=== PATIENT | male | born 1985 | race Caucasian/White ===

== ENCOUNTER 2018-06-04 22:34 | Observation (INO) | payer MEDICAID, SELFPAY ==
[2018-06-04 22:34] VITALS: BP 121/76; PULSE 130; RESP 20; TEMP 36.1; O2SAT 95; BMI 22.7
--- NOTE | 2018-06-04 22:47 | EKG12_ITS ---
Test Reason : CP Blood Pressure : / mmHG Vent. Rate : 109 BPM Atrial Rate : 109 BPM P-R Int : 134 ms QRS Dur : 084 ms QT Int : 320 ms P-R-T Axes : 070 064 063 degrees QTc Int : 430 ms Sinus tachycardia Otherwise normal ECG Confirmed by LAW GONZALES, JOSEFA ([id number]), video editor JOSE OLGUIN ([id number]) on 06/06/2018 9:33:45 AM Referred By: ROBYN/OK Confirmed By:JOSEFA FOY MD
--- NOTE | 2018-06-04 22:47 | CT_ITS ---
STUDY: CTA CHEST REASON FOR EXAM: Male, 32 years old. Chest pain with shortness of breath RADIATION DOSAGE (If Supplied By Facility): CTDIvol = ( 9.65 ) mGy, DLP = ( 363.99 ) mGycm TECHNIQUE: The examination was performed with the intravenous administration of 75ML ml of Isovue 370 contrast material. Post-processing of the angiographic images was performed, with multiplanar reformation and 3D reconstruction. Individualized dose optimization techniques were used for this CT. COMPARISON: None. FINDINGS: Evaluation for pulmonary embolism is limited by bolus timing. There is no pulmonary embolism within the main pulmonary artery, right and left main pulmonary arteries, lobar pulmonary arteries and proximal segmental pulmonary arteries. Further evaluation is limited. Normal thoracic aorta and visualized great vessels. There is no demonstrated aortic dissection. Normal heart and pericardium. Normal mediastinum. Normal hilar regions. Normal visualized trachea and bronchi. The lungs are well expanded. 3 mm right lower lobe calcified pulmonary nodule likely granuloma. 2 mm left upper lobe calcified pulmonary nodule likely granuloma. 5 mm left lower lobe pulmonary nodule. Areas of atelectasis/scarring. Normal pleura. Normal chest wall structures. There are degenerative changes of thoracic spine. Normal visualized upper abdomen. CT/CTA Chest W/WO Contrast IMPRESSION: Evaluation for pulmonary embolism is limited by bolus timing. There is no pulmonary embolism seen within the main pulmonary artery, right and left main pulmonary artery, lobar pulmonary arteries or proximal segmental pulmonary arteries. Further evaluation is limited. Follow-up imaging as clinically indicated. Evidence of prior granulomatous disease. There is a noncalcified left lower lobe 5 mm pulmonary nodule. This could represent sequela of prior infectious inflammatory process. However no prior studies are available for comparison. Recommend 6-12 month follow-up CT scan to ensure stability. Electronically Signed: Blu Mckeon, at 0:24 EST Tel , Service support ,
[2018-06-04 22:52] VITALS: PULSE 105; RESP 18
[2018-06-04] MEDS: Ipratropium/Albuterol Sulfate 3 ML AMPUL.NEB INHALATION (22:52)
[2018-06-04 23:05] LABS: Absolute Lymphocyte Count 3.03 X10^3/ul (0.83-4.51); Absolute Neutrophil Count 17.6 X10^3/uL (2.0-7.7); Basophil# 0.08 X10^3/uL; Basophil% 0.4 % (0-1); Eosinophil# 0.09 X10^3/uL; Eosinophils% 0.4 % (0-5); Hematocrit 45.2 % (40-54); Hemoglobin 15.3 g/dl (13.0-16.5); Lymphocyte # 3.03 X10^3/ul (4.0); Lymphocyte % 13.3 % (19-41); Mean Corp Hgb Conc 33.8 g/gl (32-36); Mean Corpuscular Hgb 30.7 pg (27.0-32.0); Mean Corpuscular Volume 90.8 fL (80-94); Mean Platelet Vol. 8.9 fl (6.2-12.0); Monocyte# 1.98 X10^3/uL; Monocyte% 8.7 % (0-10); Neutrophil # 17.58 X10^3/uL (2.7-7.7); Neutrophil % 76.8 % (47-70); Platelet Count 339 K/mm3 (150-450); RBC Distribution Width CV 13.7 % (11.6-14.6); RBC Distribution Width SD 45.1 fl (35.1-43.9); Red Blood Count 4.98 M/mm3 (4.6-6.2); White Blood Count 22.8 K/mm3 (4.4-11.0)
[2018-06-04 23:07] LABS: International Normalized Ratio 0.9; Prothrombin Time (Protime)PT. 12.5 SECONDS (11.7-14.9)
[2018-06-04 23:18] LABS: Anion Gap 12 (5-15); BUN 14 mg/dL (7-18); BUN/Creat Ratio 15.6 RATIO (10-20); Calcium,Total 8.9 mg/dL (8.5-10.1); Chloride 102 mmol/L (98-107); EST Glomerular Filtration Rate 104 mL/min (>60); Est Glom Filt Rate - Afr Amer 126 mL/min (>60); Estimated Creatinine Clearance 109.62 ml/min; Glucose 94 mg/dL (74-106); Potassium 4.1 mmol/L (3.5-5.1); Sodium Level 138 mmol/L (136-145)
[2018-06-04 23:21] LABS: Differential Indicated SCAN CRITERIA MET; POSITIVE COUNT NO; POSITIVE DIFFERENTIAL YES; POSITIVE MORPHOLOGY NO
[2018-06-04 23:56] VITALS: PULSE 102; RESP 25; O2SAT 97
[2018-06-04 23:58] LABS: Reactive Lymphocyte 1+
[2018-06-04 23:59] VITALS: BP 113/65
[2018-06-05] VITALS (9 sets, daily range): BP systolic 104–146; BP diastolic 52–94; PULSE 72–101; RESP 15–23; TEMP 36.7–36.8; O2SAT 95–99; BMI 22.0; BMI 22.1
--- NOTE | 2018-06-05 01:03 | PCM.HP.STD ---
Problem List (1) Pulmonary emboli Status: Suspected (2) Dermatitis Status: Chronic History of Present Illness Date of Admission: 06/05/18 Chief Complaint: chest pain The patient is a 32 year old M with a significant history of Homelessness; tobacco abuse; ethanol abuse; and methamphetamine who recently underwent detoxification for ethanol methamphetamine at [facility] [place], [place] now presenting with progressively worsening substernal sharp chest pain that is brought on by taking a deep breath. He rated the intensity of his pain as 5 out of 10. His chest pain does not radiate. Associated with his symptoms is shortness of breath at rest which increases with mild exertion. Denies any associated nausea, vomiting or diaphoresis. Patient spent 7 days at [facility]. He used to snort and smoke methamphetamine. The last time he used methamphetamine was about 11 days ago; and the last time he used ethanol was about 8 days ago. He reports some runny nose. At emergency department patient had tachycardia with highest heart rate of 130. He also had a tachypnea with highest respiratory rate of 25. He had a negative troponin and his EKG did not show any ST or T wave abnormalities. Emergency department doctor was suspicious for a PE for which reason CTPA was done. However there was poor timing of contrast for CTPA. CTPA did not show any embolus in the main pulmonary arteries. However it was not a good steady for smaller and peripheral arteries because of the poor timing of contrast. CTPA also showed some lesions which is probably granuloma. Because of high suspicion of PE patient was given therapeutic dose of Lovenox at emergency department. Patient denies any history of malignancy. He denies any family history of clots; he denies any surgery ever in his life. However whiles at the recovery center above he laid in the bed in all the time. He has some pain in his bilateral legs but he thinks that is from wearing boots. Patient was noted to have elevated white count of 22.8. Past Medical History Past Medical History (Chronic Problems): Chronic Problems (Last Updated 06/05/18 @ 03:29 by Jesus Gallardo MD) Dermatitis (Chronic) Medical History: Medical History (Last Updated 06/05/18 @ 03:29 by Jesus Gallardo MD) Hyperlipidemia E78.5 Allergies No Known Allergies Allergy (Verified 06/04/18 22:43) Home Medications: Ambulatory Orders Medication Instructions Recorded NK 06/04/18 Surgical History: no surgical history Lives: Homeless Smoking Status: Current every day smoker Tobacco Use: Cigarettes - *Family History Maternal History Items: Cancer - Colon cancer, Pulmonary Disease - Emphysema Paternal History Items: Diabetes, Hypertension, Stroke Review of Systems Constitutional: Denies: Chills, Fever, Weight Change HEENT: Reports: Sinus Drainage. Denies: Head Aches, Sinus Congestion Cardiovascular: Reports: Chest Pain. Denies: Palpitations Respiratory: Reports: Cough, Shortness of breath at rest. Denies: Sputum production Gastrointestinal: Denies: Abdominal Pain, Nausea, Vomiting Genitourinary: Denies: Dysuria Musculoskeletal: Denies: Joint Pain, Joint Tenderness Skin: Denies: Rash, Wounds Neurological: Denies: Numbness, Tingling, Focal weakness Psychiatric: Denies: Anxiety, Depression, Homicidal Ideations, Suicidal Ideations Hematologic/ Lymphatic: Denies: Easy Bruising, Easy Bleeding VTE Information - Inpt Only VTE Present on Admission: No - Suspected PE VTE Mechan Device Prophylaxis: None VTE Pharm Prophylaxis ordered?: No Reason prophylaxis not ordered:: Treatment Not Indicated VTE Suspected: Suspected PE - Patient is receiving therapeutic Lovenox for suspected PE. Patient Problems: Active and Suspected Problems (Last Updated 06/05/18 @ 03:29 by Jesus Gallardo MD) Pulmonary emboli (Suspected) - Physical Exam General: Alert, Oriented x3, Cooperative HEENT: Atraumatic, PERRLA, EOMI, Normocephalic Neck: Supple, No JVD, Negative Carotid Bruits Lungs: Clear to auscultation, Normal air movement, Tachypneic, - - Tender substernal area. Cardiovascular: No murmurs, Tachycardic Abdomen: Bowel Sounds Present, Soft, Non Tender Extremities: No edema, Capillary Refill Less than 3 Seconds Skin: No rashes, No breakdown Musculoskeletal: No Tenderness to Palpation of Joints or Extremities Neurological: Neuro grossly intact Psych/Mental Status: Normal Affect, Appropriate Vital Signs Temp Pulse Resp BP Pulse Ox 96.9 F L 101 H 15 144/94 H 95 06/04/18 22:34 06/05/18 00:12 06/05/18 00:12 06/05/18 00:12 06/05/18 00:12 Oxygen Delivery Method Room Air Weight: 65.771 kg Body Mass Index (BMI) 22.7 Laboratory Tests Past 24 Hrs 06/04/18 06/04/18 06/04/18 22:40 22:40 22:40 WBC 22.8 H RBC 4.98 Hgb 15.3 Hct 45.2 MCV 90.8 MCH 30.7 MCHC 33.8 RDW 13.7 RDW Differential 45.1 H Plt Count 339 MPV 8.9 Immature Gran % (Auto) 0.400 Neut % (Auto) 76.8 H Lymph % (Auto) 13.3 L Kaufman % (Auto) 8.7 Eos % (Auto) 0.4 Baso % (Auto) 0.4 Absolute Neuts (auto) 17.6 H Absolute Lymphs (auto) 3.03 Total Counted Not Reportable Differential Comment Diff Path Review May foll Reactive Lymphocytes 1+ PT 12.5 INR 0.9 Sodium 138 Potassium 4.1 Chloride 102 Carbon Dioxide 24.0 Anion Gap 12 BUN 14 Creatinine 0.90 Estim Creat Clear Calc 109.62 Est GFR (MDRD) Af Amer 126 Est GFR (MDRD) Non-Af 104 BUN/Creatinine Ratio 15.6 Glucose 94 Calcium 8.9 Troponin I < 0.015 Assessment/Plan The patient is a 32 year old M with a significant history of Homelessness; tobacco abuse; ethanol abuse; and methamphetamine who recently underwent detoxification for ethanol and methamphetamine at [facility] at [place] now presenting with progressively worsening substernal sharp chest pain that is brought on by taking a deep breath; with tachycardia; tachypnea; leukocytosis but with unremarkable and CTPA which had a poor timing of contrast. Chest pain Different diagnosis include pulmonary embolism; pericarditis; costochondritis or other. His was called for PE is 6.0 (PE is normal diagnosis or equally likely; heart rate more than 100; immobilization at least 3 days); moderate risk group. Patient received therapeutic dose of Lovenox at emergency department. Therapeutic Lovenox dose continued. We will get a VQ scan; Doppler of bilateral legs and echocardiogram. We will be careful about narcotic administration since patient was just discharged from the definite been in alcohol recovery program. Ibuprofen and Tylenol as needed for pain. We will get a comprehensive respiratory pathogen panel. Leukocytosis Patient denies any IV drug use and he has no fever. Likely reactive Comprehensive respiratory pathogen panel as above ordered. Trend BMP. Rhinorrhea Flonase ordered. Chronic dizziness Patient reports chronic dizziness. He describes his dizziness as momentarily losing focus. He reports that he is suppose to go for a tilt test. Continue outpatient follow-up. Tobacco abuse He reports a chronic cough that is worse in the morning with dark brown sputum. Counselled Nicotine patch ordered. Pulmonary nodules. Longitudinal follow-up. DVT Prophylaxis Not indicated patient is being treated with therapeutic dose of Lovenox for suspected pulmonary embolism.. Code Visit OBSV E&M: 69683 Initial observation care L3
--- NOTE | 2018-06-05 01:15 | ED.DCSUM_ITS ---
- ER Visit Summary Date of Service: 06/05/18 Chief Complaint: Chest pain and shortness of breath History of Present Illness: The patient is a 32 M who presents with chest pain and shortness of breath. This began yesterday. He describes it as sharp. It is worse with inspiration. It was 8 out of 10 earlier but has improved vomiting currently only complains of 4 out of 10 pain. He also states he feels lightheaded. He was just discharged today after being admitted for alcohol and methamphetamine detox. He does note some rhinorrhea and cough as well. Cough is nonproductive. No fevers. No nausea vomiting diarrhea. No abdominal pain. Physical Examination: Initial heart rate 130 vitals otherwise normal Moist mucous membranes Heart regular rhythm tachycardia He does have some expiratory wheezing no rales no rhonchi Abdomen soft nontender nondistended Extremities nontender without edema Alert Test Results: EKG shows sinus rhythm at a rate of 109. Labs notable for white blood cell count 22.8. BMP normal. INR normal. Troponin negative. CTA of the chest was inadequate due to poor bolus timing although there is no main lobar or proximal segmental pulmonary embolism. Emergency Department Course and Treatment: My initial concern given the patient's description of symptoms is for pulmonary embolism. His CTA was a poor study due to bolus timing. Therefore we did empirically give a dose of subcutaneous Lovenox here. He does have a significant leukocytosis which can be an acute phase reaction to pathologies. He does not have fever. The only infectious process I would be concerned about his pneumonia which is ruled out on CT. Therefore we did not empirically treat with antibiotics. I do not think that this is sepsis. Patient was discussed with the hospitalist and will be admitted. He should likely to be hydrated and have repeat CTA versus venous duplexes. Treatment Plan: [] Disposition: Admit Impression: Chest pain Leukocytosis This note was generated with [employer] dictation software. It may contain incorrect words, spelling, and punctuation that were not noted in review of the chart prior to signing ED Disposition - Plan for ED Patient: Chief Complaint: Chest Pain Referrals: Saleem Isaacs MD [Primary Care Provider] -
[2018-06-05] MEDS: Enoxaparin 60 MG/0.6 ML Syringe SC (01:49)
--- NOTE | 2018-06-05 02:58 | NM_ITS ---
CLINICAL: Male, 32 years old. Cough. Chest pain on deep inspiratory effort. NUCLEAR VENTILATION/PERFUSION - LUNG TECHNIQUE: The patient was administered 5.8 mCi of Tc MAA followed by a perfusion lung scan. The patient was administered 49.7 mCi of Tc DTPA aerosol followed by a ventilation lung scan. Comparison made to prior chest radiograph dated . COMPARISON STUDIES : Comparison is made with a prior examination done earlier today. FINDINGS: The pulmonary perfusion study demonstrates uniform perfusion throughout both lung thompson. There are no demonstrated segmental or subsegmental perfusion defects The ventilation study demonstrates uniform ventilation throughout both lung thompson. There are no segmental or subsegmental ventilation abnormalities. NM/Lung Scan Vent/Perf IMPRESSION: Normal 99m Tc MAA pulmonary perfusion Tc DTPA aerosol ventilation imaging survey, according to revised PIOPED interpretive criteria. Electronically Signed: Benoit Mera MD at 11:22 EST Tel [phone], Service support ,
[2018-06-05] MEDS: 0.9% NaCl Peripheral Flush Adult/Peds IV (03:32)
[2018-06-05] MEDS: 0.9% Normal Saline 1,000 ML 100 ML IV (03:32)
[2018-06-05 05:39] LABS: Hematocrit 43.5 % (40-54); Hemoglobin 14.4 g/dl (13.0-16.5); Mean Corp Hgb Conc 33.1 g/gl (32-36); Mean Corpuscular Hgb 30.1 pg (27.0-32.0); Mean Corpuscular Volume 90.8 fL (80-94); Mean Platelet Vol. 9.1 fl (6.2-12.0); Platelet Count 320 K/mm3 (150-450); RBC Distribution Width CV 13.6 % (11.6-14.6); RBC Distribution Width SD 44.6 fl (35.1-43.9); Red Blood Count 4.79 M/mm3 (4.6-6.2)
--- NOTE | 2018-06-05 05:55 | VDLE_ITS ---
Reason For Study: PE RIGHT LEFT GSV is normal. GSV is normal. CFV is compressible, spontaneous, phasic, CFV is compressible, spontaneous, phasic, competent and demonstrates normal competent, and demonstrates normal augmentation. augmentation. FV is compressible, spontaneous, phasic, FV is compressible, spontaneous, phasic, competent and demonstrates normal competent and demonstrates normal augmentation. augmentation. POP V is compressible, spontaneous, phasic, POP V is compressible, spontaneous, phasic, competent and demonstrates normal competent and demonstrates normal augmentation. augmentation. T/P Trunk is compressible. T/P Trunk is compressible. PTV is compressible. PTV is compressible. RT PerV is compressible. LT PerV is compressible. Procedure Exam performed portable in patient room. A preliminary report was called and/or faxed to [facility]. Interpretation Summary No evidence for acute deep venous thrombosis bilateral lower extremities with patent and compressible bilateral great saphenous veins. Ordering Physician: Jesus Gallardo Referring Physician: Saleem Isaacs Performed By: Charity Zavala RVT
[2018-06-05 06:25] LABS: Scan Indicated on CBC? Y/N NO
--- NOTE | 2018-06-05 09:09 | RAD_ITS ---
STUDY: X-RAY CHEST REASON FOR EXAM: Male, 32 years old. Dyspnea. Sternal chest pain. TECHNIQUE: PA and lateral views of the chest. COMPARISON: Comparison is made with prior study dated October 21, 2016. FINDINGS: Hyperinflation. Decreased bronchovascular markings suggestive of emphysematous changes. There is no demonstrated pleural abnormality. Normal size heart. Normal mediastinum and kaylah. Normal visualized pulmonary arteries. Normal visualized aortic arch and descending thoracic aorta. Normal visualized thoracic spine. Normal visualized ribs, clavicles, and shoulders. There is no demonstrated abnormality of the visualized soft tissue structures of the upper abdomen. RAD/Chest PA and Lateral IMPRESSION: Hyperinflation. No acute abnormality is seen. Electronically Signed: Benoit Mera MD at 13:20 EST Tel [phone], Service support ,
--- NOTE | 2018-06-05 09:45 | NURSING ---
to VQ scan
[2018-06-05 11:52] LABS: Pathologist Review Reviewed
--- NOTE | 2018-06-05 12:36 | DCINST_ITS ---
You will use the following diet at home:: Regular Your food should be the consistency of: Regular Your liquids should be the consistency of: Regular/Thin Discharge Activity: Return to Normal Activity Call your doctor if you observe: Fever of 101 or Higher, Shortness of breath, Dizziness, Fainting spells, Chest pain, Increased palpitations (irregular heartbeat) Allergies/Adverse Reactions: Allergies No Known Allergies Allergy (Verified 06/04/18 22:43) Medications to take at Discharge Sertraline HCl [Zoloft] 50 mg PO DAILY #30 tablet 06/05/18 The following prescriptions were given: Sertraline HCl [Zoloft] 50 mg PO DAILY #30 tablet Primary Care Physician: Saleem Isaacs MD [Primary Care Provider] - Please follow up with your Primary Care Physician in: 3-5 days Test Results: Test results from this visit will be discussed in further detail at your follow- up appointment, if applicable.
--- NOTE | 2018-06-05 12:36 | PCM.DC.SUM ---
Discharge Date and Diagnosis - Problem List Patient Problems: Active and Suspected Problems (Last Updated 06/05/18 @ 03:29 by Jesus Gallardo MD) Pulmonary emboli (Suspected) Date of Admission: 06/05/18 Date of Discharge: 06/05/18 - Primary Discharge Diagnosis Active and Suspected Problems (Last Updated 06/05/18 @ 03:29 by Jesus Gallardo MD) Pulmonary emboli (Suspected) - Secondary Discharge Diagnosis Chronic Problems (Last Updated 06/05/18 @ 03:29 by Jesus Gallardo MD) Dermatitis (Chronic) Hospital Course and Treatment Imaging Results: CTA Chest: IMPRESSION: Evaluation for pulmonary embolism is limited by bolus timing. There is no pulmonary embolism seen within the main pulmonary artery, right and left main pulmonary artery, lobar pulmonary arteries or proximal segmental pulmonary arteries. Further evaluation is limited. Follow-up imaging as clinically indicated. Evidence of prior granulomatous disease. There is a noncalcified left lower lobe 5 mm pulmonary nodule. This could represent sequela of prior infectious inflammatory process. However no prior studies are available for comparison. Recommend 6-12 month follow-up CT scan to ensure stability. V/Q Scan: IMPRESSION: Normal 99m Tc MAA pulmonary perfusion Tc DTPA aerosol ventilation imaging survey, according to revised PIOPED interpretive criteria. B/L Venous Doppler: Interpretation Summary No evidence for acute deep venous thrombosis bilateral lower extremities with patent and compressible bilateral great saphenous veins. Consults: None Operations: None Procedures: None Summary of Care Provided: Per HPI: The patient is a 32 year old M with a significant history of Homelessness; tobacco abuse; ethanol abuse; and methamphetamine who recently underwent detoxification for ethanol methamphetamine at [facility] at [place], [place] now presenting with progressively worsening substernal sharp chest pain that is brought on by taking a deep breath. He rated the intensity of his pain as 5 out of 10. His chest pain does not radiate. Associated with his symptoms is shortness of breath at rest which increases with mild exertion. Denies any associated nausea, vomiting or diaphoresis. Patient spent 7 days at [facility]. He used to snort and smoke methamphetamine. The last time he used methamphetamine was about 11 days ago; and the last time he used ethanol was about 8 days ago. He reports some runny nose. At emergency department patient had tachycardia with highest heart rate of 130. He also had a tachypnea with highest respiratory rate of 25. He had a negative troponin and his EKG did not show any ST or T wave abnormalities. Emergency department doctor was suspicious for a PE for which reason CTPA was done. However there was poor timing of contrast for CTPA. CTPA did not show any embolus in the main pulmonary arteries. However it was not a good steady for smaller and peripheral arteries because of the poor timing of contrast. CTPA also showed some lesions which is probably granuloma. Because of high suspicion of PE patient was given therapeutic dose of Lovenox at emergency department. Patient denies any history of malignancy. He denies any family history of clots; he denies any surgery ever in his life. However whiles at the recovery center above he laid in the bed in all the time. He has some pain in his bilateral legs but he thinks that is from wearing boots. Patient was noted to have elevated white count of 22.8. Hospital Course: 1. Pleuritic chest pain/anxiety-Mr. Lin is a 32-year-old male with a history of drug use including methamphetamines who was just recently discharged from a detox center, when he presented with tachycardia and tachypnea and pleuritic chest pain in the center of his chest. He had a CTA in the ER which was negative for PE but the study was not great so had a VQ scan which was normal. His troponins remain negative x3 and his EKG was unremarkable. He did not want to wait for the echo to be performed, which can be performed as an outpatient if his primary care physician thinks is necessary. He thinks that he was probably having a panic attack which, he says, he is chronically anxious. I discussed with him that given the lack of findings on any studies performed during his hospitalization, he could go home as long as he followed up with his primary care physician. Of note on the CTA, he was found to have a 5 mm nodule which will need to be followed up in 6-12 months. He was discharged on Zoloft 50 mg and he will need to follow-up for dose titration and refill. 2. Leukocytosis -reviewing his labs looks like he had leukocytosis back in 2013 and 2014 though not as high as what it was this time. Could be a stress reaction though the CTA does demonstrate history of possible granulomatous disease. He will need to have this monitored as an outpatient. Patient Problems: Active and Suspected Problems (Last Updated 06/05/18 @ 03:29 by Jesus Gallardo MD) Pulmonary emboli (Suspected) - Physical Exam General: Alert, Oriented x3, Cooperative, No apparent distress HEENT: Atraumatic, PERRLA, EOMI, Normocephalic Oral: Moist Mucosa Neck: Supple, No JVD Lungs: Clear to auscultation, Normal air movement, No rhonchi, No wheeze, No rales Cardiovascular: Regular rate, Regular Rhythm, Normal S1, Normal S2, No murmurs, No rub noted, No Gallop Abdomen: Soft, Non Tender, Non-Distended, No Hepato-splenomegaly Extremities: No edema, Capillary Refill Less than 3 Seconds Skin: No rashes, No breakdown Neurological: Neuro grossly intact, Sensory exam intact to light touch and pain Psych/Mental Status: Normal Affect, Appropriate Vital Signs Temp Pulse Resp BP Pulse Ox 98.3 F 79 16 104/61 97 06/05/18 08:00 06/05/18 08:00 06/05/18 08:00 06/05/18 08:00 06/05/18 08:00 Oxygen Delivery Method Room Air Weight: 145 lb 1.027 oz Body Mass Index (BMI) 22.0 Intake and Output for Last 24 Hours 06/03/18 06/04/18 06/05/18 23:59 23:59 23:59 Intake Total 1113 / 1113 Balance 1113 / 1113 Microbiology Past 72 Hours 06/05/18 07:00 Respiratory Panel (PCR) - Final Mucosa - Nasopharyngeal Laboratory Tests Past 24 Hrs 06/04/18 06/04/18 06/04/18 22:40 22:40 22:40 WBC 22.8 H RBC 4.98 Hgb 15.3 Hct 45.2 MCV 90.8 MCH 30.7 MCHC 33.8 RDW 13.7 RDW Differential 45.1 H Plt Count 339 MPV 8.9 Immature Gran % (Auto) 0.400 Neut % (Auto) 76.8 H Lymph % (Auto) 13.3 L Rolette % (Auto) 8.7 Eos % (Auto) 0.4 Baso % (Auto) 0.4 Absolute Neuts (auto) 17.6 H Absolute Lymphs (auto) 3.03 Total Counted Not Reportable Differential Comment Diff Path Review Reviewed Reactive Lymphocytes 1+ PT 12.5 INR 0.9 Sodium 138 Potassium 4.1 Chloride 102 Carbon Dioxide 24.0 Anion Gap 12 BUN 14 Creatinine 0.90 Estim Creat Clear Calc 109.62 Est GFR (MDRD) Af Amer 126 Est GFR (MDRD) Non-Af 104 BUN/Creatinine Ratio 15.6 Glucose 94 Calcium 8.9 Troponin I < 0.015 06/05/18 06/05/18 06/05/18 02:20 05:05 05:05 WBC 18.0 H RBC 4.79 Hgb 14.4 Hct 43.5 MCV 90.8 MCH 30.1 MCHC 33.1 RDW 13.6 RDW Differential 44.6 H Plt Count 320 MPV 9.1 Immature Gran % (Auto) Neut % (Auto) Lymph % (Auto) Rolette % (Auto) Eos % (Auto) Baso % (Auto) Absolute Neuts (auto) Absolute Lymphs (auto) Total Counted Differential Comment Diff Path Review Reactive Lymphocytes PT INR Sodium Potassium Chloride Carbon Dioxide Anion Gap BUN Creatinine Estim Creat Clear Calc Est GFR (MDRD) Af Amer Est GFR (MDRD) Non-Af BUN/Creatinine Ratio Glucose Calcium Troponin I < 0.015 < 0.015 Discharge Activity: Return to Normal Activity Call your doctor if you observe: Fever of 101 or Higher, Shortness of breath, Dizziness, Fainting spells, Chest pain, Increased palpitations (irregular heartbeat) Home Medications: Medications to take at Discharge Sertraline HCl [Zoloft] 50 mg PO DAILY #30 tablet 06/05/18 Following Prescrptions Were Given to Patient: Sertraline HCl [Zoloft] 50 mg PO DAILY #30 tablet Primary Care Physician: Saleem Isaacs MD [Primary Care Provider] - Please follow up with your Primary Care Physician in: 3-5 days Disposition: Home Minutes spent on discharge:: 35 Patient Condition:: Good Medical Necessity - Tobacco Use Smoking Status: Current every day smoker Tobacco Use: Cigarettes Meaningful Use Info Meaningful Use Diagnoses (Choose all that apply): None applicable Code Visit OBSV E&M: 90645 Observation care discharge
--- NOTE | 2018-06-05 12:58 | CASEMGMT ---
RN said patient is homeless and was interested in sober living places. SW met with patient and he said he was at [facility], but then he left for detox. You are not allowed to return for awhile after leaving. JOAN asked if he was familiar with the shelters in [place] or [place]. He said he is and does not want information. JOAN asked if he is familiar with [facility]. He said he plans on going there when he leaves hospital. He thanked JOAN for checking in with him. Zina MENDOZA MSW
== END 2018-06-05 12:35 | disposition home or self-care (01) ==
LOC: ED 22:55 → PCU 06-05 02:12
PROVIDERS: Admitting Provider Hospitalist; Emergency Provider Emergency Medicine; Family Provider Family Medicine; PCP Family Medicine; Visit Provider Family Medicine
DX: R07.89 Other chest pain (principal); L30.9 Dermatitis, unspecified; R91.1 Solitary pulmonary nodule; Z23 Encounter for immunization; Z59.0 Homelessness; R06.02 Shortness of breath; F17.210 Nicotine dependence, cigarettes, uncomplicated; D72.829 Elevated white blood cell count, unspecified; R42 Dizziness and giddiness; F41.9 Anxiety disorder, unspecified
CPT/HCPCS: 36415; 71046; 71275; 78582; 80048; 84484; 85025; 85027; 85610; 87633; 93005; 93970; 94640; 96360; 96361; 96372; 99218; 99251; 99285; A9540; A9567; J7030; Q9967; 90686; A4216; G0378; G0463

== ENCOUNTER 2018-06-16 06:24 | Emergency (ER) | payer MEDICAID, SELFPAY ==
[2018-06-05 02:17] VITALS: BMI 22.0
[2018-06-16 06:25] VITALS: BP 128/79; PULSE 77; RESP 16; TEMP 36.7; O2SAT 100; BMI 23.8
--- NOTE | 2018-06-16 06:50 | ED.DCSUM_ITS ---
- ER Visit Summary Date of Service: 06/16/18 Chief Complaint: Shortness of breath History of Present Illness: The patient is a 32 M who was at work this morning and felt about 2 minutes of chest tightness and shortness of breath. 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 He states that he has been under a lot of stress recently and has been diagnosed with anxiety. He relates his symptoms to anxiety. He was thinking about stressful thoughts at the time. He adamantly denies any suicidal thoughts or ideation. Denies any history of depression. Denies recent travel or mobilization. Denies lower extremity pain or swelling. Denies family history of cardiac disease at young age. Denies any associated diaphoresis or exertional component. Physical Examination: Vitals are within normal limits. Pulse ox is 100%. He is not in distress. Neck is supple. Heart tones are regular and without murmur. Lungs are clear bilaterally. Abdomen is soft and nontender. No tenderness along the lower extremity venous system, edema, palpable cords, or other evidence of DVT. He is alert and oriented x3. Thought content is normal. No depressed mood. No suicidal thoughts or ideation. Test Results: Two-view chest x-ray is pending. EKG unremarkable. Emergency Department Course and Treatment: Care will be turned over to the oncoming physician to check the chest x-ray. EKG is unremarkable. It does not sound like cardiac pain versus description. He has no evidence of DVT and no history of PE. The pain is not pleuritic. It seems secondary to anxiety but he adamantly denies any thoughts of self-harm. He does not appear to be at risk for suicide. I did encourage him to establish with a counselor and take the anxiety medication that he was prescribed recently. I feel he can safely be discharged home and chest x-ray is negative. Will return here if worse. Treatment Plan: Home if negative x-ray Disposition: Home stable Impression: Initial encounter chest pain uncertain etiology, anxiety/stress This note was generated with [employer] dictation software. It may contain incorrect words, spelling, and punctuation that were not noted in review of the chart prior to signing ED Disposition - Plan for ED Patient: Chief Complaint: Chest Pain Referrals: Saleem Isaacs MD [Primary Care Provider] -
--- NOTE | 2018-06-16 06:53 | RAD_ITS ---
STUDY: X-RAY CHEST REASON FOR EXAM: Male, 32 years old. Chest pain TECHNIQUE: 2 views COMPARISON: None. FINDINGS: There is COPD demonstrated by flattening of hemidiaphragms and hyperinflation of the lungs. There is no acute pneumonia or failure. The heart is within normal limits in size. Normal visualized thoracic spine. Normal visualized ribs, clavicles, and shoulders. There is no demonstrated abnormality of the visualized soft tissue structures of the upper abdomen. RAD/Chest PA and Lateral IMPRESSION: COPD. No acute findings in the lungs. Electronically Signed: Lupillo Myers MD at 7:28 EST Tel , Service support ,
[2018-06-16 07:50] VITALS: BP 102/77; PULSE 72; RESP 21; O2SAT 97
--- NOTE | 2018-06-16 07:54 | ED.DEP ---
ED Disposition - Plan for ED Patient: Chief Complaint: Chest Pain Instructions: Coping with Shortness of Breath: Controlling Stress Referrals: Saleem Isaacs MD [Primary Care Provider] -
--- NOTE | 2018-06-16 07:57 | EKG12_ITS ---
Test Reason : CP Blood Pressure : / mmHG Vent. Rate : 068 BPM Atrial Rate : 068 BPM P-R Int : 136 ms QRS Dur : 088 ms QT Int : 376 ms P-R-T Axes : 068 069 058 degrees QTc Int : 399 ms Normal sinus rhythm with sinus arrhythmia Normal ECG Confirmed by LAW GONZALES, JOSEFA ([id number]), image editor YOANA STEWART ([id number]) on 06/19/2018 9:41:01 AM Referred By: TRANG Confirmed By:JOSEFA FOY MD
[2018-06-16 08:15] VITALS: BP 121/75; PULSE 88; RESP 17; O2SAT 99
--- OUTSIDE RECORDS SUMMARY | 2018-08-20 14:04 | XMS RPT_ITS ---
:1985 Author Organization OH[facility] Care Team Providers Name Role Phone Nicki SERRANO ([facility]CH[facility]) Attending Unavailable Saleem Isaacs Primary Care Unavailable Jesus Gallardo Admitting Unavailable Parviz Garcia Attending Unavailable Jesus Gallardo Admitting Unavailable Jesus Gallardo Attending Unavailable Saleem Isaacs Primary Care Unavailable Jesus Gallardo Consulting Unavailable Saleem Isaacs Primary Care Unavailable Isreal Bright Attending Unavailable ShitalSaleem romeo Primary Care Unavailable Brian Mccullough Attending Unavailable PROBLEMS PROBLEMS No Problem Records FoundPROCEDURES PROCEDURES No Procedure Records FoundRESULTS RESULTS EMERGENCY DEPARTMENT Observed: 06/24/2018 Status: C Source: [place] SUMMARY 10:20 AM [facility] REPOSITORY [facility] Medical Records Department [address] [place] [address] Emergency Department Summary 06/24/18 0347 MR#: [id number] Acct: [id number] Name: VINCENT JUNE Jr. Rep #: [id number] : 1985 32 From: Brian Mccullough MD PCP: Saleem Isaacs MD Status: REG ER ADDENDUM by Jenni Renteria MD on 06/24/18 at 1020 She was signed out to me pending evaluation by crisis. Digna from the counseling center saw the patient. Patient denies suicidal ideation at this time and never had a plan. He is already set up with 180. He has forward thinking and plans to see his children. He will follow-up with his primary care physician regarding his depression medication and Digna will call him today for a follow-up phone call. Disposition: Discharge Impression: EtOH intoxication Date Jenni Renteria MD cc: Saleem Isaacs MD * Addendum - ER Visit Summary Date of Service: 06/24/18 Chief Complaint: Depression and suicidal thoughts History of Present Illness: The patient is a 32 M who presents with depression and suicidal thoughts. He states he is upset because he does not get to see his children anymore. He does not have any specific plan but states that he just does not want to live. He is intoxicated. Physical Examination: Afebrile vitals normal No distress Heart regular rate and rhythm Lungs are clear Abdomen soft Alert Patient endorses suicidal thoughts without specific plan or homicidal thoughts Test Results: EKG shows normal sinus rhythm at a rate of 86. Labs are notable for white blood cell count 13.6, alcohol of 312. Emergency Department Course and Treatment: Patient is clinically intoxicated. He will need to be reevaluated once sober and can have crisis evaluation once sober which will occur after signed out to the oncoming physician this morning. Treatment Plan: [] Disposition: Pending reevaluation and crisis evaluation Impression: Acute alcohol intoxication Suicidal ideation This note was generated with evly dictation software. It may contain incorrect words, spelling, and punctuation that were not noted in review of the chart prior to signing ED Disposition - Plan for ED Patient: Chief Complaint: Suicidal Referrals: Saleem Isaacs MD [Primary Care Provider] - What to do if you have Problems For any increased pain, shortness of breath, bleeding, nausea or vomiting, chest pain, or any unexpected problems, contact your Primary Care Provider. Call [facility] ([phone]) or report to the closest Emergency Room. Call 911 if necessary. 06/24/18 0349 <Electronically signed by Brian Mccullough MD> Date Brian Mccullough MD Cosigner Signature (If Indicated): Date CC: Saleem Isaacs MD DISCHARGE INSTRUCTION Observed: 06/24/2018 Status: F Source: [place] 10:20 AM [facility] REPOSITORY [facility] Medical Records Department [address] [place] [address] Discharge Instruction 06/24/18 1020 MR#: [id number] Acct: [id number] Name: SHAYLEEVINCENTARTURO Forbes Jr. Rep #: [id number] : 1985 32 From: Jenni Renteria MD PCP: Saleem Isaacs MD Status: REG ER ED Disposition - Plan for ED Patient: Disposition: Home or Assisted Living Chief Complaint: Suicidal Instructions: ED Alcohol Intoxication Referrals: Saleem Isaacs MD [Primary Care Provider] - EIGHTY,ONE [STAFF PHYSICIAN] - What to do if you have Problems For any increased pain, shortness of breath, bleeding, nausea or vomiting, chest pain, or any unexpected problems, contact your Primary Care Provider. Call [facility] ([phone]) or report to the closest Emergency Room. Call 911 if necessary. 06/24/18 1020 <Electronically signed by Jenni Renteria MD> Date Jenni Parkigner Signature (If Indicated): Date CC: Saleem Isaacs MD URINE DRUG SCREEN Collected: 06/23/2018 Status: F Source: [place] ([facility]) 11:20 PM [facility] REPOSITORY TYPE CODE TESTS RESULT OUT OF RANGE REFERENCE UNITS LAB L505.0075 TO BE Normal CONFIRMED Result Comment: CONFIRMATORY TESTING FOR ALL POSITIVE URINE DRUG SCREEN RESULTS WILL ONLY BE SENT OUT UPON PHYSICIAN ORDER. VISTA Urine Drug Screen methods provide only preliminary analytical test results. A more specific alternate chemical method must be used in order to obtain a confirmed analytical result. Gas chromatography/mass spectrometery (GC/MS) is the preferred confirmatory method. Clinical consideration and professional judgement should be applied to any drug of abuse test result, particularly when preliminary positive results are used. URINE TCA TESTING MUST BE ORDERED SEPARATELY. USE TEST MNEMONIC: [facility] LAB L505.5005 VISTA UDS PH 6 Normal LAB L505.5015 <1000 ng/mL AMPHETAMINES Normal NEGATIVE LAB L505.5025 < 200 ng/mL BARBITIURATES Normal NEGATIVE LAB L505.5035 < 200 ng/mL BENZODIAZIPINE Normal NEGATIVE LAB L505.5045 < 300 ng/mL COCAINE Normal NEGATIVE LAB L505.5055 < 500 ng/mL ECSTACY Normal NEGATIVE LAB L505.5065 < 300 ng/mL METHADONE Normal NEGATIVE LAB L505.5075 < 300 ng/mL OPIATES Normal NEGATIVE LAB L505.5085 < 25 ng/mL PCP Normal NEGATIVE LAB L505.5095 < 50 ng/mL THC Normal NEGATIVE Performed By: #### L505.5000 #### [facility] [address] [place], [address] CBC W/DIFF, AUTOMATED Collected: 06/23/2018 Status: F Source: [place] 11:20 PM [facility] REPOSITORY TYPE CODE TESTS RESULT OUT OF RANGE REFERENCE UNITS LAB L100.1000 4.4-11.0 K/mm3 High WBC 13.6 LAB L100.1200 4.6-6.2 M/mm3 Normal RBC 4.93 LAB L100.1300 13.0-16.5 g/dl Normal HGB 14.9 LAB L100.1400 40-54 % Normal HCT 44.4 LAB L100.1500 80-94 fL Normal MCV 90.1 LAB L100.1600 27.0-32.0 pg Normal MCH 30.2 LAB L100.1700 32-36 g/gl Normal MCHC 33.6 LAB L100.1810 11.6-14.6 % Normal RDW CV 13.5 LAB L100.1820 35.1-43.9 fl High RDW SD 44.1 LAB L100.1900 150-450 K/mm3 Normal PLT 321 LAB L100.2000 6.2-12.0 fl Normal MPV 9.1 LAB L100.2100 47-70 % Normal NEUT% 54.3 LAB L100.2200 19-41 % Normal LY% 35.6 LAB L100.2300 0-10 % Normal MONO% 6.1 LAB L100.2400 0-5 % Normal EO% 2.8 LAB L100.2500 0-1 % Normal BASO% 0.9 LAB L100.2550 0.0-0.9 % Normal IM GRAN % 0.300 Result Comment: IG% - Immature Granulocytes (promyelocytes, myelocytes and metamyelocytes) > 1% indicates that a LEFT SHIFT is Present. LAB L100.2620 2.0-7.7 X10 3/uL Normal Absolute Neut 7.4 LAB L100.2720 0.83-4.51 X10 3/ul High Absolute Lymph 4.83 Performed By: #### L100.0100 #### [facility] [address] [place], [address] COMPREHENSIVE METABOLIC Collected: 06/23/2018 Status: F Source: [facility] 11:20 PM [facility] REPOSITORY TYPE CODE TESTS RESULT OUT OF RANGE REFERENCE UNITS LAB L501.0100 74-106 mg/dL Normal GLU 101 Result Comment: Fasting Glucose result from 100 to 125 mg/dL suggests IMPAIRED HOMEOSTASIS per A.D.A. criteria. Please note revised GLUCOSE reference range effective 2017. LAB L501.1000 7-18 mg/dL Normal BUN 9 LAB L501.1100 0.70-1.30 mg/dL Normal CREAT,SERUM 0.87 Result Comment: The validity of the calculated GFR AND GFRAA in patients over 70 years has not been determined. Clinical correlation is essential. LAB L501.1110 >60 mL/min Normal EST GFR 108 Result Comment: Non- GFR Calc LAB L501.1115 >60 mL/min Normal EST GFR - AA 130 Result Comment: GFR Calc LAB L501.1255 ml/min Normal Estimated CRCL 113.79 LAB L501.1300 10-20 RATIO BUN/CRE Normal 10.3 LAB L501.1500 6.4-8. g/dL 2 T PROT Normal 6.9 LAB L501.1800 3.2-5. g/dL 0 ALB Normal 3.6 LAB L501.1950 2.2-4. g/dL 2 GLOB Normal 3.3 LAB L501.2000 0.9-2. RATIO 4 A/G Normal 1.1 LAB L501.2200 8.5-10 mg/dL Low .1 CA 7.8 LAB L501.4100 15-37 U/L AST Normal 24 LAB L501.4305 45-117 U/L ALK P Normal 67 LAB L501.4405 16-61 U/L ALT Normal 29 LAB L501.4600 0.20-1 mg/dL Low .00 T BILI 0.10 LAB L501.5300 136-14 mmol/L 5 NA Normal 142 LAB L501.5600 3.5-5. mmol/L 1 K Normal 3.5 LAB L501.5900 98-107 mmol/L High CL 109 LAB L501.6100 21.0-3 mmol/L 2.0 CO2 Normal 23.0 LAB L501.6200 5-15 GAP Normal 10 Performed By: #### L500.4050 #### [facility] [address] [place], [place], [address] ALCOHOL, BLOOD Collected: 06/23/2018 Status: F Source: [place] ([facility] 11:20 PM [facility] REPOSITORY TYPE CODE TESTS RESULT OUT OF RANGE REFERENCE UNITS LAB L501.9100 mg/dL High alert SERUM 312.0 ETOH Result Comment: Critical Result(s) Called at: 00:39:16 06/24/2018 by: Dewayne Dukes to [email or web address] The serum:whole blood ethanol ratio is approximately 1.14 and varies slightly with hematocrit. Medical Alcohol reference interval and critical value in non-tolerant individuals; 50 - 100 Impairment 100 Intoxication 100 - 250 Severe Poisoning 250 - 400 Deep/possible fatal coma Performed By: #### L501.9100 #### [facility] [address] [place], [place], [address] PROGRESS Observed: 06/20/2018 Status: COMPLETED Source: [place] 1:37 PM [facility] REPOSITORY HNO ID: [id number] Author: Nicki Munguia (EnochC) Zach Service: (none) Author Type: Physician Phlebotomy Lab Assistant Type: Progress Notes Filed: 06/20/2018 3:11 PM Note Text: 32 year old male with hx ADHD c/o panic attacks so bad I can't breathe over last month. Recovering addict with alcohol and meth. Checked into rehab in [facility]. Has smoked marijuana since age 11. Has episodes with lightheadedness after standing up quickly or for long periods. Depression: positive guilt, hopelessness, low mood, suicidal thoughts. No specific plan but has thought he would like to . Was working at [employer]. Got sharp pain in chest, went to [facility] ED: EKG, cardiac enzymes WNL last and previously 2 weeks a prior. Was admitted overnight. Living at [employer]. Smokes 1PPD. Lost job because to difficult to get to work. Has three daughters. Mother of children has from him and is resistant in relationship currently. HISTORIES FAMILY HISTORY Problem Relation Age of Onset - COPD Mother - Stroke Father PAST MEDICAL HISTORY Diagnosis Date - Blind left eye congenital PAST SURGICAL HISTORY Procedure Laterality Date - RMVL SKIN LESION SNGL multiple cysts Social History Marital status: Single Spouse name: Years of education: Number of children: Social History Main Topics Smoking status: Current Every Day Smoker Packs/day: 1.00 Years: 0.00 Types: Cigarettes Smokeless tobacco: Former User Alcohol use: No Drug use: No Sexual activity: Yes Partners with: Female control/protection: Condom ACTIVE PROBLEM LIST Sebaceous Cyst Attention Deficit Hyperactivity Disorder (Adhd), Predominantly Inattentive Type Current Outpatient Prescriptions: tamsulosin ER (FLOMAX) 0.4 mg cp24 Disp: Rfl: doxycycline monohydrate (MONODOX) 100 mg capsule Take 1 capsule by mouth twice daily. Disp: 20 capsule Rfl: 0 albuterol HFA (VENTOLIN HFA) 90 mcg/actuation inhaler Inhale 2 Puffs as instructed every 4 hours as needed for Wheezing/Shortness of Breath. Disp: 1 Inhaler Rfl: 1 No current facility-administered medications for this visit. DTAP,TDAP,TD(1 - Tdap) due on 2004 ONE PNEUMOVAX PRIOR TO AGE 65 due on 2004 INFLUENZA(1) due on 01/28/2018 EXAM: BP 110/68 (BP Site: Left Arm, BP Position: Sitting, BP Cuff Size: Regular Adult) Pulse 64 Temp 36.1 ?C (96.9 ?F) (Tympanic) Resp 16 Wt 66.7 kg (147 lb) BMI 22.68 kg/m? Pleasant anxious young man, lean but WNWG, in no acute distress. Alert and oriented all spheres. Normal affect and cognition. Speech normal. No deficits to learning or comprehension. Easy rapport. Skin warm, dry, pink to lips and nailbeds. Normal turgor. Respirations regular and unlabored. HEENT WNL. TM's clear. Nose and oropharynx free from injection or lesion. No cervical lymph nodes. Thyroid non-tender, no masses Chest CTA. HRRR without murmur or gallop. Extrem: no clubbing, cyanosis, edema. Extremities are warm and pink with prompt capillary refill. ASSESSMENT/PLAN: 1. Panic attacks - ICD9: 300.01, ICD10: F41.0 (primary diagnosis) Start paxil 10mg. SSRI therapy reviewed with administration, expectations, side effects, 6-24 months recommended if beneficial, tapered discontinuation. Discussed counseling as alternative or adjunct. Trazedone 50mg at HS. Verbal promise not to injure himself. Identifies needs to get well for children. F/u 4 weeks., 2. Polysubstance (excluding opioids) dependence (HCC) - ICD9: 304.80, ICD10: F19.20 Following with outpatient meeting 3. Tobacco dependence - ICD9: 305.1, ICD10: F17.200 - Cessation encouraged. - Physiologic and physical aspects of tobacco addiction as well as strategies for quitting were discussed. - Counseling was given focusing on the harmful effects of this addiction especially given the patient's medical condition(s) which will be worsened because of the chemicals in tobacco. 4. Adjustment disorder with depressed mood - ICD9: 309.0, ICD10: F43.21 Consult to Counseling Center. Crisis team number provided if needed. F/u 4 weeks M MADELIN Sanchez Observed: 06/20/2018 Status: COMPLETED Source: [place] 1:20 PM [facility] REPOSITORY Office Visit (FAMPWS) VINCENT JUNE ([id number]) 1985 M [facility] Date Time Provider Department 06/20/18 1:20 PM Nicki SERRANO) KATHLEEN During your visit today, we recorded the following information about you: Temperature Pulse Respiration Blood pressure 96.9 degrees 64/minute 16/minute 110/68 Weight 66.7 kg M Ezra Serrano PA-C 06/20/2018 3:11 PM Signed 32 year old male with hx ADHD c/o panic attacks so bad I can't breathe over last month. Recovering addict with alcohol and meth. Checked into rehab in [facility]. Has smoked marijuana since age 11. Has episodes with lightheadedness after standing up quickly or for long periods. Depression: positive guilt, hopelessness, low mood, suicidal thoughts. No specific plan but has thought he would like to . Was working at [employer]. Got sharp pain in chest, went to [facility] ED: EKG, cardiac enzymes WNL last and previously 2 weeks a prior. Was admitted overnight. Living at [employer]. Smokes 1PPD. Lost job because to difficult to get to work. Has three daughters. Mother of children has from him and is resistant in relationship currently. HISTORIES FAMILY HISTORY Problem Relation Age of Onset - COPD Mother - Stroke Father PAST MEDICAL HISTORY Diagnosis Date - Blind left eye congenital PAST SURGICAL HISTORY Procedure Laterality Date - RMVL SKIN LESION SNGL multiple cysts Social History Marital status: Single Spouse name: Years of education: Number of children: Social History Main Topics Smoking status: Current Every Day Smoker Packs/day: 1.00 Years: 0.00 Types: Cigarettes Smokeless tobacco: Former User Alcohol use: No Drug use: No Sexual activity: Yes Partners with: Female control/protection: Condom ACTIVE PROBLEM LIST Sebaceous Cyst Attention Deficit Hyperactivity Disorder (Adhd), Predominantly Inattentive Type Current Outpatient Prescriptions: tamsulosin ER (FLOMAX) 0.4 mg cp24 Disp: Rfl: doxycycline monohydrate (MONODOX) 100 mg capsule Take 1 capsule by mouth twice daily. Disp: 20 capsule Rfl: 0 albuterol HFA (VENTOLIN HFA) 90 mcg/actuation inhaler Inhale 2 Puffs as instructed every 4 hours as needed for Wheezing/Shortness of Breath. Disp: 1 Inhaler Rfl: 1 No current facility-administered medications for this visit. DTAP,TDAP,TD(1 - Tdap) due on 2004 ONE PNEUMOVAX PRIOR TO AGE 65 due on 2004 INFLUENZA(1) due on 01/28/2018 EXAM: BP 110/68 (BP Site: Left Arm, BP Position: Sitting, BP Cuff Size: Regular Adult) Pulse 64 Temp 36.1 ?C (96.9 ?F) (Tympanic) Resp 16 Wt 66.7 kg (147 lb) BMI 22.68 kg/m? Pleasant anxious young man, lean but WNWG, in no acute distress. Alert and oriented all spheres. Normal affect and cognition. Speech normal. No deficits to learning or comprehension. Easy rapport. Skin warm, dry, pink to lips and nailbeds. Normal turgor. Respirations regular and unlabored. HEENT WNL. TM's clear. Nose and oropharynx free from injection or lesion. No cervical lymph nodes. Thyroid non-tender, no masses Chest CTA. HRRR without murmur or gallop. Extrem: no clubbing, cyanosis, edema. Extremities are warm and pink with prompt capillary refill. ASSESSMENT/PLAN: 1. Panic attacks - ICD9: 300.01, ICD10: F41.0 (primary diagnosis) Start paxil 10mg. SSRI therapy reviewed with administration, expectations, side effects, 6-24 months recommended if beneficial, tapered discontinuation. Discussed counseling as alternative or adjunct. Trazedone 50mg at HS. Verbal promise not to injure himself. Identifies needs to get well for children. F/u 4 weeks., 2. Polysubstance (excluding opioids) dependence (HCC) - ICD9: 304.80, ICD10: F19.20 Following with outpatient meeting 3. Tobacco dependence - ICD9: 305.1, ICD10: F17.200 - Cessation encouraged. - Physiologic and physical aspects of tobacco addiction as well as strategies for quitting were discussed. - Counseling was given focusing on the harmful effects of this addiction especially given the patient's medical condition(s) which will be worsened because of the chemicals in tobacco. 4. Adjustment disorder with depressed mood - ICD9: 309.0, ICD10: F43.21 Consult to Counseling Center. Crisis team number provided if needed. F/u 4 weeks MADELIN Ivy PA-C 06/20/2018 1:49 PM Signed Paroxetine (Paxil) Your physician has prescribed paroxetine to help prevent your headaches. It is classified as a antidepressant in the serotonin Reuptake Inhibitor classification. It has been shown to be effective in preventing both migraine and tension type headaches. It works by increasing the levels of the neurotransmitter, serotonin within the brain. This drug may have beneficial effects on mood, appetite and memory, in addition to controlling your headaches. Side Effects: Include nausea during the first week of therapy. After the first week, most patients not a decreased appetite, and a five to ten pound weight change is common. Some people not an increased energy level. If this is too great people sometimes complain of anxiety or insomnia. Sexual dysfunction; sedation; fatigue. Notify your physician if you develop a rash. Also, notify your physician before starting treatments if you have taken a MAO inhibitor, i.e. Nardil, within the last 14 days. NOTE: Do not use during , unless directed by your physician. Paroxetine is excreted in breast milk. DOSAGE: To be determined by your physician. Take 10 mg once daily. ADDITIONAL INSTRUCTIONS: This drug usually takes one to two weeks to become effective. Therefore, you should take this at least two months to determine its effectiveness. Trazadone (Deseryl) Your physician has prescribed trazadone to help prevent your headaches. It is classified as a antidepressant. It has been shown to be effective in preventing both migraine and tension type headaches. It works by increasing the levels of the neurotransmitter, serotonin within the brain. This drug may have beneficial effects on mood, appetite and memory, in addition to controlling your headaches. Side Effects: Common: Nausea (Take with food to prevent); diarrhea; drowsiness (take at bedtime to prevent daytime drowsiness); excitement or anxiety; insomnia; nightmares; dry mouth (chewing sugarless gum or candy will help prevent); increased sensitivity to sunlight; changes in appetite or weight; constipation; sexual dysfunction. Notify your physician if you develop a rash; or if you are a male and develop a prolonged or inappropriate erection. Also, notify your physician before starting treatments if you have taken a MAO inhibitor, i.e. Nardil, within the last 14 days. NOTE: Do not use during , unless directed by your physician. Trazadone is excreted in breast milk. DOSAGE: To be determined by your physician. Take 50 mg at bedtime. ADDITIONAL INSTRUCTIONS: This drug usually takes two to four weeks to become effective. Therefore, you should take this at least two months to determine its effectiveness. Referring Provider: SELF [[id number]] Allergies As of Date: 06/20/2018 (No Known Allergies) Date Reviewed: 06/20/2018 Reviewed by: Aida Graff LPN - Fully Assessed Reason for Visit: Anxiety [9] Cmt: AND depression X 1 year, noticing it more the last few months Primary Visit Diagnosis:Panic attacks [F41.0] Other Visit Diagnoses:Polysubstance (excluding opioids) dependence (HCC) [F19.20] Tobacco dependence [F17.200] Adjustment disorder with depressed mood [F43.21] Order(s):traZODone (DESYREL) 50 mg tabletTake 1 tablet by mouth daily at bedtime.Disp: 30 tabletRfl: 2 PARoxetine (PAXIL) 10 mg tabletTake 1 tablet by mouth once daily.Disp: 30 tabletRfl: 2 Prescriptions as of 06/20/2018 Sig: TRAZODONE 50 MG TABLET Take 1 tablet by mouth daily * PAROXETINE 10 MG TABLET Take 1 tablet by mouth once d* TAMSULOSIN 0.4 MG CAPSULE DOXYCYCLINE MONOHYDRATE 100 M* Take 1 capsule by mouth twice* ALBUTEROL SULFATE HFA 90 MCG/* Inhale 2 Puffs as instructed * Problem List As Of Date 06/20/2018 Noted Resolved Sebaceous cyst [L72.3] INVALID FOR* Attention deficit hyperactivity disorder (ADHD)*INVALID FOR* Other instructions from your clinician: Paroxetine (Paxil) Your physician has prescribed paroxetine to help prevent your headaches. It is classified as a antidepressant in the serotonin Reuptake Inhibitor classification. It has been shown to be effective in preventing both migraine and tension type headaches. It works by increasing the levels of the neurotransmitter, serotonin within the brain. This drug may have beneficial effects on mood, appetite and memory, in addition to controlling your headaches. Side Effects: Include nausea during the first week of therapy. After the first week, most patients not a decreased appetite, and a five to ten pound weight change is common. Some people not an increased energy level. If this is too great people sometimes complain of anxiety or insomnia. Sexual dysfunction; sedation; fatigue. Notify your physician if you develop a rash. Also, notify your physician before starting treatments if you have taken a MAO inhibitor, i.e. Nardil, within the last 14 days. NOTE: Do not use during , unless directed by your physician. Paroxetine is excreted in breast milk. DOSAGE: To be determined by your physician. Take 10 mg once daily. ADDITIONAL INSTRUCTIONS: This drug usually takes one to two weeks to become effective. Therefore, you should take this at least two months to determine its effectiveness. Trazadone (Deseryl) Your physician has prescribed trazadone to help prevent your headaches. It is classified as a antidepressant. It has been shown to be effective in preventing both migraine and tension type headaches. It works by increasing the levels of the neurotransmitter, serotonin within the brain. This drug may have beneficial effects on mood, appetite and memory, in addition to controlling your headaches. Side Effects: Common: Nausea (Take with food to prevent); diarrhea; drowsiness (take at bedtime to prevent daytime drowsiness); excitement or anxiety; insomnia; nightmares; dry mouth (chewing sugarless gum or candy will help prevent); increased sensitivity to sunlight; changes in appetite or weight; constipation; sexual dysfunction. Notify your physician if you develop a rash; or if you are a male and develop a prolonged or inappropriate erection. Also, notify your physician before starting treatments if you have taken a MAO inhibitor, i.e. Nardil, within the last 14 days. NOTE: Do not use during , unless directed by your physician. Trazadone is excreted in breast milk. DOSAGE: To be determined by your physician. Take 50 mg at bedtime. ADDITIONAL INSTRUCTIONS: This drug usually takes two to four weeks to become effective. Therefore, you should take this at least two months to determine its effectiveness. Prescriptions ordered this encounter Disp Refills Start End TRAZODONE 50 MG TABLET 30 t* 2 06/20/2018 Route: ORAL Sig: Take 1 tablet by mouth daily at bedtime. PAROXETINE 10 MG TABLET 30 t* 2 06/20/2018 Route: ORAL Sig: Take 1 tablet by mouth once daily. Disposition: Return in about 4 weeks (around 07/18/2018). Follow-up and Disposition History Recorded Encounter Status:Closed by Nicki SERRANO PA-C on 06/20/18 12 LEAD ELECTROCARDIOGRAM Observed: 06/19/2018 Status: F Source: [place] 9:41 AM [facility] Cardiovascular Services [address] [place] [address] 12 Lead EKG 06/16/18 0627 MR#: [id number] Acct: [id number] Name: VINCENT JUNE Leidy Rep #: [id number] : 1985 32 From: Niels Avila MD Attending Dr: Status: DEP ER Ordering Dr: Jesus Bright MD Date: 06/16/18 Location: ED Sex: M C Admitted: Test Reason : CP Blood Pressure : / mmHG Vent. Rate : 068 BPM Atrial Rate : 068 BPM P-R Int : 136 ms QRS Dur : 088 ms QT Int : 376 ms P-R-T Axes : 068 069 058 degrees QTc Int : 399 ms Normal sinus rhythm with sinus arrhythmia Normal ECG Confirmed by LAW GONZALES, NIELS ([id number]), book or script editor YOANA STEWART ([id number]) on 06/19/2018 9:41:01 AM Referred By: TRANG Confirmed By:NIELS AVILA MD 06/19/18 0941 Date Niels Avila MD CC: Isreal Bright MD; Saleem Isaacs MD Signed DISCHARGE INSTRUCTION Observed: 06/16/2018 Status: F Source: [place] 3:45 PM [facility] Medical Records Department [address] [place] [address] Discharge Instruction 06/16/18 0754 MR#: [id number] Acct: [id number] Name: HERNANDO JUNEARTURO Forbes Rep #: [id number] : 1985 32 From: Cliff Taylor MD PCP: Saleem Isaacs MD Status: DEP ER ED Disposition - Plan for ED Patient: Chief Complaint: Chest Pain Instructions: Coping with Shortness of Breath: Controlling Stress Referrals: Saleem Isaacs MD [Primary Care Provider] - What to do if you have Problems For any increased pain, shortness of breath, bleeding, nausea or vomiting, chest pain, or any unexpected problems, contact your Primary Care Provider. Call [facility] ([phone]) or report to the closest Emergency Room. Call 911 if necessary. 06/16/18 1545 <Electronically signed by Cliff Taylor MD> Date Cliff Taylor MD Cosigner Signature (If Indicated): Date CC: Saleem Isaacs MD EMERGENCY DEPARTMENT Observed: 06/16/2018 Status: C Source: [place] SUMMARY 7:54 AM [facility] REPOSITORY [facility] Medical Records Department [address] [place] [address] Emergency Department Summary 06/16/18 0646 MR#: [id number] Acct: [id number] Name: VINCENT JUNE Rep #: [id number] : 1985 32 From: Jesus Bright MD PCP: Saleem Isaacs MD Status: REG ER ADDENDUM by Cliff Taylor MD on 06/16/18 at 0754 X-ray was negative and patient will be discharged as instructed. Date Cliff Taylor MD cc: Saleem Isaacs MD * Addendum - ER Visit Summary Date of Service: 06/16/18 Chief Complaint: Shortness of breath History of Present Illness: The patient is a 32 M who was at work this morning and felt about 2 minutes of chest tightness and shortness of breath. He reported it to a coworker who then informed his contact and service clerks supervisor, who then called 911. He states that he has been under a lot of stress recently and has been diagnosed with anxiety. He relates his symptoms to anxiety. He was thinking about stressful thoughts at the time. He adamantly denies any suicidal thoughts or ideation. Denies any history of depression. Denies recent travel or mobilization. Denies lower extremity pain or swelling. Denies family history of cardiac disease at young age. Denies any associated diaphoresis or exertional component. Physical Examination: Vitals are within normal limits. Pulse ox is 100%. He is not in distress. Neck is supple. Heart tones are regular and without murmur. Lungs are clear bilaterally. Abdomen is soft and nontender. No tenderness along the lower extremity venous system, edema, palpable cords, or other evidence of DVT. He is alert and oriented x3. Thought content is normal. No depressed mood. No suicidal thoughts or ideation. Test Results: Two-view chest x-ray is pending. EKG unremarkable. Emergency Department Course and Treatment: Care will be turned over to the oncoming physician to check the chest x-ray. EKG is unremarkable. It does not sound like cardiac pain versus description. He has no evidence of DVT and no history of PE. The pain is not pleuritic. It seems secondary to anxiety but he adamantly denies any thoughts of self-harm. He does not appear to be at risk for suicide. I did encourage him to establish with a counselor and take the anxiety medication that he was prescribed recently. I feel he can safely be discharged home and chest x-ray is negative. Will return here if worse. Treatment Plan: Home if negative x-ray Disposition: Home stable Impression: Initial encounter chest pain uncertain etiology, anxiety/stress This note was generated with evly dictation software. It may contain incorrect words, spelling, and punctuation that were not noted in review of the chart prior to signing ED Disposition - Plan for ED Patient: Chief Complaint: Chest Pain Referrals: Saleem Isaacs MD [Primary Care Provider] - What to do if you have Problems For any increased pain, shortness of breath, bleeding, nausea or vomiting, chest pain, or any unexpected problems, contact your Primary Care Provider. Call [facility] ([phone]) or report to the closest Emergency Room. Call 911 if necessary. 06/16/18 0650 <Electronically signed by Jesus Bright MD> Date Jesus Bright MD Cosigner Signature (If Indicated): Date CC: Saleem Isaacs MD CHEST PA AND LATERAL Observed: 06/16/2018 Status: F Source: [place] 6:53 AM [facility] REPOSITORY [facility] Imaging Services [address] [place] [address] Chest PA and Lateral MR#: [id number] Acct: [id number] Name: VINCENT JUNE Rep #: [id number] : 1985 M 32 From: Lupillo Myers MD PCP: Saleem Isaacs MD Status: REG ER Study: Chest PA and Lateral Date of Exam: 06/16/18 Exam# [id number] Ordering Dr: Jesus Bright MD STUDY: X-RAY CHEST REASON FOR EXAM: Male, 32 years old. Chest pain TECHNIQUE: 2 views COMPARISON: None. FINDINGS: There is COPD demonstrated by flattening of hemidiaphragms and hyperinflation of the lungs. There is no acute pneumonia or failure. The heart is within normal limits in size. Normal visualized thoracic spine. Normal visualized ribs, clavicles, and shoulders. There is no demonstrated abnormality of the visualized soft tissue structures of the upper abdomen. RAD/Chest PA and Lateral IMPRESSION: COPD. No acute findings in the lungs. Electronically Signed: Lupillo Myers MD at 7:28 EST Tel , Service support , CC: Isreal Bright MD; Saleem Isaacs MD Insurance Appraiser: Signed 12 LEAD ELECTROCARDIOGRAM Observed: 06/06/2018 Status: F Source: [place] 9:34 AM [facility] REPOSITORY [facility] Cardiovascular Services [address] [place] [address] 12 Lead EKG 06/04/18 2238 MR#: [id number] Acct: [id number] Name: VINCENT JUNE Rep #: [id number] : 1985 32 From: Niels Avila MD Attending Dr: Parviz Garcia MD Status: DIS VIJAYA Ordering Dr: Brian Mccullough MD Date: 06/04/18 Location: [facility] Sex: M C Admitted: 06/05/18 Test Reason : CP Blood Pressure : / mmHG Vent. Rate : 109 BPM Atrial Rate : 109 BPM P-R Int : 134 ms QRS Dur : 084 ms QT Int : 320 ms P-R-T Axes : 070 064 063 degrees QTc Int : 430 ms Sinus tachycardia Otherwise normal ECG Confirmed by LAW GONZALES, NIELS ([id number]), book or script editor JOSE OLGUIN ([id number]) on 06/06/2018 9:33:45 AM Referred By: ROBYN/OK Confirmed By:NIELS AVILA MD 06/06/18 0933 Date Niels Avila MD CC: Brian Mccullough MD; Parviz Garcia MD; Saleem Isaacs MD Signed DISCHARGE SUMMARY Observed: 06/05/2018 Status: F Source: [place] 12:44 PM [facility] Medical Records Department [address] [place] [address] Discharge Summary 06/05/18 1236 MR#: [id number] Acct: [id number] Name: VINCENT JUNE Leidy Rep #: [id number] : 1985 32 From: Parviz Garcia MD PCP: Saleem Isaacs MD Status: ADM VIJAYA Y Location: [place] [address] Discharge Date and Diagnosis - Problem List Patient Problems: Active and Suspected Problems (Last Updated 06/05/18 @ 03:29 by Jesus Gallardo MD) Pulmonary emboli (Suspected) Date of Admission: 06/05/18 Date of Discharge: 06/05/18 - Primary Discharge Diagnosis Active and Suspected Problems (Last Updated 06/05/18 @ 03:29 by Jesus Gallardo MD) Pulmonary emboli (Suspected) - Secondary Discharge Diagnosis Chronic Problems (Last Updated 06/05/18 @ 03:29 by Jesus Gallardo MD) Dermatitis (Chronic) Hospital Course and Treatment Imaging Results: CTA Chest: IMPRESSION: Evaluation for pulmonary embolism is limited by bolus timing. There is no pulmonary embolism seen within the main pulmonary artery, right and left main pulmonary artery, lobar pulmonary arteries or proximal segmental pulmonary arteries. Further evaluation is limited. Follow- up imaging as clinically indicated. Evidence of prior granulomatous disease. There is a noncalcified left lower lobe 5 mm pulmonary nodule. This could represent sequela of prior infectious inflammatory process. However no prior studies are available for comparison. Recommend 6-12 month follow-up CT scan to ensure stability. V/Q Scan: IMPRESSION: Normal 99m Tc MAA pulmonary perfusion Tc DTPA aerosol ventilation imaging survey, according to revised PIOPED interpretive criteria. B/L Venous Doppler: Interpretation Summary No evidence for acute deep venous thrombosis bilateral lower extremities with patent and compressible bilateral great saphenous veins. Consults: None Operations: None Procedures: None Summary of Care Provided: Per HPI: The patient is a 32 year old M with a significant history of Homelessness; tobacco abuse; ethanol abuse; and methamphetamine who recently underwent detoxification for ethanol methamphetamine at [facility] [place], [place] now presenting with progressively worsening substernal sharp chest pain that is brought on by taking a deep breath. He rated the intensity of his pain as 5 out of 10. His chest pain does not radiate. Associated with his symptoms is shortness of breath at rest which increases with mild exertion. Denies any associated nausea, vomiting or diaphoresis. Patient spent 7 days at [facility]. He used to snort and smoke methamphetamine. The last time he used methamphetamine was about 11 days ago; and the last time he used ethanol was about 8 days ago. He reports some runny nose. At emergency department patient had tachycardia with highest heart rate of 130. He also had a tachypnea with highest respiratory rate of 25. He had a negative troponin and his EKG did not show any ST or T wave abnormalities. Emergency department doctor was suspicious for a PE for which reason CTPA was done. However there was poor timing of contrast for CTPA. CTPA did not show any embolus in the main pulmonary arteries. However it was not a good steady for smaller and peripheral arteries because of the poor timing of contrast. CTPA also showed some lesions which is probably granuloma. Because of high suspicion of PE patient was given therapeutic dose of Lovenox at emergency department. Patient denies any history of malignancy. He denies any family history of clots; he denies any surgery ever in his life. However whiles at the recovery center above he laid in the bed in all the time. He has some pain in his bilateral legs but he thinks that is from wearing boots. Patient was noted to have elevated white count of 22.8. Hospital Course: 1. Pleuritic chest pain/anxiety-Mr. June is a 32-year-old male with a history of drug use including methamphetamines who was just recently discharged from a detox center, when he presented with tachycardia and tachypnea and pleuritic chest pain in the center of his chest. He had a CTA in the ER which was negative for PE but the study was not great so had a VQ scan which was normal. His troponins remain negative x3 and his EKG was unremarkable. He did not want to wait for the echo to be performed, which can be performed as an outpatient if his primary care physician thinks is necessary. He thinks that he was probably having a panic attack which, he says, he is chronically anxious. I discussed with him that given the lack of findings on any studies performed during his hospitalization, he could go home as long as he followed up with his primary care physician. Of note on the CTA, he was found to have a 5 mm nodule which will need to be followed up in 6-12 months. He was discharged on Zoloft 50 mg and he will need to follow-up for dose titration and refill. 2. Leukocytosis -reviewing his labs looks like he had leukocytosis back in 2013 and 2014 though not as high as what it was this time. Could be a stress reaction though the CTA does demonstrate history of possible granulomatous disease. He will need to have this monitored as an outpatient. Patient Problems: Active and Suspected Problems (Last Updated 06/05/18 @ 03:29 by Jesus Gallardo MD) Pulmonary emboli (Suspected) - Physical Exam General: Alert, Oriented x3, Cooperative, No apparent distress HEENT: Atraumatic, PERRLA, EOMI, Normocephalic Oral: Moist Mucosa Neck: Supple, No JVD Lungs: Clear to auscultation, Normal air movement, No rhonchi, No wheeze, No rales Cardiovascular: Regular rate, Regular Rhythm, Normal S1, Normal S2, No murmurs, No rub noted, No Gallop Abdomen: Soft, Non Tender, Non-Distended, No Hepato-splenomegaly Extremities: No edema, Capillary Refill Less than 3 Seconds Skin: No rashes, No breakdown Neurological: Neuro grossly intact, Sensory exam intact to light touch and pain Psych/Mental Status: Normal Affect, Appropriate Vital Signs Temp Pulse Resp BP Pulse Ox 98.3 F 79 16 104/61 97 06/05/18 08:00 06/05/18 08:00 06/05/18 08:00 06/05/18 08:00 06/05/18 08:00 Oxygen Delivery Method Room Air Weight: 145 lb 1.027 oz Body Mass Index (BMI) 22.0 Intake and Output for Last 24 Hours Intake Total 1113 / 1113 Balance 1113 / 1113 Microbiology Past 72 Hours 06/05/18 07:00 Respiratory Panel (PCR) - Final Mucosa - Nasopharyngeal Laboratory Tests Past 24 Hrs WBC 22.8 H RBC 4.98 Hgb 15.3 Hct 45.2 MCV 90.8 WBC 18.0 H RBC 4.79 Hgb 14.4 Hct 43.5 MCV 90.8 MCH 30.1 MCHC 33.1 RDW 13.6 RDW Differential 44.6 H Discharge Activity: Return to Normal Activity Call your doctor if you observe: Fever of 101 or Higher, Shortness of breath, Dizziness, Fainting spells, Chest pain, Increased palpitations (irregular heartbeat) Home Medications: Medications to take at Discharge Sertraline HCl [Zoloft] 50 mg PO DAILY #30 tablet 06/05/18 Following Prescrptions Were Given to Patient: Sertraline HCl [Zoloft] 50 mg PO DAILY #30 tablet Primary Care Physician: Saleem Isaacs MD [Primary Care Provider] - Please follow up with your Primary Care Physician in: 3-5 days Disposition: Home Minutes spent on discharge:: 35 Patient Condition:: Good Medical Necessity - Tobacco Use Smoking Status: Current every day smoker Tobacco Use: Cigarettes Meaningful Use Info Meaningful Use Diagnoses (Choose all that apply): None applicable Code Visit OBSV E AND M: 71391 Observation care discharge 06/05/18 1244 <Electronically signed by Parviz Garcia MD> Date Parviz Garcia MD Cosigner Signature (if applicable): Date CC: Parviz Garcia MD; Saleem Isaacs MD Signed DISCHARGE INSTRUCTION Observed: 06/05/2018 Status: F Source: [place] 12:36 PM [facility] REPOSITORY [facility] Medical Records Department [address] [place] [address] Instructions for Home/Discharge Instructions 06/05/18 1235 MR#: [id number] Acct: [id number] Name: VINCENT JUNE Leidy Rep #: [id number] : 1985 32 From: Parviz Garcia MD PCP: Saleem Isaacs MD Status: ADM VIJAYA You will use the following diet at home:: Regular Your food should be the consistency of: Regular Your liquids should be the consistency of: Regular/Thin Discharge Activity: Return to Normal Activity Call your doctor if you observe: Fever of 101 or Higher, Shortness of breath, Dizziness, Fainting spells, Chest pain, Increased palpitations (irregular heartbeat) Allergies/Adverse Reactions: Allergies No Known Allergies Allergy (Verified 06/04/18 22:43) Medications to take at Discharge Sertraline HCl [Zoloft] 50 mg PO DAILY #30 tablet 06/05/18 The following prescriptions were given: Sertraline HCl [Zoloft] 50 mg PO DAILY #30 tablet Primary Care Physician: Saleem Isaacs MD [Primary Care Provider] - Please follow up with your Primary Care Physician in: 3-5 days Test Results: Test results from this visit will be discussed in further detail at your follow-up appointment, if applicable. 06/05/18 1236 <Electronically signed by Parviz Garcia MD> Date Parviz Garcia MD CC: Saleem Isaacs MD Signed VENOUS DUPLEX LOWER Observed: 06/05/2018 Status: F Source: [place] EXTREMITY 11:54 AM [facility] REPOSITORY [facility] Cardiovascular Services [address] [place] [address] Venous Duplex - Ayush Extrem 06/05/18 0817 MR#: [id number] Acct: [id number] Name: VINCENT JUNE Rep #: [id number] : 1985 32 From: Herminio Wolf MD Attending Dr: Parviz Garcia MD Status: ADM VIJAYA Ordering Dr: Jesus Gallardo MD Date: 06/05/18 Location: [facility] Sex: M C Admitted: 06/05/18 Reason For Study: PE RIGHT LEFT GSV is normal. GSV is normal. CFV is compressible, spontaneous, phasic, CFV is compressible, spontaneous, phasic, competent and demonstrates normal competent, and demonstrates normal augmentation. augmentation. FV is compressible, spontaneous, phasic, FV is compressible, spontaneous, phasic, competent and demonstrates normal competent and demonstrates normal augmentation. augmentation. POP V is compressible, spontaneous, phasic, POP V is compressible, spontaneous, phasic, competent and demonstrates normal competent and demonstrates normal augmentation. augmentation. T/P Trunk is compressible. T/P Trunk is compressible. PTV is compressible. PTV is compressible. RT PerV is compressible. LT PerV is compressible. Procedure Exam performed portable in patient room. A preliminary report was called and/or faxed to PCU. Interpretation Summary No evidence for acute deep venous thrombosis bilateral lower extremities with patent and compressible bilateral great saphenous veins. Ordering Physician: Jesus Gallardo Referring Physician: Saleem Isaacs Performed By: Charity Zavala RVT 06/05/18 1153 Date Herminio Wolf MD CC: Jesus Gallardo MD; Parviz Garcia MD; Saleem Isaacs MD Date Dictated: 06/05/18816 Date Transcribed: 06/05/18 115 Insurance Appraiser: Signed CHEST PA AND LATERAL Observed: 06/05/2018 Status: F Source: [place] 9:10 AM [facility] REPOSITORY [facility] Imaging Services [address] [place] [address] Chest PA and Lateral MR#: [id number] Acct: [id number] Name: VINCENT JUNE Leidy Rep #: [id number] : 1985 M 32 From: Benoit Mera MD PCP: Saleem Isaacs MD Status: ADM VIJAYA Study: Chest PA and Lateral Date of Exam: 06/05/18 Exam# [id number] Ordering Dr: Parviz Garcia MD STUDY: X-RAY CHEST REASON FOR EXAM: Male, 32 years old. Dyspnea. Sternal chest pain. TECHNIQUE: PA and lateral views of the chest. COMPARISON: Comparison is made with prior study dated October 21, 2016. FINDINGS: Hyperinflation. Decreased bronchovascular markings suggestive of emphysematous changes. There is no demonstrated pleural abnormality. Normal size heart. Normal mediastinum and kaylah. Normal visualized pulmonary arteries. Normal visualized aortic arch and descending thoracic aorta. Normal visualized thoracic spine. Normal visualized ribs, clavicles, and shoulders. There is no demonstrated abnormality of the visualized soft tissue structures of the upper abdomen. RAD/Chest PA and Lateral IMPRESSION: Hyperinflation. No acute abnormality is seen. Electronically Signed: Benoit Mera MD at 13:20 EST Tel [phone], Service support , CC: Parviz Garcia MD; Saleem Isaacs MD Insurance Appraiser: Signed Observed: 06/05/2018 Status: F Source: [place] RESPIRATORY PANEL 7:00 AM [facility] MOLECULAR REPOSITORY RP PANEL ADENOVIRUS Not Detected HUMAN METAPHNEUMO Not Detected INFLUENZA A Not Detected INFLUENZA A (SUBTYPE H1) Not Detected INFLUENZA A (SUBTYPE H3) Not Detected INFLUENZA B Not Detected PARAINFLUENZA 1 Not Detected PARAINFLUENZA 2 Not Detected PARAINFLUENZA 3 Not Detected PARAINFLUENZA 4 Not Detected RHINOVIRUS Not Detected RSV A Not Detected RSV B Not Detected NAAT METHOD Testing was performed using nucleic acid amplification Performed By: #### M100.638 #### [facility] Laboratory [address] [place], [address] TROPONIN-I Collected: 06/05/2018 Status: F Source: [place] 5:05 AM [facility] REPOSITORY Order Comment: 'TROP' Serial specimen #1, #2 or #3: 3 TYPE CODE TESTS RESULT OUT OF RANGE REFERENCE UNITS LAB L501.4010 <0.045 ng/mL Normal < 0.015 TROPONIN-I Result Comment: TROPONIN-I EXPECTED VALUES <0.045 Negative 0.045 - 0.590 Consistent with Cardiac Damage > OR = 0.600 Critical Value Not every elevated troponin is indicative of ID. These values should be used with clinical judgement in examining the patient's clinical picture for diagnosis. To establish a diagnosis of ID versus myocardial injury, there must be a demonstrated rise and/or fall in the troponin values, in addition to ischemic symptoms, EKG changes, new regional wall motion abnormality, and/or angiographical evidence. PLEASE NOTE: REFERENCE RANGES EDITED 17 Performed By: #### L501.4010 #### [facility] Laboratory [address] [place], [address] CBC-COMPLETE BLOOD CNT Collected: 06/05/2018 Status: F Source: [place] NO DIFF 5:05 AM [facility] REPOSITORY TYPE CODE TESTS RESULT OUT OF RANGE REFERENCE UNITS LAB L100.1000 4.4-11.0 K/mm3 High WBC 18.0 LAB L100.1200 4.6-6.2 M/mm3 Normal RBC 4.79 LAB L100.1300 13.0-16.5 g/dl Normal HGB 14.4 LAB L100.1400 40-54 % Normal HCT 43.5 LAB L100.1500 80-94 fL Normal MCV 90.8 LAB L100.1600 27.0-32.0 pg Normal MCH 30.1 LAB L100.1700 32-36 g/gl Normal MCHC 33.1 LAB L100.1810 11.6-14.6 % Normal RDW CV 13.6 LAB L100.1820 35.1-43.9 fl High RDW SD 44.6 LAB L100.1900 150-450 K/mm3 Normal PLT 320 LAB L100.2000 6.2-12.0 fl Normal MPV 9.1 Performed By: #### L100.0500 #### [facility] Laboratory [address] [place], [address] HISTORY AND PHYSICAL Observed: 06/05/2018 Status: F Source: [place] EXAM 3:54 AM [facility] REPOSITORY [facility] Medical Records Department [address] [address] [address] History and Physical 06/05/18 0103 MR#: [id number] Acct: [id number] Name: VINCENT JUNE Rep #: [id number] : 1985 32 From: Jesus Gallardo MD PCP: Saleem Isaacs MD Status: ADM IN Y Location: [facility] [id number] Problem List (1) Pulmonary emboli Status: Suspected (2) Dermatitis Status: Chronic History of Present Illness Date of Admission: 06/05/18 Chief Complaint: chest pain The patient is a 32 year old M with a significant history of Homelessness; tobacco abuse; ethanol abuse; and methamphetamine who recently underwent detoxification for ethanol methamphetamine at [facility] [place], [place] now presenting with progressively worsening substernal sharp chest pain that is brought on by taking a deep breath. He rated the intensity of his pain as 5 out of 10. His chest pain does not radiate. Associated with his symptoms is shortness of breath at rest which increases with mild exertion. Denies any associated nausea, vomiting or diaphoresis. Patient spent 7 days at [facility]. He used to snort and smoke methamphetamine. The last time he used methamphetamine was about 11 days ago; and the last time he used ethanol was about 8 days ago. He reports some runny nose. At emergency department patient had tachycardia with highest heart rate of 130. He also had a tachypnea with highest respiratory rate of 25. He had a negative troponin and his EKG did not show any ST or T wave abnormalities. Emergency department doctor was suspicious for a PE for which reason CTPA was done. However there was poor timing of contrast for CTPA. CTPA did not show any embolus in the main pulmonary arteries. However it was not a good steady for smaller and peripheral arteries because of the poor timing of contrast. CTPA also showed some lesions which is probably granuloma. Because of high suspicion of PE patient was given therapeutic dose of Lovenox at emergency department. Patient denies any history of malignancy. He denies any family history of clots; he denies any surgery ever in his life. However whiles at the [facility] above he laid in the bed in all the time. He has some pain in his bilateral legs but he thinks that is from wearing boots. Patient was noted to have elevated white count of 22.8. Past Medical History Past Medical History (Chronic Problems): Chronic Problems (Last Updated 06/05/18 @ 03:29 by Jesus Gallardo MD) Dermatitis (Chronic) Medical History: Medical History (Last Updated 06/05/18 @ 03:29 by Jesus Gallardo MD) Hyperlipidemia E78.5 Allergies No Known Allergies Allergy (Verified 06/04/18 22:43) Home Medications: Ambulatory Orders Medication Instructions Recorded NK 06/04/18 Surgical History: no surgical history Lives: Homeless Smoking Status: Current every day smoker Tobacco Use: Cigarettes - *Family History Maternal History Items: Cancer - Colon cancer, Pulmonary Disease - Emphysema Paternal History Items: Diabetes, Hypertension, Stroke Review of Systems Constitutional: Denies: Chills, Fever, Weight Change HEENT: Reports: Sinus Drainage. Denies: Head Aches, Sinus Congestion Cardiovascular: Reports: Chest Pain. Denies: Palpitations Respiratory: Reports: Cough, Shortness of breath at rest. Denies: Sputum production Gastrointestinal: Denies: Abdominal Pain, Nausea, Vomiting Genitourinary: Denies: Dysuria Musculoskeletal: Denies: Joint Pain, Joint Tenderness Skin: Denies: Rash, Wounds Neurological: Denies: Numbness, Tingling, Focal weakness Psychiatric: Denies: Anxiety, Depression, Homicidal Ideations, Suicidal Ideations Hematologic/ Lymphatic: Denies: Easy Bruising, Easy Bleeding VTE Information - Inpt Only VTE Present on Admission: No - Suspected PE VTE Mechan Device Prophylaxis: None VTE Pharm Prophylaxis ordered?: No Reason prophylaxis not ordered:: Treatment Not Indicated VTE Suspected: Suspected PE - Patient is receiving therapeutic Lovenox for suspected PE. Patient Problems: Active and Suspected Problems (Last Updated 06/05/18 @ 03:29 by Jesus Gallardo MD) Pulmonary emboli (Suspected) - Physical Exam General: Alert, Oriented x3, Cooperative HEENT: Atraumatic, PERRLA, EOMI, Normocephalic Neck: Supple, No JVD, Negative Carotid Bruits Lungs: Clear to auscultation, Normal air movement, Tachypneic, - - Tender substernal area. Cardiovascular: No murmurs, Tachycardic Abdomen: Bowel Sounds Present, Soft, Non Tender Extremities: No edema, Capillary Refill Less than 3 Seconds Skin: No rashes, No breakdown Musculoskeletal: No Tenderness to Palpation of Joints or Extremities Neurological: Neuro grossly intact Psych/Mental Status: Normal Affect, Appropriate Vital Signs Temp Pulse Resp BP Pulse Ox 96.9 F L 101 H 15 144/94 H 95 06/04/18 22:34 06/05/18 00:12 06/05/18 00:12 06/05/18 00:12 06/05/18 00:12 Oxygen Delivery Method Room Air Weight: 65.771 kg Body Mass Index (BMI) 22.7 Laboratory Tests Past 24 Hrs WBC 22.8 H RBC 4.98 Hgb 15.3 Hct 45.2 MCV 90.8 Assessment/Plan The patient is a 32 year old M with a significant history of Homelessness; tobacco abuse; ethanol abuse; and methamphetamine who recently underwent detoxification for ethanol and methamphetamine at [facility] now presenting with progressively worsening substernal sharp chest pain that is brought on by taking a deep breath; with tachycardia; tachypnea; leukocytosis but with unremarkable and CTPA which had a poor timing of contrast. Chest pain Different diagnosis include pulmonary embolism; pericarditis; costochondritis or other. His was called for PE is 6.0 (PE is normal diagnosis or equally likely; heart rate more than 100; immobilization at least 3 days); moderate risk group. Patient received therapeutic dose of Lovenox at emergency department. Therapeutic Lovenox dose continued. We will get a VQ scan; Doppler of bilateral legs and echocardiogram. We will be careful about narcotic administration since patient was just discharged from the definite been in alcohol recovery program. Ibuprofen and Tylenol as needed for pain. We will get a comprehensive respiratory pathogen panel. Leukocytosis Patient denies any IV drug use and he has no fever. Likely reactive Comprehensive respiratory pathogen panel as above ordered. Trend BMP. Rhinorrhea Flonase ordered. Chronic dizziness Patient reports chronic dizziness. He describes his dizziness as momentarily losing focus. He reports that he is suppose to go for a tilt test. Continue outpatient follow-up. Tobacco abuse He reports a chronic cough that is worse in the morning with dark brown sputum. Counselled Nicotine patch ordered. Pulmonary nodules. Longitudinal follow-up. DVT Prophylaxis Not indicated patient is being treated with therapeutic dose of Lovenox for suspected pulmonary embolism.. Code Visit OBSV E AND M: 63127 Initial observation care L3 06/05/18 0354 <Electronically signed by Jesus Gallardo MD> Date Jesus Gallardo MD Cosigner Signature: Date (if applicable) CC: Jesus Gallardo MD; Saleem Isaacs MD Signed LUNG SCAN VENT/PERF Observed: 06/05/2018 Status: F Source: MUNDO 3:01 AM [facility] REPOSITORY [facility] Imaging Services [address] [place] [address] Lung Scan Vent/Perf MR#: [id number] Acct: [id number] Name: VINCENT JUNE Rep #: [id number] : 1985 M 32 From: Benoit Mera MD PCP: Saleem Isaacs MD Status: ADM VIJAYA Study: Lung Scan Vent/Perf Date of Exam: 06/05/18 Exam# [id number] Ordering Dr: Jesus Gallardo MD CLINICAL: Male, 32 years old. Cough. Chest pain on deep inspiratory effort. NUCLEAR VENTILATION/PERFUSION - LUNG TECHNIQUE: The patient was administered 5.8 mCi of Tc MAA followed by a perfusion lung scan. The patient was administered 49.7 mCi of Tc DTPA aerosol followed by a ventilation lung scan. Comparison made to prior chest radiograph dated . COMPARISON STUDIES : Comparison is made with a prior examination done earlier today. FINDINGS: The pulmonary perfusion study demonstrates uniform perfusion throughout both lung thompson. There are no demonstrated segmental or subsegmental perfusion defects The ventilation study demonstrates uniform ventilation throughout both lung thompson. There are no segmental or subsegmental ventilation abnormalities. NM/Lung Scan Vent/Perf IMPRESSION: Normal 99m Tc MAA pulmonary perfusion Tc DTPA aerosol ventilation imaging survey, according to revised PIOPED interpretive criteria. Electronically Signed: Benoit Mera MD at 11:22 EST Tel [phone], Service support , CC: Jesus Gallardo MD; Parviz Garcia MD; Saleem Isaacs MD Insurance Appraiser: Signed TROPONIN-I Collected: 06/05/2018 Status: F Source: [place] 2:20 AM [facility] REPOSITORY Order Comment: 'TROP' Serial specimen #1, #2 or #3: 2 TYPE CODE TESTS RESULT OUT OF RANGE REFERENCE UNITS LAB L501.4010 <0.045 ng/mL Normal < 0.015 TROPONIN-I Result Comment: TROPONIN-I EXPECTED VALUES <0.045 Negative 0.045 - 0.590 Consistent with Cardiac Damage > OR = 0.600 Critical Value Not every elevated troponin is indicative of ID. These values should be used with clinical judgement in examining the patient's clinical picture for diagnosis. To establish a diagnosis of ID versus myocardial injury, there must be a demonstrated rise and/or fall in the troponin values, in addition to ischemic symptoms, EKG changes, new regional wall motion abnormality, and/or angiographical evidence. PLEASE NOTE: REFERENCE RANGES EDITED 17 Performed By: #### L501.4010 #### [facility] Laboratory [address] [place], [address] EMERGENCY DEPARTMENT Observed: 06/05/2018 Status: F Source: [place] SUMMARY 1:15 AM [facility] REPOSITORY [facility] Medical Records Department [address] [place] [address] Emergency Department Summary 06/05/18 0111 MR#: [id number] Acct: [id number] Name: VINCENT JUNE Rep #: [id number] : 1985 32 From: Brian Mccullough MD PCP: Saleem Isaacs MD Status: REG ER - ER Visit Summary Date of Service: 06/05/18 Chief Complaint: Chest pain and shortness of breath History of Present Illness: The patient is a 32 M who presents with chest pain and shortness of breath. This began yesterday. He describes it as sharp. It is worse with inspiration. It was 8 out of 10 earlier but has improved vomiting currently only complains of 4 out of 10 pain. He also states he feels lightheaded. He was just discharged today after being admitted for alcohol and methamphetamine detox. He does note some rhinorrhea and cough as well. Cough is nonproductive. No fevers. No nausea vomiting diarrhea. No abdominal pain. Physical Examination: Initial heart rate 130 vitals otherwise normal Moist mucous membranes Heart regular rhythm tachycardia He does have some expiratory wheezing no rales no rhonchi Abdomen soft nontender nondistended Extremities nontender without edema Alert Test Results: EKG shows sinus rhythm at a rate of 109. Labs notable for white blood cell count 22.8. BMP normal. INR normal. Troponin negative. CTA of the chest was inadequate due to poor bolus timing although there is no main lobar or proximal segmental pulmonary embolism. Emergency Department Course and Treatment: My initial concern given the patient's description of symptoms is for pulmonary embolism. His CTA was a poor study due to bolus timing. Therefore we did empirically give a dose of subcutaneous Lovenox here. He does have a significant leukocytosis which can be an acute phase reaction to pathologies. He does not have fever. The only infectious process I would be concerned about his pneumonia which is ruled out on CT. Therefore we did not empirically treat with antibiotics. I do not think that this is sepsis. Patient was discussed with the hospitalist and will be admitted. He should likely to be hydrated and have repeat CTA versus venous duplexes. Treatment Plan: [] Disposition: Admit Impression: Chest pain Leukocytosis This note was generated with [employer] dictation software. It may contain incorrect words, spelling, and punctuation that were not noted in review of the chart prior to signing ED Disposition - Plan for ED Patient: Chief Complaint: Chest Pain Referrals: Saleem Isaacs MD [Primary Care Provider] - What to do if you have Problems For any increased pain, shortness of breath, bleeding, nausea or vomiting, chest pain, or any unexpected problems, contact your Primary Care Provider. Call [facility] ([phone]) or report to the closest Emergency Room. Call 911 if necessary. 06/05/18 0115 <Electronically signed by Brian Mccullough MD> Date Brian Mccullough MD Cosigner Signature (If Indicated): Date CC: Saleem Isaacs MD CTA CHEST W/WO Observed: 06/04/2018 Status: F Source: MUNDO CONTRAST 10:49 PM [facility] REPOSITORY [facility] Imaging Services [address] [place] [address] CTA Chest W/WO Contrast MR#: [id number] Acct: [id number] Name: VINCENT JUNE Rep #: [id number] : 1985 M 32 From: Blu Mckeon MD PCP: Saleem Isaacs MD Status: REG ER Study: CTA Chest W/WO Contrast Date of Exam: 06/04/18 Exam# [id number] Ordering Dr: Brian Mccullough MD STUDY: CTA CHEST REASON FOR EXAM: Male, 32 years old. Chest pain with shortness of breath RADIATION DOSAGE (If Supplied By Facility): CTDIvol = ( 9.65 ) mGy, DLP = ( 363.99 ) mGycm TECHNIQUE: The examination was performed with the intravenous administration of 75ML ml of Isovue 370 contrast material. Post-processing of the angiographic images was performed, with multiplanar reformation and 3D reconstruction. Individualized dose optimization techniques were used for this CT. COMPARISON: None. FINDINGS: Evaluation for pulmonary embolism is limited by bolus timing. There is no pulmonary embolism within the main pulmonary artery, right and left main pulmonary arteries, lobar pulmonary arteries and proximal segmental pulmonary arteries. Further evaluation is limited. Normal thoracic aorta and visualized great vessels. There is no demonstrated aortic dissection. Normal heart and pericardium. Normal mediastinum. Normal hilar regions. Normal visualized trachea and bronchi. The lungs are well expanded. 3 mm right lower lobe calcified pulmonary nodule likely granuloma. 2 mm left upper lobe calcified pulmonary nodule likely granuloma. 5 mm left lower lobe pulmonary nodule. Areas of atelectasis/scarring. Normal pleura. Normal chest wall structures. There are degenerative changes of thoracic spine. Normal visualized upper abdomen. CT/CTA Chest W/WO Contrast IMPRESSION: Evaluation for pulmonary embolism is limited by bolus timing. There is no pulmonary embolism seen within the main pulmonary artery, right and left main pulmonary artery, lobar pulmonary arteries or proximal segmental pulmonary arteries. Further evaluation is limited. Follow- up imaging as clinically indicated. Evidence of prior granulomatous disease. There is a noncalcified left lower lobe 5 mm pulmonary nodule. This could represent sequela of prior infectious inflammatory process. However no prior studies are available for comparison. Recommend 6-12 month follow-up CT scan to ensure stability. Electronically Signed: Blu Rodriguezford, at 0:24 EST Tel , Service support , CC: Brian Mccullough MD; Saleem Isaacs MD Insurance Appraiser: Signed BASIC METABOLIC Collected: 06/04/2018 Status: F Source: MUNDO PROFILE (BMP) 10:40 PM [facility] REPOSITORY TYPE CODE TESTS RESULT OUT OF RANGE REFERENCE UNITS LAB L501.0100 74-106 mg/dL Normal GLU 94 Result Comment: Please note revised GLUCOSE reference range effective 2017. LAB L501.1000 7-18 mg/dL Normal BUN 14 LAB L501.1100 0.70-1.30 mg/dL Normal CREAT,SERUM 0.90 Result Comment: The validity of the calculated GFR AND GFRAA in patients over 70 years has not been determined. Clinical correlation is essential. LAB L501.1110 >60 mL/min Normal EST GFR 104 Result Comment: Non- GFR Calc LAB L501.1115 >60 mL/min Normal EST GFR - AA 126 Result Comment: GFR Calc LAB L501.1255 ml/min Normal Estimated CRCL 109.62 LAB L501.1300 10-20 RATIO BUN/CRE Normal 15.6 LAB L501.2200 8.5-10 mg/dL .1 CA Normal 8.9 LAB L501.5300 136-14 mmol/L 5 NA Normal 138 LAB L501.5600 3.5-5. mmol/L 1 K Normal 4.1 LAB L501.5900 98-107 mmol/L CL Normal 102 LAB L501.6100 21.0-3 mmol/L 2.0 CO2 Normal 24.0 LAB L501.6200 5-15 GAP Normal 12 Performed By: #### L500.2500, L501.4010 #### [facility] Laboratory [address] [place], [address] TROPONIN-I Collected: 06/04/2018 Status: F Source: [place] 10:40 PM [facility] REPOSITORY TYPE CODE TESTS RESULT OUT OF RANGE REFERENCE UNITS LAB L501.4010 <0.045 ng/mL Normal < 0.015 TROPONIN-I Result Comment: TROPONIN-I EXPECTED VALUES <0.045 Negative 0.045 - 0.590 Consistent with Cardiac Damage > OR = 0.600 Critical Value Not every elevated troponin is indicative of ID. These values should be used with clinical judgement in examining the patient's clinical picture for diagnosis. To establish a diagnosis of ID versus myocardial injury, there must be a demonstrated rise and/or fall in the troponin values, in addition to ischemic symptoms, EKG changes, new regional wall motion abnormality, and/or angiographical evidence. PLEASE NOTE: REFERENCE RANGES EDITED 17 Performed By: #### L500.2500, L501.4010 #### [facility] Laboratory [address] [place], [address] CBC W/DIFF, AUTOMATED Collected: 06/04/2018 Status: C Source: [place] 10:40 PM [facility] REPOSITORY TYPE CODE TESTS RESULT OUT OF RANGE REFERENCE UNITS LAB L100.1000 4.4-11.0 K/mm3 High WBC 22.8 LAB L100.1200 4.6-6.2 M/mm3 Normal RBC 4.98 LAB L100.1300 13.0-16.5 g/dl Normal HGB 15.3 LAB L100.1400 40-54 % Normal HCT 45.2 LAB L100.1500 80-94 fL Normal MCV 90.8 LAB L100.1600 27.0-32.0 pg Normal MCH 30.7 LAB L100.1700 32-36 g/gl Normal MCHC 33.8 LAB L100.1810 11.6-14.6 % Normal RDW CV 13.7 LAB L100.1820 35.1-43.9 fl High RDW SD 45.1 LAB L100.1900 150-450 K/mm3 Normal PLT 339 LAB L100.2000 6.2-12.0 fl Normal MPV 8.9 LAB L100.2100 47-70 % High NEUT% 76.8 LAB L100.2200 19-41 % Low LY% 13.3 LAB L100.2300 0-10 % Normal MONO% 8.7 LAB L100.2400 0-5 % Normal EO% 0.4 LAB L100.2500 0-1 % Normal BASO% 0.4 LAB L100.2550 0.0-0.9 % Normal IM GRAN % 0.400 Result Comment: IG% - Immature Granulocytes (promyelocytes, myelocytes and metamyelocytes) > 1% indicates that a LEFT SHIFT is Present. LAB L100.2620 2.0-7.7 X10 3/uL High Absolute Neut 17.6 LAB L100.2720 0.83-4.51 X10 3/ul Normal Absolute Lymph 3.03 LAB L100.4500 Normal SMEAR COMMENT Result Comment: MONOCYTOSIS NOTED LAB L100.4700 Normal 1+ REACTIVE LYMPH LAB L100.9900 Normal PATH REV Reviewed Result Comment: Neutrophilic leukocytosis. Clinical correlation suggested. Soren Cuevas D.O. 06/05/18 AMENDED REPORT 06/05/18 1152 PATH REV previously reported as: September Performed By: #### L100.0100 #### [facility] Laboratory [address] [place], [place], [address] PROTHROMBIN TIME W/INR Collected: 06/04/2018 Status: F Source: [place] 10:40 PM [facility] REPOSITORY TYPE CODE TESTS RESULT OUT OF RANGE REFERENCE UNITS LAB L300.4150 11.7-14.9 SECONDS Normal PROTIME 12.5 LAB L300.4200 Normal INR 0.9 Performed By: #### L300.3900 #### [facility] Laboratory [address] [place], [address] ALLERGIES ALLERGIES DATE TYPE / CODE NAME / CODE REACTION SEVERITY SOURCE 06/16/2018 Drug No Known Unknown [facility] Allergy/416 Allergies/V98490 Hospital 039539(SNOM 0388(RXNORM) Repository ED CT) Drug NO KNOWN [facility] Class/66311 ALLERGIES Main [place] 1003(SNOMED Repository CT) ENCOUNTERS ENCOUNTERS ADMIT/DISCHARGE ACCOUNT ADMITTING ENCOUNTER LOCATION SOURCE NUMBER CLASS 06/23/2018/06/24/19 [id number] Emergency [address] ing:ED Repository 06/20/2018/06/21/19 [id number] Ambulatory [address] Repository 06/16/2018/06/16/19 [id number] Emergency [address] ing:ED Repository 06/05/2018/06/05/19 [id number] [place], Ambulatory [address] ing:PCURoom: Repository [id number]: 1 06/05/2018 [id number] [place], Ambulatory BMSBuilding:Toña Flower Jesus MS.[facility] Repository PAYERS PAYERS ENCOUNTER GUARANTOR PAYER SUBSCRIBER SOURCE 06/23/2018 VINCENT VIEYRA Primary VINCENT [facility] [address], Insurance:MEDICAIDPol [facility] [address]Pev: icy Number: [id number] Hospital [id number] Repository (HP) Date:2018-06-23 06/23/2018 Secondary NOT GIVENUNK [place] Insurance:SELF PAY [facility] Number: Effective Repository Date:2018-06-23 06/16/2018 VINCENT VIEYRA Primary [facility]INCENT [facility] [address], Insurance:MEDICAIDPol [facility] [address]Klu: icy Number: [id number] Hospital [id number] Repository (HP) Date:2018-06-16 06/16/2018 Secondary NOT GIVENUNK [place] Insurance:SELF PAY [facility] Number: Effective Repository Date:2018-06-16 06/05/2018 VINCENT VIEYRA Primary VINCENT [facility] [address], Insurance:MEDICAIDPol [facility] [address]Ifk: icy Number: [id number] Hospital [id number] Repository (HP) Date:2018-06-04 06/05/2018 Secondary NOT GIVENUNK [place] Insurance:SELF PAY [facility] Number: Effective Repository Date:2018-06-04 06/05/2018 VINCENT VIEYRA Primary VINCENT [place] [address], [facility] [address]Obr: icy Number: [id number] Hospital [id number] Repository (HP) Date:2018-06-04 06/05/2018 Secondary NOT GIVENUNK [place] Insurance:SELF PAY [facility] Number: Effective Repository Date:2018-06-05
== END 2018-06-16 08:16 | disposition home or self-care (01) ==
PROVIDERS: Emergency Provider Emergency Medicine; Family Provider Family Medicine; PCP Family Medicine
DX: R07.9 Chest pain, unspecified (principal); F41.9 Anxiety disorder, unspecified; Z72.0 Tobacco use; Z79.899 Other long term (current) drug therapy
CPT/HCPCS: 71046; 93005; 99284; J7030; A4216

== ENCOUNTER 2018-06-23 22:59 | Emergency (ER) | payer MEDICAID, SELFPAY ==
[2018-06-23 22:59] VITALS: BP 134/90; PULSE 87; RESP 16; TEMP 36.4; O2SAT 99; BMI 22.8
[2018-06-23 23:11] VITALS: BP 125/85; PULSE 80; RESP 14; TEMP 36.4; O2SAT 99
--- NOTE | 2018-06-23 23:14 | EKG12_ITS ---
Test Reason : Blood Pressure : / mmHG Vent. Rate : 086 BPM Atrial Rate : 086 BPM P-R Int : 148 ms QRS Dur : 092 ms QT Int : 390 ms P-R-T Axes : 074 066 058 degrees QTc Int : 466 ms Normal sinus rhythm Incomplete right bundle branch block Borderline ECG Confirmed by LAW GONZALES, JOSEFA ([id number]), newspaper editor managing JOSE OLGUIN ([id number]) on 06/27/2018 2:20:36 PM Referred By: TADEO Confirmed By:JOSEFA FOY MD
[2018-06-23 23:37] LABS: Absolute Lymphocyte Count 4.83 X10^3/ul (0.83-4.51); Absolute Neutrophil Count 7.4 X10^3/uL (2.0-7.7); Basophil# 0.12 X10^3/uL; Basophil% 0.9 % (0-1); Eosinophil# 0.38 X10^3/uL; Eosinophils% 2.8 % (0-5); Hematocrit 44.4 % (40-54); Hemoglobin 14.9 g/dl (13.0-16.5); Lymphocyte # 4.83 X10^3/ul (4.0); Lymphocyte % 35.6 % (19-41); Mean Corp Hgb Conc 33.6 g/gl (32-36); Mean Corpuscular Hgb 30.2 pg (27.0-32.0); Mean Corpuscular Volume 90.1 fL (80-94); Mean Platelet Vol. 9.1 fl (6.2-12.0); Monocyte# 0.83 X10^3/uL; Monocyte% 6.1 % (0-10); Neutrophil # 7.35 X10^3/uL (2.7-7.7); Neutrophil % 54.3 % (47-70); POSITIVE COUNT NO; POSITIVE DIFFERENTIAL NO; POSITIVE MORPHOLOGY NO; Platelet Count 321 K/mm3 (150-450); RBC Distribution Width CV 13.5 % (11.6-14.6); RBC Distribution Width SD 44.1 fl (35.1-43.9); Red Blood Count 4.93 M/mm3 (4.6-6.2); White Blood Count 13.6 K/mm3 (4.4-11.0)
[2018-06-23 23:47] LABS: Amphetamine Urine VISTA NEGATIVE (<1000 ng/mL); Barbiturate Urine VISTA NEGATIVE (< 200 ng/mL); Benzodiazepine Urine VISTA NEGATIVE (< 200 ng/mL); Cocaine Urine VISTA NEGATIVE (< 300 ng/mL); Ecstacy Urine VISTA NEGATIVE (< 500 ng/mL); Methadone Urine VISTA NEGATIVE (< 300 ng/mL); PCP Urine VISTA NEGATIVE (< 25 ng/mL); THC Urine VISTA NEGATIVE (< 50 ng/mL); Vista UDS pH Range 6
[2018-06-23 23:48] LABS: ALB/GLOB Ratio 1.1 RATIO (0.9-2.4); AST(SGOT) 24 U/L (15-37); Alanine Aminotransfer ALT/SGPT 29 U/L (16-61); Albumin, Serum 3.6 g/dL (3.2-5.0); Alkaline Phosphatase 67 U/L (45-117); Anion Gap 10 (5-15); BUN 9 mg/dL (7-18); BUN/Creat Ratio 10.3 RATIO (10-20); Calcium,Total 7.8 mg/dL (8.5-10.1); Chloride 109 mmol/L (98-107); Creatinine, Serum 0.87 mg/dL (0.70-1.30); EST Glomerular Filtration Rate 108 mL/min (>60); Est Glom Filt Rate - Afr Amer 130 mL/min (>60); Estimated Creatinine Clearance 113.79 ml/min; Globulin 3.3 g/dL (2.2-4.2); Glucose 101 mg/dL (74-106); Potassium 3.5 mmol/L (3.5-5.1); Protein, Total 6.9 g/dL (6.4-8.2); Sodium Level 142 mmol/L (136-145)
[2018-06-24] VITALS (12 sets, daily range): BP systolic 100–118; BP diastolic 64–82; PULSE 18–107; RESP 12–20; O2SAT 93–98
--- NOTE | 2018-06-24 03:49 | ED.DCSUM_ITS ---
- ER Visit Summary Date of Service: 06/24/18 Chief Complaint: Depression and suicidal thoughts History of Present Illness: The patient is a 32 M who presents with depression and suicidal thoughts. He states he is upset because he does not get to see his children anymore. He does not have any specific plan but states that he just does not want to live. He is intoxicated. Physical Examination: Afebrile vitals normal No distress Heart regular rate and rhythm Lungs are clear Abdomen soft Alert Patient endorses suicidal thoughts without specific plan or homicidal thoughts Test Results: EKG shows normal sinus rhythm at a rate of 86. Labs are notable for white blood cell count 13.6, alcohol of 312. Emergency Department Course and Treatment: Patient is clinically intoxicated. He will need to be reevaluated once sober and can have crisis evaluation once sober which will occur after signed out to the oncoming physician this morning. Treatment Plan: [] Disposition: Pending reevaluation and crisis evaluation Impression: Acute alcohol intoxication Suicidal ideation This note was generated with [employer] dictation software. It may contain incorrect words, spelling, and punctuation that were not noted in review of the chart prior to signing ED Disposition - Plan for ED Patient: Chief Complaint: Suicidal Referrals: Saleem Isaacs MD [Primary Care Provider] -
--- NOTE | 2018-06-24 04:07 | ED.RN ---
DR. PIEDRA MADE AWARE OF PATIENT'S BLOOD PRESSURE OF 100/70
--- NOTE | 2018-06-24 04:10 | ED.RN ---
REGULAR DIET WITH SUICIDE PRECAUTIONS ORDERED AND BREAKFAST ORDERED.
--- NOTE | 2018-06-24 05:15 | ED.RN ---
ES TELLEZ (SITTER) WAS ASKED BY THE PATIENT IF HE CAN GO OUTSIDE AND SMOKE. HE WAS TOLD BY THE SITTER THAT HE IS NOT ALOUD TO DO THIS. HE TOLD HER THAT HE WILL SLEEP A COUPLE MORE HOURS AND THEN HE IS GOING OUT TO SMOKE. THIS NURSE TOLD ES TO LET ME KNOW IF HE ASKS AGAIN AND I WILL SEE IF HE WOULD LIKE A NICOTINE PATCH.
--- NOTE | 2018-06-24 07:03 | NURSING ---
CALLED COUNSELING CENTER
--- NOTE | 2018-06-24 07:19 | NURSING ---
ARIELA BROCK, CALLED IN. PATIENT WILL BE ON THE NEXT COUNTY MANAGER'S LIST
--- NOTE | 2018-06-24 08:51 | NURSING ---
ZAIN, CRISIS, JUST GOT REPORT AND WILL BE OVER
--- NOTE | 2018-06-24 08:51 | ED.RN ---
Pt awake and has had breakfast. Talked of leaving. Denies suicidal ideations.
[2018-06-24] MEDS: PARoxetine 10 MG Tablet PO (09:10)
--- NOTE | 2018-06-24 09:32 | NURSING ---
ZAIN, CRISIS, HERE FOR PATIENT
--- NOTE | 2018-06-24 10:20 | ED.DEP ---
ED Disposition - Plan for ED Patient: Disposition: Home or Assisted Living Chief Complaint: Suicidal Instructions: ED Alcohol Intoxication Referrals: Saleem Isaacs MD [Primary Care Provider] - EIGHTY,ONE [STAFF PHYSICIAN] -
== END 2018-06-24 10:25 | disposition home or self-care (01) ==
PROVIDERS: Emergency Provider Emergency Medicine; Family Provider Family Medicine; PCP Family Medicine
DX: R45.851 Suicidal ideations (principal); F10.129 Alcohol abuse with intoxication, unspecified; F32.9 Major depressive disorder, single episode, unspecified; Z79.899 Other long term (current) drug therapy; Y90.8 Blood alcohol level of 240 mg/100 ml or more
CPT/HCPCS: 80053; 80307; 80320; 85025; 93005; 99284; G0480

== ENCOUNTER 2018-06-28 04:00 | Emergency (ER) | payer MEDICAID, SELFPAY ==
[2018-06-28 04:01] VITALS: BP 139/111; PULSE 97; RESP 16; TEMP 36.6; O2SAT 99; BMI 22.7
--- NOTE | 2018-06-28 04:13 | ED.DCSUM_ITS ---
- ER Visit Summary Date of Service: 06/28/18 Chief Complaint: [] rash with itching History of Present Illness: The patient is a 32 M [] who stated he has had a rash for the last 48 hours gradual onset continuous itching. It is diffuse. Worse on his upper thighs feet and hands. No home treatment. He is staying at the [facility]. He is using a new soap but has been using it for the last 2 weeks. Never had this before Physical Examination: [] Vital signs reviewed General: Well-nourished well-developed Head: Normocephalic atraumatic Eyes: Pupils equal round and reactive to light extraocular movements intact ENT: TMs clear no hemotympanum no trauma Neck: Nontender full range of motion Cardiovascular: Regular rate rhythm no murmurs normal S1-S2 Respiratory: No distress clear to auscultation bilaterally chest nontender Abdomen: Soft nontender nondistended normal bowel sounds no masses Back: Nontender no CVA tenderness Extremities: Nontender active range of motion ?4 extremities no trauma Skin: Urticaria noted on the back of the hand and feet abdomen and inner arms Neuro alert oriented cranial nerves II through XII intact normal strength sensation reflexes Test Results: [] Emergency Department Course and Treatment: [] Patient given oral Benadryl and got a Kenalog. We will continue Benadryl as an outpatient. At this time he is acute urticaria Treatment Plan: [] Disposition: [] Impression: [] Acute urticaria This note was generated with [employer] dictation software. It may contain incorrect words, spelling, and punctuation that were not noted in review of the chart prior to signing ED Disposition - Plan for ED Patient: Chief Complaint: Rash Referrals: Saleem Isaacs MD [Primary Care Provider] -
--- NOTE | 2018-06-28 04:13 | ED.DEP ---
ED Disposition - Plan for ED Patient: Disposition: Home or Assisted Living Chief Complaint: Rash Instructions: ED Urticaria Referrals: Saleem Isaacs MD [Primary Care Provider] -
[2018-06-28] MEDS: DiphenhydrAMINE 25 MG Capsule 50 MG PO (04:21)
[2018-06-28] MEDS: Triamcinolone Acetonide 40 MG/ML Vial IM (04:21)
[2018-06-28 04:35] VITALS: BP 130/100
== END 2018-06-28 04:36 | disposition home or self-care (01) ==
PROVIDERS: Emergency Provider Emergency Medicine; Family Provider Family Medicine; PCP Family Medicine
DX: L50.9 Urticaria, unspecified (principal); F41.9 Anxiety disorder, unspecified; F32.9 Major depressive disorder, single episode, unspecified; Z79.899 Other long term (current) drug therapy; Z72.0 Tobacco use
CPT/HCPCS: 96372; 99285

== ENCOUNTER 2018-07-26 12:55 | Emergency (ER) | payer MEDICAID, SELFPAY ==
[2018-07-26 12:56] VITALS: BP 141/90; PULSE 104; RESP 16; TEMP 36.8; O2SAT 96; BMI 21.9
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
--- NOTE | 2018-07-26 13:17 | ED.DEP ---
ED Disposition - Plan for ED Patient: Instructions: ED Tooth Pain, ED Bite Human Prescriptions: Amox/Clavulanate Tablet [Augmentin Tablet] 875 mg PO Q12H #20 tab Naproxen [Naprosyn] 500 mg PO BID PRN #20 tab Referrals: Saleem Isaacs MD [Primary Care Provider] - Additional Instructions: see a dentist
[2018-07-26] MEDS: Amox/Clavulanate 875 MG Tablet PO (13:43)
[2018-07-26 13:44] VITALS: TEMP 36.6
== END 2018-07-26 13:45 | disposition home or self-care (01) ==
PROVIDERS: Emergency Provider Emergency Medicine; Family Provider Family Medicine; PCP Family Medicine
DX: K02.9 Dental caries, unspecified (principal); K08.89 Other specified disorders of teeth and supporting structures; S60.572A Other superficial bite of hand of left hand, initial encounter; S40.272A Other superficial bite of left shoulder, initial encounter; Z72.0 Tobacco use; Z79.899 Other long term (current) drug therapy; Y04.1XXA Assault by human bite, initial encounter; Y93.89 Activity, other specified; Y92.008 Other place in unspecified non-institutional (private) residence as the place of occurrence of the external cause; Y99.8 Other external cause status
CPT/HCPCS: 99283

== ENCOUNTER 2018-10-21 07:24 | Emergency (ER) | payer MEDICAID, SELFPAY ==
[2018-10-21 07:25] VITALS: BP 123/97; PULSE 106; RESP 18; TEMP 36.9; O2SAT 98; BMI 22.3
--- NOTE | 2018-10-21 07:30 | ED.VISSUMM ---
- ER Visit Summary Date of Service: 10/21/18 Chief Complaint: Sore throat History of Present Illness: The patient is a 33 M with the gradual onset of a sore throat. The pain started 3 days ago on the right side and then progressed bilaterally. He has an associated fever. No change in voice. No trouble breathing. No other associated symptoms. Physical Examination: Afebrile vital signs unremarkable except for heart rate of 106. Patient appears nontoxic and in no acute distress. Alert and oriented. Sitting, breathing, speaking comfortably. No drooling. HEENT exam unremarkable except for 1+ tonsils bilaterally with exudates. Uvula midline. Airway patent. No stridor. Otherwise HEENT exam normal. Neck nontender with good range of motion. No meningeal signs. No evidence to suggest abscess. Clear respirations. Test Results: None Emergency Department Course and Treatment: Patient treated with Tylenol, Pen-Vee K, Decadron. Continue Tylenol as needed at home. Will prescribe Pen-Vee K. Follow-up with primary care. Return for any new or worsening issues. Disposition: Discharge Impression: 1. Pharyngitis This note was generated with [employer] dictation software. It may contain incorrect words, spelling, and punctuation that were not noted in review of the chart prior to signing ED Disposition - Plan for ED Patient: Referrals: Saleem Isaacs MD [Primary Care Provider] -
--- NOTE | 2018-10-21 07:32 | ED.DEP ---
ED Disposition - Plan for ED Patient: Instructions: Self-Care for Sore Throats Prescriptions: Penicillin V Potassium 500 mg PO 4X/DAY #40 tab Referrals: Saleem Isaacs MD [Primary Care Provider] -
[2018-10-21] MEDS: Acetaminophen 500 MG Tablet 1000 MG PO (07:34)
[2018-10-21] MEDS: Penicillin Vk 250 MG Tablet 500 MG PO (07:34)
[2018-10-21] MEDS: dexAMETHasone 4 MG Tablet 10 MG PO (07:34)
== END 2018-10-21 07:37 | disposition home or self-care (01) ==
LOC: ED 07:34
PROVIDERS: Emergency Provider Emergency Medicine; Family Provider Family Medicine; PCP Family Medicine
DX: J02.9 Acute pharyngitis, unspecified (principal); Z72.0 Tobacco use; Z86.711 Personal history of pulmonary embolism
CPT/HCPCS: 99285

== ENCOUNTER 2018-11-29 11:18 | Emergency (ER) | payer MEDICAID, SELFPAY ==
[2018-11-29 11:19] VITALS: BP 133/76; PULSE 103; RESP 16; TEMP 36.7; BMI 21.9
[2018-11-29] MEDS: Cephalexin 250 MG Capsule 500 MG PO (11:50)
[2018-11-29] MEDS: Smz/Tmp Ds Tablet 1 TABLET PO (11:50)
--- NOTE | 2018-11-29 12:27 | ED.VISSUMM ---
- ER Visit Summary Date of Service: 11/29/18 Chief Complaint: Right fifth finger pain and swelling History of Present Illness: The patient is a 33 M who states he bites his fingernails and gets frequent infections. He notes waxing and waning swelling to his right fifth finger after biting his nails 3 weeks ago. He strained it a couple times at home but it keeps recurring. Physical Examination: Vital signs unremarkable. Patient sitting upright in bed no acute distress. He is nontoxic-appearing. Right upper extremity examination reveals paronychia of the right fifth finger. He has full range of motion. Test Results: [] Emergency Department Course and Treatment: Digital block was performed with 3 cc 1% lidocaine. Paronychia is open with a 1/2 cm incision with a #11 blade. Pus was returned. Wound is cleansed and dressed. Because he has been draining it repeatedly at home he will be covered with Bactrim and Keflex, first dose was given here. Treatment Plan: [] Disposition: Discharge Impression: Paronychia right fifth finger This note was generated with [employer] dictation software. It may contain incorrect words, spelling, and punctuation that were not noted in review of the chart prior to signing ED Disposition - Plan for ED Patient: Disposition: Home or Assisted Living Instructions: Paronychia Prescriptions: Smz/Tmp Ds [Bactrim Ds] 1 tablet PO BID #20 tablet Cephalexin [Keflex] 500 mg PO Q6 #40 capsule Referrals: Saleem Isaacs MD [Primary Care Provider] - 1 Week if not improving
== END 2018-11-29 12:34 | disposition home or self-care (01) ==
PROVIDERS: Emergency Provider Emergency Medicine; Family Provider Family Medicine; PCP Family Medicine
DX: L03.011 Cellulitis of right finger (principal); Z72.0 Tobacco use
CPT/HCPCS: 10060; 99284

== ENCOUNTER 2018-12-08 06:13 | Emergency (ER) | payer MEDICAID, SELFPAY ==
[2018-12-08 06:14] VITALS: BP 144/91; PULSE 102; RESP 17; TEMP 36.8; O2SAT 98; BMI 21.3
--- NOTE | 2018-12-08 06:21 | ED.VIS.GEN ---
History of Present Illness Chief Complaint: Wound Check Detail of Chief Complaint: Left thumb wound Informant: Patient Onset: - - 2 to 3 days Context: Gradual Onset Current Severity: Moderate Maximum Severity: Severe Narrative: Patient states that 2 or 3 days ago he stabbed the base of his left thumb with a pair of scissors when trying to remove a piece of tape off of an object. Patient states the area has become more painful, swollen, and erythematous. Pain now radiates down across the base of the palm and into the forearm. He has significant pain when trying to extend his thumb. He denies fever or chills. Patient is right-hand dominant. Patient was seen last week for a paronychia on his right hand. He was given prescriptions for Bactrim and Keflex but states he never filled the prescriptions. - Past Medical History (1) Paronychia Status: Acute Past Medical History - Allergies and Home Meds Allergies/Adverse Reactions: Allergies ORO BEANS Allergy (Uncoded 12/08/18 06:16) Rash Primary Care Physician: Saleem Isaacs MD [Primary Care Provider] - Prior records reviewed: Yes Past Medical History: - - Reviewed Surgical History: no surgical history Smoking Status: Current every day smoker Alcohol: Occasional Drugs: - - Meth - Family History Maternal Family History: Reports: Cancer - Colon cancer, Pulmonary Disease - Emphysema Paternal Family History: Reports: Diabetes, Hypertension, Stroke Review of Systems General: Denies: Chills, Fever Cardiovascular: Denies: Chest pain, Palpitations Respiratory: Denies: Dyspnea, Cough, Sputum Gastrointestinal: Denies: Abdominal pain Musculoskeletal: Reports: Arthralgias Physical Exam Vital Signs/Narrative: Vital Signs Temp Pulse Resp BP Pulse Ox 12/08/18 06:14 98.3 F 102 H 17 144/91 H 98 Inital Vital Signs reviewed: Yes General: Well nourished, Well developed Head: Normocephalic ENT: Moist mucous membranes Cardiovascular: Regular rate, Regular rhythm Respiratory: No distress, CTA bilaterally Abdomen: Soft, Nontender Extremities: - - There is a scabbed linear laceration at the proximal phalanx of the left thumb over the flexor surface. The thumb is mildly erythematous and edematous. He has exquisite pain with any extension. He has tenderness to palpation across the thenar eminence and up into the forearm. There is no sign of lymphangitic streaking. Patient's exam findings are consistent with flexor tenosynovitis. Neurological: Alert ED Disposition - Plan for ED Patient: Referrals: Saleem Isaacs MD [Primary Care Provider] -
[2018-12-08] MEDS: Morphine 4 MG/ML Syringe IV (06:31)
[2018-12-08] MEDS: 0.9% Normal Saline 1,000 ML 150 ML IV (06:31)
[2018-12-08] MEDS: Ondansetron 4 MG/2 ML Vial IV (06:31)
[2018-12-08] MEDS: Ceftriaxone 1 GM/50 ML BAG IV (06:36)
[2018-12-08 06:45] LABS: Absolute Lymphocyte Count 4.53 X10^3/ul (0.83-4.51); Absolute Neutrophil Count 12.2 X10^3/uL (2.0-7.7); Basophil# 0.13 X10^3/uL; Basophil% 0.7 % (0-1); Eosinophils% 1.1 % (0-5); Hematocrit 47.1 % (40-54); Hemoglobin 16.4 g/dl (13.0-16.5); Lymphocyte # 4.53 X10^3/ul (4.0); Lymphocyte % 24.6 % (19-41); Mean Corp Hgb Conc 34.8 g/gl (32-36); Mean Corpuscular Hgb 30.8 pg (27.0-32.0); Mean Corpuscular Volume 88.4 fL (80-94); Monocyte# 1.37 X10^3/uL; Monocyte% 7.4 % (0-10); Neutrophil # 12.16 X10^3/uL (2.7-7.7); Neutrophil % 65.9 % (47-70); Platelet Count 386 K/mm3 (150-450); RBC Distribution Width CV 13.4 % (11.6-14.6); RBC Distribution Width SD 43.3 fl (35.1-43.9); Red Blood Count 5.33 M/mm3 (4.6-6.2); White Blood Count 18.4 K/mm3 (4.4-11.0)
[2018-12-08 06:46] LABS: POSITIVE COUNT NO; POSITIVE DIFFERENTIAL NO; POSITIVE MORPHOLOGY NO
[2018-12-08 06:54] LABS: Anion Gap 6 (5-15); BUN 19 mg/dL (7-18); Calcium,Total 9.2 mg/dL (8.5-10.1); Chloride 103 mmol/L (98-107); Creatinine, Serum 1.46 mg/dL (0.70-1.30); EST Glomerular Filtration Rate 59 mL/min (>60); Est Glom Filt Rate - Afr Amer 71 mL/min (>60); Estimated Creatinine Clearance 62.91 ml/min; Glucose 86 mg/dL (74-106); Potassium 4.1 mmol/L (3.5-5.1); Sodium Level 138 mmol/L (136-145)
[2018-12-08] MEDS: HYDROmorphone 0.5 MG/0.5 ML SYRINGE IV (07:20)
--- NOTE | 2018-12-08 07:40 | ED.RN ---
CALLED DR CHEEK LEFT MESSAGE
[2018-12-08] MEDS: Vancomycin IV 1,000 MG/200 ML BAG 200 MG IV (07:42)
[2018-12-08] MEDS: Diphth,Pertuss(Acell),Tet Vac 0.5 ML Vial IM (09:54)
[2018-12-08 10:02] VITALS: BP 143/89; PULSE 111; RESP 18; O2SAT 96
--- NOTE | 2018-12-08 10:06 | NURSING ---
This RN tried calling 4 separate phone numbers for [facility] and cannot get through, line keeps ringing. Transport line would not work as well. Unable to call report to the ER.
== END 2018-12-08 10:07 | disposition short-term general hospital (02) ==
PROVIDERS: Emergency Provider Emergency Medicine; Family Provider Family Medicine; PCP Family Medicine
DX: M65.9 Synovitis and tenosynovitis, unspecified (principal); F17.200 Nicotine dependence, unspecified, uncomplicated; Z23 Encounter for immunization
CPT/HCPCS: 80048; 85025; 87040; 90715; 96365; 96366; 96367; 96375; 99284; J7030; A4216; J2405

== ENCOUNTER 2018-12-27 08:50 | Outpatient (RCR) | payer MEDICAID, SELFPAY ==
--- NOTE | 2018-12-27 15:18 | HP.OTEVAL_ITS ---
Patient's Visit Information VINCENT JUNE Jr. is a 33 year old M, referred to Occupational Therapy by CHRIS KWON, with a diagnosis of left laceration of left thumb/ s/p complete synovectomy of flexor tendons. Date of Evaluation: 12/27/18 Occupational Therapist: Nannette Wilson, YUDELKA/Leidy, CHT - Subjective Subjective: This 33 year old male was seen for OT with dx of left thumb laceration on December 06, 2018. Pt states his thumb became infected and he has sx on Jly 12. pt is currently s/p complete synovectomy of the flexor tendons at the wrist, irrigation of flexor tenosynovitis of the tumb. Dr. nogueira provide tollowing services: evaluate and treat, AAROM/AROM at forearm, wrist and digits, edema reduction, desensitization/ sensory retraining and scar mtg. pt is right handed. pt is not working at this time. 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 with ADLs and IADl tasks. Goal:: Pt will demo increase in left wrist flex/ext by 20* to increase ind with ADLs and IADLS by d/c. Pt will demo the ability to form a composite fist for use of left hand with daily tasks and occupations by d/c Goal:: pt will report pain no greater than 1/10 with use of left hand with ADLs and IADLs by d/c Goal:: pt will demo understanding of scar mtg by end of 1st session to decrase scar adhesions - Rehabilitation General Assessment: Pt demo with limited left wrist ROM and limited composite fist. pt is painful and due to the pain and limited ROM pt is having increase difficutly with performing his ADLs and IADLS. Pt would benefit from skilled OT services 2-3 x week for 4 weeks to return his ROM and strength to return pt to his PLOF. Today therapist ed. pt on PROM/AROM, endon glide and scar mtg. pt demo ex well and was given handout on HEP. Pt demo understanding and agree to POC. Rehabilitation Potential: Good - Anticipated Interventions Anticipated Interventions: A/AAROM/PROM, Edema Control, Scar Care, Desensitization, Sensory Retraining, Modalities - Visit Plan Frequency: 2-3x /Week Duration: 4 Weeks TEXT: Thank you for the opportunity to evaluate your patient. For Medicare and Medicare HMO plans, please review the plan of care and approve it. It will need to be FAXED BACK to us at [phone] for Medicare purposes. Please let me know if there are questions or concerns regarding this plan of care. Physician Signature: Date:
--- NOTE | 2019-05-04 12:30 | HP.OT.NRP ---
HP - Discharge Summary - Patient Information VINCENT JUNE Jr. was seen in my office for initial evaluation on 12/27/18. The following Plan of Care was established for this patient: Initial Frequency: 2-3x /Week Initial Duration: 4 Weeks - Anticipated Interventions Anticipated Interventions: A/AAROM/PROM, Edema Control, Scar Care, Desensitization, Sensory Retraining, Modalities This patient was last seen in our office 12/27/18. Pertinent comments regarding their Occupational therapy will appear below: pt was seen for OT eval only. Pt cancelled or no showed his scheduled apts. due to time lapse in care pt d/c At this point I will be discontinuing this patient from occupational therapy. I would be happy to see this patient again in the future if found appropriate by the physician. Thank you! Nannette Wilson, OTR/L, CHT
== END 2018-12-27 19:00 | disposition home or self-care (01) ==
LOC: OT 08:50
PROVIDERS: Family Provider Family Medicine; PCP Family Medicine
DX: S61.012D Laceration without foreign body of left thumb without damage to nail, subsequent encounter (principal)
CPT/HCPCS: 97110; 97166; 97530

== ENCOUNTER 2019-01-04 04:12 | Emergency (ER) | payer MEDICAID, SELFPAY ==
[2019-01-04 04:13] VITALS: BP 137/66; PULSE 78; RESP 16; TEMP 36.6; O2SAT 98; BMI 21.5
--- NOTE | 2019-01-04 04:21 | RAD_ITS ---
STUDY: X-RAY - LEFT WRIST REASON FOR EXAM: Male, 33 years old. Fall. TECHNIQUE: 3 view(s) of the wrist were obtained. COMPARISON: None. FINDINGS: Normal visualized distal radius and ulna. Normal radiocarpal articulation. Normal distal radioulnar articulation. Normal carpal bones. Normal carpal articulations. Normal carpometacarpal articulation of the thumb. Normal second through fifth carpometacarpal articulations. Normal visualized metacarpal bones. The soft tissue structures are unremarkable. RAD/Wrist min 3 Views IMPRESSION: Normal x-ray examination of the wrist. Electronically Signed: Jaren Torres, at 4:44 EDT Tel , Service support ,
--- NOTE | 2019-01-04 04:22 | ED.VIS.GEN ---
History of Present Illness Chief Complaint: Upper Extremity Injury Informant: Patient Onset: Today Narrative: Mechanical fall onto left hand. Left wrist pain. Occurred shortly prior to arrival. Reports got up going to the bathroom he slipped going down steps. No head injuries. He is status post incision and drainage left wrist from November 28 due to tendon infection from an injury to his thumb. This was performed in [place]. He is on antibiotics Bactrim twice a day for 25 days, the last 3 doses due to stating his significant other is not at home and cannot access the house. No fevers. Pain is around the incision site volar aspect of the wrist. No drainage. States been dealing with pain since the surgery, however worsened since the injury. No paresthesias. Prior similar symptoms: No Past Medical History - Allergies and Home Meds Allergies/Adverse Reactions: Allergies ORO BEANS Allergy (Uncoded 01/04/19 04:16) Rash Primary Care Physician: Saleem Isaacs MD [Primary Care Provider] - Surgical History: no surgical history Smoking Status: Current every day smoker - Family History Maternal Family History: Reports: Cancer - Colon cancer, Pulmonary Disease - Emphysema Paternal Family History: Reports: Diabetes, Hypertension, Stroke Review of Systems General: Denies: Chills, Fever, Sweats Eyes: Denies: Visual changes - bilaterally, Diplopia ENT: Denies: Rhinorrhea, Sore throat Cardiovascular: Denies: Chest pain, Palpitations Respiratory: Denies: Dyspnea, Cough, Dyspnea on exertion Gastrointestinal: Denies: Abdominal pain, Nausea, Vomiting, Diarrhea, Melena, Hematochezia Genitourinary: Denies: Dysuria, Hematuria, Frequency Musculoskeletal: Reports: Arthralgias. Denies: Back pain, Extremity Pain Skin: Denies: Rash, Wounds Neurological: Denies: Headache, Weakness, Numbness Physical Exam Vital Signs/Narrative: Vital Signs Temp Pulse Resp BP Pulse Ox 01/04/19 04:13 97.8 F 78 16 137/66 H 98 Inital Vital Signs reviewed: Yes General: Well nourished, Well developed, No Acute Distress Head: Normocephalic, Atraumatic Eyes: Perrl, EOMI ENT: Moist mucous membranes, No rhinorrhea Neck: Supple, Nontender Cardiovascular: Regular rate, Regular rhythm, No murmurs Respiratory: No distress, CTA bilaterally, Chest nontender Abdomen: Soft, Nontender, Nondistended, Normal bowel sounds Back: Nontender, Normal Inspection Extremities: No edema, - - Left upper extremity no elbow pain. Tenderness volar aspect of the risk around incision site, there is no drainage. Healed scar at the base of the thumb. No streaking. Neurovascular intact distally. No deformities. Skin: Normal color, No rash Neurological: Alert, Oriented x3, Cranial nerves II-XII grossly intact, Normal Strength, Normal Sensation Psychological: Normal affect, Normal Mood Diagnostic/Tx/Re-eval Clinical Impression(s) from Imaging Studies Wrist X-Ray 01/04/19 04:21 IMPRESSION: Normal x-ray examination of the wrist. Electronically Signed: Jaren Torres, at 4:44 EDT Tel , Service support , - Medical Decision Making Patient wounds appear to be healing well no signs of infection. Vitals stable. With mechanical fall x-ray obtained negative for fracture there is no soft tissue gas to my evaluation. Treated with Motrin. He was given his dose of Bactrim for which she is missed for 3 days. Discussed with patient importance of taking his antibiotics as prescribed due to his recent infection. 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 Wrist splint provided for comfort and protection. He will follow-up with his surgeon. All questions were answered. ED Disposition - Plan for ED Patient: Disposition: Home or Assisted Living Diagnosis: Left wrist sprain Instructions: Wrist Sprain Referrals: Saleem Isaacs MD [Primary Care Provider] - 5-7 Days Additional Instructions: Take antibiotic as prescribed by your surgeon and finish this. Follow-up with your surgeon. Use wrist splint for comfort. Tylenol or Motrin as needed.
[2019-01-04] MEDS: Smz/Tmp Ds Tablet 1 TABLET PO (04:28)
[2019-01-04] MEDS: Ibuprofen 600 MG Tablet PO (04:28)
[2019-01-04 04:59] VITALS: BP 132/60; PULSE 78; RESP 18; O2SAT 99
--- NOTE | 2019-01-04 04:59 | ED.RN ---
pt voiced he wouldn't wear splint.
== END 2019-01-04 05:00 | disposition home or self-care (01) ==
PROVIDERS: Emergency Provider Emergency Medicine; Family Provider Family Medicine; PCP Family Medicine
DX: S63.502A Unspecified sprain of left wrist, initial encounter (principal); W10.9XXA Fall (on) (from) unspecified stairs and steps, initial encounter; Y93.89 Activity, other specified; F17.200 Nicotine dependence, unspecified, uncomplicated
CPT/HCPCS: 73110; 99283

== ENCOUNTER 2019-03-28 13:53 | Emergency (ER) | payer SELFPAY ==
[2019-03-28 13:54] VITALS: BP 151/75; PULSE 101; RESP 16; TEMP 36.6; O2SAT 99; BMI 21.2
--- NOTE | 2019-03-28 13:58 | RAD_ITS ---
STUDY: X-RAY - LEFT WRIST REASON FOR EXAM: Male, 33 years old. Pain following injury. TECHNIQUE: 3 view(s) of the wrist were obtained. COMPARISON: None. FINDINGS: Normal visualized distal radius and ulna. Normal radiocarpal articulation. Normal distal radioulnar articulation. Normal carpal bones. Normal carpal articulations. Normal carpometacarpal articulation of the thumb. Normal second through fifth carpometacarpal articulations. Normal visualized metacarpal bones. Soft tissue swelling. RAD/Wrist min 3 Views IMPRESSION: Soft tissue swelling. Electronically Signed: Benoit Mera, at 14:16 EDT , Service support ,
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
[2019-03-28 15:05] VITALS: BP 137/59; PULSE 72; RESP 15; O2SAT 99
== END 2019-03-28 15:06 | disposition home or self-care (01) ==
PROVIDERS: Emergency Provider Emergency Medicine
DX: S60.212A Contusion of left wrist, initial encounter (principal); S09.90XA Unspecified injury of head, initial encounter; Z72.0 Tobacco use; Y04.2XXA Assault by strike against or bumped into by another person, initial encounter; Y93.89 Activity, other specified; Y92.89 Other specified places as the place of occurrence of the external cause; Y99.8 Other external cause status
CPT/HCPCS: 73110; 99283

== ENCOUNTER 2019-04-12 15:55 | Emergency (ER) | payer SELFPAY ==
[2019-04-12 15:56] VITALS: BP 133/90; PULSE 94; RESP 16; TEMP 37.1; O2SAT 99; BMI 20.9
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
[2019-04-12] MEDS: Smz/Tmp Ds Tablet 1 TABLET PO (16:46)
[2019-04-12] MEDS: Cephalexin 250 MG Capsule PO (16:46)
== END 2019-04-12 16:47 | disposition home or self-care (01) ==
PROVIDERS: Emergency Provider Emergency Medicine; Family Provider Family Medicine; PCP Family Medicine
DX: L03.114 Cellulitis of left upper limb (principal); S51.001D Unspecified open wound of right elbow, subsequent encounter; Z86.14 Personal history of Methicillin resistant Staphylococcus aureus infection; Z86.711 Personal history of pulmonary embolism; F17.200 Nicotine dependence, unspecified, uncomplicated; W18.30XD Fall on same level, unspecified, subsequent encounter
CPT/HCPCS: 99283

== ENCOUNTER 2019-07-24 13:18 | Emergency (ER) | payer SELFPAY ==
[2019-07-24] VITALS (9 sets, daily range): BP systolic 108–115; BP diastolic 65–76; PULSE 80–84; RESP 14–18; TEMP 36.8; O2SAT 98–99; BMI 21.2
[2019-07-24 14:08] LABS: Absolute Lymphocyte Count 3.33 X10^3/uL (0.83-4.51); Absolute Neutrophil Count 11.2 X10^3/uL (2.0-7.7); Basophil# 0.13 X10^3/uL; Basophil% 0.8 % (0-1); Eosinophil# 0.48 X10^3/uL; Hematocrit 40.4 % (40-54); Hemoglobin 13.5 g/dL (13.0-16.5); Lymphocyte # 3.33 X10^3/ul (4.0); Lymphocyte % 20.7 % (19-41); Mean Corp Hgb Conc 33.4 g/dL (32-36); Mean Corpuscular Hgb 30.3 pg (27.0-32.0); Mean Corpuscular Volume 90.8 fL (80-94); Mean Platelet Vol. 9.1 fl (6.2-12.0); Monocyte# 0.86 X10^3/uL; Monocyte% 5.3 % (0-10); NRBC Flagged by Analyzer 0 % (0-5); Neutrophil # 11.24 X10^3/uL (2.7-7.7); Neutrophil % 69.9 % (47-70); Platelet Count 325 K/mm3 (150-450); RBC Distribution Width SD 42.4 fl (35.1-43.9); Red Blood Count 4.45 M/mm3 (4.6-6.2); White Blood Count 16.1 K/mm3 (4.4-11.0)
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
[2019-07-24 14:21] LABS: Anion Gap 3 (5-15); BUN 16 mg/dL (7-18); Calcium,Total 8.9 mg/dL (8.5-10.1); Chloride 108 mmol/L (98-107); Creatinine, Serum 1.07 mg/dL (0.70-1.30); EST Glomerular Filtration Rate 84 mL/min (>60); Est Glom Filt Rate - Afr Amer 102 mL/min (>60); Glucose 90 mg/dL (74-106); Sodium Level 141 mmol/L (136-145)
[2019-07-24 14:31] LABS: Amphetamine Urine VISTA POSITIVE (<1000 ng/mL); Barbiturate Urine VISTA NEGATIVE (< 200 ng/mL); Benzodiazepine Urine VISTA NEGATIVE (< 200 ng/mL); Cocaine Urine VISTA NEGATIVE (< 300 ng/mL); Ecstacy Urine VISTA NEGATIVE (< 500 ng/mL); Methadone Urine VISTA NEGATIVE (< 300 ng/mL); PCP Urine VISTA NEGATIVE (< 25 ng/mL); THC Urine VISTA POSITIVE (< 50 ng/mL); Vista UDS pH Range 5
[2019-07-24 14:34] LABS: Alcohol, Blood (Medical)-Serum < 3.0 mg/dL
[2019-07-24 14:40] LABS: Acetaminophen (Tylenol) Level < 2.0 ug/mL (10.0-30.0); Salicylate 4.1 mg/dL (2.8-20.0)
--- NOTE | 2019-07-24 15:57 | CM.ED ---
SOCIAL WORK TELEPHONE CALL TO CRISIS TO UPDATE PATIENT IS MEDICALLY CLEARED, SPOKE WITH SEVERINO. SEVERINO TO BE IN TO ASSESS PATIENT. Basilia GARZA, LANGUAGE THERAPIST, LINE UP MACHINE OPERATOR.
--- NOTE | 2019-07-24 16:15 | CM.ED ---
SOCIAL WORK ASIAN ART CURATOR, SEVERINO HERE TO ASSESS PATIENT. Basilia GARZA, SPECIAL EDUCATION SCIENCE TEACHER, FORM SETTER SUPERVISOR.
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
--- NOTE | 2019-07-24 17:09 | NURSING ---
1610 SEVERINO, CRISIS, ARRIVED
--- NOTE | 2019-07-24 17:13 | ED.RN ---
information sent to [facility]. crises states just waiting for review now
--- NOTE | 2019-07-24 18:50 | EKG12_ITS ---
Test Reason : MHC Blood Pressure : / mmHG Vent. Rate : 078 BPM Atrial Rate : 078 BPM P-R Int : 148 ms QRS Dur : 098 ms QT Int : 408 ms P-R-T Axes : 077 083 074 degrees QTc Int : 465 ms Normal sinus rhythm with sinus arrhythmia Incomplete right bundle branch block Nonspecific T wave abnormality Prolonged QT Abnormal ECG Confirmed by AMARI BARRIENTOS ([id number]), school photograph editor ROSITA SUN ([id number]) on 07/25/2019 2:55:44 PM Referred By: SOLOMON Confirmed By:AMARI BARRIENTOS
[2019-07-24 19:21] LABS: AST(SGOT) 17 U/L (15-37); Alanine Aminotransfer ALT/SGPT 24 U/L (16-61); Albumin, Serum 3.4 g/dL (3.2-5.0); Alkaline Phosphatase 73 U/L (45-117); Bilirubin, Direct 0.09 mg/dL (0.00-0.30); Globulin 3.3 g/dL (2.2-4.2); Protein, Total 6.7 g/dL (6.4-8.2)
[2019-07-25] VITALS (11 sets, daily range): BP systolic 110–137; BP diastolic 70–99; PULSE 62–78; RESP 14–18; O2SAT 98–100
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
--- NOTE | 2019-07-25 13:24 | NURSING ---
CALLED CRISIS. SEVERINO IS IN WITH A PATIENT
--- NOTE | 2019-07-25 14:03 | NURSING ---
SEVERINO, CRISIS, CALLED. NO BED YET BUT SHOULD BE SOON
== END 2019-07-25 15:36 | disposition home or self-care (01) ==
LOC: ED 13:54
PROVIDERS: Emergency Medicine; Emergency Provider Emergency Medicine; PCP Family Medicine
DX: R45.851 Suicidal ideations (principal); F32.9 Major depressive disorder, single episode, unspecified; Z72.0 Tobacco use
CPT/HCPCS: 80048; 80076; 80307; 80320; 80329; 85025; 93005; 99285; G0480

== ENCOUNTER 2019-08-23 23:06 | Emergency (ER) | payer SELFPAY ==
[2019-07-24 13:18] VITALS: BMI 21.2
[2019-08-23 23:07] VITALS: BP 163/90; PULSE 100; RESP 18; TEMP 36.6; O2SAT 100; BMI 22.8
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
--- NOTE | 2019-08-24 00:07 | DCINST.ED_ITS ---
ED Disposition - Plan for ED Patient: Instructions: ED FOOT FRACTURE Prescriptions: Hydrocodone Bitart/Apap 5-325 [[place] 5MG-325MG] 1 tab PO Q4H PRN PRN 2 Days #14 tab PRN Reason: Pain Prescription Printed Referrals: Saleem Isaacs MD [Primary Care Provider] - Barb Lam DPM [STAFF PHYSICIAN] - 1 Day for another exam
[2019-08-24] MEDS: Ibuprofen 600 MG Tablet PO (00:34)
[2019-08-24 00:37] VITALS: BP 162/72; PULSE 83; RESP 18; O2SAT 98
== END 2019-08-24 00:40 | disposition home or self-care (01) ==
LOC: ED 23:47
PROVIDERS: Emergency Provider Emergency Medicine; PCP Family Medicine
DX: S92.322A Displaced fracture of second metatarsal bone, left foot, initial encounter for closed fracture (principal); Z72.0 Tobacco use; X58.XXXA Exposure to other specified factors, initial encounter; Y93.89 Activity, other specified; Y92.099 Unspecified place in other non-institutional residence as the place of occurrence of the external cause; Y99.8 Other external cause status
CPT/HCPCS: 73630; 99285

== ENCOUNTER 2019-08-25 20:57 | Emergency (ER) | payer SELFPAY ==
[2019-08-25 20:59] VITALS: BP 143/100; PULSE 98; RESP 20; TEMP 36.7; O2SAT 100; BMI 22.6
--- NOTE | 2019-08-25 21:39 | RAD_ITS ---
HISTORY: SUICIDAL, INTOXICATED. BRUISNG/PAIN L ANKLE ADDITIONAL HISTORY: None provided. TECHNIQUE: Left ankle 3 views Number of images including paperwork: 3 COMPARISON: Left foot 08/23/2019 FINDINGS: BONES: Fracture of the proximal left second metatarsal with 2-3 mm of displacement appears similar. No other definite fracture. JOINTS: No subluxation. SOFT TISSUES: No distinct foreign body. Soft tissue swelling. RAD/Ankle min 3 Views IMPRESSION: Left second metatarsal fracture without gross change. at 2249 Reported and signed by: Zoe Dowling MD Electronically Signed: Zoe Dowling MD at 22:48 EDT Tel , Service support ,
--- NOTE | 2019-08-25 21:39 | RAD_ITS ---
HISTORY: SUICIDAL, INTOXICATED. ADDITIONAL HISTORY: None provided. TECHNIQUE: Left foot 3 views Number of images including paperwork: 3 COMPARISON: Left foot 08/23/2019 FINDINGS: BONES: Fracture of the proximal left second metatarsal with 2-3 mm of displacement appears similar. No other definite fracture. JOINTS: No subluxation. SOFT TISSUES: No distinct foreign body. Soft tissue swelling. RAD/Foot min 3 Views IMPRESSION: Left second metatarsal fracture without gross change. at 2248 Reported and signed by: Zoe Dowling MD Electronically Signed: Zoe Dowling MD at 22:48 EDT Tel , Service support ,
[2019-08-25] MEDS: Ziprasidone IM 20 MG/ML VIAL IM (21:42)
[2019-08-25 21:48] LABS: Absolute Lymphocyte Count 5.81 X10^3/uL (0.83-4.51); Absolute Neutrophil Count 8.2 X10^3/uL (2.0-7.7); Basophil# 0.19 X10^3/uL; Basophil% 1.2 % (0-1); Eosinophil# 0.58 X10^3/uL; Eosinophils% 3.6 % (0-5); Hematocrit 39.3 % (40-54); Hemoglobin 13.8 g/dL (13.0-16.5); Lymphocyte # 5.81 X10^3/ul (4.0); Lymphocyte % 35.7 % (19-41); Mean Corp Hgb Conc 35.1 g/dL (32-36); Mean Corpuscular Hgb 31.9 pg (27.0-32.0); Mean Corpuscular Volume 90.8 fL (80-94); Mean Platelet Vol. 9.1 fl (6.2-12.0); Monocyte# 1.43 X10^3/uL; Monocyte% 8.8 % (0-10); NRBC Flagged by Analyzer 0 % (0-5); Neutrophil # 8.22 X10^3/uL (2.7-7.7); Neutrophil % 50.3 % (47-70); POSITIVE DIFFERENTIAL YES; Platelet Count 304 K/mm3 (150-450); RBC Distribution Width CV 13.2 % (11.6-14.6); RBC Distribution Width SD 43.3 fl (35.1-43.9); Red Blood Count 4.33 M/mm3 (4.6-6.2); White Blood Count 16.3 K/mm3 (4.4-11.0)
[2019-08-25 21:51] LABS: Differential Indicated SCAN CRITERIA MET
[2019-08-25 21:58] LABS: Anion Gap 8 (5-15); BUN 14 mg/dL (7-18); BUN/Creat Ratio 14.5 RATIO (10-20); Chloride 107 mmol/L (98-107); Creatinine, Serum 0.96 mg/dL (0.70-1.30); EST Glomerular Filtration Rate 95 mL/min (>60); Est Glom Filt Rate - Afr Amer 115 mL/min (>60); Glucose 129 mg/dL (74-106); Potassium 3.9 mmol/L (3.5-5.1); Sodium Level 140 mmol/L (136-145)
[2019-08-25 21:59] VITALS: BP 132/84; PULSE 125; RESP 20; O2SAT 96
[2019-08-25 22:14] LABS: Differential Comment SCANNED; Reactive Lymphocyte 1+
[2019-08-25 22:16] LABS: Amphetamine Urine VISTA NEGATIVE (<1000 ng/mL); Barbiturate Urine VISTA NEGATIVE (< 200 ng/mL); Benzodiazepine Urine VISTA NEGATIVE (< 200 ng/mL); Cocaine Urine VISTA NEGATIVE (< 300 ng/mL); Ecstacy Urine VISTA NEGATIVE (< 500 ng/mL); Methadone Urine VISTA NEGATIVE (< 300 ng/mL); PCP Urine VISTA NEGATIVE (< 25 ng/mL); THC Urine VISTA NEGATIVE (< 50 ng/mL); Vista UDS pH Range 6
[2019-08-25 23:18] VITALS: BP 146/81; PULSE 125; RESP 20; O2SAT 92
--- NOTE | 2019-08-25 23:57 | ED.VISSUMM ---
- ER Visit Summary Date of Service: 08/25/19 Chief Complaint: Depressed and suicidal History of Present Illness: The patient is a 33 M history of depression. He has been admitted to psychiatric facilities and states he was at [facility] recently. Patient reportedly is homeless has a history of alcohol, tobacco and marijuana abuse. And I believe he is lost custody of his children. Was actually seen in the emergency department couple days ago. Was diagnosed with a left foot metatarsal fracture was treated with a walking boot and podiatry was consulted who was going to see him in follow-up but I do not think he is ever done that. Reportedly denied he threatened to hang or shoot himself and was brought in with a pink slip. Physical Examination: Young male obviously intoxicated. Vital signs are stable and afebrile. H EENT exam strong smell of alcohol. No signs of trauma. Nontender. Neck nontender. No lymphadenopathy. Lungs clear to auscultation bilaterally. Heart regular rhythm rate about 85 no murmur. Abdomen soft nontender normal bowel sounds no peritoneal signs. Pelvic girdle intact. Patient is moving all 4 extremities. His left ankle and foot are swollen and bruised. Skin is intact. Upper extremities right lower extremity nontender without deformity. Back is nontender. Neurologically is awake. He is alert. He answers questions. He follows commands. He is intoxicated. He is belligerent. He does yell at times. He is rude to the staff. Test Results: Dilation. White count of 16. Hemoglobin 13. Chemistries unremarkable glucose 129. Normal creatinine and gap. Tox screen negative. Alcohol 425 consistent with acute intoxication. X-ray left ankle shows no acute abnormality other than a second proximal metatarsal fracture. Left foot x-ray again shows a left second proximal metatarsal fracture. This was seen on a recent film. Emergency Department Course and Treatment: Patient intoxicated, belligerent and reportedly threatening to be suicidal. He is reportedly depressed. Repeat exam patient is doing well at 2310 and 2355. He is currently resting comfortably in restraints after being given IM Geodon. His vital signs are stable. There is a sitter in the room. Treatment Plan: Patient be turned over to the overnight physician. When he is no longer intoxicated he will need a crisis evaluation for final disposition. Disposition: Pending crisis evaluation Impression: Acute depression Suicidal ideation Acute alcohol intoxication Recent left foot proximal metatarsal fracture (previously worked up) History of alcohol, tobacco and marijuana abuse This note was generated with Sparxent dictation software. It may contain incorrect words, spelling, and punctuation that were not noted in review of the chart prior to signing ED Disposition - Plan for ED Patient: Referrals: Saleem Isaacs MD [Primary Care Provider] -
[2019-08-26] VITALS (13 sets, daily range): BP systolic 116–148; BP diastolic 57–91; PULSE 88–120; RESP 14–18; O2SAT 94–99
[2019-08-26] MEDS: HYDROcodone Bitartrate/Apap 5/325 Tablet PO ×2 (08:29→14:48)
--- NOTE | 2019-08-26 12:32 | ED.RN ---
PATIENT REQUESTS ADDITIONAL PAIN MEDICATION FOR FOOT, DR. PIEDRA MADE AWARE, NO FURTHER ORDERS OBTAINED AT THIS TIME.
--- NOTE | 2019-08-26 15:20 | NURSING ---
EMI WITH CRISIS IS AWARE THAT PT IS HERE; HE SPOKE WITH DR PIEDRA. HE WILL BE CALLING BACK TO ASSESS THE PT OVER THE PHONE.
--- NOTE | 2019-08-26 16:46 | ED.DEP ---
ED Disposition - Plan for ED Patient: Disposition: Home or Assisted Living Diagnosis: Reaction, situational, acute, to stress, Alcohol intoxication Instructions: ED Stress React, CONTRACT, No Harm, ED INTOXICATION Alcohol Referrals: Saleem Isaacs MD [Primary Care Provider] - [facility] [STAFF PHYSICIAN] - As Needed (for substance abuse issues, if desired)
--- NOTE | 2019-08-26 19:24 | ED.RN ---
CHART OPENED TO PRINT STICKERS FOR CRISIS REPORT
== END 2019-08-26 16:56 | disposition home or self-care (01) ==
PROVIDERS: Emergency Provider Emergency Medicine; PCP Family Medicine
DX: R45.851 Suicidal ideations (principal); F32.9 Major depressive disorder, single episode, unspecified; F10.129 Alcohol abuse with intoxication, unspecified; Y90.8 Blood alcohol level of 240 mg/100 ml or more; F12.10 Cannabis abuse, uncomplicated; S92.322D Displaced fracture of second metatarsal bone, left foot, subsequent encounter for fracture with routine healing; Z59.0 Homelessness; Z72.0 Tobacco use; X58.XXXD Exposure to other specified factors, subsequent encounter
CPT/HCPCS: 36415; 73610; 73630; 80048; 80307; 80320; 85025; 96372; 99285; G0480; J3486

== ENCOUNTER 2019-09-04 23:03 | Emergency (ER) | payer MEDICAID, SELFPAY ==
[2019-09-04 23:04] VITALS: BP 111/71; PULSE 122; RESP 16; TEMP 36.5; O2SAT 96; BMI 23.0
--- NOTE | 2019-09-04 23:15 | ED.DCSUM_ITS ---
- ER Visit Summary Date of Service: 09/04/19 Chief Complaint: Dry mouth History of Present Illness: The patient is a [address] Isaacs. He reports that approximately 7:00 tonight he took a single Seroquel of a friend's. He does not know how many milligrams this was. He denies that he took this to harm himself or to sleep. He reports that he took it to help with my left foot pain. He denies any suicidal ideation. Patient also reports he has had 6 or 7 beers today. His only complaint current ly is that he has a dry mouth. Review of systems: General: No fever, chills, cold sweats. Cardiovascular: No chest pain, palpitations. Respiratory: No cough, shortness of breath, dyspnea on exertion. Gastrointestinal: No abdominal pain, nausea, vomiting, diarrhea, melena, or hematochezia. Genitourinary: No dysuria, frequency, hematuria. Skin: No rash. Neuro: No headache, numbness, weakness. Physical Examination: Vitals: Stable. Afebrile. General: Well-nourished and well-developed. Head: Normocephalic atraumatic. Neck: Supple, no lymphadenopathy. No JVD. Nontender. Cardiovascular: Tachycardic regular rhythm. No murmurs. Respiratory: No respiratory distress. Clear to auscultation bilaterally. Abdominal: Soft, nontender, nondistended, normal bowel sounds. No guarding, rebound, or peritoneal signs. Back: Nontender. Extremities: Nontender, no edema. Left leg is in a walking boot. Skin: Normal color, no rash. Neurologic: Alert and oriented ?3. Cranial nerves II through XII are intact. Normal strength and sensation. Psych: Normal affect. Test Results: CBC shows a white count of 15.3 with an H&H of 12.5 and 36.9. Chem-7 shows potassium 3.4, chloride 110, glucose 163, BUN of 19, calcium of 8.2. Alcohol is 162. Emergency Department Course and Treatment: Patient had an IV prior to arrival. Was given a liter of normal saline. He is resting comfortably. Treatment Plan: Patient is instructed not to take any medications that are not prescribed for him. He is instructed to use Tylenol and/or ibuprofen for his foot pain. Follow-up with his primary care physician as needed. Return to the emergency department for any worsening symptoms. Disposition: Discharged to home in improved and stable condition. Impression: 1. Nontoxic ingestion. 2. Alcohol intoxication. This note was generated with Roadnet dictation software. It may contain incorrect words, spelling, and punctuation that were not noted in review of the chart prior to signing ED Disposition - Plan for ED Patient: Instructions: ED Accidental Ingestion Nontoxic Adult Referrals: Saleem Isaacs MD [Primary Care Provider] - 1-2 Days if not improving
[2019-09-04] MEDS: 0.9% Normal Saline 1,000 ML 1000 ML IV (23:32)
[2019-09-04 23:41] LABS: Absolute Lymphocyte Count 4.64 X10^3/uL (0.83-4.51); Basophil# 0.11 X10^3/uL; Basophil% 0.7 % (0-1); Eosinophil# 0.61 X10^3/uL; Hematocrit 36.9 % (40-54); Hemoglobin 12.5 g/dL (13.0-16.5); Lymphocyte # 4.64 X10^3/ul (4.0); Lymphocyte % 30.4 % (19-41); Mean Corp Hgb Conc 33.9 g/dL (32-36); Mean Corpuscular Hgb 30.6 pg (27.0-32.0); Mean Corpuscular Volume 90.4 fL (80-94); Mean Platelet Vol. 8.9 fl (6.2-12.0); Monocyte# 0.78 X10^3/uL; Monocyte% 5.1 % (0-10); NRBC Flagged by Analyzer 0 % (0-5); Neutrophil # 9.04 X10^3/uL (2.7-7.7); Neutrophil % 59.3 % (47-70); Platelet Count 312 K/mm3 (150-450); RBC Distribution Width CV 13.1 % (11.6-14.6); RBC Distribution Width SD 43.1 fl (35.1-43.9); Red Blood Count 4.08 M/mm3 (4.6-6.2); White Blood Count 15.3 K/mm3 (4.4-11.0)
[2019-09-05] LABS: Anion Gap 6 (5-15); BUN 19 mg/dL (7-18); BUN/Creat Ratio 19.1 RATIO (10-20); Calcium,Total 8.2 mg/dL (8.5-10.1); Chloride 110 mmol/L (98-107); EST Glomerular Filtration Rate 92 mL/min (>60); Est Glom Filt Rate - Afr Amer 111 mL/min (>60); Estimated Creatinine Clearance 108.34 ml/min; Glucose 163 mg/dL (74-106); Potassium 3.4 mmol/L (3.5-5.1); Sodium Level 142 mmol/L (136-145)
[2019-09-05 02:40] VITALS: RESP 18
[2019-09-05 07:14] VITALS: BP 129/77; PULSE 68; RESP 15; O2SAT 97
== END 2019-09-05 07:15 | disposition home or self-care (01) ==
LOC: ED 23:23
PROVIDERS: Emergency Provider Emergency Medicine; PCP Family Medicine
DX: R68.2 Dry mouth, unspecified (principal); T43.595A Adverse effect of other antipsychotics and neuroleptics, initial encounter; F10.129 Alcohol abuse with intoxication, unspecified; Y90.6 Blood alcohol level of 120-199 mg/100 ml; Z72.0 Tobacco use
CPT/HCPCS: 80048; 80320; 85025; 96360; 99285; J7030; A4216; G0480

== ENCOUNTER 2019-10-16 19:17 | Emergency (ER) | payer MEDICAID, SELFPAY ==
[2019-10-16 19:18] VITALS: BP 127/74; PULSE 88; RESP 14; TEMP 36.4; O2SAT 98; BMI 22.4
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
--- NOTE | 2019-10-16 21:16 | ED.VISSUMM ---
- ER Visit Summary Date of Service: 10/16/19 Chief Complaint: Left foot pain History of Present Illness: The patient is a 34 M presenting with left foot pain. Patient states he needs a boot. He states that he broke his foot approximately 2 months ago. He states he fell off a bunk bed. He has been seen by Dr Lam. He states he cracked his boot and threw it away because it smelled bad. He denies reinjury or new complaints. He has been walking on his foot. He states he was advised nonweightbearing but is not able to do this. Physical Examination: Vitals are stable. Patient is afebrile. Alert no acute distress. HEENT exam is unremarkable. Neck is supple. Lungs are clear and equal bilaterally. Heart is regular rate and rhythm. Extremities left midfoot tenderness with normal pulses Skin is warm and dry. No focal neurologic deficit. Remainder of exam is unremarkable. Emergency Department Course and Treatment: Left foot x-ray shows subacute nondisplaced fractures at the base of the left second and third metatarsals with mild associated radiographic evidence of healing. Discussed with . He will be given a boot orthosis and advised nonweightbearing. Advised to follow-up with . Disposition: Discharge home Impression: Subacute left second and third metatarsal fractures This note was generated with BrandShield dictation software. It may contain incorrect words, spelling, and punctuation that were not noted in review of the chart prior to signing ED Disposition - Plan for ED Patient: Referrals: Saleem Isaacs MD [Primary Care Provider] -
--- NOTE | 2019-10-16 21:20 | ED.DEP ---
ED Disposition - Plan for ED Patient: Instructions: ED FOOT FRACTURE Referrals: Saleem Isaacs MD [Primary Care Provider] - Barb Lam DPM [STAFF PHYSICIAN] -
== END 2019-10-16 21:44 | disposition home or self-care (01) ==
LOC: ED 20:43
PROVIDERS: Emergency Provider Emergency Medicine; PCP Family Medicine
DX: S92.322A Displaced fracture of second metatarsal bone, left foot, initial encounter for closed fracture (principal); S92.332A Displaced fracture of third metatarsal bone, left foot, initial encounter for closed fracture; W06.XXXA Fall from bed, initial encounter; Z72.0 Tobacco use
CPT/HCPCS: 73630; 99284

== ENCOUNTER 2019-12-16 08:12 | Emergency (ER) | payer MEDICAID, SELFPAY ==
[2019-12-16 08:13] VITALS: BP 121/77; PULSE 122; RESP 22; TEMP 35.7; O2SAT 95; BMI 21.7
[2019-12-16 08:23] VITALS: BP 132/79; PULSE 111; RESP 16; O2SAT 96
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
--- NOTE | 2019-12-16 08:44 | ED.DCSUM_ITS ---
- ER Visit Summary Date of Service: 12/16/19 Chief Complaint: Left foot pain and swelling History of Present Illness: The patient is a 34 M hx of alcohol abuse. History of prior left foot fracture for which she was wearing an Aircast and seeing Dr. Lam of podiatry. Patient states he was out of town is been walking on a lot he lost his Aircast and now he has more pain and swelling. He said he stepped on it awkwardly last night and it made it feel worse. Physical Examination: Young male no acute distress vital signs are stable afebrile. H EENT exam unremarkable. Lungs are clear. Heart regular rhythm no murmur. Abdomen soft nontender. Patient is moving all 4 extremities. Neurovascular intact. Left hip the ankle nontender nonswollen. Midportion of his foot is tender with mild swelling. Normal DP pulse. He is able wiggle his toes. Test Results: Left foot x-ray 3 views read by myself healing fractures of the second and third base of the metatarsals consistent with Lisfranc. Read both by myself and radiologist. No acute injury. Similar to prior x-rays. Emergency Department Course and Treatment: Nico with the patient treatment options. He does not want crutches. I explained to him I did not think an Aircast would do much for this. To be placed in a postop shoe. Follow-up with his card stripper. Treatment Plan: Ice and elevate. Postop shoe. Motrin for pain and swelling. Disposition: Discharge Impression: Acute on chronic left foot pain secondary to Lisfranc fractures which are old of the second and third metatarsals This note was generated with [employer] dictation software. It may contain incorrect words, spelling, and punctuation that were not noted in review of the chart prior to signing ED Disposition - Plan for ED Patient: Referrals: Saleem Isaacs MD [Primary Care Provider] -
--- NOTE | 2019-12-16 10:20 | ED.DEP ---
ED Disposition - Plan for ED Patient: Disposition: Home or Assisted Living Instructions: ED FOOT FRACTURE Referrals: Saleem Isaacs MD [Primary Care Provider] - As Needed Barb Lam DPM [STAFF PHYSICIAN] - As soon as possible Additional Instructions: Ice and elevate your foot. To decrease pain and swelling. Tylenol Motrin for pain. Postop shoe. Follow-up with your forensic accountant.
[2019-12-16 10:35] VITALS: BP 121/69; PULSE 85; RESP 18
== END 2019-12-16 10:36 | disposition home or self-care (01) ==
PROVIDERS: Emergency Provider Emergency Medicine; PCP Family Medicine
DX: M79.672 Pain in left foot (principal); G89.29 Other chronic pain; S92.322D Displaced fracture of second metatarsal bone, left foot, subsequent encounter for fracture with routine healing; S92.332D Displaced fracture of third metatarsal bone, left foot, subsequent encounter for fracture with routine healing; X58.XXXD Exposure to other specified factors, subsequent encounter; Z72.0 Tobacco use
CPT/HCPCS: 73630; 99283

== ENCOUNTER 2019-12-23 17:40 | Emergency (ER) | payer MEDICAID, SELFPAY ==
[2019-12-23 17:42] VITALS: BP 128/83; PULSE 105; RESP 20; TEMP 36.6; O2SAT 98; BMI 22.8
--- NOTE | 2019-12-23 18:28 | RAD_ITS ---
STUDY: X-RAY CHEST REASON FOR EXAM: Male, 34 years old. SOB TECHNIQUE: Single AP portable view of the chest. COMPARISON: 06-16-18. FINDINGS: The lungs are clear and expanded. There is no demonstrated pleural abnormality. Normal size heart. Normal mediastinum and kaylah. Normal visualized pulmonary arteries. Normal visualized aortic arch and descending thoracic aorta. Normal visualized thoracic spine. Normal visualized ribs, clavicles, and shoulders. There is no demonstrated abnormality of the visualized soft tissue structures of the upper abdomen. RAD/Chest 1 View (Portable) IMPRESSION: Normal x-ray examination of the chest. Electronically Signed: Paulie Shields MD at 18:53 EDT , Service support ,
[2019-12-23 18:35] VITALS: PULSE 92; RESP 18
[2019-12-23] MEDS: Ipratropium/Albuterol Sulfate 3 ML AMPUL.NEB INHALATION (18:35)
[2019-12-23 19:05] LABS: Absolute Lymphocyte Count 1.81 X10^3/uL (0.83-4.51); Absolute Neutrophil Count 6.9 X10^3/uL (2.0-7.7); Eosinophil# 0.36 X10^3/uL; Eosinophils% 3.5 % (0-5); Hematocrit 42.2 % (40-54); Hemoglobin 14.2 g/dL (13.0-16.5); Lymphocyte # 1.81 X10^3/ul (4.0); Lymphocyte % 17.5 % (19-41); Mean Corp Hgb Conc 33.6 g/dL (32-36); Mean Corpuscular Hgb 30.4 pg (27.0-32.0); Mean Corpuscular Volume 90.4 fL (80-94); Monocyte# 1.13 X10^3/uL; Monocyte% 10.9 % (0-10); NRBC Flagged by Analyzer 0 % (0-5); Neutrophil # 6.93 X10^3/uL (2.7-7.7); Neutrophil % 66.8 % (47-70); Platelet Count 300 K/mm3 (150-450); RBC Distribution Width CV 12.6 % (11.6-14.6); RBC Distribution Width SD 41.1 fl (35.1-43.9); Red Blood Count 4.67 M/mm3 (4.6-6.2); White Blood Count 10.4 K/mm3 (4.4-11.0)
[2019-12-23 19:27] LABS: Anion Gap 2 (5-15); BUN 16 mg/dL (7-18); BUN/Creat Ratio 14.2 RATIO (10-20); Calcium,Total 8.8 mg/dL (8.5-10.1); Chloride 109 mmol/L (98-107); Creatinine, Serum 1.13 mg/dL (0.70-1.30); EST Glomerular Filtration Rate 79 mL/min (>60); Est Glom Filt Rate - Afr Amer 95 mL/min (>60); Estimated Creatinine Clearance 88.64 ml/min; Glucose 95 mg/dL (74-106); Sodium Level 141 mmol/L (136-145)
[2019-12-23] MEDS: 0.9% Normal Saline 1,000 ML 1000 ML IV (20:07)
--- NOTE | 2019-12-23 21:16 | ED.VISSUMM ---
- ER Visit Summary Date of Service: 12/23/19 Chief Complaint: Shortness of breath History of Present Illness: The patient is a 34 M who presents with shortness of breath that is been getting worse over the past 2 to 3 days. Patient states it is gradually gotten worse. Patient states it is worse when he is out in the heat. Patient states it is better when he is resting in an air conditioning area. Patient admits to a cough with some green sputum. Patient denies any fevers or chills. Patient does admit to some rhinorrhea. Patient admits to some pressure in his chest. Patient also states that at times he feels his heart is racing. Patient denies any PE risk factors. Physical Examination: Vital signs are stable except for mild tachycardia of 105. Patient is afebrile. Patient is in no acute distress. Oral mucosa is pink and moist. Neck is supple. Trachea is midline. There is no JVD. Heart was regular rate and rhythm. Lungs showed a few scattered rhonchi. There is good respiratory effort noted. Abdomen is soft. Bowel sounds are normal. There is no tenderness. Cranial nerves II through XII are intact. There are no focal motor or sensory deficits noted. Extremities are intact. There is no calf tenderness or edema. Test Results: CBC and basic metabolic profile within normal limits. Portable chest x-ray was obtained. There is no acute cardiopulmonary process. This was interpreted by the radiologist and reviewed by myself. Emergency Department Course and Treatment: Patient was given a DuoNeb aerosol here. Patient is feeling better on reevaluation. Patient was instructed to follow-up with his primary care physician in 5 to 7 days. Patient understood and was agreeable with the plan. All questions were answered. Disposition: Discharge home Impression: Dyspnea This note was generated with [employer] dictation software. It may contain incorrect words, spelling, and punctuation that were not noted in review of the chart prior to signing ED Disposition - Plan for ED Patient: Disposition: Home or Assisted Living Diagnosis: Dyspnea Instructions: ED Dyspnea Referrals: Saleem Isaacs MD [Primary Care Provider] - 5-7 Days
== END 2019-12-23 21:29 | disposition home or self-care (01) ==
PROVIDERS: Emergency Provider Emergency Medicine; PCP Family Medicine
DX: R06.00 Dyspnea, unspecified (principal); Z72.0 Tobacco use
CPT/HCPCS: 71045; 80048; 85025; 94640; 96360; 99284

== ENCOUNTER 2020-01-19 15:06 | Emergency (ER) | payer MEDICAID, SELFPAY ==
[2020-01-19 15:07] VITALS: BP 96/60; PULSE 80; RESP 16; TEMP 36.1; O2SAT 99; BMI 22.0
--- NOTE | 2020-01-19 15:32 | ED.DCSUM_ITS ---
History of Present Illness Informant: Patient Onset: Month(s) - 3 months Context: Gradual Onset Timing: Continuous Quality: Cyst Location: Left-sided neck Current Severity: Moderate Maximum Severity: Moderate Worsened by: Nothing Relieved by: Nothing Associated Symptoms: Denies Narrative: 34-year-old male presents because he has a cyst on the left side of his neck. He has had this for several months. He states that several times over the last 3 months he has been able to squeeze purulent drainage from it. 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 He has not had any fevers he does not feel lightheaded or dizzy he denies headache or rash and the rest of his review of systems are negative Prior similar symptoms: Yes Recent Illness/Hospitalization: No <Jm Cristina - Last Filed: 01/19/20 15:32> <Willi Abdi - Last Filed: 01/19/20 21:20> Chief Complaint: Abscess Past Medical History Prior records reviewed: Yes Past Medical History: None Surgical History: no surgical history Lives: With Family Smoking Status: Current every day smoker Alcohol: Occasional - Family History Maternal Family History: Reports: Cancer - Colon cancer, Pulmonary Disease - Emphysema Paternal Family History: Reports: Diabetes, Hypertension, Stroke <Jm Cristina - Last Filed: 01/19/20 15:32> <Willi Abdi - Last Filed: 01/19/20 21:20> - Allergies and Home Meds Allergies/Adverse Reactions: Allergies ORO BEANS Allergy (Uncoded 01/19/20 15:07) Rash Primary Care Physician: Willi Jones MD [STAFF PHYSICIAN] - As soon as possible Review of Systems All systems negative except as indicated General: Denies: Chills, Fever, Sweats Eyes: Denies: Visual changes - bilaterally, Diplopia ENT: Denies: Rhinorrhea, Sore throat Cardiovascular: Denies: Chest pain, Palpitations Respiratory: Denies: Dyspnea, Cough, Dyspnea on exertion Gastrointestinal: Denies: Abdominal pain, Nausea, Vomiting, Diarrhea, Melena, Hematochezia Genitourinary: Denies: Dysuria, Hematuria, Frequency Musculoskeletal: Denies: Back pain, Extremity Pain Skin: Reports: Abscess. Denies: Rash, Wounds Neurological: Denies: Headache, Weakness, Numbness <Jm Cristina - Last Filed: 01/19/20 15:32> Physical Exam Vital Signs/Narrative: Vital Signs Temp Pulse Resp BP Pulse Ox 01/19/20 15:07 97 F L 80 16 96/60 99 Inital Vital Signs reviewed: Yes General: Well nourished, Well developed, No Acute Distress Head: Normocephalic, Atraumatic Eyes: Perrl, EOMI ENT: Moist mucous membranes, No rhinorrhea Neck: Supple, Nontender Cardiovascular: Regular rate, Regular rhythm, No murmurs Respiratory: No distress, CTA bilaterally, Chest nontender Abdomen: Soft, Nontender, Nondistended, Normal bowel sounds Back: Nontender, Normal Inspection Extremities: Nontender, No edema Skin: Normal color, No rash, - - Patient has a sebaceous cyst on the left side of his neck. It is indurated but not fluctuant. There is no surrounding cellulitis. Neurological: Alert, Oriented x3, Cranial nerves II-XII grossly intact, Normal Strength, Normal Sensation Psychological: Normal affect, Normal Mood <JonnieJm - Last Filed: 01/19/20 15:32> Diagnostic/Tx/Re-eval - Medical Decision Making Discussed with patient that he has a sebaceous cyst. It is not acutely infected. Discussed with him that we will refer him to ENT for further management and that removal of this is a surgical procedure. He will use warm compresses. Discussed supportive care and return precautions. He will be discharged with referral to ENT for follow-up <Jm Cristina - Last Filed: 01/19/20 15:32> - Medical Decision Making Patient was seen with me. I did a [id number] examination with the patient. Patient presents with pain and swelling to the left side of his neck that became worse today. Patient states he feels like there is a cyst there. Patient admits to some intermittent drainage. Patient denies any fevers or chills. Patient denies any sore throat. Vital signs are stable. Patient is afebrile. Patient is in no acute distress. Oral mucosa is pink and moist. Neck is supple. Trachea is midline. There is a sebaceous cyst near the angle of the jaw on the left. There is no erythema or warmth. There is no induration. There is no discharge or drainage. There is no lymphadenopathy noted. Heart was regular rate and rhythm. Lungs are clear and equal bilaterally. Cranial nerves II through XII are intact. There are no focal motor or sensory deficits. Patient was advised that this is a sebaceous cyst. Patient was advised that this is not an abscess that needs drained. Patient was given ENT referral for follow-up. Patient understood and was agreeable with the plan. All questions were answered. <Willi Abdi - Last Filed: 01/19/20 21:20> ED Disposition <Jm Cristina - Last Filed: 01/19/20 15:32> <Willi Abdi - Last Filed: 01/19/20 21:20> - Plan for ED Patient: Disposition: Home or Assisted Living Diagnosis: Inclusion cyst Instructions: ED Epidermoid Cyst No Infect Referrals: Willi Jones MD [STAFF PHYSICIAN] - As soon as possible
== END 2020-01-19 15:41 | disposition home or self-care (01) ==
PROVIDERS: Emergency Provider Physician Assistant Medical; PCP Family Medicine
DX: L72.0 Epidermal cyst (principal); F17.200 Nicotine dependence, unspecified, uncomplicated
CPT/HCPCS: 99282

== ENCOUNTER 2020-08-25 15:52 | Emergency (ER) | payer MEDICAID, SELFPAY ==
[2020-08-25 15:57] VITALS: BP 138/74; PULSE 81; RESP 16; TEMP 36.4; O2SAT 99; BMI 27.6
--- NOTE | 2020-08-25 17:27 | ED.DCSUM_ITS ---
- ER Visit Summary Date of Service: 08/25/20 Chief Complaint: 5-day old right wrist laceration History of Present Illness: The patient is a 34 M minute. Tetanus up-to-date within the last 3 years. Patient was pushing a window close last Tuesday 5 days ago when he lacerated the ulnar palmar side of his right wrist. Denies any other injuries. He was not evaluated at that time because he was taken to [facility]. He just wanted to make sure it was not infected. He denies other complaints. He states he has normal range of motion. Physical Examination: No acute distress vital signs stable afebrile. HEENT exam unremarkable. Lungs clear to auscultation. Heart regular rhythm rate about 80 no murmur. Chest were nontender. Abdomen soft nontender. Patient moving all 4 extremities. Neurovascularly intact. Specifically right shoulder and elbow are nontender with normal range of motion. Right wrist on the ulnar side anteriorly and laterally and there is a 1 to 2 cm laceration which is old. It superficial. Involves the skin. There is no active bleeding. There is no signs of infection. No redness, pus or swelling. He has full flexion-extension of his wrist. He has full flexion-extension all digits of his right hand including his pinky. He has normal sensation. Test Results: Discussed with patient he deferred an x-ray and clinically I do not think there is any foreign body. Emergency Department Course and Treatment: The right wrist wound thoroughly. There is currently no signs of infection or foreign body. There is no signs of joint involvement, neurovascular injury or foreign body. I did discuss with the patient the possibility of an x-ray which he deferred. The wound to be cleaned and dressed. Watch for signs of infection. Treatment Plan: Clean daily. Antibiotic ointment daily. Watch for signs of infection. Disposition: Discharge Impression: Right wrist laceration 5 days old (no repair) This note was generated with [employer] dictation software. It may contain incorrect words, spelling, and punctuation that were not noted in review of the chart prior to signing ED Disposition - Plan for ED Patient: Referrals: Saleem Isaacs MD [Primary Care Provider] -
--- NOTE | 2020-08-25 17:30 | ED.DEP ---
ED Disposition - Plan for ED Patient: Disposition: Home or Assisted Living Instructions: ED Laceration, Old: Not Sutured Referrals: Saleem Isaacs MD [Primary Care Provider] - 1 Week if not improving Additional Instructions: Watch for any signs of infection such as pus, red streaks, swelling, fever or worsening pain. If seen return. Clean daily with peroxide and water or soap and water. Apply antibiotic ointment daily and keep it covered. At this time it does not appear to be any signs of foreign body if you have continued pain or any foreign body-like sensation you can always have an x-ray obtained.
== END 2020-08-25 17:43 | disposition home or self-care (01) ==
PROVIDERS: Emergency Provider Emergency Medicine; PCP Family Medicine
DX: S61.511A Laceration without foreign body of right wrist, initial encounter (principal); Z72.0 Tobacco use; W25.XXXA Contact with sharp glass, initial encounter; Y93.89 Activity, other specified; Y92.009 Unspecified place in unspecified non-institutional (private) residence as the place of occurrence of the external cause; Y99.8 Other external cause status
CPT/HCPCS: 99282

== ENCOUNTER 2020-09-17 02:24 | Emergency (ER) | payer MEDICAID, SELFPAY ==
[2020-09-17 02:24] VITALS: BP 167/113; PULSE 114; RESP 20; TEMP 36.9; O2SAT 100; BMI 22.7
[2020-09-17 02:26] VITALS: BP 148/107; PULSE 107; RESP 18; TEMP 36.9; O2SAT 100
--- NOTE | 2020-09-17 02:34 | ED.VIS.GEN ---
History of Present Illness Chief Complaint: Cough Informant: Patient Narrative: Patient presents with upper respiratory symptoms cough congestion. Sometimes he coughs so hard he coughs up some green mucus. No fevers or chills. He had coronavirus in May. Around nobody with coronavirus at this time. Denies shortness of breath. Sometimes when he lays flat though he feels like he is wheezing. Has been using an albuterol inhaler that is old with moderate relief of symptoms. Has not tried any [id number]-[id number] cough suppressants. He does smoke cigarettes - Past Medical History (1) Paronychia Status: Acute (2) Dermatitis Status: Chronic (3) Pulmonary emboli Status: Suspected Past Medical History - Allergies and Home Meds Allergies/Adverse Reactions: Allergies codeine Adverse Reaction (Verified 09/17/20 02:27) PT UNSURE OF REACTION ORO BEANS Allergy (Uncoded 08/25/20 15:59) Rash Primary Care Physician: Saleem Isaacs MD [Primary Care Provider] - Prior records reviewed: Yes Past Medical History: - - See problem list Surgical History: no surgical history Lives: With Family Smoking Status: Current every day smoker Alcohol: None Drugs: None - Family History Maternal Family History: Reports: Cancer - Colon cancer, Pulmonary Disease - Emphysema Paternal Family History: Reports: Diabetes, Hypertension, Stroke Review of Systems General: Denies: Chills, Fever, Sweats Eyes: Denies: Visual changes - bilaterally, Diplopia ENT: Denies: Rhinorrhea, Sore throat Cardiovascular: Denies: Chest pain, Palpitations Respiratory: Reports: Dyspnea, Cough, Sputum. Denies: Dyspnea on exertion Gastrointestinal: Denies: Abdominal pain, Nausea, Vomiting, Diarrhea, Melena, Hematochezia Genitourinary: Denies: Dysuria, Hematuria, Frequency Musculoskeletal: Denies: Back pain, Extremity Pain Skin: Denies: Rash, Wounds Neurological: Denies: Headache, Weakness, Numbness Physical Exam Vital Signs/Narrative: Vital Signs Temp Pulse Resp BP Pulse Ox 09/17/20 02:26 98.5 F 107 H 18 148/107 H 100 09/17/20 02:24 98.5 F 114 H 20 H 167/113 H 100 General: Well nourished, Well developed, No Acute Distress Head: Normocephalic, Atraumatic Eyes: Perrl, EOMI ENT: Moist mucous membranes, No rhinorrhea Neck: Supple, Nontender Cardiovascular: Regular rate, Regular rhythm, No murmurs Respiratory: No distress, CTA bilaterally, Chest nontender Abdomen: Soft, Nontender, Nondistended, Normal bowel sounds Back: Nontender, Normal Inspection Extremities: Nontender, No edema Skin: Normal color, No rash Neurological: Alert, Oriented x3, Cranial nerves II-XII grossly intact, Normal Strength, Normal Sensation Psychological: Normal affect, Normal Mood Diagnostic/Tx/Re-eval - Medical Decision Making Resting comfortably. I feel he likely just has an bronchitis with asthmatic component. Given albuterol inhaler. He will use [id number] Mucinex and liquid honey. I feel this is viral in nature. He already had coronavirus this year. I do not feel he needs retesting for this. Will encourage to stop smoking. ED Disposition - Plan for ED Patient: Disposition: Home or Assisted Living Diagnosis: Bronchitis Instructions: ED Bronchitis with Wheezing (Adult) Referrals: Saleem Isaacs MD [Primary Care Provider] -
== END 2020-09-17 02:47 | disposition home or self-care (01) ==
PROVIDERS: Emergency Provider Emergency Medicine; PCP Family Medicine
DX: J40 Bronchitis, not specified as acute or chronic (principal); F17.210 Nicotine dependence, cigarettes, uncomplicated
CPT/HCPCS: 99282

== ENCOUNTER 2020-09-29 00:21 | Emergency (ER) | payer MEDICAID, SELFPAY ==
[2020-09-29 00:22] VITALS: BP 150/106; PULSE 101; RESP 16; TEMP 36.3; O2SAT 100; BMI 21.8
[2020-09-29 00:25] VITALS: BP 150/106; PULSE 101; RESP 18; TEMP 36.3; O2SAT 100
--- NOTE | 2020-09-29 00:54 | EDS_ITS ---
HPI History of Present Illness Chief Complaint: Cough Narrative Narrative: Patient stated he has had a cough for the last 7 days. Nonproductive. He stated 3 days ago he was having decreased taste of foods. This concerned him. He had Covid in May. He was seen by myself recently di agnosed with a bronchitis. He stated that cough got better but then it came back recently. He has been using [id number] allergy medications. No sick contacts. He has not been Vaccinated. Current severity is mild. Denies dyspnea. [facility] Medical History COVID-19 Hyperlipidemia Home Medications albuterol sulfate 2 puff INHALATION Q4H PRN PRN 09/17/20 [History Last Taken Unknown] Allergy/AdvReac Type Severity Reaction Status Date / Time codeine AdvReac PT UNSURE Verified 09/17/20 02:27 OF REACTION ORO BEANS Allergy Rash Uncoded 08/25/20 15:59 Social History Smoking Status: Current every day smoker ROS ROS ED ROS Narrative ROS General: Denies fever, chills, sweats Eyes: Denies visual changes, blurred vision, double vision ENT: Denies ear pain, rhinorrhea, sore throat Cardiovascular: Denies chest pain, palpitations, heart racing Respiratory: Denies dyspnea, dyspnea on exertion, orthopnea,PND. See HPI GI: Denies abdominal pain, nausea, vomiting, diarrhea, constipation, melena : Denies dysuria, hematuria, frequency Musculoskeletal: Denies myalgias, arthralgias, neck pain, back pain Skin: Denies rash, abscess, abrasions Neuro: Denies headache, weakness, paresthesia Psych: Denies depression, anxiety Endo: Denies polyuria, polydipsia, polyphagia Heme: Denies easy bruising, easy bleeding, lymphadenopathy Allergy: Denies hives, swelling EXAM Physical Exam Narrative Exam Narrative: Vital signs reviewed General: Well-nourished well-developed Head: Normocephalic atraumatic Eyes: Pupils equal round and reactive to light extraocular movements intact ENT: TMs clear no hemotympanum no trauma Neck: Nontender full range of motion Cardiovascular: Regular rate rhythm no murmurs normal S1-S2 Respiratory: No distress clear to auscultation bilaterally chest nontender Abdomen: Soft nontender nondistended normal bowel sounds no masses Back: Nontender no CVA tenderness Extremities: Nontender active range of motion ?4 extremities no trauma Skin: Normal color no trauma Neuro alert oriented cranial nerves II through XII intact normal strength sensation reflexes Const Vital Signs: 09/29/20 00:22 09/29/20 00:25 Temperature 97.4 F L 97.4 F L Temperature Source Temporal Temporal Pulse Rate 101 H 101 H Respiratory Rate 16 18 Respiratory Effort Normal Respiratory Depth Normal Respiratory Pattern Normal Blood Pressure 150/106 H 150/106 H Blood Pressure Mean 120 120 Pulse Ox 100 100 Oxygen Delivery Method Room Air Room Air MDM MDM MDM Narrative Medical decision making narrative: Patient appears well and comfortable. Rapid coronavirus testing obtained. Covid testing is negative. Patient reassured. He will follow-up as an outpatient Discharge Plan Triage Chief Complaint: Cough ED Provider: Parviz Bhatt Dx/Rx/DC Orders Prescriptions: No Action albuterol sulfate 1 PUFF inhaler 2 puff INHALATION Q4H PRN PRN (Reason: Cough) RF: 0 Primary Care Provider: Saleem Isaacs
[2020-09-29 01:38] VITALS: BP 125/92; PULSE 96; RESP 16; O2SAT 100
== END 2020-09-29 01:39 | disposition home or self-care (01) ==
LOC: ED 01:34
PROVIDERS: Emergency Provider Emergency Medicine; PCP Family Medicine
DX: R05 Cough (principal); Z86.16 Personal history of COVID-19; E78.5 Hyperlipidemia, unspecified; F17.200 Nicotine dependence, unspecified, uncomplicated
CPT/HCPCS: 87426; 99282

== ENCOUNTER 2020-09-30 14:43 | Emergency (ER) | payer MEDICAID, SELFPAY ==
[2020-09-29 00:22] VITALS: BMI 21.8
[2020-09-30 14:44] VITALS: BP 125/93; PULSE 104; RESP 18; TEMP 36.6; O2SAT 98; BMI 22.8
--- NOTE | 2020-09-30 15:00 | EX.ED.DYSGE1 ---
HPI History of Present Illness Chief Complaint: Abscess Informant: patient Onset/Context/Timing Onset: Weeks Current Severity: Mild Maximum Severity: Mild Narrative Narrative: 35-year-old male history of recurrent abscesses. Says he has 1 now for 1 to 2 weeks along the bottom of his left ear. He came in to have it drained. He denies any other symptoms. No fever or chills. He has had no recent illness. Prior similar symptoms: Yes Recent Illness/Hospitalization: No PFSH PFSH Medical History COVID-19 Hyperlipidemia Home Medications albuterol sulfate 2 puff INHALATION Q4H PRN PRN 09/17/20 [History Last Taken Unknown] cephalexin [Keflex] 750 mg PO BID 7 Days #14 cap 09/30/20 [Rx Last Taken Unknown] Allergy/AdvReac Type Severity Reaction Status Date / Time codeine AdvReac PT UNSURE Verified 09/30/20 14:44 OF REACTION ORO BEANS Allergy Rash Uncoded 09/30/20 14:44 Social History Smoking Status: Current every day smoker ROS ROS ED ROS Narrative Patient denies any recent symptoms. He denies any nausea, vomiting, diarrhea or fever. He denies any cough. Review of Systems ROS Unobtainable: Denies due to encephalopathy Constitutional Constitutional ED: Denies chills, fever(s), sweats or weight loss Eyes Eyes: Denies change in vision ENT ENT ED: Reports ear pain; Denies rhinorrhea or sore throat Cardiovascular Cardiovascular: Denies chest pain or palpitations Respiratory/Chest Respiratory/Chest: Denies cough or dyspnea Gastrointestinal Gastrointestinal: Denies abdominal pain Genitourinary Genitourinary ED: Denies dysuria Musculoskeletal Musculoskeletal: Denies myalgias Integumentary Reports abscess Neurologic Neurologic: Denies headache(s) Psychiatric Psychiatric: Denies depression Endocrine Endocrinology: Denies polyuria Allergic/Immunologic Allergic/Immunologic ED: Denies urticaria EXAM Physical Exam Narrative Exam Narrative: Well-appearing young male no acute distress. Vital signs stable afebrile. He has about a 1 cm abscess at the bottom part of his ear bordering the lower ear and neck. It is fluctuant consistent with an abscess. Tender to palpation. No surrounding cellulitis. No lymphadenopathy. It is mildly tender to palpation. Lungs are clear. Heart is regular rhythm without murmur. Abdomen is soft. Const Vital Signs: 09/30/20 14:44 Temperature 97.9 F Temperature Source Temporal Pulse Rate 104 H Respiratory Rate 18 Blood Pressure 125/93 H Blood Pressure Mean 103 Pulse Ox 98 Oxygen Delivery Method Room Air Positive well nourished and well developed General Appearance ED: well developed HEENT Reports moist mucous membranes; Denies dry mucous membranes Negative for trauma Mouth ED: No dry mucous membranes Mouth: No dry mucous membranes Eyes PERRL and EOMs intact bilaterally Neck no lymphadenopathy, supple and No no JVD Chest Wall inspection of chest normal Resp normal respiratory effort and clear to auscultation bilaterally Cardio regular rate, regular rhythm and no murmurs GI normal to inspection, nondistended, normoactive bowel sounds, non-tender and non-distended Auscultation: normoactive bowel sounds Palpation: soft Back/Spine no CVA tenderness Extremity normal to inspection General Extremety ED: Negative for edema or tenderness General Extremity: Negative for edema Neuro oriented x3 and CN's II-XII intact bilaterally Sensorium / Orientation: alert Motor Exam: strength 5/5 throughout Psych mental status grossly normal Attitude: No agitated Mood & Affect: Negative for depressed or tearful Skin no rashes or lesions noted and no wounds Skin Narrative: Abscess of the lower portion of his left ear and neck. MDM MDM MDM Narrative Medical decision making narrative: 35-year-old male has an abscess bordering his left lower ear and neck. It is fluctuant and tender. B applied. It'll be incised and drained. To be placed on oral outpatient antibiotics. After incision and drainage area be dressed and patient be discharged home on Keflex. Procedures Other Procedures Procedure(s): Abscess incision and drainage Let was applied to the abscess. I did locally in anesthetize it with 1 to 2 cc of lidocaine. Made 1/2 inch horizontal incision and drained about 4 cc of pus. I then placed 1 inch of quarter inch gauze in the abscess to keep it open and draining. Patient tolerated procedure well. Discharge Plan Triage Chief Complaint: Abscess ED Provider: Americo Puente Dx/Rx/DC Orders Clinical Impression: Abscess, Encounter for incision and drainage procedure Instructions: ED Abscess Incision And Drainage Prescriptions: New cephalexin [Keflex] 750 mg capsule 750 mg PO BID 7 Days Qty: 14 RF: 0 No Action albuterol sulfate 1 PUFF inhaler 2 puff INHALATION Q4H PRN PRN (Reason: Cough) RF: 0 Primary Care Provider: Saleem Isaacs Referrals: Sondra Still MD [NON-STAFF] - As soon as possible Saleem Isaacs MD [Primary Care Provider] - 3-5 Days if not improving Activity Restrictions/Additional Instructions: Pull the packing out in 3 to 5 days. Warm compresses to the area and warm shower to the area. Tylenol and Motrin for pain. Take the antibiotic Keflex as prescribed. Return if worse or follow-up if not improving. Follow-up with a remote sensing surveyor for further evaluation of your recurrent abscesses. Disposition Disposition: Home, self care
[2020-09-30] MEDS: Lidocaine/Epi/Tetracaine 50 ML 1 APPLIC TOPICAL (15:06)
[2020-09-30] MEDS: Lidocaine 1% (20 ml mdv) 20 ML Vial 5 ML INFILT (15:30)
[2020-09-30 15:56] VITALS: RESP 16
== END 2020-09-30 15:56 | disposition home or self-care (01) ==
PROVIDERS: Emergency Provider Emergency Medicine; PCP Family Medicine
DX: H60.02 Abscess of left external ear (principal); E78.5 Hyperlipidemia, unspecified; F17.200 Nicotine dependence, unspecified, uncomplicated
CPT/HCPCS: 69000; 99284

== ENCOUNTER 2020-10-04 16:28 | Emergency (ER) | payer MEDICAID, SELFPAY ==
[2020-10-04 16:29] VITALS: BP 116/67; PULSE 87; RESP 14; TEMP 36.5; O2SAT 100; BMI 21.9
--- NOTE | 2020-10-04 16:46 | EX.ED.GUMALE ---
HPI History of Present Illness Chief Complaint: Male Pain/Injury Narrative Narrative: 35-year-old male with past medical history of MRSA and abscesses presenting for swelling in the left and right inguinal regions. Patient states that he is currently on Keflex for an abscess that he had drained recently. Patient states that he was told to use hot compresses on the inguinal area previously. He was also informed to use hot compresses on his ear where he had an abscess. His left ear is improved. He states that he has more swelling in the inguinal area now. He denies systemic signs or symptoms. PFSH PFSH Medical History (Updated 10/04/20 @ 16:53 by Jerri Brown) Broken bones COVID-19 Hyperlipidemia Substance abuse Home Medications cephalexin [Keflex] 750 mg PO BID 7 Days #14 cap 09/30/20 [Rx Last Taken Unknown] sulfamethoxazole-trimethoprim [Bactrim DS] 1 tab PO BID #20 tab 10/04/20 [Rx Last Taken Unknown] Allergy/AdvReac Type Severity Reaction Status Date / Time codeine AdvReac PT UNSURE Verified 10/04/20 16:29 OF REACTION ORO BEANS Allergy Rash Uncoded 10/04/20 16:29 Surgical History (Updated 10/04/20 @ 16:53 by Jerri Brown) H/O wrist surgery Social History Smoking Status: Current every day smoker ROS ROS ED Constitutional Constitutional ED: Denies chills, fever(s) or sweats Eyes Eyes: Denies blurry vision or change in vision ENT ENT ED: Denies ear pain, rhinorrhea or sore throat Cardiovascular Cardiovascular: Denies chest pain, palpitations or racing heartbeat Respiratory/Chest Respiratory/Chest: Denies cough, dyspnea or sputum Gastrointestinal Gastrointestinal: Denies abdominal pain, constipation, diarrhea or vomiting Genitourinary Genitourinary ED: Denies dysuria, hematuria or urinary frequency Musculoskeletal Musculoskeletal: Denies arthralgias, myalgias or neck pain Integumentary Reports abscess; Denies Abrasions or rash Neurologic Neurologic: Denies headache(s), paresthesias or weakness Psychiatric Psychiatric: Denies anxiety, depression, suicidal ideation or suicidal thoughts Endocrine Endocrinology: Denies polydipsia or polyuria EXAM Physical Exam Const Vital Signs: 10/04/20 16:29 Temperature 97.7 F L Temperature Source Temporal Pulse Rate 87 Respiratory Rate 14 Blood Pressure 116/67 Blood Pressure Mean 83 Pulse Ox 100 Oxygen Delivery Method Room Air General Appearance ED: Negative for pallor HEENT Reports normocephalic, head/scalp atraumatic and moist mucous membranes Eyes PERRL and EOMs intact bilaterally Neck no lymphadenopathy and supple Chest Wall inspection of chest normal and palpation of chest normal Resp normal respiratory effort and clear to auscultation bilaterally Auscultation: Negative for rales, rhonchi or wheezes Cardio regular rate and regular rhythm GI normal to inspection, nondistended, normoactive bowel sounds and non-distended Auscultation: normoactive bowel sounds Palpation: soft Negative for no CVA tenderness Narrative: Deferred Bladder / Kidney Exam: No CVA tenderness Penis: normal penis; Negative for erythema Scrotum: testes descended bilaterally and cremasteric reflex present; Negative for tenderness Testes: testicular lie normal Back/Spine no CVA tenderness General Back: Negative for CVA tenderness Cervical Spine: Negative for cervical spine tenderness Extremity normal to inspection General Extremety ED: Yes edema and tenderness General Extremity: edema Neuro oriented x3 and CN's II-XII intact bilaterally Sensorium / Orientation: alert Motor Exam: strength 5/5 throughout Psych mental status grossly normal Attitude: No agitated Skin no rashes or lesions noted and no wounds Skin Narrative: Left inguinal abscess adjacent to left side of scrotum without involvement of the scrotum. This measures approximately 2-1/2 cm. There is fluctuance here. There is also a right small abscess on the right proximal thigh is ring about 1 cm. There is fluctuance in this as well. There is surrounding erythema on both. General Skin Exam: Negative for jaundice or pallor MDM MDM MDM Narrative Medical decision making narrative: Patient presenting with abscess in the left inguinal area as well as right proximal thigh. Patient's left inguinal area was incised and drained as well as the loculated however patient does not want to continue with the procedure and have irrigated. Patient does not want to have the right proximal thigh abscess incised and drained. Given patient's history of MRSA I will place him on Bactrim and he is counseled on sits baths versus hot showers at home. Patient acknowledges understanding. He is counseled to return for any new or worsening symptoms. Patient stable for discharge. Impression: 1. Abscess left inguinal area with incision and drainage 2. Abscess right thigh Procedures Other Procedures Procedure(s): Abscess to the left inguinal area was cleaned with chlorhexidine. This was left to dry. Patient prepped and draped to keep the sites sterile. 3 cc of lidocaine with epinephrine was injected centrally. Good anesthesia achieved. Midline incision was made and purulent discharge expressed. Wound was deloculated. At this point patient does not want to keep going with the procedure. Discharge Plan Triage Chief Complaint: Male Pain/Injury ED Provider: Lewis Rowe Dx/Rx/DC Orders Instructions: ED Abscess Incision And Drainage Prescriptions: New sulfamethoxazole-trimethoprim [Bactrim DS] 800-160 mg tablet 1 tab PO BID Qty: 20 RF: 0 No Action cephalexin [Keflex] 750 mg capsule 750 mg PO BID 7 Days Qty: 14 RF: 0 Primary Care Provider: Saleem Isaacs Referrals: Saleem Isaacs MD [Primary Care Provider] - Disposition Disposition: Home, self care
[2020-10-04] MEDS: Lidocaine 1% /Epi 1:100 (20ml) 20 ML Vial INFILT (17:41)
[2020-10-04] MEDS: oxyCODONE 5 MG Tablet PO (18:25)
[2020-10-04] MEDS: Smz/Tmp Ds Tablet 1 TABLET PO (18:26)
[2020-10-04 18:27] VITALS: PULSE 80; RESP 18; O2SAT 98
== END 2020-10-04 18:29 | disposition home or self-care (01) ==
PROVIDERS: Emergency Provider Student in an Organized Health Care Education/Training Program; PCP Family Medicine
DX: L02.214 Cutaneous abscess of groin (principal); L02.415 Cutaneous abscess of right lower limb; E78.5 Hyperlipidemia, unspecified; F17.200 Nicotine dependence, unspecified, uncomplicated; Z86.14 Personal history of Methicillin resistant Staphylococcus aureus infection
CPT/HCPCS: 10060; 99284

== ENCOUNTER 2020-10-09 03:01 | Observation (INO) | payer MEDICAID, SELFPAY ==
[2020-10-09] VITALS (7 sets, daily range): BP systolic 99–128; BP diastolic 58–85; PULSE 69–102; RESP 16–18; TEMP 36.2–37; O2SAT 96–100; BMI 21.2; BMI 20.2
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
[2020-10-09 04:43] LABS: Basophil# 0.15 X10^3/uL; Basophil% 1.2 % (0-1); Eosinophil# 0.63 X10^3/uL; Eosinophils% 5.2 % (0-5); Hematocrit 49.4 % (40-54); Hemoglobin 16.8 g/dL (13.0-16.5); Lymphocyte % 28.6 % (19-41); Mean Corpuscular Hgb 30.8 pg (27.0-32.0); Mean Corpuscular Volume 90.5 fL (80-94); Mean Platelet Vol. 8.5 fl (6.2-12.0); Monocyte# 0.87 X10^3/uL; Monocyte% 7.1 % (0-10); NRBC Flagged by Analyzer 0 % (0-5); Neutrophil # 7.02 X10^3/uL (2.7-7.7); Neutrophil % 57.5 % (47-70); Platelet Count 423 K/mm3 (150-450); RBC Distribution Width CV 12.9 % (11.6-14.6); RBC Distribution Width SD 42.1 fl (35.1-43.9); Red Blood Count 5.46 M/mm3 (4.6-6.2); White Blood Count 12.2 K/mm3 (4.4-11.0)
[2020-10-09 04:55] LABS: Amphetamine Urine VISTA POSITIVE (<1000 ng/mL); Barbiturate Urine VISTA NEGATIVE (< 200 ng/mL); Benzodiazepine Urine VISTA NEGATIVE (< 200 ng/mL); Cocaine Urine VISTA NEGATIVE (< 300 ng/mL); Ecstacy Urine VISTA NEGATIVE (< 500 ng/mL); Methadone Urine VISTA NEGATIVE (< 300 ng/mL); PCP Urine VISTA NEGATIVE (< 25 ng/mL); THC Urine VISTA NEGATIVE (< 50 ng/mL); Vista UDS pH Range 5
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
[2020-10-09 05:01] LABS: AST(SGOT) 33 U/L (15-37); Alanine Aminotransfer ALT/SGPT 36 U/L (16-61); Alkaline Phosphatase 114 U/L (45-117); Anion Gap 7 (5-15); BUN 16 mg/dL (7-18); BUN/Creat Ratio 13.2 RATIO (10-20); Calcium,Total 8.3 mg/dL (8.5-10.1); Chloride 103 mmol/L (98-107); Creatinine, Serum 1.21 mg/dL (0.70-1.30); EST Glomerular Filtration Rate 73 mL/min (>60); Est Glom Filt Rate - Afr Amer 88 mL/min (>60); Estimated Creatinine Clearance 76.53 ml/min; Globulin 4.2 g/dL (2.2-4.2); Glucose 86 mg/dL (74-106); Potassium 4.1 mmol/L (3.5-5.1); Protein, Total 8.2 g/dL (6.4-8.2); Sodium Level 140 mmol/L (136-145)
[2020-10-09] MEDS: Phenobarbital 32.4 MG Tablet 64.8 MG PO ×5 (05:32→21:50)
[2020-10-09] MEDS: Gabapentin 300 MG Capsule PO ×2 (05:33→13:19)
[2020-10-09] MEDS: hydrOXYzine PAM 25 MG Capsule 50 MG PO ×2 (05:33→11:50)
[2020-10-09] MEDS: Folic Acid 1 MG Tablet PO (09:17)
--- NOTE | 2020-10-09 10:45 | ADDICTION ---
This caption writer attempted to meet with PT. PT declined to meet with this caption writer but was agreeable to completed required documentation at next visit scheduled for 10/10/20.
[2020-10-09] MEDS: Thiamine Hydrochloride 100 MG Tablet PO (11:50)
[2020-10-09] MEDS: Ibuprofen 600 MG Tablet PO (11:50)
--- NOTE | 2020-10-09 13:55 | NT.THERAPY_ITS ---
Nutrition Therapy Report - History Nutrition Services has been consulted to:: Manage nutrient details of diet order Current diet / nutrition support order:: Regular diet. 120ml ensure enlive 4 times per day w/ medpass - Anthropometric Measurements Height:: 5 ft 8 in Weight:: 60.5 kg Body Mass Index (BMI):: 20.2 - Relevant Labs Relevant Labs:: WBC 12.2 K/mm3 (4.4-11.0) H 10/09/20 04:35 Hgb 16.8 g/dL (13.0-16.5) H 10/09/20 04:35 Eos % (Auto) 5.2 % (0-5) H 10/09/20 04:35 Baso % (Auto) 1.2 % (0-1) H 10/09/20 04:35 Calcium 8.3 mg/dL (8.5-10.1) L 10/09/20 04:35 - Assessment Food / Nutrition-Related History:: Pt reports that he doesn't think about eating when drinking/using. States that he hasn't been eating meals for a while and can't report when he first stopped eating meals. 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 Pt CBW is 133.4# and UBW is 140#. Pt states that he lost the weight over the past 1 month unintentionally. Represents a 5% weight loss in 1 month which is significant for ,moderate to severe malnutrition. Pt denies trouble difficulty shewing or swallowing. Tolerating diet and ONS well currently. - Nutrition Diagnosis Problem / Etiology / Signs & Symptoms (PES):: Moderate to severe pro/kristal malnutrition in the context of social circumstance related to alcohol and substance abuse as evidenced by weight loss of 5% in 1 month, intake meeting <50% of estimated nutrition needs, poor intake prior to admission, and visible clavicle bones representing muscles wasting. Evidence of Malnutrition Exists:: Yes Severe PCM:: Social & Environmental circumstances - Nutrition Intervention Nutrition Prescription:: 2,000-2,100 kcal/day (RMR x 1.4). Protein 75-85g/day (1.25g/1kg). Fluid 2,000-2,100mL/day (35mL/1kg) - Food / Nutrient Delivery Interventions Summary of nutrition intervention:: Will continue liberalized regular diet and 120ml ensure enlive w/ medpass 4 times per day for additional 700 calories and 40 gm pro if consumed. Nutrition education provided?: Yes - MNT Monitoring Further MNT monitoring and evaluation required?: Yes MNT Follow-up in:: 3-5 days
--- NOTE | 2020-10-09 16:29 | PN.HOSP_ITS ---
Subjective Subjective Overall feeling better. Objective Data Objective Data Vital Signs: Vital Signs Temp Pulse Resp BP Pulse Ox 37.0 C 69 16 128/79 H 96 10/09/20 15:09 10/09/20 15:09 10/09/20 15:09 10/09/20 15:09 10/09/20 15:09 Oxygen Delivery Method Room Air Weight: 60.5 kg Body Mass Index (BMI) 20.2 Intake & Output: Intake and Output for Last 24 Hours 10/07/20 10/08/20 10/09/20 23:59 23:59 23:59 Intake Total 120 / 120 Balance 120 / 120 Lab / Micro Data Result Diagrams: 10/09/20 04:35 10/09/20 04:35 Labs: Laboratory Results - last 24 hr 10/09/20 10/09/20 10/09/20 04:30 04:35 04:35 WBC 12.2 H RBC 5.46 Hgb 16.8 H Hct 49.4 MCV 90.5 MCH 30.8 MCHC 34.0 RDW Std Deviation 42.1 RDW Coeff of Christie 12.9 Plt Count 423 MPV 8.5 Immature Gran % (Auto) 0.400 Neut % (Auto) 57.5 Lymph % (Auto) 28.6 [place] % (Auto) 7.1 Eos % (Auto) 5.2 H Baso % (Auto) 1.2 H Absolute Neuts (auto) 7.0 Absolute Lymphs (auto) 3.50 Nucleated RBC % 0 Sodium 140 Potassium 4.1 Chloride 103 Carbon Dioxide 30.0 Anion Gap 7 BUN 16 Creatinine 1.21 Estim Creat Clear Calc 76.53 Est GFR (MDRD) Af Amer 88 Est GFR (MDRD) Non-Af 73 BUN/Creatinine Ratio 13.2 Glucose 86 Calcium 8.3 L Total Bilirubin 0.20 AST 33 ALT 36 Alkaline Phosphatase 114 Total Protein 8.2 Albumin 4.0 Globulin 4.2 Albumin/Globulin Ratio 1.0 Urine Opiates Screen NEGATIVE Urine Methadone Screen NEGATIVE Ur Barbiturates Screen NEGATIVE Ur Phencyclidine Scrn NEGATIVE Ur Amphetamines Screen POSITIVE H U Methamphetamin-MDMA NEGATIVE U Benzodiazepines Scrn NEGATIVE Urine Cocaine Screen NEGATIVE U Cannabinoids Screen NEGATIVE Ur Drug Screen Comment Ethyl Alcohol 10/09/20 04:35 WBC RBC Hgb Hct MCV MCH MCHC RDW Std Deviation RDW Coeff of Christie Plt Count MPV Immature Gran % (Auto) Neut % (Auto) Lymph % (Auto) [place] % (Auto) Eos % (Auto) Baso % (Auto) Absolute Neuts (auto) Absolute Lymphs (auto) Nucleated RBC % Sodium Potassium Chloride Carbon Dioxide Anion Gap BUN Creatinine Estim Creat Clear Calc Est GFR (MDRD) Af Amer Est GFR (MDRD) Non-Af BUN/Creatinine Ratio Glucose Calcium Total Bilirubin AST ALT Alkaline Phosphatase Total Protein Albumin Globulin Albumin/Globulin Ratio Urine Opiates Screen Urine Methadone Screen Ur Barbiturates Screen Ur Phencyclidine Scrn Ur Amphetamines Screen U Methamphetamin-MDMA U Benzodiazepines Scrn Urine Cocaine Screen U Cannabinoids Screen Ur Drug Screen Comment Ethyl Alcohol 259.0 Radiography Diagnostic Testing: Radiology Impression Brain CT 10/09/20 03:18 IMPRESSION: Normal unenhanced CT scan of the brain. Electronically Signed: Arcelia Marcano MD at 3:52 EDT Tel , Service support , Cervical Spine CT 10/09/20 03:18 IMPRESSION: Degenerative change. No visualized acute loss of height or alignment. Electronically Signed: Arcelia Marcano MD at 3:55 EDT Tel , Service support , Chest X-Ray 10/09/20 03:18 IMPRESSION: Normal x-ray examination of the chest. Electronically Signed: Arcelia Marcano MD at 3:57 EDT Tel , Service support , Shoulder X-Ray 10/09/20 03:18 IMPRESSION: Normal x-ray examination of the shoulder. Electronically Signed: Arcelia Marcano MD at 3:56 EDT Tel , Service support , Physical Exam Const alert Exam Limitations: no limitations Resp normal respiratory effort and no use of accessory muscles Cardio regular rate, regular rhythm, S1 normal heart sound and S2 normal heart sound GI normal to inspection, nondistended, normoactive bowel sounds, non-tender and non-distended Psych affect normal Assessment & Plan Assessment/Plan (1) Alcohol withdrawal: PLAN: 1. Acute alcohol withdrawal * Continue phenobarbital taper. Continue other agents to help with somatic complaints while in the hospital. * Patient declined meeting with addiction medicine today. They will follow up with him tomorrow to set up outpatient program. Visit Charges Inpatient E&M: 68105 Subs Hosp L2
[2020-10-09] MEDS: Acetaminophen 325 MG Tablet 650 MG PO (17:21)
[2020-10-10 02:32] VITALS: BP 117/76; PULSE 80; RESP 17; TEMP 36.8; O2SAT 99
[2020-10-10] MEDS: Phenobarbital 32.4 MG Tablet 64.8 MG PO ×6 (02:36→22:05)
[2020-10-10 05:15] VITALS: BP 116/71; PULSE 77; RESP 17; TEMP 36.4; O2SAT 97
[2020-10-10 09:21] VITALS: BP 119/74; PULSE 77; RESP 16; TEMP 36.8; O2SAT 97
[2020-10-10] MEDS: Thiamine Hydrochloride 100 MG Tablet PO (09:22)
[2020-10-10] MEDS: Folic Acid 1 MG Tablet PO (09:22)
--- NOTE | 2020-10-10 12:07 | ADDICTION ---
This job specification writer attempted to meet with PT. PT did not rouse to 3x verbal queuing.
--- NOTE | 2020-10-10 12:48 | CASEMGMT ---
Patient told staff he needs to call [facility] to cancel his visit with his children tomorrow. JOAN spoke with patient and told him SW can call since he is not allowed to have a phone due to being a part of the [facility] program. He did not know his Public Affairs Director's name. He said his visit is tomorrow with Troy and Jyoti. He said you call [facility] and then dial [phone]. SW told him SW will call for him he said he wanted SW to tell them why he won't be there. JOAN called [facility] and left a message on the visitation line letting them know patient will not be present for his visit tomorrow October 11 with his children as he is in the hospital going through our detox program. JOAN let patient and his RN know SW left message with [facility]. Zina MENDOZA
--- NOTE | 2020-10-10 13:15 | PN.HOSP_ITS ---
Subjective Subjective Wants something to drink. Objective Data Objective Data Vital Signs: Vital Signs Temp Pulse Resp BP Pulse Ox 36.8 C 77 16 119/74 97 10/10/20 09:21 10/10/20 09:21 10/10/20 09:21 10/10/20 09:21 10/10/20 09:21 Oxygen Delivery Method Room Air Weight: 60.5 kg Body Mass Index (BMI) 20.2 Intake & Output: Intake and Output for Last 24 Hours 10/08/20 10/09/20 10/10/20 23:59 23:59 23:59 Intake Total 120 / 120 660 / 660 Balance 120 / 120 660 / 660 Lab / Micro Data Result Diagrams: 10/09/20 04:35 10/09/20 04:35 Physical Exam Narrative lying in bed. minimally interactive. does not establish eye contact. Const alert Neuro Sensorium / Orientation: awake and alert Psych affect normal Assessment & Plan Assessment/Plan (1) Alcohol withdrawal: PLAN: 1. Acute alcohol withdrawal * Continue phenobarbital taper. Continue other agents to help with somatic complaints while in the hospital. * Patient declined meeting with addiction medicine today and yesterday. I am concerned for amotivation to actually get sober. Mitigate potentiating medication, except phenobarbital . Visit Charges Inpatient E&M: 25356 Subs Hosp L1
[2020-10-10 13:30] VITALS: BP 119/73; PULSE 74; RESP 14; TEMP 36.8; O2SAT 94
[2020-10-10 17:40] VITALS: BP 136/88; PULSE 84; RESP 16; TEMP 36.2; O2SAT 98
[2020-10-10] MEDS: Ibuprofen 600 MG Tablet PO (20:00)
[2020-10-10 20:01] VITALS: BP 137/78; PULSE 84; RESP 18; TEMP 36.4; O2SAT 100
[2020-10-10] MEDS: Acetaminophen 325 MG Tablet 650 MG PO (22:05)
[2020-10-11 01:29] VITALS: BP 119/77; PULSE 76; RESP 18; TEMP 36.4; O2SAT 98
[2020-10-11] MEDS: Dicyclomine 10 MG Capsule 20 MG PO (01:33)
[2020-10-11] MEDS: Phenobarbital 32.4 MG Tablet 64.8 MG PO ×2 (01:33→05:26)
[2020-10-11 05:22] VITALS: BP 115/79; PULSE 68; RESP 18; TEMP 36.4; O2SAT 98
[2020-10-11] MEDS: Ibuprofen 600 MG Tablet PO (05:26)
[2020-10-11] MEDS: hydrOXYzine PAM 25 MG Capsule 50 MG PO (06:53)
[2020-10-11] MEDS: Folic Acid 1 MG Tablet PO (09:15)
[2020-10-11] MEDS: Thiamine Hydrochloride 100 MG Tablet PO (09:15)
[2020-10-11 09:18] VITALS: BP 109/61; PULSE 66; RESP 16; TEMP 36.7; O2SAT 98
[2020-10-11 09:25] VITALS: O2SAT 98
--- NOTE | 2020-10-11 14:08 | PCM.DC ---
Discharge Instructions Diet Discharge Diet: No restrictions Activity Discharge Activity: Return to Normal Activity Follow Up Care Test Results: Test results from this visit will be discussed in further detail at your follow-up appointment, if applicable. Discharge Plan Admission Admit Date/Time: 10/09/20 04:58 Attending Provider: Willi Thao Primary Care Provider: Saleem Isaacs Instructions Patient Instructions: ED Arthralgia, ED Head Injury (Adult) Discharge Orders/Prescriptions Prescriptions: New multivitamin Tablet 1 tab PO DAILY Qty: 1 RF: 0 Discontinued sulfamethoxazole-trimethoprim [Bactrim DS] 800-160 mg tablet 1 tab PO BID RF: 0 cephalexin [Keflex] 750 mg capsule 750 mg PO BID RF: 0 Referrals / Follow Up: Saleem Isaacs MD [Primary Care Provider] - Disposition Disposition (needs filled in before D/C Order can be placed): Home, self care
--- NOTE | 2020-10-11 14:09 | PCM.DC.SUM ---
Providers Date of Admission: 10/09/20 Primary Care Physician: Dr. Saleem Isaacs MD Reason For Visit: DESIRE FOR ALCOHOL DETOXIFICATION Diagnosis Discharge Diagnosis (1) Alcohol withdrawal: Status: Acute Code(s): F10.239 - Alcohol dependence with withdrawal, unspecified Medications at Discharge Home Medications multivitamin 1 tab PO DAILY #1 tab 10/11/20 Hospital Course Procedures None Summary of Care Provided Minutes Spent on Discharge: 26 Hospital Course: 35-year-old white male seeking treatment for acute alcohol withdrawal. Patient started on phenobarbital as well as other agents to help with somatic complaints. Patient's course was uncomplicated. Patient did not interact with the addiction medicine liaison. Today I discontinued his phenobarbital and his course has remained uncomplicated. Did inform the patient to reach out to 180 to find out what programs to have available to assist him. Given his reluctance to engage with addiction medicine plus myself at times, I am concerned this patient may not thrive in maintaining sobriety. Hopefully patient can reach out to [facility] be involved in the program but he did not allow the addiction medicine liaison to facilitate for him. Physical Exam Const alert and oriented x3 General Appearance: cooperative Psych affect normal ABG / Lab / Microbiology Data Result Diagrams: 10/09/20 04:35 10/09/20 04:35 D/C Instructions Discharge Diet: No restrictions Discharge Activity: Return to Normal Activity Meaningful Use Info Meaningful Use Diagnoses (Choose all that apply): None applicable Discharge Plan Admission Admit Date/Time: 10/09/20 04:58 Attending Provider: Willi Thao Primary Care Provider: Saleem Isaacs Instructions Patient Instructions: ED Arthralgia, ED Head Injury (Adult) Discharge Orders/Prescriptions Prescriptions: New multivitamin Tablet 1 tab PO DAILY Qty: 1 RF: 0 Discontinued sulfamethoxazole-trimethoprim [Bactrim DS] 800-160 mg tablet 1 tab PO BID RF: 0 cephalexin [Keflex] 750 mg capsule 750 mg PO BID RF: 0 Referrals / Follow Up: Saleem Isaacs MD [Primary Care Provider] - Disposition Disposition (needs filled in before D/C Order can be placed): Home, self care Visit Charges Inpatient E&M: 39669 Disch Hosp
--- NOTE | 2020-10-11 14:49 | NURSING ---
Walked to desk and stated I'm walking out of here. Discharge papers handed to patient.
== END 2020-10-11 14:49 | disposition home or self-care (01) | DRG 775 ==
LOC: ED 04:05 → PCU 05:21
PROVIDERS: Admitting Provider Hospitalist; Emergency Provider Emergency Medicine; PCP Family Medicine
DX: F10.239 Alcohol dependence with withdrawal, unspecified (principal); F17.200 Nicotine dependence, unspecified, uncomplicated; M25.511 Pain in right shoulder; S00.01XA Abrasion of scalp, initial encounter; W18.30XA Fall on same level, unspecified, initial encounter; Y93.89 Activity, other specified; Y92.89 Other specified places as the place of occurrence of the external cause; Y99.8 Other external cause status; Z86.16 Personal history of COVID-19; E78.5 Hyperlipidemia, unspecified; Z86.711 Personal history of pulmonary embolism; Z59.0 Homelessness
CPT/HCPCS: 70450; 71046; 72125; 73030; 80053; 80307; 82077; 85025; 97802; 99218; 99285; A4216; G0378

== ENCOUNTER 2020-10-14 02:47 | Emergency (ER) | payer MEDICAID, SELFPAY ==
[2020-10-09 13:57] VITALS: BMI 20.2
[2020-10-14 02:49] VITALS: BP 139/98; PULSE 103; RESP 15; TEMP 36.8; O2SAT 100; BMI 21.3
--- NOTE | 2020-10-14 02:50 | EDS_ITS ---
HPI History of Present Illness Chief Complaint: Upper Extremity Injury Detail of Chief Complaint: Right shoulder pain Informant: patient Occured/Mechanism Mechanism/Context: Yes blunt trauma Comment: Patient fell onto his right shoulder Onset/Context/Timing Context: Sudden Onset Timing: Continuous Quality of Pain: Aching Current Severity: Moderate Maximum Severity: Severe Worsened by: Moved of the right shoulder Relieved by: Nothing Associated Symptoms Associated Symptoms: Positive for - (Limited range of motion due to pain); Negative for Parasthesia and Weakness Narrative Narrative: Patient is a 35-year-old [id number] male who presents with injury to his right shoulder. He was seen last week. X-rays were obtained. X- rays were reviewed. Agree there is no abnormality. Patient denies paresthesia, anesthesia motors. He states he has pain with abduction past 90 degrees. He states he has limited range of motion. He has no other complaints. Tetanus Immunization: 5-10 years Prior similar symptoms: Yes Recent Illness/Hospitalization: Yes PFSH PFSH Medical History Anxiety Broken bones COVID-19 Depression Dermatitis Head injury Hyperlipidemia Paronychia Pulmonary emboli Shoulder pain Substance abuse Home Medications multivitamin 1 tab PO DAILY #1 tab 10/11/20 [Rx Last Taken Unknown] naproxen 500 mg PO BID #14 tab 10/14/20 [Rx Last Taken Unknown] oxycodone-acetaminophen 1 tab PO Q6H PRN PRN 5 Days #20 tablet 10/14/20 [Rx Last Taken Unknown] Allergy/AdvReac Type Severity Reaction Status Date / Time codeine AdvReac PT UNSURE Verified 10/14/20 02:49 OF REACTION ORO BEANS Allergy Rash Uncoded 10/14/20 02:49 Family History (Updated 10/09/20 @ 06:[address] Jesus Gallardo MD) Other COPD (chronic obstructive pulmonary disease) Surgical History H/O wrist surgery Social History housing: homeless number of children: 3 current occupational status: unemployed Smoking Status: Current every day smoker ROS ROS ED Constitutional Constitutional ED: Denies chills or subjective Eyes Eyes: Denies blurry vision or change in vision Cardiovascular Cardiovascular: Denies chest pain or palpitations Respiratory/Chest Respiratory/Chest: Denies dyspnea or dyspnea on exertion Musculoskeletal Musculoskeletal: Denies back pain, myalgias or neck pain Integumentary Denies Abrasions or rash Neurologic Neurologic: Denies paresthesias or weakness Hematologic/Lymphatic Hematologic/Lymphatic: Denies easy bruising EXAM Physical Exam Const Positive well nourished and well developed General Appearance ED: well developed HEENT normocephalic and atraumatic Eyes PERRL and EOMs intact bilaterally Neck supple Resp normal respiratory effort Cardio regular rate and regular rhythm Back/Spine no CVA tenderness Thoracic Spine / Upper Back: Negative for thoracic spinal tenderness Extremity normal to inspection; Negative for full ROM Extremity Narrative: Patient has pain to palpation over the AC joint. He has a negative drop test. Axillary, median, radial and ulnar function intact. Radial pulses 2+. There is no obvious evidence of trauma or soft tissue swelling. Neuro oriented x3, CN's II-XII intact bilaterally, moves all extremities and no sensory deficits noted Sensorium / Orientation: alert Psych mental status grossly normal Skin Lesions: no lesions Rashes: no rashes Trauma: no lacerations or abrasions; Negative for abrasion MDM MDM MDM Narrative Medical decision making narrative: Patient has pain specifically over the AC joint. This reproduces his pain. Plan is opiate analgesia and NSAID and refer to orthopedics. Images from prior visit were reviewed by me and agree that they are negative. Discharge Plan Triage Chief Complaint: Upper Extremity Injury ED Provider: Wiley Alcala Dx/Rx/DC Orders Clinical Impression: Acromioclavicular joint separation, type 1 Instructions: ED Sprain AC Joint, ED Sling and Swathe Prescriptions: New oxycodone-acetaminophen [oxycodone-acetaminophen] 1 TABLET tablet 1 tab PO Q6H PRN PRN (Reason: pain) 5 Days Qty: 20 RF: 0 naproxen 500 MG tablet 500 mg PO BID Qty: 14 RF: 0 No Action multivitamin Tablet 1 tab PO DAILY Qty: 1 RF: 0 Primary Care Provider: Saleem Isaacs Referrals: Saleem Isaacs MD [Primary Care Provider] - Kris Figueroa DO [STAFF PHYSICIAN] - 5-7 Days Disposition Disposition: Home, self care
[2020-10-14] MEDS: Naproxen 250 MG Tablet 500 MG PO (03:04)
[2020-10-14] MEDS: oxyCODONE 5 MG Tablet PO (03:04)
[2020-10-14 03:06] VITALS: BP 146/101; PULSE 113; RESP 20; O2SAT 98
== END 2020-10-14 03:36 | disposition home or self-care (01) ==
PROVIDERS: Emergency Provider Emergency Medicine; PCP Family Medicine
DX: S43.101A Unspecified dislocation of right acromioclavicular joint, initial encounter (principal); E78.5 Hyperlipidemia, unspecified; F17.200 Nicotine dependence, unspecified, uncomplicated; W18.30XA Fall on same level, unspecified, initial encounter; Y93.89 Activity, other specified; Y92.89 Other specified places as the place of occurrence of the external cause; Y99.8 Other external cause status
CPT/HCPCS: 99284

== ENCOUNTER → 2021-01-09 20:54 | Emergency (ER) | payer MEDICAID, SELFPAY ==
[2021-01-09 20:55] VITALS: BP 136/86; PULSE 98; RESP 16; TEMP 36.8; O2SAT 99; BMI 21.8
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
--- NOTE | 2021-01-09 22:08 | NURSING ---
Pt stated to nurse I'm going to go home and use super glue, I don't want to be seen now.
== END | disposition left against medical advice (07) ==
PROVIDERS: Emergency Provider Emergency Medicine; PCP Family Medicine
DX: S01.01XA Laceration without foreign body of scalp, initial encounter (principal); E78.5 Hyperlipidemia, unspecified; F17.210 Nicotine dependence, cigarettes, uncomplicated; V18.5XXA Pedal cycle passenger injured in noncollision transport accident in traffic accident, initial encounter; Y93.55 Activity, bike riding; Y92.89 Other specified places as the place of occurrence of the external cause; Y99.8 Other external cause status
CPT/HCPCS: 99283

== ENCOUNTER 2021-12-10 14:37 | Emergency (ER) | payer MEDICAID, SELFPAY ==
[2021-12-10 14:38] VITALS: BP 139/108; PULSE 87; RESP 14; TEMP 36.5; O2SAT 98; BMI 22.8
--- NOTE | 2021-12-10 15:11 | EDS_ITS ---
HPI History of Present Illness Chief Complaint: Abscess Detail of Chief Complaint: Behind right ear ureter, right groin and right axilla. Informant: patient Onset/Context/Timing Onset: Weeks Context: Gradual Onset Timing: Continuous Current Severity: Mild Maximum Severity: Mild Narrative Narrative: 36-year-old male history of prior pulmonary emboli, high cholesterol and marijuana use. Patient denies any IV drugs. He has a history of abscesses. Axilla and right groin. He said several days before. He has not had any of them drained recently. He had been drained and been treated with antibiotics in the past. He denies any fever or chills. He is not diabetic. Prior similar symptoms: Yes Recent Illness/Hospitalization: No PFSH PFSH Medical History Anxiety Broken bones COVID-19 Depression Dermatitis Head injury Hyperlipidemia Paronychia Pulmonary emboli Shoulder pain Substance abuse Home Medications multivitamin 1 tab PO DAILY #1 TAB 10/11/20 [Rx Last Taken Unknown] cephalexin 500 mg capsule 500 mg PO Q8H #30 caps 12/10/21 [Rx Last Taken Unknown] sulfamethoxazole 800 mg-trimethoprim 160 mg tablet (Bactrim DS) 1 tab PO BID 10 days #20 tabs 12/10/21 [Rx Last Taken Unknown] Allergy/AdvReac Type Severity Reaction Status Date / Time codeine AdvReac PT UNSURE Verified 12/10/21 14:39 OF REACTION ORO BEANS Allergy Rash Uncoded 12/10/21 14:39 Family History (Updated 10/09/20 @ 06:[address] Jesus Gallardo MD) Other COPD (chronic obstructive pulmonary disease) Surgical History H/O wrist surgery Social History housing: homeless number of children: 3 current occupational status: unemployed Smoking Status: Current every day smoker tobacco type: cigarettes ROS ROS ED ROS Narrative Abscesses. Review of Systems ROS Unobtainable: Denies due to encephalopathy Constitutional Constitutional ED: Denies chills or fever(s) Eyes Eyes: Denies blurry vision ENT ENT ED: Denies ear pain Cardiovascular Cardiovascular: Denies chest pain Respiratory/Chest Respiratory/Chest: Denies cough or dyspnea Gastrointestinal Gastrointestinal: Denies abdominal pain Genitourinary Genitourinary ED: Denies dysuria Musculoskeletal Musculoskeletal: Denies arthralgias Integumentary Denies abscess Neurologic Neurologic: Denies headache(s) Psychiatric Psychiatric: Denies anxiety Endocrine Endocrinology: Denies cold intolerance Hematologic/Lymphatic Hematologic/Lymphatic: Reports none; Denies anemia Allergic/Immunologic Allergic/Immunologic ED: Denies mouth swelling or tongue swelling EXAM Physical Exam Narrative Exam Narrative: 36-year-old male no acute distress. Vital signs stable afebrile. H EENT exam unremarkable except behind his right ear is a moderate sized fluctuant abscess of the knee drained. Neck nontender no lymphadenopathy. Lungs are clear. Heart regular rate and rhythm no murmur. Abdomen soft nontender. Right inguinal region there is indurated tissue but no fluctuance is an early abscess but does not need drain. Also in his right axilla. Moving all 4 extremities. No edema. He is awake and alert. Const Vital Signs: 12/10/21 14:38 Temperature 97.7 F L Temperature Source Temporal Pulse Rate 87 Respiratory Rate 14 Blood Pressure 139/108 H Blood Pressure Mean 118 Pulse Ox 98 Oxygen Delivery Method Room Air Positive well nourished and well developed; Negative for obese, cachectic, contractures or unkempt General Appearance ED: well developed; Negative for unkempt, cachectic or contractures Nutritional Appearance: Negative for cachectic or obese HEENT Reports moist mucous membranes; Denies dry mucous membranes Negative for trauma Mouth ED: No dry mucous membranes Mouth: No dry mucous membranes Eyes PERRL and EOMs intact bilaterally General Eye ED: Negative for pale conjunctiva Neck no lymphadenopathy, supple and no JVD General: Negative for tenderness Chest Wall inspection of chest normal and palpation of chest normal Resp normal respiratory effort and clear to auscultation bilaterally Effort and Inspection: Negative for retractions Auscultation: Negative for rales Cardio regular rate, regular rhythm, S1 normal heart sound, S2 normal heart sound and no murmurs Rate: Negative for bradycardia or tachycardic Rhythm: Negative for abnormal rhythm GI normal to inspection, nondistended, normoactive bowel sounds, non-tender, non- distended and no masses Inspection: Negative for abdominal distention Auscultation: normoactive bowel sounds Palpation: soft; Negative for tender or guarding Back/Spine no CVA tenderness General Back: Negative for CVA tenderness Cervical Spine: Negative for cervical spine tenderness Thoracic Spine / Upper Back: Negative for thoracic spinal tenderness Lumbar Spine / Lower Back: Negative for lumbar spinal tenderness Extremity normal to inspection General Extremety ED: Negative for edema or tenderness General Extremity: Negative for edema Neuro oriented x3 and no sensory deficits noted Sensorium / Orientation: alert Motor Exam: strength 5/5 throughout Psych mental status grossly normal Appearance: Negative for unkempt Skin no rashes or lesions noted and no wounds Skin Narrative: Behind right ear fluctuant abscess. Early abscess right axilla not fluctuant. Early abscess bilateral Not fluctuant. Rashes: No rashes noted Trauma: Negative for abrasion MDM MDM MDM Narrative Medical decision making narrative: Patient has several abscesses. 1 needs drainage behind his right ear. Lateral view applied today. We will incise and drain it. He will be started on Bactrim and Keflex for 10 days. Follow-up with his primary care physician. Warm soaks. Return if worse. Procedures Other Procedures Procedure(s): Behind right ear subcu abscess. Let. Incision and drainage. Broke up loculations. Packed. Irrigated. Given wound care instructions. Expressed 2 to 3 cc of pus and blood. Patient tolerated procedure well. Discharge Plan Triage Chief Complaint: Abscess ED Provider: Americo Puente Dx/Rx/DC Orders Clinical Impression: Abscess Instructions: Abscess Drainage, ED Abscess Incision And Drainage Prescriptions: New cephalexin 500 mg capsule 500 mg PO Q8H Qty: 30 0RF sulfamethoxazole-trimethoprim [Bactrim DS] 800-160 mg tablet 1 tab PO BID 10 Days Qty: 20 0RF No Action multivitamin Tablet 1 tab PO DAILY Qty: 1 0RF Primary Care Provider: Saleem Isaacs Referrals: Saleem Isaacs MD [Primary Care Provider] - 1 Week if not improving Activity Restrictions/Additional Instructions: Warm compresses to all the abscesses. Warm soaks in the tub. Pull the packing from the abscess behind her right ear out in 4 to 5 days. Take both antibiotics as prescribed for the next 10 days. Tylenol and Motrin for pain. Follow-up if not improving return if any of the other abscesses get large and need drain. Disposition Disposition: Home, Self Care
[2021-12-10] MEDS: Lidocaine/Epi/Tetracaine 50 ML 1 APPLIC TOPICAL (15:34)
[2021-12-10 16:30] VITALS: BP 121/107; PULSE 80; RESP 18
== END 2021-12-10 16:31 | disposition home or self-care (01) ==
PROVIDERS: Emergency Provider Emergency Medicine; PCP Family Medicine; Visit Provider Emergency Medicine
DX: H60.01 Abscess of right external ear (principal); E78.00 Pure hypercholesterolemia, unspecified; F17.210 Nicotine dependence, cigarettes, uncomplicated; Z59.00 Homelessness unspecified; Z79.899 Other long term (current) drug therapy
CPT/HCPCS: 10060; 99283

== ENCOUNTER 2022-04-26 18:30 | Emergency (ER) | payer MEDICAID, SELFPAY ==
[2022-04-26 18:31] VITALS: BP 127/64; PULSE 76; RESP 14; TEMP 36.7; O2SAT 97; BMI 23.3
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
[2022-04-26 21:29] VITALS: RESP 18
== END 2022-04-26 21:30 | disposition home or self-care (01) ==
PROVIDERS: Emergency Provider Emergency Medicine; PCP Family Medicine; Visit Provider Emergency Medicine
DX: S01.01XA Laceration without foreign body of scalp, initial encounter (principal); E78.5 Hyperlipidemia, unspecified; F17.210 Nicotine dependence, cigarettes, uncomplicated; R07.81 Pleurodynia; Y04.8XXA Assault by other bodily force, initial encounter
CPT/HCPCS: 12032; 71046; 99283

== ENCOUNTER 2022-05-09 16:23 | Emergency (ER) | payer MEDICAID, SELFPAY ==
[2022-05-09 16:24] VITALS: BP 138/98; PULSE 87; RESP 18; TEMP 36.1; O2SAT 100; BMI 22.7
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
[2022-05-09] MEDS: Acetaminophen 325 MG Tablet 650 MG PO (16:41)
== END 2022-05-09 16:45 | disposition home or self-care (01) ==
PROVIDERS: Emergency Provider Emergency Medicine; PCP Family Medicine; Visit Provider Emergency Medicine
DX: Z48.02 Encounter for removal of sutures (principal); Z59.00 Homelessness unspecified; E78.5 Hyperlipidemia, unspecified; F17.210 Nicotine dependence, cigarettes, uncomplicated; Z82.5 Family history of asthma and other chronic lower respiratory diseases; Z23 Encounter for immunization; Z86.16 Personal history of COVID-19
CPT/HCPCS: 90471; 99284

== ENCOUNTER 2022-06-06 09:03 | Emergency (ER) | payer MEDICAID, SELFPAY ==
[2022-06-06 09:03] VITALS: BP 112/99; PULSE 124; RESP 18; TEMP 36.6; O2SAT 100; BMI 23.5
--- NOTE | 2022-06-06 09:06 | EX.ED.DYSGE1 ---
HPI History of Present Illness Chief Complaint: Abscess Informant: patient Onset/Context/Timing Onset: Days Context: Gradual Onset Location: L scrotum Worsened by: tough, walking Associated Symptoms Associated Symptoms: swelling, redness Narrative Prior similar symptoms: Yes Recent Illness/Hospitalization: No PFSH PFSH Medical History Anxiety Broken bones COVID-19 Depression Dermatitis Head injury Hyperlipidemia Paronychia Pulmonary emboli Shoulder pain Substance abuse Home Medications multivitamin 1 tab PO DAILY #1 TAB 10/11/20 [Rx Last Taken Unknown] cephalexin 500 mg capsule 500 mg PO Q8H #30 caps 12/10/21 [Rx Last Taken Unknown] sulfamethoxazole 800 mg-trimethoprim 160 mg tablet (Bactrim DS) 1 tab PO BID 10 days #20 tabs 12/10/21 [Rx Last Taken Unknown] Allergy/AdvReac Type Severity Reaction Status Date / Time bunch Allergy Rash Verified 06/06/22 09:05 Family History Other COPD (chronic obstructive pulmonary disease) Surgical History H/O wrist surgery Social History housing: homeless number of children: 3 current occupational status: unemployed Smoking Status: Current every day smoker tobacco type: cigarettes ROS ROS ED Constitutional Constitutional ED: Denies chills or fever(s) Eyes Eyes: Denies blurry vision ENT ENT ED: Denies ear pain Cardiovascular Cardiovascular: Denies chest pain Respiratory/Chest Respiratory/Chest: Denies cough Gastrointestinal Gastrointestinal: Denies abdominal pain Genitourinary Genitourinary ED: Denies dysuria, hematuria or urinary frequency Musculoskeletal Musculoskeletal: Denies arthralgias Integumentary Reports abscess and rash; Denies Abrasions Neurologic Neurologic: Denies headache(s) Psychiatric Psychiatric: Denies anxiety Endocrine Endocrinology: Denies cold intolerance Hematologic/Lymphatic Hematologic/Lymphatic: Denies systems reviewed and no addt'l complaints, except as documented Allergic/Immunologic Allergic/Immunologic ED: Denies mouth swelling EXAM Physical Exam Const Vital Signs: 06/06/22 09:03 06/06/22 09:48 Temperature 97.8 F 97.8 F Temperature Source Temporal Temporal Pulse Rate 124 H 124 H Respiratory Rate 18 18 Blood Pressure 112/99 H 112/99 H Blood Pressure Mean 103 103 Pulse Ox 100 100 Oxygen Delivery Method Room Air Room Air Positive well nourished and well developed General Appearance ED: well developed HEENT Reports moist mucous membranes Eyes EOMs intact bilaterally Resp normal respiratory effort Cardio Rate: tachycardic GI normal to inspection, nondistended, normoactive bowel sounds Narrative: Left hemiscrotum is erythematous, edematous, indurated, and tender. I do not appreciate a discrete mass on palpation. Extremity normal to inspection Neuro oriented x3 Sensorium / Orientation: alert Psych mental status grossly normal Skin Skin Narrative: See , above MDM MDM MDM Narrative Medical decision making narrative: Differential diagnosis was concerning for cellulitis versus abscess versus more severe process such as necrosis. He appears nontoxic. His white count was 18.6, but he often does have a leukocytosis. He is not having fevers and otherwise appears well. Believe this infection is localized only to his scrotum at this time. Do not appreciate any crepitus, necrosis, gangrene, or severe pain. Ultrasound was performed. Abscess was not identified. Suspect this is just scrotal cellulitis at this time. He was discussed with Dr. Doe who advised a dose of IV antibiotics and that he can follow-up with him as an outpatient. We will put him on Cipro for 10 days. Patient was advised that a more serious and severe infection could develop. He should return right away for fevers or any new or worsening issues. Patient's pain was addressed. He will be discharged for outpatient follow-up. Return for new or worsening issues. Disposition is discharged home Impression #1 left scrotum cellulitis Lab Data Attestation: I reviewed the patient's lab results. Labs: Laboratory Results - last 24 hr 06/06/22 06/06/22 09:20 09:20 WBC 18.6 H RBC 4.85 Hgb 14.6 Hct 44.1 MCV 90.9 MCH 30.1 MCHC 33.1 RDW Std Deviation 46.5 H RDW Coeff of Christie 13.8 Plt Count 398 MPV 8.8 Immature Gran % (Auto) 0.400 Neut % (Auto) 75.4 H Lymph % (Auto) 14.5 L [place] % (Auto) 7.3 Eos % (Auto) 1.9 Baso % (Auto) 0.5 Absolute Neuts (auto) 14.0 H Absolute Lymphs (auto) 2.69 Nucleated RBC % 0 Sodium 139 Potassium 4.2 Chloride 106 Carbon Dioxide 27.0 Anion Gap 6 BUN 21 H Creatinine 1.28 Estim Creat Clear Calc 74.59 Est GFR (MDRD) Af Amer 82 Est GFR (MDRD) Non-Af 67 BUN/Creatinine Ratio 16.4 Glucose 114 H Calcium 8.7 Radiography Diagnostic Testing: Clinical Impression(s) from Imaging Studies Testicular Ultrasound 06/06/22 09:15 IMPRESSION: Left scrotal wall thickening with soft tissue edema and seepage of complex fluid in real-time, without focal fluid collection demonstrated by ultrasound. Vascular flow demonstrated to both testicles without focal intratesticular lesion. Electronically Signed: Chanel Dickey MD at 10:49 EST Reading Location ID and State: [facility] / [place] Tel , Service support , Discharge Plan Triage Chief Complaint: Abscess ED Provider: Cliff Taylor Dx/Rx/DC Orders Prescriptions: No Action multivitamin Tablet 1 tab PO DAILY Qty: 1 0RF cephalexin 500 mg capsule 500 mg PO Q8H Qty: 30 0RF sulfamethoxazole-trimethoprim [Bactrim DS] 800-160 mg tablet 1 tab PO BID 10 Days Qty: 20 0RF Primary Care Provider: Saleem Isaacs Referrals: Saleem Isaacs MD [Primary Care Provider] -
--- NOTE | 2022-06-06 09:15 | US_ITS ---
HISTORY: Left scrotum mass/infection, concern for abscess. TECHNIQUE: Realtime ultrasound of the testicles was performed with grayscale, Color Doppler and spectral Doppler analysis. 77 images. COMPARISON: None. FINDINGS: Right- TESTIS: 2.3 x 4.4 x 2.4 cm. Homogeneous echotexture without focal lesion. COLOR DOPPLER: Normal arterial flow present in the testicle with monophasic waveforms. EPIDIDYMIS: 7 x 11 mm. [No focal hyperemia. EXTRATESTICULAR CONTENTS: No significant hydrocele. Left- TESTIS: 2 x 4.2 x 2.9 cm. Homogeneous echotexture without focal lesion. COLOR DOPPLER: Normal arterial flow present in the testicle with monophasic waveforms. EPIDIDYMIS: 8 x 11 mm. [No focal hyperemia. EXTRATESTICULAR CONTENTS: No significant hydrocele. [Left scrotal soft tissue thickening and edema measuring 9 mm in thickness. Area of interest demonstrates seeping complex fluid from pus or hemorrhage without focal fluid collection demonstrated by ultrasound. US/Testicular with Arterial Flow IMPRESSION: Left scrotal wall thickening with soft tissue edema and seepage of complex fluid in real-time, without focal fluid collection demonstrated by ultrasound. Vascular flow demonstrated to both testicles without focal intratesticular lesion. Electronically Signed: Chanel Dickey MD at 10:49 EST ,
[2022-06-06 09:28] LABS: Absolute Lymphocyte Count 2.69 X10^3/uL (0.83-4.51); Basophil% 0.5 % (0-1); Eosinophil# 0.36 X10^3/uL; Eosinophils% 1.9 % (0-5); Hematocrit 44.1 % (40-54); Hemoglobin 14.6 g/dL (13.0-16.5); Lymphocyte # 2.69 X10^3/ul (0.83-4.51); Lymphocyte % 14.5 % (19-41); Mean Corp Hgb Conc 33.1 g/dL (32-36); Mean Corpuscular Hgb 30.1 pg (27.0-32.0); Mean Corpuscular Volume 90.9 fL (80-94); Mean Platelet Vol. 8.8 fl (6.2-12.0); Monocyte# 1.36 X10^3/uL; Monocyte% 7.3 % (0-10); NRBC Flagged by Analyzer 0 % (0-5); Neutrophil # 14.02 X10^3/uL (2.7-7.7); Neutrophil % 75.4 % (47-70); Platelet Count 398 K/mm3 (150-450); RBC Distribution Width CV 13.8 % (11.6-14.6); RBC Distribution Width SD 46.5 fl (35.1-43.9); Red Blood Count 4.85 M/mm3 (4.6-6.2); White Blood Count 18.6 K/mm3 (4.4-11.0)
[2022-06-06] MEDS: Ondansetron 4 MG/2 ML Vial IV (09:38)
[2022-06-06] MEDS: Morphine 4 MG/ML Syringe IV (09:38)
[2022-06-06 09:44] LABS: Anion Gap 6 (5-15); BUN 21 mg/dL (7-18); BUN/Creat Ratio 16.4 RATIO (10-20); Calcium,Total 8.7 mg/dL (8.5-10.1); Chloride 106 mmol/L (98-107); Creatinine, Serum 1.28 mg/dL (0.70-1.30); EST Glomerular Filtration Rate 67 mL/min (>60); Est Glom Filt Rate - Afr Amer 82 mL/min (>60); Estimated Creatinine Clearance 74.59 ml/min; Glucose 114 mg/dL (74-106); Potassium 4.2 mmol/L (3.5-5.1); Sodium Level 139 mmol/L (136-145)
[2022-06-06 09:48] VITALS: BP 112/99; PULSE 124; RESP 18; TEMP 36.6; O2SAT 100
[2022-06-06] MEDS: Ceftriaxone 1 GM/50 ML BAG IV (11:35)
[2022-06-06] MEDS: HYDROcodone Bitartrate/Apap 5/325 Tablet PO (12:10)
== END 2022-06-06 12:11 | disposition home or self-care (01) ==
PROVIDERS: Emergency Provider Emergency Medicine; PCP Family Medicine; Visit Provider Emergency Medicine
DX: N49.2 Inflammatory disorders of scrotum (principal); Z59.00 Homelessness unspecified; E78.5 Hyperlipidemia, unspecified; F17.210 Nicotine dependence, cigarettes, uncomplicated; N50.89 Other specified disorders of the male genital organs
CPT/HCPCS: 76870; 80048; 85025; 93976; 96365; 96375; 99284; J2405

== ENCOUNTER 2022-06-13 18:27 | Emergency (ER) | payer MEDICAID, SELFPAY ==
[2022-06-13 18:27] VITALS: PULSE 100
[2022-06-13 18:28] VITALS: BP 127/89; PULSE 105; RESP 18; TEMP 36.4; O2SAT 99; BMI 22.2
--- NOTE | 2022-06-13 18:42 | EDS_ITS ---
HPI History of Present Illness Chief Complaint: Abscess Detail of Chief Complaint: Abscess behind right ear and left scrotum Informant: patient Narrative Narrative: Patient presents the emergency department with an abscess behind his left ear that he noticed first yesterday. Patient states that he has had the cyst for years and they keep recurring from time to time. Patient was seen in the emergency department 7 days ago for complaint of a cyst on his scrotum and was diagnosed with cellulitis. At that time he was started on Cipro and he has a follow-up appointment coming up with urologist this week. Patient states that he had a low-grade temp today of 100.4 and his paperwork said to return to the ER if that happened. Patient also was worried about the cyst behind his right ear. Patient tells me that the scrotum is actually better than when he was here initially and that the redness and the swelling has gone down but he still from time to time will have a little bit of drainage to the area. Prior similar symptoms: Yes PFSH PFSH Medical History Anxiety Broken bones COVID-19 Depression Dermatitis Head injury Hyperlipidemia Paronychia Pulmonary emboli Shoulder pain Substance abuse Home Medications multivitamin 1 tab PO DAILY #1 TAB 10/11/20 [Rx Last Taken Unknown] cephalexin 500 mg capsule 500 mg PO Q8H #30 caps 12/10/21 [Rx Last Taken Unknown] sulfamethoxazole 800 mg-trimethoprim 160 mg tablet (Bactrim DS) 1 tab PO BID 10 days #20 tabs 12/10/21 [Rx Last Taken Unknown] ciprofloxacin HCl 500 mg tablet (Cipro) 500 mg PO Q12H #20 tabs 06/06/22 [Rx Last Taken Unknown] naproxen 500 mg tablet 500 mg PO BID PRN #20 tabs 06/06/22 [Rx Last Taken Unknown] Allergy/AdvReac Type Severity Reaction Status Date / Time bunch Allergy Rash Verified 06/13/22 18:29 Family History Other COPD (chronic obstructive pulmonary disease) Surgical History H/O wrist surgery Social History housing: homeless number of children: 3 current occupational status: unemployed Smoking Status: Current every day smoker tobacco type: cigarettes ROS ROS ED Review of Systems ROS Unobtainable: other Constitutional Constitutional ED: Reports lethargy; Denies chills, fever(s), sweats or weight loss Eyes Eyes: Denies blurry vision, change in vision or diplopia ENT ENT ED: Reports other Details: Cyst and swelling behind right ear ; Denies rhinorrhea or sore throat Cardiovascular Cardiovascular: Reports chest pain and racing heartbeat; Denies orthopnea Respiratory/Chest Respiratory/Chest: Reports dyspnea and dyspnea on exertion; Denies cough, orthopnea or sputum Gastrointestinal Gastrointestinal: Denies abdominal pain, diarrhea, nausea or vomiting Genitourinary Genitourinary ED: Reports other Details: Tenderness over left scrotum ; Denies dysuria, hematuria or urinary frequency Musculoskeletal Musculoskeletal: Denies arthralgias, back pain, myalgias or neck pain Integumentary Denies abscess, Abrasions or rash Neurologic Neurologic: Denies headache(s) or weakness Psychiatric Psychiatric: Denies anxiety, depression or suicidal thoughts Endocrine Endocrinology: Denies polydipsia, polyphagia or polyuria Hematologic/Lymphatic Hematologic/Lymphatic: Denies easy bleeding, easy bruising or lymphadenopathy Allergic/Immunologic Allergic/Immunologic ED: Denies mouth swelling, tongue swelling or urticaria EXAM Physical Exam Const Vital Signs: 06/13/22 18:28 Temperature 97.5 F L Temperature Source Temporal Pulse Rate 105 H Respiratory Rate 18 Blood Pressure 127/89 H Blood Pressure Mean 101 Pulse Ox 99 Oxygen Delivery Method Room Air Positive well nourished and well developed General Appearance ED: well developed and NAD HEENT Reports TM's clear and moist mucous membranes HEENT Narrative: Right ear-patient does have a soft tissue swelling behind the right ear consistent with a cystic structure and it is already draining some yellow purulent debris. normocephalic and atraumatic; Negative for trauma or tenderness Tympanic Membrane ED: Yes TM's clear Eyes PERRL and EOMs intact bilaterally General Eye ED: Negative for pale conjunctiva or scleral icterus Neck no lymphadenopathy, supple and no JVD General: Negative for tenderness Chest Wall inspection of chest normal and palpation of chest normal Chest: Negative for tenderness Resp normal respiratory effort and clear to auscultation bilaterally Effort and Inspection: Negative for respiratory distress or pain with movement Auscultation: Negative for rhonchi, wheezes or diminished lung sounds Cardio regular rate, regular rhythm, S1 normal heart sound, S2 normal heart sound and no murmurs Peripheral Pulses: pulses 2+ throughout GI normal to inspection, nondistended, normoactive bowel sounds, soft to palpation, non-tender, non-distended and no masses Narrative: Patient has some erythema and induration to the left scrotum. Testicles are nontender and have a normal lie. Normal cremasteric reflex. I do not palpate any fluctuance or obvious abscess. There is some faint chronic appearing erythema. No evidence of gangrene. Back/Spine no CVA tenderness and no thoracic nor lumbar tenderness Extremity normal to inspection General Extremety ED: Negative for edema General Extremity: Negative for edema Neuro oriented x3, CN's II-XII intact bilaterally, no sensory deficits noted and gait normal Sensorium / Orientation: awake, alert, oriented to person, oriented to place and oriented to time Motor Exam: strength 5/5 throughout and strength abnormal Psych mental status grossly normal Skin no rashes or lesions noted and no wounds MDM MDM MDM Narrative Medical decision making narrative: With gentle pressure I was able to express large amount of purulent debris from the cyst behind the right ear. No other I&D was indicated. Regarding the cellulitis in the left groin and scrotum per patient this is improved significantly and he has follow-up appointment with urology this week. I do not feel any further imaging or treatment is indicated. I did advise him to continue with his antibiotics until he is finished those. I will refer him to dermatology regarding the cyst behind the ear as this may need broader resection to prevent recurrence. Discharge Plan Triage Chief Complaint: Abscess ED Provider: Kelly Xavier Dx/Rx/DC Orders Clinical Impression: Sebaceous cyst, Cellulitis Instructions: ED Abscess Incision And Drainage, ED Cellulitis Prescriptions: No Action multivitamin Tablet 1 tab PO DAILY Qty: 1 0RF cephalexin 500 mg capsule 500 mg PO Q8H Qty: 30 0RF sulfamethoxazole-trimethoprim [Bactrim DS] 800-160 mg tablet 1 tab PO BID 10 Days Qty: 20 0RF ciprofloxacin HCl [Cipro] 500 mg tablet 500 mg PO Q12H Qty: 20 0RF naproxen 500 mg tablet 500 mg PO BID PRN Qty: 20 0RF Primary Care Provider: Saleem Isaacs Referrals: Luis M Davis MD [Med Staff - [employer]] - 3-5 Days Saleem Isaacs MD [Primary Care Provider] - Disposition Disposition: Home, Self Care
== END 2022-06-13 18:54 | disposition home or self-care (01) ==
PROVIDERS: Emergency Provider Emergency Medicine; PCP Family Medicine; Visit Provider Emergency Medicine
DX: L03.90 Cellulitis, unspecified (principal); L72.3 Sebaceous cyst; L02.214 Cutaneous abscess of groin; H60.01 Abscess of right external ear; N50.89 Other specified disorders of the male genital organs; F17.210 Nicotine dependence, cigarettes, uncomplicated; E78.5 Hyperlipidemia, unspecified; R07.9 Chest pain, unspecified; R06.09 Other forms of dyspnea; Z59.00 Homelessness unspecified
CPT/HCPCS: 99282

== ENCOUNTER 2022-06-17 01:44 | Observation (INO) | payer MEDICAID, SELFPAY ==
[2022-06-17] VITALS (9 sets, daily range): BP systolic 114–152; BP diastolic 71–101; PULSE 77–118; RESP 15–22; TEMP 36.2–36.7; O2SAT 97–100; BMI 22.4; BMI 21.3
--- NOTE | 2022-06-17 02:04 | CT_ITS ---
INDICATION: Scrotal infection, ultrasound performed 06/06/2022, patient on antibiotics for approximately 1 week. EXAMINATION: CT Pelvis W/ Contrast Injection TECHNIQUE: Helically acquired images were obtained of the pelvis following IV contrast. 2-D reconstructions reviewed. A radiation dose optimization technique was used for this scan. IV Contrast dosage and agent: 100 mL Isovue 300 Oral contrast: None. COMPARISON: Testicular ultrasound from 06/06/2022. FINDINGS: Left scrotal wall soft tissue thickening and edema with trace amount of fluid attenuation along upper left scrotal wall and left inguinal crease measuring approximately 3 cm length and 4 mm maximum diameter. No soft tissue gas detected. No intrapelvic mass, abscess, free air or free fluid. Unremarkable urinary bladder. Small dystrophic calcifications within prostate gland. No dilated or thickened loops of bowel identified. Partially imaged lower poles of kidneys with no acute findings. Major vessels are patent. No bulky adenopathy. Small reactive bilateral inguinal lymph nodes. Osseous structures are intact. CT/Pelvis WITH IV Contrast IMPRESSION: Left scrotal wall thickening with trace fluid along superior margin but no large, drainable abscess collection demonstrated at this time. Electronically Signed: Nelson Bolanos MD at 3:22 EST ,
[2022-06-17 02:26] LABS: Absolute Lymphocyte Count 3.11 X10^3/uL (0.83-4.51); Absolute Neutrophil Count 11.5 X10^3/uL (2.0-7.7); Basophil# 0.15 X10^3/uL; Eosinophil# 0.04 X10^3/uL; Eosinophils% 0.3 % (0-5); Hematocrit 41.6 % (40-54); Hemoglobin 13.8 g/dL (13.0-16.5); Lymphocyte # 3.11 X10^3/ul (0.83-4.51); Lymphocyte % 19.9 % (19-41); Mean Corp Hgb Conc 33.2 g/dL (32-36); Mean Corpuscular Hgb 29.6 pg (27.0-32.0); Mean Corpuscular Volume 89.1 fL (80-94); Monocyte# 0.76 X10^3/uL; Monocyte% 4.9 % (0-10); NRBC Flagged by Analyzer 0 % (0-5); Neutrophil # 11.49 X10^3/uL (2.7-7.7); Neutrophil % 73.5 % (47-70); Platelet Count 412 K/mm3 (150-450); RBC Distribution Width CV 13.1 % (11.6-14.6); RBC Distribution Width SD 42.5 fl (35.1-43.9); Red Blood Count 4.67 M/mm3 (4.6-6.2); White Blood Count 15.6 K/mm3 (4.4-11.0)
[2022-06-17 02:40] LABS: Anion Gap 4 (5-15); BUN 16 mg/dL (7-18); BUN/Creat Ratio 13.3 RATIO (10-20); Calcium,Total 8.9 mg/dL (8.5-10.1); Chloride 108 mmol/L (98-107); EST Glomerular Filtration Rate 73 mL/min (>60); Est Glom Filt Rate - Afr Amer 88 mL/min (>60); Estimated Creatinine Clearance 78.24 ml/min; Glucose 92 mg/dL (74-106); Potassium 4.1 mmol/L (3.5-5.1); Sodium Level 139 mmol/L (136-145)
[2022-06-17] MEDS: 0.9% Normal Saline 1,000 ML 999 ML IV (02:49)
--- NOTE | 2022-06-17 03:04 | EDS_ITS ---
HPI History of Present Illness Chief Complaint: Cellulitis Narrative Narrative: Patient is a 36-year-old male with past medical history of methamphetamine abuse and alcohol abuse. He was seen on June 06 and June 13 for cellulitis of the scrotum. He had an ultrasound on the which showed thickened tissue without drainable fluid collection. He was started on Cipro and was supposed to follow-up on an outpatient basis. Patient states he has been taking his medication as directed but he still had redness swelling pain and subjective fevers despite taking the antibiotic. He has concerned that he is failing treatment as he reports he was initially offered inpatient admission with IV antibiotics. With concern he may need that he presents for evaluation. He states that he does not inject meth but typically snorts it and denies any other illicit drug use [facility] Medical History Anxiety Broken bones COVID-19 Depression Dermatitis Head injury Hyperlipidemia Paronychia Pulmonary emboli Shoulder pain Substance abuse Home Medications multivitamin 1 tab PO DAILY #1 TAB 10/11/20 [Rx Last Taken Unknown] cephalexin 500 mg capsule 500 mg PO Q8H #30 caps 12/10/21 [Rx Last Taken Unknown] sulfamethoxazole 800 mg-trimethoprim 160 mg tablet (Bactrim DS) 1 tab PO BID 10 days #20 tabs 12/10/21 [Rx Last Taken Unknown] ciprofloxacin HCl 500 mg tablet (Cipro) 500 mg PO Q12H #20 tabs 06/06/22 [Rx Last Taken Unknown] naproxen 500 mg tablet 500 mg PO BID PRN #20 tabs 06/06/22 [Rx Last Taken Unknown] Allergy/AdvReac Type Severity Reaction Status Date / Time bunch Allergy Rash Verified 06/13/22 18:29 Family History Other COPD (chronic obstructive pulmonary disease) Surgical History H/O wrist surgery Social History housing: homeless number of children: 3 current occupational status: unemployed Smoking Status: Current every day smoker tobacco type: cigarettes ROS ROS ED Constitutional Constitutional ED: Reports chills, fever(s) and subjective ENT ENT ED: Denies sore throat Cardiovascular Cardiovascular: Denies chest pain Respiratory/Chest Respiratory/Chest: Denies cough or dyspnea Gastrointestinal Gastrointestinal: Denies abdominal pain, diarrhea, nausea or vomiting Genitourinary Genitourinary ED: Denies dysuria, hematuria or urinary frequency Musculoskeletal Musculoskeletal: Denies back pain or myalgias Integumentary Reports other Details: Positive cellulitis Neurologic Neurologic: Denies headache(s) Hematologic/Lymphatic Hematologic/Lymphatic: Denies easy bleeding or easy bruising EXAM Physical Exam Const Vital Signs: 06/17/22 01:44 06/17/22 02:50 Temperature 98.1 F 98.0 F Temperature Source Temporal Oral Pulse Rate 118 H 105 H Respiratory Rate 20 H 15 Blood Pressure 152/101 H 139/88 H Blood Pressure Mean 118 105 Pulse Ox 99 99 Oxygen Delivery Method Room Air Room Air Positive well nourished and well developed General Appearance ED: well developed HEENT HEENT Narrative: Patient has mildly erythematous cystic structures behind both ears most consistent with abscesses secondary to hidradenitis suppurativa Eyes PERRL and EOMs intact bilaterally Neck supple Neck Narrative: No nuchal rigidity or meningeal signs noted Resp normal respiratory effort and clear to auscultation bilaterally Cardio regular rhythm Rate: tachycardic GI normal to inspection, nondistended, normoactive bowel sounds, non-tender, non- distended and no masses GI Narrative: No voluntary guarding or rigidity no pulsatile mass Auscultation: normoactive bowel sounds Palpation: soft Narrative: Patient has erythema and warmth with induration along the left inguinal region that extends into the upper portion of the scrotum. There is no obvious abscess formation or active drainage. No lymphangitic streaking. Patient does have mild induration and erythema in the right inguinal region as well. These lesions have the appearance of hidradenitis suppurativa. There is no crepitance palpated to suggest Krystal's gangrene. No testicular masses palpated Extremity normal to inspection Neuro oriented x3 and CN's II-XII intact bilaterally Sensorium / Orientation: alert Psych mental status grossly normal Skin Skin Narrative: Soft tissue changes in the genital region as documented above most consistent with hidradenitis suppurativa MDM MDM MDM Narrative Medical decision making narrative: Patient presented to the ER afebrile but slightly tachycardic. He reported that he has been on his antibiotics for approximately 10 days and taking them as directed. He is also been to the ER on June 06 and for the same complaint and therefore this time I felt the need to perform a CT scan to check for possible drainable fluid collection or gas gangrene. Basic labs were obtained which showed a leukocytosis but patient typically runs a elevated white blood cell count on chart review. Remainder the labs revealed no clinically significant finding. CT of the pelvis with IV contrast shows area of thickening with small amount of fluid that is not amenable to drainage. The patient was given vancomycin based on his persistent infection. At this time as the patient's been to the ER 3 times for the same event and symptoms are still present and is failed outpatient oral therapy I do feel would be more pertinent if he comes in for IV antibiotics and possible surgical or wound consultation as his symptoms seem to be most related to hidradenitis suppurativa. The case was discussed with medicine on-call and medicine discussed the case with general surgery and they come to the agreement to accept the patient at this time for further care. Therefore patient be admitted to the hospital for further treatment Lab Data Attestation: I reviewed the patient's lab results. Labs: Laboratory Results - last 24 hr 06/17/22 06/17/22 06/17/22 02:15 02:15 02:15 WBC 15.6 H RBC 4.67 Hgb 13.8 Hct 41.6 MCV 89.1 MCH 29.6 MCHC 33.2 RDW Std Deviation 42.5 RDW Coeff of Christie 13.1 Plt Count 412 MPV 9.0 Immature Gran % (Auto) 0.400 Neut % (Auto) 73.5 H Lymph % (Auto) 19.9 [place] % (Auto) 4.9 Eos % (Auto) 0.3 Baso % (Auto) 1.0 Absolute Neuts (auto) 11.5 H Absolute Lymphs (auto) 3.11 Nucleated RBC % 0 Sodium 139 Potassium 4.1 Chloride 108 H Carbon Dioxide 27.0 Anion Gap 4 L BUN 16 Creatinine 1.20 Estim Creat Clear Calc 78.24 Est GFR (MDRD) Af Amer 88 Est GFR (MDRD) Non-Af 73 BUN/Creatinine Ratio 13.3 Glucose 92 Lactic Acid 1.1 Calcium 8.9 Radiography Diagnostic Testing: Clinical Impression(s) from Imaging Studies Pelvis CT 06/17/22 02:04 IMPRESSION: Left scrotal wall thickening with trace fluid along superior margin but no large, drainable abscess collection demonstrated at this time. Electronically Signed: Nelson Bolanos MD at 3:22 EST , Discharge Plan Triage Chief Complaint: Cellulitis ED Provider: Jhoan Bush Dx/Rx/DC Orders Clinical Impression: Hidradenitis suppurativa, Methamphetamine abuse, Failure of outpatient treatment, Cellulitis of scrotum Primary Care Provider: Saleem Isaacs Disposition Disposition: Acute Care Hospital [facility]
[2022-06-17 03:10] LABS: Lactic Acid 1.1 mmol/L (0.4-1.9)
--- NOTE | 2022-06-17 03:53 | HP.PCM.HOS_ITS ---
HPI - General General Date of Admission: 06/17/22 Date of Service: 06/17/22 Chief Complaint: Rashes at left testicle HPI Narrative VINCENT JUNE, is a 36 M with a significant history of use; tobacco abuse; previous alcoholic and homeless who presents to the emergency department with recurring rashes at his left testicle. Reportedly he has had incision and drainage of the rashes in the past. He reports that the rash on his left testicles has been going on for about 8 months and it has been on and off. He also reports some rash on his neck and also on his chest. He was at the emergency department on the and on the eighth of this month because of this rash. On his last presentation he was placed on ciprofloxacin. He is seeking for treatment of this rash and also hoping that he could have detoxification from methamphetamine. [facility] Medical History Anxiety Broken bones COVID-19 Depression Dermatitis Head injury Hyperlipidemia Paronychia Pulmonary emboli Shoulder pain Substance abuse Home Medications multivitamin 1 tab PO DAILY #1 TAB 10/11/20 [Rx Last Taken Unknown] cephalexin 500 mg capsule 500 mg PO Q8H #30 caps 12/10/21 [Rx Last Taken Unknown] sulfamethoxazole 800 mg-trimethoprim 160 mg tablet (Bactrim DS) 1 tab PO BID 10 days #20 tabs 12/10/21 [Rx Last Taken Unknown] ciprofloxacin HCl 500 mg tablet (Cipro) 500 mg PO Q12H #20 tabs 06/06/22 [Rx Last Taken Unknown] naproxen 500 mg tablet 500 mg PO BID PRN #20 tabs 06/06/22 [Rx Last Taken Unknown] Allergy/AdvReac Type Severity Reaction Status Date / Time bunch Allergy Rash Verified 06/13/22 18:29 Family History Other COPD (chronic obstructive pulmonary disease) Surgical History H/O wrist surgery Social History housing: homeless number of children: 3 current occupational status: unemployed Smoking Status: Current every day smoker tobacco type: cigarettes ROS ROS Narrative Pertinent positives and pertinent negatives as noted in HPI. All other systems were reviewed and are negative Vital Signs Vital Signs Vital Signs: 06/17/22 01:44 06/17/22 02:50 Temperature 98.1 F 98.0 F Temperature Source Temporal Oral Pulse Rate 118 H 105 H Respiratory Rate 20 H 15 Blood Pressure 152/101 H 139/88 H Blood Pressure Mean 118 105 Pulse Ox 99 99 Oxygen Delivery Method Room Air Room Air Weight Weight: 65 kg Body Mass Index (BMI) 22.4 Physical Exam Narrative Physical exam: General: Well-nourished, well-developed. Head: Normocephalic, atraumatic, no tenderness Eyes: Vision is grossly intact. EOMI ENT, no trauma, moist mucous membranes, no rhinorrhea Neck: Nontender, No thyromegaly. CVS: Regular rate and rhythm. S1-S2 present. No murmur, gallop or rub. Respiratory : clear to auscultation bilaterally, chest wall nontender, no wheezing Abdomen: Soft, nontender, nondistended, normal bowel sounds, no masses : Lesions on left testicle, tender. Back: Nontender, no CVA tenderness, no midline spinal tenderness, deformities, step-offs Extremities: Nontender full range of motion, no trauma Skin: Normal color, no trauma. Lesions on neck. Neuro: Alert, oriented, cranial nerves II through XII grossly intact. Psychiatry: Normal mood. Normal affect. Not depressed. Not anxious. Results Lab / Micro Data Result Diagrams: 06/17/22 02:15 06/17/22 02:15 Labs: Laboratory Results - last 24 hr 06/17/22 02:15: WBC 15.6 H, RBC 4.67, Hgb 13.8, Hct 41.6, MCV 89.1, MCH 29.6, MCHC 33.2, RDW Std Deviation 42.5, RDW Coeff of Christie 13.1, Plt Count 412, MPV 9.0, Immature Gran % (Auto) 0.400, Neut % (Auto) 73.5 H, Lymph % (Auto) 19.9, [place] % (Auto) 4.9, Eos % (Auto) 0.3, Baso % (Auto) 1.0, Absolute Neuts (auto) 11.5 H, Absolute Lymphs (auto) 3.11, Nucleated RBC % 0 06/17/22 02:15: Sodium 139, Potassium 4.1, Chloride 108 H, Carbon Dioxide 27.0, Anion Gap 4 L, BUN 16, Creatinine 1.20, Estim Creat Clear Calc 78.24, Est GFR (MDRD) Af Amer 88, Est GFR (MDRD) Non-Af 73, BUN/Creatinine Ratio 13.3, Glucose 92, Calcium 8.9 06/17/22 02:15: Lactic Acid 1.[address] 06/17/22 02:04 IMPRESSION: Left scrotal wall thickening with trace fluid along superior margin but no large, drainable abscess collection demonstrated at this time. Electronically Signed: Nelson Bolanos MD at 3:22 EST , Assessment & Plan Assessment/Plan (1) Hidradenitis suppurativa: (2) Methamphetamine abuse: (3) Tobacco abuse: PLAN: Plan Hidradenitis suppurativa. CBC with white count of 15.6; no bandemia. Neutrophil count of 73.5%. Trend CBC. Radiologist impression of pelvis CT: Left scrotal wall thickening with trace fluid along superior margin but no large, drainable abscess collection demonstrated at this time. Pelvis CT was visualized and independently interpreted and I agree radiologist interpretation. Testicular ultrasound done on 06/06/2022 was reviewed. Due to patient failing previous therapy and homeless patient will be admitted. Received vancomycin in the emergency department. Clindamycin IV and rifampin p.o. ordered. General surgery consult. Methamphetamine abuse Counseled Tobacco abuse Counseled nicotine patch prescribed DVT prophylaxis: Low risk. Encourage ambulate. Charges/Coding Visit Charges Inpatient E&M: 48450 Init Hosp L2
[2022-06-17] MEDS: 0.9% Saline Lock 10 ML Syringe IV ×2 (06:49→23:30)
[2022-06-17] MEDS: Clindamycin 600 MG/50 ML BAG 100 MG IV ×3 (06:49→23:29)
--- NOTE | 2022-06-17 08:28 | CON.PCM.SX_ITS ---
Assessment & Plan Assessment/Plan (1) Hidradenitis suppurativa: PLAN: This is a 36-year-old male with history of recurrent flares of hidr adenitis suppurativa. He presently has suppurative infections of his left hemiscrotum and right axilla. I discussed with him at some length the diagnosis of hidradenitis and reviewed with him that there are some who believe recurrent incision and drainage procedures may serve to propagate this disease process and that we really need to work on a preventative strategy. However, I also shared with him that once he does develop abscesses in these locations incision and drainage can bring more immediate relief of symptoms. In terms of a preventative strategy, I have recommended nasal swabbing and possible MRSA eradication protocol if found to be colonized as well as daily use of Cleocin gels and affected locations. I have also suggested that he could be evaluated for apocrine gland stripping, but that this is not a procedure I do personally. At present Mr. Lin declines an offer for incision and drainage and suggest that gland stripping procedure is more involved than what he would like to have as well. It is his wish currently to see how antibiotics will handle this situation. He asked that we check back to see if he changes his mind with this decision. For the interim, would recommend nasal swabbing for MRSA PCR and treatment if found to be positive. HPI Consult Data Date of Consult: 06/17/22 HPI Narrative HPI Narrative: VINCENT LIN, is a 36 M who presents to [facility] with complaints of recurrent left groin inflammation. He reports that he has had this area cut on at least twice in the last year. He states this has been done by emergency medicine. Expresses frustration and wishes to do what ever is possible to not have it happen again. He states that with his current episode he experienced spontaneous drainage just prior to his arrival. He reports that when it reaches its peak inflammation it becomes difficult to even walk. He reports that this has been an ongoing issue since he was 16 years old. He confirms a history of MRSA infections in the past and is familiar with the term hidradenitis suppurativa. Despite his home situation, patient insists that he is able to bathe daily. He does admit to ongoing tobacco use. [facility] Medical History Anxiety Broken bones COVID-19 Depression Dermatitis Head injury Hyperlipidemia Paronychia Pulmonary emboli Shoulder pain Substance abuse Home Medications NK 06/17/22 [History Last Taken Unknown] Allergy/AdvReac Type Severity Reaction Status Date / Time bunch Allergy Rash Verified 06/17/22 05:37 Family History Other COPD (chronic obstructive pulmonary disease) Surgical History H/O wrist surgery Social History housing: homeless number of children: 3 current occupational status: unemployed Smoking Status: Current every day smoker tobacco type: cigarettes Physical Exam Const alert Constitutional Narrative: Patient appears agitated Skin Skin Narrative: Patient with mildly fluctuant tender areas in his right axilla and superior aspect of his left scrotum. There is extensive scarring in these locations from prior inflammatory phases and incision and drainage procedures. Lab / Micro Data Result Diagrams: 06/17/22 02:15 06/17/22 02:15 Labs: Laboratory Results - last 24 hr 06/17/22 02:15: WBC 15.6 H, RBC 4.67, Hgb 13.8, Hct 41.6, MCV 89.1, MCH 29.6, MCHC 33.2, RDW Std Deviation 42.5, RDW Coeff of Christie 13.1, Plt Count 412, MPV 9.0, Immature Gran % (Auto) 0.400, Neut % (Auto) 73.5 H, Lymph % (Auto) 19.9, [place] % (Auto) 4.9, Eos % (Auto) 0.3, Baso % (Auto) 1.0, Absolute Neuts (auto) 11.5 H, Absolute Lymphs (auto) 3.11, Nucleated RBC % 0 06/17/22 02:15: Sodium 139, Potassium 4.1, Chloride 108 H, Carbon Dioxide 27.0, Anion Gap 4 L, BUN 16, Creatinine 1.20, Estim Creat Clear Calc 78.24, Est GFR (MDRD) Af Amer 88, Est GFR (MDRD) Non-Af 73, BUN/Creatinine Ratio 13.3, Glucose 92, Calcium 8.9 06/17/22 02:15: Lactic Acid 1.[address] 06/17/22 02:04 IMPRESSION: Left scrotal wall thickening with trace fluid along superior margin but no large, drainable abscess collection demonstrated at this time. Electronically Signed: Nelson Bolanos MD at 3:22 EST , Charges/Coding Visit Charges Inpatient E&M: 06056 Init Hosp L2
[2022-06-17] MEDS: rifAMPin 300 MG Capsule 600 MG PO (09:13)
--- NOTE | 2022-06-17 09:23 | CASEMGMT ---
SW noted patient is interested in substance abuse resources. JOAN spoke with [employer] retail service specialist and she will touch base with patient. Zina Clark [employer] W[employer] GL[employer] CUTTER KELLY
--- NOTE | 2022-06-17 11:47 | ADDICTION ---
This field underwriter met with PT to conduct ASAM, MSE, AUDIT, DUDIT assessments and to plan for d/c. PT A+Ox4 and participated actively. All assessments completed and placed in PT's chart. PT plans to f/u with follow-up treatment services, however he wants resources based on his listed wants and needs. This worker will follow up tomorrow. PT did not indicate a need for transportation post d/c from [facility].
--- NOTE | 2022-06-17 12:27 | CASEMGMT ---
Tertiary facility in-network with patient's insurance: [facility]al[facility] Toure, Devika Tran , Meagan Guy Grant
--- NOTE | 2022-06-17 12:50 | CASEMGMT ---
Social Work SW met with pt to provide housing resources. Pt informed is homeless and has been living on the streets or occasionally sleeping in friend's shed. Pt stated was paying for a hotel for self, 4 step children and the children's mother for the past 4-5 months but stopped as pt and children's mother began arguing frequently and stopped talking. SW gave pt list of homeless shelters in the community and resource sheet for [facility] Housing program. Pt stated having previous knowledge of [facility] [employer] program as pt and baby momma had one about 2 years ago but could not find a place to use it due to landlords judging and thinking pt and the female were on drugs. Pt denies drug use at that time. SW encouraged pt to contact [facility] to obtain assistance for housing or residential. Pt informed would think about it. SW encouraged pt to reach out with any other needs or concerns. Pt voiced understanding. FELICITA Anderson
--- NOTE | 2022-06-17 13:48 | CASEMGMT ---
RN?CM?ENGRAVER LETTERING?CM?placed call to patient's room for initial transition planning/care coordination?assessment.?RN?CM?introduced self and role at [facility].? Pt voices understanding and consents to?assessment?at this time.? Pt is A/O at this time and answers all questions appropriately.?? Care providers, pharmacy, and demographics verified/updated at this time.? PCP:?Dr Isaacs Specialists:?none Preferred Pharmacy:?[facility] [place] Insurance:?[facility] Prescription Benefit:??Yes Living Will/HPOA:??Pt does not currently have LW/HCPOA, but is interested in completing. He would like his fiance, Kenia, to be his POA. AYSE MARTIN encouraged him to discuss his wishes with Kenia prior to completing AD. AYSE MARTIN, Nathaly, made aware of pt wishing to complete AD and to notify SW. LNOK:?Pt has 3 children, ages 8, 6, and 4. He states they are not currently in his custody. His parents are living, but he states he does not talk to them. He requested his fiance, Kenia, to be added on as his primary social contact worker. This has been completed. Living Arrangements:?Pt states he is currently homeless and states, I sleep wherever I can find a place to lay my head. He states that he, his fiance/Kenia, and her children had been staying in a hotel since October of 2021, until recently when it was no longer affordable. He states I thinks his aditya and her children are going to be able to stay @ [facility], but that he will not be permitted to stay there d/t his history, stating that he is on the sex offender list. He states the has been in to provide resources for him, but states I'm unable to do any of those options because of my history. I know about all the resources in town and they aren't options for me. AYSE MARTIN inquired about access to food/meals. He states, I'm a recovering meth addict, sometimes I go days w/out eating. Substance use: Pt states he last used meth yesterday. He also smokes marijuana. He denies other illegal drug use or ETOH use. He is interested in talking with someone again about possible recovery programs. He remembers someone coming in to talk w/him today, but states he does not remember much about what they talked about. AIRPLANE INSPECTOR CM, Nathaly, made aware. Transportation:?Pt states he walks everywhere he needs to go. He states he plans to walk to [facility] to [facility]er any rx's @ d/c. He was made aware of [facility] Retail pharmacy. DME: ? Denies using any DME and denies needs.?? HHC/SNF:?No hx of either. PLAN:??Deepa/treatment navigator to f/u with pt again re: treatment/recovery programs. Mulugeta BSN?RN?CM
--- NOTE | 2022-06-17 15:44 | PCM.PN.HOSP ---
Subjective Subjective Follow-up on hidradenitis suppuritiva: Patient was seen and examined. Patient denied any fever or fever. Discussed extensively with surgical team and we both followed-up at the bedside. I&D was recommended for patient but he wanted definitive excision surgery. He also has lots of social issues including lack of access to showers. He is homeless. Social work working with him. Objective Data Objective Data Vital Signs: Vital Signs Temp Pulse Resp BP Pulse Ox O2 Del Method 98.0 F 78 17 123/84 H 98 Room Air 06/17/22 13:24 06/17/22 13:24 06/17/22 13:24 06/17/22 13:24 06/17/22 13:24 06/17/22 13:24 Oxygen Delivery Method Room Air Weight: 61.7 kg Body Mass Index (BMI) 21.3 Intake & Output: Intake and Output for Last 24 Hours 06/15/22 06/16/22 06/17/22 23:59 23:59 23:59 Intake Total 1635 / 1635 Balance 1635 / 1635 Lab / Micro Data Result Diagrams: 06/17/22 02:15 06/17/22 02:15 Labs: Laboratory Results - last 24 hr 06/17/22 02:15: WBC 15.6 H, RBC 4.67, Hgb 13.8, Hct 41.6, MCV 89.1, MCH 29.6, MCHC 33.2, RDW Std Deviation 42.5, RDW Coeff of Christie 13.1, Plt Count 412, MPV 9.0, Immature Gran % (Auto) 0.400, Neut % (Auto) 73.5 H, Lymph % (Auto) 19.9, [place] % (Auto) 4.9, Eos % (Auto) 0.3, Baso % (Auto) 1.0, Absolute Neuts (auto) 11.5 H, Absolute Lymphs (auto) 3.11, Nucleated RBC % 0 06/17/22 02:15: Sodium 139, Potassium 4.1, Chloride 108 H, Carbon Dioxide 27.0, Anion Gap 4 L, BUN 16, Creatinine 1.20, Estim Creat Clear Calc 78.24, Est GFR (MDRD) Af Amer 88, Est GFR (MDRD) Non-Af 73, BUN/Creatinine Ratio 13.3, Glucose 92, Calcium 8.9 06/17/22 02:15: Lactic Acid 1.1 Radiography Diagnostic Testing: Radiology Impression Pelvis CT 06/17/22 02:04 IMPRESSION: Left scrotal wall thickening with trace fluid along superior margin but no large, drainable abscess collection demonstrated at this time. Electronically Signed: Nelson Bolanos MD at 3:22 EST , Physical Exam Narrative Physical exam: General: Alert, Oriented x3, Cooperative HEENT: Atraumatic, hypokinetic lesions behind both ears Oral: Moist Mucosa Neck: Supple Lungs: Diminished to auscultation Cardiovascular: HS I+II, regular, no murmurs Abdomen: Bowel Sounds Present, Soft, Non Tender Extremities: No edema Skin: No rashes, No breakdown Neurological: Grossly intact Psych/Mental Status: Appropriate Assessment & Plan Assessment/Plan (1) Hidradenitis suppurativa: PLAN: Plan 1. Acute on chronic hidradenitis suppurativa, recurrent CT abdomen pelvis showed left scrotal wall thickening with trace fluid along the superior margin General surgery following, recommends bedside I&D but patient declines and wants definitive surgery Will continue on IV antibiotics -vancomycin, rifampin, clindamycin We will consult ID for recommendations on ad terminal makeup operator oral antibiotic regimen Patient will need outpatient plastic surgery referral 2. Polysubstance use, advised to quit 3. Nicotine dependence, on replacement 4. DVT prophylaxis?low risk, early ambulation recommended Charges/Coding Visit Charges Inpatient E&M: 71503 Subs Hosp L2
[2022-06-17] MEDS: MELATONIN 3 MG TABLET PO (23:27)
[2022-06-18 03:30] VITALS: BP 127/78; PULSE 74; RESP 16; TEMP 36.6; O2SAT 99
[2022-06-18] MEDS: Clindamycin 600 MG/50 ML BAG 100 MG IV ×2 (05:29→14:56)
[2022-06-18 05:42] LABS: Absolute Lymphocyte Count 2.35 X10^3/uL (0.83-4.51); Absolute Neutrophil Count 6.6 X10^3/uL (2.0-7.7); Basophil# 0.16 X10^3/uL; Basophil% 1.5 % (0-1); Eosinophil# 0.66 X10^3/uL; Eosinophils% 6.2 % (0-5); Hematocrit 45.7 % (40-54); Hemoglobin 14.8 g/dL (13.0-16.5); Lymphocyte # 2.35 X10^3/ul (0.83-4.51); Lymphocyte % 22.1 % (19-41); Mean Corp Hgb Conc 32.4 g/dL (32-36); Mean Corpuscular Hgb 29.5 pg (27.0-32.0); Mean Corpuscular Volume 91.2 fL (80-94); Mean Platelet Vol. 9.3 fl (6.2-12.0); Monocyte# 0.86 X10^3/uL; Monocyte% 8.1 % (0-10); NRBC Flagged by Analyzer 0 % (0-5); Neutrophil # 6.59 X10^3/uL (2.7-7.7); Neutrophil % 61.8 % (47-70); Platelet Count 425 K/mm3 (150-450); RBC Distribution Width CV 13.2 % (11.6-14.6); RBC Distribution Width SD 44.1 fl (35.1-43.9); Red Blood Count 5.01 M/mm3 (4.6-6.2); White Blood Count 10.7 K/mm3 (4.4-11.0)
[2022-06-18 06:06] LABS: ALB/GLOB Ratio 0.9 RATIO (0.9-2.4); AST(SGOT) 15 U/L (15-37); Alanine Aminotransfer ALT/SGPT 25 U/L (16-61); Albumin, Serum 3.2 g/dL (3.2-5.0); Alkaline Phosphatase 78 U/L (45-117); Anion Gap 9 (5-15); BUN 16 mg/dL (7-18); BUN/Creat Ratio 15.2 RATIO (10-20); Calcium,Total 8.6 mg/dL (8.5-10.1); Chloride 106 mmol/L (98-107); Creatinine, Serum 1.05 mg/dL (0.70-1.30); EST Glomerular Filtration Rate 85 mL/min (>60); Est Glom Filt Rate - Afr Amer 102 mL/min (>60); Estimated Creatinine Clearance 84.88 ml/min; Globulin 3.6 g/dL (2.2-4.2); Glucose 101 mg/dL (74-106); Potassium 3.5 mmol/L (3.5-5.1); Protein, Total 6.8 g/dL (6.4-8.2); Sodium Level 141 mmol/L (136-145)
[2022-06-18 09:30] VITALS: BP 131/93; PULSE 81; RESP 18; TEMP 36.3; O2SAT 100
[2022-06-18] MEDS: rifAMPin 300 MG Capsule 600 MG PO (10:22)
[2022-06-18] MEDS: 0.9% Saline Lock 10 ML Syringe IV (10:24)
--- NOTE | 2022-06-18 11:17 | DCINST_ITS ---
Discharge Instructions Diet Discharge Diet: No restrictions Activity Discharge Activity: Return to Normal Activity Follow Up Care Test Results: Test results from this visit will be discussed in further detail at your follow- up appointment, if applicable. Discharge Plan Admission Admit Date/Time: 06/17/22 03:47 Primary Reason for Your Visit: HIDRADENITIS SUPPURITIVA Attending Provider: Gaye Brito Primary Care Provider: Saleem Isaacs Consulting Providers: Kris Monsalve ; Jesus Gallardo ; Herminio Lennon Instructions Additional Instructions / Restrictions: Take note of your new medications Follow-up with plastic surgery as recommended Follow-up with your primary care doctor within 1 week Discharge Orders/Prescriptions Prescriptions: New doxycycline hyclate 100 mg tablet 100 mg PO BID Qty: 60 1RF amoxicillin-pot clavulanate 875-125 mg tablet 1 tab PO Q12H Qty: 20 0RF prednisone 10 mg tablet See Taper PO DAILY Qty: 30 0RF Taper: Prednisone Taper 40 mg WITH BREAKFAST for 3 Days and 0 Hour 30 mg WITH BREAKFAST for 3 Days and 0 Hour 20 mg WITH BREAKFAST for 3 Days and 0 Hour 10 mg WITH BREAKFAST for 3 Days and 0 Hour Referrals / Follow Up: Saleem Isaacs MD [Primary Care Provider] - In 1 Week Disposition Disposition (needs filled in before D/C Order can be placed): Home, Self Care
--- NOTE | 2022-06-18 11:22 | CASEMGMT ---
Social Work SW spoke w/physician, concern about where pt can shower. Pt told staff he cannot go to [facility]. SW called [facility], Ayleen states pt can come in to shower. She also states pt was up for review on 08/16/20, meaning he may be able to go there to stay. They do have one opening in the Men's dorm. SW spoke w/pt in room. SW let pt spoke w/[facility], and he can go there for a shower. SW also let him know that he was up for review in 2020 and may be able to go there to stay. Pt states he had charges brought up against him a year and a half ago that aren't true. Pt states however that these charges prevent him from being able to go to [facility]. Pt states he has not been treated well by the staff at [facility]. SW offered support to pt. SW explained that he may still be able to go over there to shower, just not stay over. CANDELARIA Sellers
--- NOTE | 2022-06-18 12:20 | CASEMGMT ---
Social Work Pt does not have LW/POA on file. Pt declined further information upon admission. CANDELARIA Sellers
--- NOTE | 2022-06-18 12:59 | CON.PCM.ID_ITS ---
Assessment & Plan Assessment/Plan (1) Hidradenitis suppurativa: PLAN: Wrote for 10 days po augmentin, 30 days po doxy. Consider steroid taper at discharge. Will need outpt derm eval. Will follow as needed, thank you (2) Cellulitis of scrotum: HPI Consult Data Date of Consult: 06/18/22 HPI Narrative Reason for Consultation: hidradenitis HPI Narrative: VINCENT JUNE, is a 36 M reports since age 16 continuously recurrent swelling/pain/drainage in axilla bilat and in groin. Has had some I&Ds and short courses of abx with only brief improvement. Came to ED 06/17 due to several days worsening in L groin/scrotum, admitted on vanc/clinda. Feeling a little better, no fever, no n/v/d. Seen by surgery. Has never seen derm or been on long course abx for this. Full ROS performed and neg except as noted above. REPLACED BY [facility] Medical History Anxiety Broken bones COVID-19 Depression Dermatitis Head injury Hyperlipidemia Paronychia Pulmonary emboli Shoulder pain Substance abuse Home Medications amoxicillin 875 mg-potassium clavulanate 125 mg tablet 1 tab PO Q12H #20 tabs 06/18/22 [Rx Last Taken Unknown] doxycycline hyclate 100 mg tablet 100 mg PO BID #60 tabs 06/18/22 [Rx Last Taken Unknown] Allergy/AdvReac Type Severity Reaction Status Date / Time bunch Allergy Rash Verified 06/17/22 05:37 Family History Other COPD (chronic obstructive pulmonary disease) Surgical History H/O wrist surgery Social History housing: homeless number of children: 3 current occupational status: unemployed Smoking Status: Current every day smoker tobacco type: cigarettes Physical Exam Const alert, oriented x3 and no apparent distress General Appearance: cooperative HEENT normocephalic and head/scalp atraumatic Eyes PERRL and EOMs intact bilaterally Neck supple and No nodes Resp normal air movement and clear to auscultation bilaterally Cardio regular rate and regular rhythm GI soft to palpation, non-tender and non-distended Extremity General Extremity: Negative for edema Skin Skin Narrative: inflammation, drainage in L scrotum, less so in R axilla Neuro CN's II-XII intact bilaterally Lab / Micro Data Attestation: I reviewed the patient's lab results. Result Diagrams: 06/18/22 04:52 06/18/22 04:52 Labs: Laboratory Results - last 24 hr 06/18/22 04:52: WBC 10.7, RBC 5.01, Hgb 14.8, Hct 45.7, MCV 91.2, MCH 29.5, MCHC 32.4, RDW Std Deviation 44.1 H, RDW Coeff of Christie 13.2, Plt Count 425, MPV 9.3, Immature Gran % (Auto) 0.300, Neut % (Auto) 61.8, Lymph % (Auto) 22.1, [place] % (Auto) 8.1, Eos % (Auto) 6.2 H, Baso % (Auto) 1.5 H, Absolute Neuts (auto) 6.6, Absolute Lymphs (auto) 2.35, Nucleated RBC % 0 06/18/22 04:52: Sodium 141, Potassium 3.5, Chloride 106, Carbon Dioxide 26.0, Anion Gap 9, BUN 16, Creatinine 1.05, Estim Creat Clear Calc 84.88, Est GFR (MDRD) Af Amer 102, Est GFR (MDRD) Non-Af 85, BUN/Creatinine Ratio 15.2, Glucose 101, Calcium 8.6, Total Bilirubin 0.50, AST 15, ALT 25, Alkaline Phosphatase 78, Total Protein 6.8, Albumin 3.2, Globulin 3.6, Albumin/Globulin Ratio 0.9
--- NOTE | 2022-06-18 13:37 | PCM.DC.SUM ---
Providers Date of Admission: 06/17/22 Date of Discharge: 06/18/22 Primary Care Physician: Dr. Saleem Isaacs MD Consultations 06/17/22 06:08 Consult: General Surgery Routine Consulting Provider: Kris Monsalve Reason for Consult: Hidradenitis suppurativa EMERGENT Consult: No Notified: Yes Date Notified: 06/17/22 Time Notified: 04:18 Method of Notification: Verbal 06/17/22 13:42 Consult: Infectious Disease Routine Consulting Provider: Herminio Lennon Reason for Consult: Hidradenitis suppuritiva EMERGENT Consult: No Notified: Yes Date Notified: 06/17/22 Time Notified: 13:42 Method of Notification: Text Reason For Visit: HIDRADENITIS SUPPURATIVA Diagnosis Discharge Diagnosis (1) Hidradenitis suppurativa: Status: Acute Code(s): L73.2 - Hidradenitis suppurativa (2) Cellulitis of scrotum: Status: Acute Code(s): N49.2 - Inflammatory disorders of scrotum Plan 1. Acute on chronic hidradenitis suppurativa, recurrent 2. Polysubstance use 3. Nicotine dependence Medications at Discharge Home Medications amoxicillin 875 mg-potassium clavulanate 125 mg tablet 1 tab PO Q12H #20 tabs 06/18/22 doxycycline hyclate 100 mg tablet 100 mg PO BID #60 tabs 06/18/22 prednisone 10 mg tablet See Taper PO DAILY #30 tabs 06/18/22 Hospital Course Operations None Procedures None Summary of Care Provided Minutes Spent on Discharge: 35 Hospital Course: 60-year-old male past medical history of polysubstance use?cocaine, amphetamine, nicotine dependence, who is homeless, history of hidradenitis suppurativa comes in with current rash noted in his testicular region. He had undergone I&D in the past. He was recently placed on ciprofloxacin. Patient has CT scan of the pelvis that showed left scrotal wall thickening with trace fluid along the superior margin but no large drainable abscess. Patient was admitted to the progressive care unit, monitored on telemetry. General surgery was consulted and recommended bedside I&D. Patient preferred extensive plastic surgery excision. This was unable to be done in the hospital at the time he was being seen. Patient was given referral to plastic surgeons in [place] and [place] within his insurance network. Patient was seen by infectious disease and discharged on 10 days of Augmentin and 20 days of the doxycycline. He will need to follow-up closely with his primary care doctor within a week. I had previously discussed with Dr. Isaacs on phone on . Physical Exam Narrative Physical exam: General: Alert, Oriented x3, Cooperative HEENT: Atraumatic, hidradenitic lesions behind both ears Oral: Moist Mucosa Neck: Supple Lungs: Diminished to auscultation Cardiovascular: HS I+II, regular, no murmurs Abdomen: Bowel Sounds Present, Soft, Non Tender Extremities: No edema Skin: No rashes, No breakdown Neurological: Grossly intact Psych/Mental Status: Appropriate Weight / BMI Weight Weight: 61.7 kg Body Mass Index (BMI) 21.3 ABG / Lab / Microbiology Data Result Diagrams: 06/18/22 04:52 06/18/22 04:52 Laboratory: Laboratory Results - last 24 hr 06/18/22 04:52: WBC 10.7, RBC 5.01, Hgb 14.8, Hct 45.7, MCV 91.2, MCH 29.5, MCHC 32.4, RDW Std Deviation 44.1 H, RDW Coeff of Christie 13.2, Plt Count 425, MPV 9.3, Immature Gran % (Auto) 0.300, Neut % (Auto) 61.8, Lymph % (Auto) 22.1, [place] % (Auto) 8.1, Eos % (Auto) 6.2 H, Baso % (Auto) 1.5 H, Absolute Neuts (auto) 6.6, Absolute Lymphs (auto) 2.35, Nucleated RBC % 0 06/18/22 04:52: Sodium 141, Potassium 3.5, Chloride 106, Carbon Dioxide 26.0, Anion Gap 9, BUN 16, Creatinine 1.05, Estim Creat Clear Calc 84.88, Est GFR (MDRD) Af Amer 102, Est GFR (MDRD) Non-Af 85, BUN/Creatinine Ratio 15.2, Glucose 101, Calcium 8.6, Total Bilirubin 0.50, AST 15, ALT 25, Alkaline Phosphatase 78, Total Protein 6.8, Albumin 3.2, Globulin 3.6, Albumin/Globulin Ratio 0.9 D/C Instructions Discharge Diet: No restrictions Meaningful Use Info Meaningful Use Diagnoses (Choose all that apply): None applicable Discharge Plan Admission Admit Date/Time: 06/17/22 03:47 Primary Reason for Your Visit: HIDRADENITIS SUPPURITIVA Attending Provider: Gaye Brito Primary Care Provider: Saleem Isaacs Consulting Providers: Kris Monsalve ; Jesus Gallardo ; Herminio Lennon Instructions Additional Instructions / Restrictions: Take note of your new medications Follow-up with plastic surgery as recommended Follow-up with your primary care doctor within 1 week Discharge Orders/Prescriptions Prescriptions: New doxycycline hyclate 100 mg tablet 100 mg PO BID Qty: 60 1RF amoxicillin-pot clavulanate 875-125 mg tablet 1 tab PO Q12H Qty: 20 0RF prednisone 10 mg tablet See Taper PO DAILY Qty: 30 0RF Taper: Prednisone Taper 40 mg WITH BREAKFAST for 3 Days and 0 Hour 30 mg WITH BREAKFAST for 3 Days and 0 Hour 20 mg WITH BREAKFAST for 3 Days and 0 Hour 10 mg WITH BREAKFAST for 3 Days and 0 Hour Referrals / Follow Up: Saleem Isaacs MD [Primary Care Provider] - In 1 Week Disposition Disposition (needs filled in before D/C Order can be placed): Home, Self Care Charges/Coding Visit Charges Inpatient E&M: 35263 Disch Hosp >30min
--- NOTE | 2022-06-18 14:00 | CASEMGMT ---
Social Work PCU Reason for referral: Advanced Directives Referral Source: RN MARIO Received notice from AYSE MARTIN that patient is interested in completing advanced directives this admission. Presented to patient's room. Patient laying in bed in the dark. Marvel MENDOZA, also present. Introduced to self, role, and reason for visit. Patient declined completing the advanced directives. Educated patient this medical underwriter had been informed of interest in completing directives. Patient admitted that had previously voiced interest, but no longer want to complete. Attempted to explore patient's change of mind, though patient not interested in discussing. Patient reported that just wants to rest until patient's mother comes to pick patient up for discharge today. Offered to leave information, and patient declined. Educated patient that if patient changes mind in future SW available to assist. No other needs requested. -CLAIRE Loya, SUBWAREHOUSE SUPERVISOR
[2022-06-18 15:30] VITALS: BP 128/74; PULSE 79; RESP 16; TEMP 36.4; O2SAT 99
[2022-06-18 16:57] VITALS: BP 134/79; PULSE 84; RESP 18; TEMP 36.6; O2SAT 97
== END 2022-06-18 17:11 | disposition home or self-care (01) ==
LOC: ED 02:09 → PCU 05:28
PROVIDERS: Admitting Provider Hospitalist; Emergency Provider Emergency Medicine; PCP Family Medicine; Visit Provider Internal Medicine
DX: L73.2 Hidradenitis suppurativa (principal); F15.10 Other stimulant abuse, uncomplicated; E78.5 Hyperlipidemia, unspecified; F17.210 Nicotine dependence, cigarettes, uncomplicated; Z86.16 Personal history of COVID-19; Z59.00 Homelessness unspecified; N49.2 Inflammatory disorders of scrotum; Z60.9 Problem related to social environment, unspecified; F14.90 Cocaine use, unspecified, uncomplicated
CPT/HCPCS: 36415; 72193; 80048; 80053; 83605; 85025; 87040; 96365; 96366; 96367; 99221; 99284; J7030; J7040; Q9967; A4216; G0378

== ENCOUNTER 2022-06-23 01:07 | Emergency (ER) | payer MEDICAID, SELFPAY ==
[2022-06-23 01:07] VITALS: BP 151/87; PULSE 102; RESP 18; TEMP 36.6; O2SAT 99; BMI 21.7
--- NOTE | 2022-06-23 02:36 | ED.RN ---
Pt stated to Dr. Bush if we do not help him he will go back on the streets and kill himself. Pt initially denied SI to this RN when first questions during triage. Dr. Bush ordered mental health evaluation, sitter not needed at this time.
[2022-06-23 02:56] LABS: Absolute Lymphocyte Count 3.98 X10^3/uL (0.83-4.51); Absolute Neutrophil Count 10.8 X10^3/uL (2.0-7.7); Basophil# 0.14 X10^3/uL; Basophil% 0.8 % (0-1); Eosinophil# 0.33 X10^3/uL; Hemoglobin 13.4 g/dL (13.0-16.5); Lymphocyte # 3.98 X10^3/ul (0.83-4.51); Lymphocyte % 23.8 % (19-41); Mean Corp Hgb Conc 33.5 g/dL (32-36); Mean Corpuscular Hgb 29.4 pg (27.0-32.0); Mean Corpuscular Volume 87.7 fL (80-94); Mean Platelet Vol. 9.3 fl (6.2-12.0); Monocyte# 1.44 X10^3/uL; Monocyte% 8.6 % (0-10); NRBC Flagged by Analyzer 0 % (0-5); Neutrophil # 10.77 X10^3/uL (2.7-7.7); Neutrophil % 64.4 % (47-70); Platelet Count 423 K/mm3 (150-450); RBC Distribution Width CV 13.3 % (11.6-14.6); Red Blood Count 4.56 M/mm3 (4.6-6.2); White Blood Count 16.7 K/mm3 (4.4-11.0)
[2022-06-23 03:21] LABS: Amphetamine Urine VISTA POSITIVE (<1000 ng/mL); Barbiturate Urine VISTA NEGATIVE (< 200 ng/mL); Benzodiazepine Urine VISTA NEGATIVE (< 200 ng/mL); Cocaine Urine VISTA NEGATIVE (< 300 ng/mL); Ecstacy Urine VISTA POSITIVE (< 500 ng/mL); Methadone Urine VISTA NEGATIVE (< 300 ng/mL); PCP Urine VISTA NEGATIVE (< 25 ng/mL); THC Urine VISTA POSITIVE (< 50 ng/mL); Vista UDS pH Range 4
[2022-06-23 03:24] LABS: Anion Gap 7 (5-15); BUN 24 mg/dL (7-18); BUN/Creat Ratio 20.9 RATIO (10-20); Calcium,Total 8.6 mg/dL (8.5-10.1); Chloride 108 mmol/L (98-107); Creatinine, Serum 1.15 mg/dL (0.70-1.30); EST Glomerular Filtration Rate 76 mL/min (>60); Est Glom Filt Rate - Afr Amer 92 mL/min (>60); Estimated Creatinine Clearance 79.13 ml/min; Glucose 103 mg/dL (74-106); Potassium 3.6 mmol/L (3.5-5.1); Sodium Level 142 mmol/L (136-145)
[2022-06-23 03:31] LABS: Alcohol, Blood (Medical)-Serum < 3.0 mg/dL
--- NOTE | 2022-06-23 03:42 | EDS_ITS ---
HPI History of Present Illness Chief Complaint: Substance Abuse Narrative Narrative: Patient is a 36-year-old male with past medical history of hidradenitis suppurativa as well as methamphetamine abuse and tobacco abuse. He was recently admitted to the hospital secondary to his hidradenitis. At that time he was evaluated by surgery and infectious disease. General surgery offered a bedside incision and drainage secondary to the small fluid collection along the left scrotum/inguinal region but patient refused. According to the note he wanted the more invasive apocrine gland removal procedure performed by plastics which is not available at our hospital. Secondary to this infectious disease recommended he be placed on a 10-day course of Augmentin and 20-day course of doxycycline and patient was discharged with outpatient follow-up. Patient states has been taking his medications as directed but that as he is homeless he has no place where he can clean the area as he has been advised to to keep flareups from reoccurring and he has no way of seeing plastic surgery. He also states that he has been using meth more frequently since he left the hospital. He is requesting meth detox at this time and he is unsure if he needs readmitted for his hidradenitis and therefore comes in for evaluation [facility] Medical History Anxiety Broken bones COVID-19 Depression Dermatitis Head injury Hyperlipidemia Paronychia Pulmonary emboli Shoulder pain Substance abuse Home Medications amoxicillin 875 mg-potassium clavulanate 125 mg tablet 1 tab PO Q12H #20 tabs 06/18/22 [Rx Last Taken Unknown] doxycycline hyclate 100 mg tablet 100 mg PO BID #60 tabs 06/18/22 [Rx Last Taken Unknown] prednisone 10 mg tablet See Taper PO DAILY #30 tabs 06/18/22 [Rx Last Taken Unknown] Allergy/AdvReac Type Severity Reaction Status Date / Time bunch Allergy Rash Verified 06/17/22 05:37 Family History Other COPD (chronic obstructive pulmonary disease) Surgical History H/O wrist surgery Social History housing: homeless number of children: 3 current occupational status: unemployed Smoking Status: Current every day smoker tobacco type: cigarettes ROS ROS ED Constitutional Constitutional ED: Denies chills or fever(s) ENT ENT ED: Denies sore throat Cardiovascular Cardiovascular: Denies chest pain Respiratory/Chest Respiratory/Chest: Denies cough or dyspnea Gastrointestinal Gastrointestinal: Denies abdominal pain, diarrhea, nausea or vomiting Genitourinary Genitourinary ED: Denies dysuria or hematuria Musculoskeletal Musculoskeletal: Reports myalgias Integumentary Reports abscess Neurologic Neurologic: Denies headache(s) Psychiatric Psychiatric: Denies suicidal ideation or suicidal thoughts Hematologic/Lymphatic Hematologic/Lymphatic: Denies easy bleeding or easy bruising EXAM Physical Exam Const Vital Signs: 06/23/22 01:07 06/23/22 06:36 06/23/22 08:10 Temperature 98 F Temperature Source Temporal Pulse Rate 102 H 74 Respiratory Rate 18 18 16 Blood Pressure 151/87 H 127/90 H Blood Pressure Mean 108 102 Pulse Ox 99 98 Oxygen Delivery Method Room Air Room Air Positive well nourished and well developed General Appearance ED: well developed Eyes PERRL and EOMs intact bilaterally Neck supple Resp normal respiratory effort and clear to auscultation bilaterally Cardio regular rate and regular rhythm GI normal to inspection, nondistended, normoactive bowel sounds, non-tender, non- distended and no masses Auscultation: normoactive bowel sounds Palpation: soft Narrative: In the genital region along the left inguinal fold and in the lateral aspect of the left side of the scrotum there is faint approximately 1 x 1 cm area of induration and there is slight overlying erythema and warmth without active discharge or lymphangitic streaking. This is consistent with his previous history of hidradenitis suppurativa. There is no crepitance palpated and no secondary changes to suggest Krystal's gangrene Extremity normal to inspection Neuro oriented x3 and CN's II-XII intact bilaterally Sensorium / Orientation: alert Psych Psych Narrative: Patient has an anxious affect Skin Skin Narrative: Soft tissue changes in the inguinal region as documented above consistent with hidradenitis suppurativa MDM MDM MDM Narrative Medical decision making narrative: Patient presented the ER mildly hypertensive but otherwise afebrile. He had just been recently admitted to the hospital and has been discharged for approximately 3 days. During his stay he was evaluated by general surgery and infectious disease and the patient did not want bedside incision and drainage but wanted to opt for the more invasive procedure by plastic surgery. Patient states that as he is homeless he cannot clean the area as directed and he cannot follow with plastics and he was worried that he now needed incision and drainage since he was still having pain since discharge and he also wants to discuss methamphetamine detox. I informed the patient that his condition is chronic and at this time there is no need for a readmission as the area looks stable compared to his last hospital stay. I also informed the patient that we do not perform methamphetamine detox at this facility. I did call multiple facilities checking to see if they have any beds open or perform methamphetamine detox. [facility] informing that they do perform methamphetamine detox but do not accept direct admissions. I informed the patient of this and he states that he has no way to get to [place]. At this time I informed the patient that he is not a readmitted secondary to his chronic hidradenitis suppurativa and that as we do not do meth detox at this facility and there is no way to directly transfer him to one that does tell him need to be discharged. At this time the patient states that if I have to go back out on the streets I do not know what I'll do; I might as well just kill myself. Secondary to this statement of suicidal ideation based on his social situation I did elect to perform a basic psychiatric work-up. The work-up showed positive methamphetamines and marijuana which she admits to using. His white count is slightly elevated but with his recent drug use this is most likely inflammatory response especially as he has been on doxycycline and Augmentin since discharge. Therefore crisis center will be contacted to evaluate the patient and discussed possible placement if necessary. Crisis center evaluate the patient and they do feel that with his previous his tory of depression and suicide attempt and now his report of worsening depression from a social situation that he is high risk for hurting himself. Therefore they do recommend admission. The patient was accepted at [facility]. The patient is medically cleared for emergency room standpoint and is stable and safe for transfer/placement in a psychiatric center. Lab Data Attestation: I reviewed the patient's lab results. Labs: Laboratory Results - last 24 hr 06/23/22 06/23/22 06/23/22 02:40 02:40 02:40 WBC 16.7 H RBC 4.56 L Hgb 13.4 Hct 40.0 MCV 87.7 MCH 29.4 MCHC 33.5 RDW Std Deviation 43.0 RDW Coeff of Christie 13.3 Plt Count 423 MPV 9.3 Immature Gran % (Auto) 0.400 Neut % (Auto) 64.4 Lymph % (Auto) 23.8 [place] % (Auto) 8.6 Eos % (Auto) 2.0 Baso % (Auto) 0.8 Absolute Neuts (auto) 10.8 H Absolute Lymphs (auto) 3.98 Nucleated RBC % 0 Sodium 142 Potassium 3.6 Chloride 108 H Carbon Dioxide 27.0 Anion Gap 7 BUN 24 H Creatinine 1.15 Estim Creat Clear Calc 79.13 Est GFR (MDRD) Af Amer 92 Est GFR (MDRD) Non-Af 76 BUN/Creatinine Ratio 20.9 H Glucose 103 Calcium 8.6 Urine Opiates Screen Urine Methadone Screen Ur Barbiturates Screen Ur Phencyclidine Scrn Ur Amphetamines Screen MDMA (Ecstasy) Screen U Benzodiazepines Scrn Urine Cocaine Screen U Cannabinoids Screen Ur Drug Screen Comment Ethyl Alcohol < 3.0 06/23/22 02:40 WBC RBC Hgb Hct MCV MCH MCHC RDW Std Deviation RDW Coeff of Christie Plt Count MPV Immature Gran % (Auto) Neut % (Auto) Lymph % (Auto) [place] % (Auto) Eos % (Auto) Baso % (Auto) Absolute Neuts (auto) Absolute Lymphs (auto) Nucleated RBC % Sodium Potassium Chloride Carbon Dioxide Anion Gap BUN Creatinine Estim Creat Clear Calc Est GFR (MDRD) Af Amer Est GFR (MDRD) Non-Af BUN/Creatinine Ratio Glucose Calcium Urine Opiates Screen NEGATIVE Urine Methadone Screen NEGATIVE Ur Barbiturates Screen NEGATIVE Ur Phencyclidine Scrn NEGATIVE Ur Amphetamines Screen POSITIVE H MDMA (Ecstasy) Screen POSITIVE H U Benzodiazepines Scrn NEGATIVE Urine Cocaine Screen NEGATIVE U Cannabinoids Screen POSITIVE H Ur Drug Screen Comment Ethyl Alcohol Discharge Plan Triage Chief Complaint: Substance Abuse ED Provider: Jhoan Bush Dx/Rx/DC Orders Clinical Impression: Depression with suicidal ideation, Hidradenitis suppurativa, Methamphetamine abuse Prescriptions: No Action doxycycline hyclate 100 mg tablet 100 mg PO BID Qty: 60 1RF amoxicillin-pot clavulanate 875-125 mg tablet 1 tab PO Q12H Qty: 20 0RF prednisone 10 mg tablet See Taper PO DAILY Qty: 30 0RF Taper: Prednisone Taper 40 mg WITH BREAKFAST for 3 Days and 0 Hour 30 mg WITH BREAKFAST for 3 Days and 0 Hour 20 mg WITH BREAKFAST for 3 Days and 0 Hour 10 mg WITH BREAKFAST for 3 Days and 0 Hour Primary Care Provider: Saleem Isaacs Referrals: Saleem Isaacs MD [Primary Care Provider] - Disposition Disposition: Psychiatric Hospital or Unit Discharge Location: [facility]
[2022-06-23 06:36] VITALS: BP 127/90; PULSE 74; RESP 18; O2SAT 98
[2022-06-23 08:10] VITALS: RESP 16
--- NOTE | 2022-06-23 09:35 | CM.ED ---
SW called ammunition officer. She reports patient is going to [facility]. JOAN called Nathaly at Crisis and she was not aware if patient was accepted but would check. JOAN reviewed transfer form and patient was accepted at [facility]. Accepting MD is [facility] unit [phone] for report. AYSE Muñoz already gave report. Per ammunition officer [facility] is picking patient up between 10-10:30am. Plan: [facility] Brittaney RANGEL
== END 2022-06-23 11:31 ==
PROVIDERS: Emergency Provider Emergency Medicine; PCP Family Medicine; Visit Provider Emergency Medicine
DX: R45.851 Suicidal ideations (principal); F15.10 Other stimulant abuse, uncomplicated; L73.2 Hidradenitis suppurativa; F32.A Depression, unspecified; E78.5 Hyperlipidemia, unspecified; F17.210 Nicotine dependence, cigarettes, uncomplicated; Z59.00 Homelessness unspecified
CPT/HCPCS: 80048; 80307; 82077; 85025; 87811; 99284

== ENCOUNTER 2022-07-21 02:58 | Inpatient (IN) | payer MEDICAID, SELFPAY ==
[2022-07-21 02:59] VITALS: BP 137/88; PULSE 110; RESP 18; TEMP 36.2; O2SAT 95; BMI 22.5
--- NOTE | 2022-07-21 03:39 | EDS_ITS ---
HPI History of Present Illness Chief Complaint: Sore Throat Informant: patient Narrative Narrative: Presents at 3 AM for 2 different issues: He has a sore throat for 2 days, and he wanted detox from drugs. Right now, he states he is on methadone for the past 3 weeks. His last dose was 2 days ago. 1 strip per day on average he states. He is getting it from the street not prescribed it. He stopped using methamphetamine about 3 or 4 weeks ago, but he states he is looking for inpatient rehab to try to get away from drugs. He has had a headache and myalgias. Unknown if this is related to the sore throat or withdrawal from methadone which she has not had in a couple days. He denies any vomiting or abdominal cramping. He has a runny nose without a significant cough. No fevers or chills that he knows of. No known sick contacts recently. He had the [employer] vaccine for COVID long ago, no influenza shot this year. [facility] Medical History Anxiety Broken bones COVID-19 Depression Dermatitis Head injury Hyperlipidemia Paronychia Pulmonary emboli Shoulder pain Substance abuse Home Medications amoxicillin 875 mg-potassium clavulanate 125 mg tablet 1 tab PO Q12H #20 tabs 06/18/22 [Rx Last Taken Unknown] doxycycline hyclate 100 mg tablet 100 mg PO BID #60 tabs 06/18/22 [Rx Last Taken Unknown] prednisone 10 mg tablet See Taper PO DAILY #30 tabs 06/18/22 [Rx Last Taken Unknown] Allergy/AdvReac Type Severity Reaction Status Date / Time bunch Allergy Rash Verified 07/21/22 03:02 Family History Other COPD (chronic obstructive pulmonary disease) Surgical History H/O wrist surgery Social History housing: homeless number of children: 3 current occupational status: unemployed Smoking Status: Current every day smoker tobacco type: cigarettes ROS ROS ED Constitutional Constitutional ED: Reports body ache(s) and malaise; Denies chills or fever(s) Eyes Eyes: Denies change in vision or diplopia ENT ENT ED: Reports rhinorrhea and sore throat Cardiovascular Cardiovascular: Denies chest pain or palpitations Respiratory/Chest Respiratory/Chest: Denies cough or dyspnea Gastrointestinal Gastrointestinal: Denies abdominal pain, diarrhea, nausea or vomiting Genitourinary Genitourinary ED: Denies dysuria or hematuria Musculoskeletal Musculoskeletal: Denies back pain or neck pain Integumentary Denies abscess or rash Neurologic Neurologic: Denies headache(s), paresthesias or weakness Psychiatric Psychiatric: Denies anxiety or suicidal thoughts EXAM Physical Exam Const Vital Signs: 07/21/22 02:59 Temperature 97.1 F L Temperature Source Temporal Pulse Rate 110 H Respiratory Rate 18 Blood Pressure 137/88 H Blood Pressure Mean 104 Pulse Ox 95 Oxygen Delivery Method Room Air Positive well nourished and well developed General Appearance ED: well developed and NAD HEENT Reports moist mucous membranes HEENT Narrative: Posterior oropharyngeal erythema without tonsillar exudates, asymmetry, edema, petechiae, or other acute abnormalities. No trismus. Tongue normal. normocephalic and atraumatic Eyes PERRL and EOMs intact bilaterally Neck full ROM, no lymphadenopathy and supple Resp normal respiratory effort and clear to auscultation bilaterally Cardio regular rate, regular rhythm and no murmurs GI non-tender and non-distended Auscultation: normoactive bowel sounds Palpation: soft Back/Spine no CVA tenderness General Back: other FROM Extremity normal to inspection General Extremety ED: Negative for edema, pulses abnormal or tenderness General Extremity: Negative for edema or pulses abnormal Neuro oriented x3, CN's II-XII intact bilaterally and no sensory deficits noted Sensorium / Orientation: awake and alert Motor Exam: strength 5/5 throughout Skin no rashes or lesions noted and no wounds MDM MDM MDM Narrative Medical decision making narrative: I performed COVID and rapid influenza swabs, COVID is negative, he is positive for flu B, and rapid strep is positive as well. Treating him with benzathine penicillin, he preferred that over oral amoxicillin. Discussed with the hospitalist for inpatient detox from opioids. When I went to discuss with the patient he also wanted me to look at his left hemiscrotum, he has had an abscess there in his groin, he was in a intermediate recently and lost the antibiotics that he did not finish and now it is getting worse again, actively draining. I am happy to put him on Bactrim for probable MRSA, he suggest that he probably has hidradenitis suppurativa as he has had abscesses multiple locations before. Lab Data Attestation: I reviewed the patient's lab results. Labs: Laboratory Results - last 24 hr 07/21/22 07/21/22 07/21/22 03:50 03:58 03:58 WBC 16.4 H RBC 4.51 L Hgb 13.4 Hct 40.1 MCV 88.9 MCH 29.7 MCHC 33.4 RDW Std Deviation 44.2 H RDW Coeff of Christie 13.6 Plt Count 373 MPV 9.5 Immature Gran % (Auto) 0.400 Neut % (Auto) 63.5 Lymph % (Auto) 22.5 [place] % (Auto) 8.9 Eos % (Auto) 3.9 Baso % (Auto) 0.8 Absolute Neuts (auto) 10.4 H Absolute Lymphs (auto) 3.69 Nucleated RBC % 0 Ur Drug Screen Comment Ethyl Alcohol 4.0 Discharge Plan Triage Chief Complaint: Sore Throat ED Provider: Shree Nixon Dx/Rx/DC Orders Clinical Impression: Opioid dependence, Polysubstance abuse, Acute streptococcal pharyngitis, Influenza B, Abscess of left groin Prescriptions: No Action doxycycline hyclate 100 mg tablet 100 mg PO BID Qty: 60 1RF amoxicillin-pot clavulanate 875-125 mg tablet 1 tab PO Q12H Qty: 20 0RF prednisone 10 mg tablet See Taper PO DAILY Qty: 30 0RF Taper: Prednisone Taper 40 mg WITH BREAKFAST for 3 Days and 0 Hour 30 mg WITH BREAKFAST for 3 Days and 0 Hour 20 mg WITH BREAKFAST for 3 Days and 0 Hour 10 mg WITH BREAKFAST for 3 Days and 0 Hour Primary Care Provider: Saleem Isaacs Referrals: Saleem Isaacs MD [Primary Care Provider] - Disposition Disposition: Acute Care Hospital [facility]
[2022-07-21 04:22] LABS: Absolute Lymphocyte Count 3.69 X10^3/uL (0.83-4.51); Absolute Neutrophil Count 10.4 X10^3/uL (2.0-7.7); Basophil# 0.13 X10^3/uL; Basophil% 0.8 % (0-1); Eosinophil# 0.64 X10^3/uL; Eosinophils% 3.9 % (0-5); Hematocrit 40.1 % (40-54); Hemoglobin 13.4 g/dL (13.0-16.5); Lymphocyte # 3.69 X10^3/ul (0.83-4.51); Lymphocyte % 22.5 % (19-41); Mean Corp Hgb Conc 33.4 g/dL (32-36); Mean Corpuscular Hgb 29.7 pg (27.0-32.0); Mean Corpuscular Volume 88.9 fL (80-94); Mean Platelet Vol. 9.5 fl (6.2-12.0); Monocyte# 1.45 X10^3/uL; Monocyte% 8.9 % (0-10); NRBC Flagged by Analyzer 0 % (0-5); Neutrophil # 10.39 X10^3/uL (2.7-7.7); Neutrophil % 63.5 % (47-70); Platelet Count 373 K/mm3 (150-450); RBC Distribution Width CV 13.6 % (11.6-14.6); RBC Distribution Width SD 44.2 fl (35.1-43.9); Red Blood Count 4.51 M/mm3 (4.6-6.2); White Blood Count 16.4 K/mm3 (4.4-11.0)
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
[2022-07-21 04:35] LABS: ALB/GLOB Ratio 0.8 RATIO (0.9-2.4); AST(SGOT) 24 U/L (15-37); Alanine Aminotransfer ALT/SGPT 26 U/L (16-61); Albumin, Serum 3.3 g/dL (3.2-5.0); Alkaline Phosphatase 84 U/L (45-117); Anion Gap 8 (5-15); BUN 25 mg/dL (7-18); BUN/Creat Ratio 26.3 RATIO (10-20); Calcium,Total 9.1 mg/dL (8.5-10.1); Chloride 104 mmol/L (98-107); Creatinine, Serum 0.95 mg/dL (0.70-1.30); EST Glomerular Filtration Rate 95 mL/min (>60); Est Glom Filt Rate - Afr Amer 115 mL/min (>60); Estimated Creatinine Clearance 99.13 ml/min; Glucose 111 mg/dL (74-106); Potassium 4.2 mmol/L (3.5-5.1); Protein, Total 7.3 g/dL (6.4-8.2); Sodium Level 141 mmol/L (136-145)
[2022-07-21 04:46] LABS: Amphetamine Urine VISTA NEGATIVE (<1000 ng/mL); Barbiturate Urine VISTA NEGATIVE (< 200 ng/mL); Benzodiazepine Urine VISTA NEGATIVE (< 200 ng/mL); Cocaine Urine VISTA NEGATIVE (< 300 ng/mL); Ecstacy Urine VISTA NEGATIVE (< 500 ng/mL); Methadone Urine VISTA NEGATIVE (< 300 ng/mL); PCP Urine VISTA NEGATIVE (< 25 ng/mL); THC Urine VISTA POSITIVE (< 50 ng/mL); Vista UDS pH Range 6
[2022-07-21] MEDS: Penicillin G Benzathine 1.2 MU/2 ML Syringe IM (04:57)
[2022-07-21] MEDS: Smz/Tmp Ds Tablet 1 TABLET PO (04:57)
[2022-07-21 05:50] LABS: HIV - WCH Non-Reactive (Nonreactive)
[2022-07-21 06:00] VITALS: BP 138/89; PULSE 85; RESP 18; TEMP 36.4; O2SAT 97
[2022-07-21 06:34] VITALS: BP 125/86; PULSE 81; RESP 18; TEMP 36.8; O2SAT 96
[2022-07-21 06:38] VITALS: BMI 21.5
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
[2022-07-21 08:39] VITALS: BP 126/84; PULSE 83; RESP 20; TEMP 36.8; O2SAT 100
[2022-07-21] MEDS: predniSONE 10 MG Tablet 40 MG PO (09:05)
[2022-07-21] MEDS: Amox/Clavulanate 875 MG Tablet PO ×2 (09:06→21:40)
[2022-07-21] MEDS: Doxycycline 100 MG CAPSULE PO ×2 (09:06→21:40)
[2022-07-21] MEDS: Buprenorphine HCl 2 MG TAB.SUBL SL ×2 (09:09→16:26)
[2022-07-21 10:07] LABS: Hepatitis B Surface Antibody Non-Reactive; Hepatitis B Surface Antigen Non-Reactive (Nonreactive); Hepatitis C Antibody Non-Reactive (Nonreactive)
[2022-07-21 12:34] VITALS: BP 133/74; PULSE 88; RESP 18; TEMP 36.3; O2SAT 99
[2022-07-21] MEDS: Oseltamivir Phosphate 75 MG Capsule PO ×2 (14:01→21:40)
[2022-07-21] MEDS: Dicyclomine 10 MG Capsule 20 MG PO (16:25)
[2022-07-21] MEDS: Ibuprofen 600 MG Tablet PO (16:26)
[2022-07-21] MEDS: hydrOXYzine PAM 25 MG Capsule 50 MG PO (16:26)
[2022-07-21 20:00] VITALS: BP 138/83; PULSE 78; RESP 16; TEMP 36.6; O2SAT 98
[2022-07-21] MEDS: Gabapentin 300 MG Capsule PO (21:40)
[2022-07-21] MEDS: traZODone 100 MG Tablet PO (21:40)
[2022-07-22 00:20] VITALS: BP 118/77; PULSE 58; RESP 18; TEMP 36.4; O2SAT 97
[2022-07-22] MEDS: Buprenorphine HCl 2 MG TAB.SUBL SL ×3 (00:22→16:23)
[2022-07-22 04:00] VITALS: BP 114/77; PULSE 79; RESP 16; TEMP 36.6; O2SAT 97
[2022-07-22 06:31] LABS: Absolute Neutrophil Count 9.4 X10^3/uL (2.0-7.7); Basophil# 0.05 X10^3/uL; Basophil% 0.4 % (0-1); Eosinophil# 0.11 X10^3/uL; Eosinophils% 0.8 % (0-5); Hematocrit 40.8 % (40-54); Hemoglobin 13.3 g/dL (13.0-16.5); Lymphocyte % 21.2 % (19-41); Mean Corp Hgb Conc 32.6 g/dL (32-36); Mean Corpuscular Hgb 29.6 pg (27.0-32.0); Mean Corpuscular Volume 90.9 fL (80-94); Mean Platelet Vol. 9.5 fl (6.2-12.0); Monocyte# 1.09 X10^3/uL; NRBC Flagged by Analyzer 0 % (0-5); Neutrophil # 9.44 X10^3/uL (2.7-7.7); Neutrophil % 69.2 % (47-70); Platelet Count 413 K/mm3 (150-450); RBC Distribution Width CV 13.4 % (11.6-14.6); RBC Distribution Width SD 45.2 fl (35.1-43.9); Red Blood Count 4.49 M/mm3 (4.6-6.2); White Blood Count 13.7 K/mm3 (4.4-11.0)
[2022-07-22 08:00] VITALS: BP 122/85; PULSE 73; RESP 16; TEMP 36.5; O2SAT 97
[2022-07-22] MEDS: Oseltamivir Phosphate 75 MG Capsule PO ×2 (08:53→20:56)
[2022-07-22] MEDS: predniSONE 10 MG Tablet 40 MG PO (08:53)
[2022-07-22] MEDS: Doxycycline 100 MG CAPSULE PO ×2 (08:54→20:56)
[2022-07-22] MEDS: Amox/Clavulanate 875 MG Tablet PO ×2 (08:54→20:56)
[2022-07-22] MEDS: hydrOXYzine PAM 25 MG Capsule 50 MG PO ×2 (09:00→16:23)
--- NOTE | 2022-07-22 11:01 | ADDICTION ---
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 PT A+Ox4 and participated actively. All assessments completed and placed in PT's chart. PT plans to f/u with in-patient treatment services once medically cleared. TW will find placement with transportation post d/c from [facility].
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
[2022-07-22 14:00] VITALS: BP 115/76; BP 137/75; PULSE 74; PULSE 76; RESP 16; TEMP 36.6; TEMP 36.8; O2SAT 80; O2SAT 97
--- NOTE | 2022-07-22 14:38 | PCM.PN.HOSP ---
Reason for Visit Reason for Visit: Opiate detox Subjective Subjective Patient reports continued pain in the left inguinal region. Amenable to having evaluated by surgery here. Plans for inpatient detox after discharge. Still having some sweating and body aching. Appetite overall appears to have been good. No shortness of breath or hypoxia. States his throat is feeling much better Objective Data Objective Data Vital Signs: Vital Signs Temp Pulse Resp BP Pulse Ox O2 Del Method 97.7 F L 73 16 122/85 H 97 Room Air 07/22/22 08:00 07/22/22 08:00 07/22/22 08:00 07/22/22 08:00 07/22/22 08:00 07/22/22 08:00 Oxygen Delivery Method Room Air Weight: 62.4 kg Body Mass Index (BMI) 21.5 Lab / Micro Data Result Diagrams: 07/22/22 05:40 07/21/22 03:58 Labs: Laboratory Results - last 24 hr 07/22/22 05:40: WBC 13.7 H, RBC 4.49 L, Hgb 13.3, Hct 40.8, MCV 90.9, MCH 29.6, MCHC 32.6, RDW Std Deviation 45.2 H, RDW Coeff of Christie 13.4, Plt Count 413, MPV 9.5, Immature Gran % (Auto) 0.400, Neut % (Auto) 69.2, Lymph % (Auto) 21.2, Sebastian % (Auto) 8.0, Eos % (Auto) 0.8, Baso % (Auto) 0.4, Absolute Neuts (auto) 9.4 H, Absolute Lymphs (auto) 2.90, Nucleated RBC % 0 Micro: Microbiology 07/21/22 03:53 Nasal Secretion SARS-CoV-2 & FLU Antigen (Rapid) - Final Influenzae B 07/21/22 04:03 Interface Orders Group A Streptococcus Rapid Screen - Final Streptococcus Group A Physical Exam Narrative And physical Examination: General: Awake, alert, oriented x 3 and cooperative, seated upright in the ED bed, restless. Skin: Normal color, normal turgor, no icterus, no cyanosis except for notable diffuse picked regions, scarring, right axilla with still mildly fluctuant tender regions but no current drainage, left scrotum with significant ongoing drainage and mild erythema with notable hidradenitis supportive in these regions. HEENT: AT/NC, EOMI, PERRLA, dry MM, no carotid bruits or JVD noted. Lungs: Mildly diminished, greater bases, appropriate effort, no rales, ronchi or wheezing. Heart: Tachycardic with regular rhythm; no gallop, rub audible. Abdomen: Soft, NTTP, ND, hyperactive BS, + HM. Extremities: No cyanosis, clubbing, see skin. Neurological: Patient awake, alert, oriented as noted, cognitive function intact; pupils equally reactive to light and accommodation, cranial nerves II-XII grossly normal, moving all 4 extremities, no focal deficits, strength mildly globally decrease secondary to acute complaints as well as recent significant hidradenitis suppurative acute on chronic, restless, reports withdrawal symptoms. Psychiatric: Affect appears restless, no acute evidence of depressive or anxiety feelings but does have underlying history. Const alert, oriented x3 and no apparent distress Constitutional Narrative: Thin, middle-aged, white male, lying in bed, appears older than stated age, comfortable and nontoxic HEENT head/scalp atraumatic and moist oral mucous membranes HEENT Narrative: Dentition is poor, Mallampati is 2, no thrush Head and Scalp: normocephalic Resp normal respiratory effort, no retractions, no use of accessory muscles and clear to auscultation bilaterally Auscultation: Negative for rales, rhonchi or wheezes Cardio regular rate, regular rhythm, S1 normal heart sound, S2 normal heart sound, no murmurs, no rub, no gallops and no clicks GI normal to inspection, nondistended, normoactive bowel sounds, soft to palpation and non-tender Extremity no clubbing, cyanosis or edema Extremity Narrative: 2+ pedal pulses Skin Skin Narrative: Erythema with hidradenitis suppurativa in the left groin Neuro oriented x3 and moves all extremities Speech: speech normal Assessment & Plan Assessment/Plan (1) Influenza B: (2) Polysubstance abuse: (3) Cellulitis of scrotum: (4) Hidradenitis suppurativa: (5) Methamphetamine abuse: (6) Opiate abuse, continuous: (7) Acute streptococcal pharyngitis: PLAN: Plan Acute opiate withdrawal -Requesting detox -Had been using street methadone with last use 1-1/2 to 2 days prior -Subutex taper per [facility] protocol--> first dose given at 909 on a.m. of 07/21/2022 -Supportive medications for withdrawal symptom management -180 following and patient is requesting inpatient at discharge Strep pharyngitis -Continue Augmentin -Advance diet as tolerated Acute on chronic hidradenitis suppurative right axilla and left scrotal with associated acute cellulitis -Continue Augmentin and doxycycline which she was discharged on to complete course -General surgery has evaluated the patient and there is no surgical need for his left groin and axillary area has self drained -Commended continued ongoing oral antibiotics to complete a course of 14 days after discharge Influenza B -Rapid test positive -Continue Tamiflu 75 mg p.o. twice daily day 2 of 5 -Supportive care Leukocytosis -Likely related above infections -Leukocytosis is improving -No need to repeat Polysubstance abuse -HIV is nonreactive -Hepatitis C and B are nonreactive -Recommend outpatient hepatitis B vaccination -Recommend cessation -Patient using methamphetamines and marijuana as well as opiates Previous alcohol abuse -Has been sober since 04/18/2021 with 4 small relapse per his admission -Recommend ongoing cessation Anxiety/depression -Not on any chronic medications -Recommend outpatient follow-up History of DVT -Remote -Not on any current treatment Tobacco abuse -Encouraged cessation -Nicotine replacement available if needed DVT prophylaxis -Low risk -Encourage ambulation Charges/Coding Visit Charges Inpatient E&M: 14886 Subs Hosp L2
[2022-07-22 20:52] VITALS: BP 133/83; PULSE 74; RESP 16; TEMP 36.7; O2SAT 97
[2022-07-22] MEDS: traZODone 100 MG Tablet PO (21:03)
[2022-07-22] MEDS: cloNIDine HCl 0.1 MG Tablet PO (21:03)
[2022-07-23 00:29] VITALS: BP 141/75; PULSE 89; RESP 16; TEMP 36.7; O2SAT 95
[2022-07-23] MEDS: Buprenorphine HCl 2 MG TAB.SUBL SL ×2 (00:30→09:37)
[2022-07-23] MEDS: hydrOXYzine PAM 25 MG Capsule 50 MG PO ×2 (00:30→09:37)
[2022-07-23 04:47] VITALS: BP 128/81; PULSE 78; RESP 16; TEMP 36.7; O2SAT 97
[2022-07-23] MEDS: Gabapentin 300 MG Capsule PO (05:07)
[2022-07-23] MEDS: cloNIDine HCl 0.1 MG Tablet PO (05:07)
[2022-07-23] MEDS: Amox/Clavulanate 875 MG Tablet PO (09:36)
[2022-07-23] MEDS: predniSONE 10 MG Tablet 40 MG PO (09:36)
[2022-07-23] MEDS: Doxycycline 100 MG CAPSULE PO (09:37)
[2022-07-23] MEDS: Oseltamivir Phosphate 75 MG Capsule PO (09:37)
[2022-07-23 09:43] VITALS: BP 129/81; PULSE 80; RESP 16; TEMP 37; O2SAT 100
[2022-07-23 10:00] VITALS: BP 129/81; PULSE 80; RESP 16; TEMP 36.7; O2SAT 100
--- NOTE | 2022-07-23 12:07 | ADDICTION ---
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 PT A+Ox4 and participated actively. All assessments completed and placed in PT's chart. PT plans to f/u with [facility] for in-patient treatment services in [place], [place]. Facility will provide transportation post d/c from [facility].
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
--- NOTE | 2022-07-23 14:56 | PCM.HOSP.N ---
Hospitalist Note Patient had been discharged and his ride was actually here to take him to the inpatient rehab facility and then he backed out saying he could not go and had too much to do and had a court date. Patient unfortunately left AGAINST MEDICAL ADVICE. His antibiotic prescriptions were sent to the pharmacy here at the hospital. We do not think he got his antibiotics prior to leaving.
== END 2022-07-23 14:51 | disposition left against medical advice (07) | DRG 385 ==
LOC: ED 04:36 → PCU 04:57
PROVIDERS: Admitting Provider Family Medicine; Emergency Provider Emergency Medicine; PCP Family Medicine; Visit Provider Internal Medicine
DX: L73.2 Hidradenitis suppurativa (principal); L02.214 Cutaneous abscess of groin; F15.10 Other stimulant abuse, uncomplicated; F11.13 Opioid abuse with withdrawal; J10.1 Influenza due to other identified influenza virus with other respiratory manifestations; F17.210 Nicotine dependence, cigarettes, uncomplicated; E78.5 Hyperlipidemia, unspecified; F12.90 Cannabis use, unspecified, uncomplicated; F41.9 Anxiety disorder, unspecified; F10.11 Alcohol abuse, in remission; J02.0 Streptococcal pharyngitis; Z20.822 Contact with and (suspected) exposure to COVID-19; B95.62 Methicillin resistant Staphylococcus aureus infection as the cause of diseases classified elsewhere; N49.2 Inflammatory disorders of scrotum; F32.A Depression, unspecified; Z59.00 Homelessness unspecified
CPT/HCPCS: 36415; 80053; 80307; 82077; 85025; 86703; 86706; 86803; 87340; 87428; 87880; 99283; 99406

== ENCOUNTER 2022-09-01 17:33 | Emergency (ER) | payer MEDICAID, SELFPAY ==
[2022-09-01 17:34] VITALS: BP 135/88; PULSE 103; RESP 16; TEMP 36.6; O2SAT 98; BMI 22.1
[2022-09-01] MEDS: Ibuprofen 600 MG Tablet PO (21:00)
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
[2022-09-01] MEDS: Amox/Clavulanate 875 MG Tablet PO (22:58)
[2022-09-01] MEDS: Doxycycline 100 MG CAPSULE PO (22:58)
== END 2022-09-01 23:00 | disposition home or self-care (01) ==
PROVIDERS: Emergency Provider Emergency Medicine; PCP Family Medicine; Visit Provider Emergency Medicine
DX: S31.30XA Unspecified open wound of scrotum and testes, initial encounter (principal); E78.5 Hyperlipidemia, unspecified; L73.2 Hidradenitis suppurativa; Z59.00 Homelessness unspecified; F17.210 Nicotine dependence, cigarettes, uncomplicated; X58.XXXA Exposure to other specified factors, initial encounter
CPT/HCPCS: 87070; 87205; 99283

== ENCOUNTER 2022-10-08 05:32 | Emergency (ER) | payer MEDICAID, SELFPAY ==
[2022-10-08 05:34] VITALS: BP 145/84; PULSE 105; RESP 18; TEMP 36.8; O2SAT 99; BMI 21.9
--- NOTE | 2022-10-08 05:46 | EDS_ITS ---
HPI History of Present Illness Chief Complaint: Complaint Detail of Chief Complaint: Hidradenitis left groin Informant: patient Narrative Narrative: Patient presents secondary to continued wound to the left groin. He has been diagnosed with hidradenitis. He has been admitted for scrotal cellulitis. He has been on multiple rounds of antibiotics. It appears as though patient has been referred to plastic surgery after being seen by general surgery on 2 separate occasions. He has not followed up. He presents earlier this morning with complaints of increased pain and difficulty walking. He was observed ambulating into the emergency room with only mildly antalgic gait. PFSH PFSH Medical History Anxiety Cannabis use disorder COVID-19 Depression Hidradenitis suppurativa Hyperlipidemia Methamphetamine abuse Opiate abuse, continuous Opioid dependence Paronychia Polysubstance abuse Polysubstance abuse Pulmonary emboli Smoker Substance abuse Tobacco use Home Medications amoxicillin 875 mg-potassium clavulanate 125 mg tablet 1 tab PO BID #20 tabs 10/08/22 [Rx Last Taken Unknown] doxycycline monohydrate 100 mg capsule 100 mg PO BID #20 CAPSULES 10/08/22 [Rx Last Taken Unknown] gabapentin 300 mg tablet 300 mg PO DAILY 10/08/22 [History Last Taken Unknown] naproxen 500 mg tablet (Naprosyn) 500 mg PO BID PRN pain #20 tabs 10/08/22 [Rx Last Taken Unknown] nystatin 100,000 unit/gram topical powder 1 applic topical TID #60 grams 10/08/22 [Rx Last Taken Unknown] paroxetine HCl 20 mg tablet (Paxil) 20 mg PO DAILY 10/08/22 [History Last Taken Unknown] Allergy/AdvReac Type Severity Reaction Status Date / Time bunch Allergy Rash Verified 10/08/22 05:40 Family History Mother COPD (chronic obstructive pulmonary disease) CVA (cerebral vascular accident) Heart disease Hypertension Father Alcoholism Surgical History H/O wrist surgery Social History housing: homeless number of children: 3 current occupational status: unemployed Smoking Status: Current every day smoker tobacco type: cigarettes how long ago did patient quit smokin ppd since 19 years old. alcohol intake: former year quit: 2020 details: Reports sober since 03/2021, has had ~4 small relapses. substance use type: marijuana, amphetamines and other details: Currently using methadone. ROS ROS ED Constitutional Constitutional ED: Reports chills; Denies fever(s) Eyes Eyes: Denies discharge from eye(s) ENT ENT ED: Denies discharge from eye(s), rhinorrhea or sore throat Cardiovascular Cardiovascular: Denies chest pain Respiratory/Chest Respiratory/Chest: Denies cough or dyspnea Gastrointestinal Gastrointestinal: Denies abdominal pain, diarrhea, nausea or vomiting Genitourinary Genitourinary ED: Reports other Details: Left groin pain and draining wound ; Denies dysuria Musculoskeletal Musculoskeletal: Denies back pain or extremity pain Integumentary Reports abscess; Denies Abrasions or rash Neurologic Neurologic: Denies headache(s) or weakness Psychiatric Psychiatric: Denies anxiety or depression Allergic/Immunologic Allergic/Immunologic ED: Denies lip swelling or urticaria EXAM Physical Exam Const Vital Signs: 10/08/22 05:34 Temperature 98.3 F Temperature Source Temporal Pulse Rate 105 H Respiratory Rate 18 Blood Pressure 145/84 H Blood Pressure Mean 104 Pulse Ox 99 Oxygen Delivery Method Room Air Positive well nourished and well developed General Appearance ED: well developed HEENT Reports moist mucous membranes Eyes PERRL and EOMs intact bilaterally Neck no lymphadenopathy Resp normal respiratory effort and clear to auscultation bilaterally Cardio regular rate and regular rhythm GI non-tender Narrative: Chronic erythema and induration along the left proximal scrotum. No focal area of fluctuance amenable to drainage at this time. Erythema is noted concerning for yeast infection in addition to the hidradenitis. Neuro oriented x3 and moves all extremities MDM MDM MDM Narrative Medical decision making narrative: Patient states he lost the phone number for plastic surgery. I will provide this for him again. At this time there is no area that needs opened and drained. I will write him for doxycycline and Augmentin which she has been prescribed in the past. I will also write him for nystatin powder and anti- inflammatories. Wound will be cleansed and 4 x 4 gauze dressing placed in the area to help keep the area clean and dry. Patient tells me he just completed his last course of antibiotics for 5 days ago, however on review of prescriptions it appears the last time he picked up a prescription for a 7-day course of antibiotics was September 01. Discharge Plan Triage Chief Complaint: Complaint ED Provider: Jenni Renteria Dx/Rx/DC Orders Clinical Impression: Hidradenitis suppurativa, Candidal skin infection Instructions: ED Meli Skin Infection (Adult), ED Hidradenitis Suppurativa, Abx Prescriptions: New doxycycline monohydrate 100 mg capsule 100 mg PO BID Qty: 20 0RF naproxen [Naprosyn] 500 mg tablet 500 mg PO BID PRN (Reason: pain) Qty: 20 0RF amoxicillin-pot clavulanate 875-125 mg tablet 1 tab PO BID Qty: 20 0RF nystatin 100,000 unit/gram powder 1 applic topical TID Qty: 60 0RF No Action paroxetine HCl [Paxil] 20 mg Tablet 20 mg PO DAILY gabapentin 300 mg Tablet 300 mg PO DAILY Primary Care Provider: Saleem Isaacs Referrals: Morgan Hilliard MD [Med Staff - Active Staff] - As soon as possible Saleem Isaacs MD [Primary Care Provider] - Disposition Disposition: Home, Self Care
[2022-10-08] MEDS: Doxycycline 100 MG CAPSULE PO (05:52)
[2022-10-08] MEDS: Amox/Clavulanate 875 MG Tablet PO (05:52)
[2022-10-08] MEDS: Nystatin Powder 15gm Bottle 1 APPLIC TOPICAL (05:54)
[2022-10-08 06:01] VITALS: BP 145/84; PULSE 105; RESP 18; O2SAT 99
== END 2022-10-08 06:01 | disposition home or self-care (01) ==
LOC: ED 05:56
PROVIDERS: Emergency Provider Emergency Medicine; PCP Family Medicine; Visit Provider Emergency Medicine
DX: L73.2 Hidradenitis suppurativa (principal); F11.20 Opioid dependence, uncomplicated; B37.2 Candidiasis of skin and nail; F12.90 Cannabis use, unspecified, uncomplicated; F17.210 Nicotine dependence, cigarettes, uncomplicated; F41.9 Anxiety disorder, unspecified; Z59.00 Homelessness unspecified; Z86.711 Personal history of pulmonary embolism; F10.11 Alcohol abuse, in remission; Z79.899 Other long term (current) drug therapy
CPT/HCPCS: 99283

== ENCOUNTER 2023-03-06 06:43 | Emergency (ER) | payer MEDICAID, SELFPAY ==
[2023-03-06 06:44] VITALS: BP 156/93; PULSE 91; RESP 20; TEMP 36; O2SAT 98; BMI 21.2
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
[2023-03-06] MEDS: Smz/Tmp Ds Tablet 1 TABLET PO (07:19)
[2023-03-06 07:25] LABS: Bacteria 0 SEEN /hpf (None Seen); Mucous, Urine 0 SEEN /hpf (<or=2+); Squamous Epithelial Cells - UA 0 SEEN /hpf (0-5)
[2023-03-06 07:40] LABS: ALB/GLOB Ratio 0.9 RATIO (0.9-2.4); AST(SGOT) 18 U/L (15-37); Alanine Aminotransfer ALT/SGPT 20 U/L (16-61); Albumin, Serum 3.1 g/dL (3.2-5.0); Alkaline Phosphatase 77 U/L (45-117); Anion Gap 3 (5-15); BUN 11 mg/dL (7-18); BUN/Creat Ratio 9.6 RATIO (10-20); Calcium,Total 8.3 mg/dL (8.5-10.1); Chloride 108 mmol/L (98-107); Creatinine, Serum 1.14 mg/dL (0.70-1.30); EST Glomerular Filtration Rate 77 mL/min (>60); Est Glom Filt Rate - Afr Amer 93 mL/min (>60); Estimated Creatinine Clearance 79.56 ml/min; Globulin 3.5 g/dL (2.2-4.2); Glucose 96 mg/dL (74-106); Protein, Total 6.6 g/dL (6.4-8.2); Sodium Level 138 mmol/L (136-145)
[2023-03-06 07:43] LABS: Absolute Lymphocyte Count 2.33 X10^3/uL (0.83-4.51); Absolute Neutrophil Count 12.7 X10^3/uL (2.0-7.7); Basophil# 0.12 X10^3/uL; Basophil% 0.7 % (0-1); Eosinophils% 2.4 % (0-5); Hematocrit 40.6 % (40-54); Lymphocyte # 2.33 X10^3/ul (0.83-4.51); Lymphocyte % 13.8 % (19-41); Mean Corpuscular Hgb 29.5 pg (27.0-32.0); Mean Corpuscular Volume 92.3 fL (80-94); Monocyte# 1.29 X10^3/uL; Monocyte% 7.6 % (0-10); NRBC Flagged by Analyzer 0 % (0-5); Neutrophil # 12.66 X10^3/uL (2.7-7.7); Neutrophil % 75.1 % (47-70); Platelet Count 376 K/mm3 (150-450); RBC Distribution Width CV 13.1 % (11.6-14.6); RBC Distribution Width SD 44.5 fl (35.1-43.9); White Blood Count 16.9 K/mm3 (4.4-11.0)
[2023-03-06 07:46] LABS: Color, Urine Yellow (Yellow); Glucose, Dipstick Normal (Normal); Ketone-Dipstick Negative (Negative); Leukocyte Esterase-Dipstick Negative /ul (Negative); Nitrite-Dipstick Negative (Negative); Occult Blood-Urine 150 /ul (Negative); Protein-Dipstick Negative (Negative); Specific Gravity, Urine 1.015 (1.002-1.030); Urine Bilirubin Dipstick Negative (Negative); Urine Clarity Clear (Clear); Urine Urobilinogen Normal (Normal)
[2023-03-06 08:08] LABS: Amphetamine Urine VISTA NEGATIVE (<1000 ng/mL); Barbiturate Urine VISTA NEGATIVE (< 200 ng/mL); Benzodiazepine Urine VISTA NEGATIVE (< 200 ng/mL); Cocaine Urine VISTA NEGATIVE (< 300 ng/mL); Ecstacy Urine VISTA NEGATIVE (< 500 ng/mL); Methadone Urine VISTA NEGATIVE (< 300 ng/mL); PCP Urine VISTA NEGATIVE (< 25 ng/mL); THC Urine VISTA POSITIVE (< 50 ng/mL); Vista UDS pH Range 5
[2023-03-06 08:17] LABS: Red Blood Cells-Urine 5-10 SEEN /hpf (0-5); White Blood Cells 0-5 SEEN /hpf (0-5)
[2023-03-06 08:54] LABS: Alcohol, Blood (Medical)-Serum < 3.0 mg/dL
--- NOTE | 2023-03-06 09:47 | ED.RN ---
I CALLED [facility] TO GET AN ASSESSMENT DONE ON THE PATIENT. THEY ARE CALLING ME BACK
--- NOTE | 2023-03-06 13:52 | EKG12_ITS ---
Test Reason : Blood Pressure : / mmHG Vent. Rate : 087 BPM Atrial Rate : 087 BPM P-R Int : 140 ms QRS Dur : 086 ms QT Int : 358 ms P-R-T Axes : 081 081 078 degrees QTc Int : 430 ms Normal sinus rhythm Normal ECG Confirmed by LAW GONZALES, JOSEFA ([id number]), health editor ROSITA SUN ([id number]) on 03/08/2023 12:38:43 PM Referred By: Confirmed By:JOSEFA FOY MD
[2023-03-06] MEDS: LORazepam 1 MG Tablet PO (14:28)
--- NOTE | 2023-03-06 14:59 | ED.RN ---
Report called to [facility]. Awaiting transport
== END 2023-03-06 15:12 ==
PROVIDERS: Emergency Provider Emergency Medicine; PCP Family Medicine; Visit Provider Emergency Medicine
DX: R45.851 Suicidal ideations (principal); Z59.00 Homelessness unspecified; F17.210 Nicotine dependence, cigarettes, uncomplicated; E78.5 Hyperlipidemia, unspecified; F32.A Depression, unspecified; N49.2 Inflammatory disorders of scrotum
CPT/HCPCS: 80053; 80307; 81001; 82077; 85025; 87811; 93005; 99283

== ENCOUNTER 2023-03-15 12:34 | Emergency (ER) | payer MEDICAID, SELFPAY ==
[2023-03-15 12:35] VITALS: BP 151/89; PULSE 134; RESP 16; TEMP 36.6; O2SAT 99; BMI 21.3
--- NOTE | 2023-03-15 12:45 | RAD_ITS ---
STUDY: X-RAY - LEFT ELBOW REASON FOR EXAM: Male, 37 years old. Fall. TECHNIQUE: 3 views of the left elbow. COMPARISON: None. FINDINGS: Normal visualized humerus, radius and ulna. Normal radiocapitellar and ulnotrochlear articulations. The soft tissue structures are unremarkable. There is no demonstrated fracture. RAD/Elbow 2 Views IMPRESSION: Normal x-ray examination of the left elbow. Electronically Signed: Girish Brown MD at 13:12 EDT ,
--- NOTE | 2023-03-15 12:47 | RAD_ITS ---
STUDY: X-RAY - LEFT SHOULDER REASON FOR EXAM: Male, 37 years old. Fall. TECHNIQUE: 2 views of the left shoulder. COMPARISON: None. FINDINGS: Normal glenohumeral articulation. Normal acromioclavicular joint. Normal acromion. Normal humeral head and visualized proximal humerus. The soft tissue structures are unremarkable. There is no demonstrated fracture. Normal visualized pulmonary apex. RAD/Shoulder min 2 Views IMPRESSION: Normal x-ray examination of the left shoulder. Electronically Signed: Girish Brown MD at 13:09 EDT ,
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
[2023-03-15] MEDS: Naproxen 500 MG Tablet PO (15:13)
--- NOTE | 2023-03-15 15:25 | ED.RN ---
pt calling for ride
== END 2023-03-15 15:26 | disposition home or self-care (01) ==
PROVIDERS: Emergency Provider Emergency Medicine; PCP Family Medicine; Visit Provider Emergency Medicine
DX: S40.012A Contusion of left shoulder, initial encounter (principal); S53.402A Unspecified sprain of left elbow, initial encounter; F17.210 Nicotine dependence, cigarettes, uncomplicated; E78.5 Hyperlipidemia, unspecified; Z59.00 Homelessness unspecified; S81.001A Unspecified open wound, right knee, initial encounter; S63.502A Unspecified sprain of left wrist, initial encounter; W01.0XXA Fall on same level from slipping, tripping and stumbling without subsequent striking against object, initial encounter
CPT/HCPCS: 73030; 73070; 73110; 99283

== ENCOUNTER 2023-03-18 12:52 | Emergency (ER) | payer MEDICAID, SELFPAY ==
[2023-03-18 12:53] VITALS: BP 127/82; PULSE 114; RESP 16; TEMP 36.6; O2SAT 98; BMI 22.6
--- NOTE | 2023-03-18 13:52 | CT_ITS ---
STUDY: CT BRAIN WITHOUT CONTRAST REASON FOR EXAM: Male, 37 years old. Dysarthria. Patient is suicidal. RADIATION DOSAGE (If Supplied By Facility): CTDIvol = ( 44.99 ) mGy, DLP = ( 829.85 ) mGycm TECHNIQUE: Transaxial CT imaging of the brain was performed without administration of intravenous contrast material. Individualized dose optimization techniques were used for this CT. COMPARISON: Comparison is made with prior study dated October 09, 2020. FINDINGS: Normal soft tissue structures. Normal calvarium. Normal size ventricles and extra-axial spaces for the patient''s age. Normal white matter tracts of the cerebral hemispheres. Normal basal ganglia and thalami. Normal brainstem. Normal cerebellum. There is no intracranial hemorrhage. There are no findings of an acute ischemic infarction. Normal visualized paranasal sinuses. Nasal septal deviation towards the left side of the midline. CT/Brain/Head without Contrast IMPRESSION: Normal unenhanced CT scan of the brain. Electronically Signed: Benoit Mera MD at 14:47 EDT ,
--- NOTE | 2023-03-18 13:53 | EKG12_ITS ---
Test Reason : Blood Pressure : / mmHG Vent. Rate : 091 BPM Atrial Rate : 091 BPM P-R Int : 134 ms QRS Dur : 084 ms QT Int : 334 ms P-R-T Axes : 072 073 075 degrees QTc Int : 410 ms Normal sinus rhythm Nonspecific T wave abnormality Abnormal ECG Confirmed by LOUIS GONZALES, MATTHEW ([id number]), electronic news gathering editor ROSITA SUN ([id number]) on 03/21/2023 10:51:54 AM Referred By: Confirmed By:ZACKARY MYERS MD
--- NOTE | 2023-03-18 14:20 | RAD_ITS ---
STUDY: X-RAY CHEST REASON FOR EXAM: Male, 37 years old. Stroke TECHNIQUE: Single AP portable view of the chest. COMPARISON: Comparison is made with prior study April 26, 2022. FINDINGS: The lungs are clear and expanded. There is no demonstrated pleural abnormality. Normal size heart. Normal mediastinum and kaylah. Normal visualized pulmonary arteries. Normal visualized aortic arch and descending thoracic aorta. Normal visualized thoracic spine. Normal visualized ribs, clavicles, and shoulders. There is no demonstrated abnormality of the visualized soft tissue structures of the upper abdomen. RAD/Chest 1 View (Portable) IMPRESSION: Normal x-ray examination of the chest. Electronically Signed: Benoit Mera MD at 14:42 EDT ,
[2023-03-18 14:21] LABS: Absolute Lymphocyte Count 2.93 X10^3/uL (0.83-4.51); Absolute Neutrophil Count 11.4 X10^3/uL (2.0-7.7); Basophil# 0.15 X10^3/uL; Basophil% 0.9 % (0-1); Eosinophil# 0.44 X10^3/uL; Eosinophils% 2.7 % (0-5); Hematocrit 39.7 % (40-54); Lymphocyte # 2.93 X10^3/ul (0.83-4.51); Lymphocyte % 18.2 % (19-41); Mean Corp Hgb Conc 32.7 g/dL (32-36); Mean Corpuscular Hgb 29.7 pg (27.0-32.0); Mean Corpuscular Volume 90.8 fL (80-94); Mean Platelet Vol. 9.6 fl (6.2-12.0); Monocyte# 1.07 X10^3/uL; Monocyte% 6.6 % (0-10); NRBC Flagged by Analyzer 0 % (0-5); Neutrophil # 11.39 X10^3/uL (2.7-7.7); Neutrophil % 70.8 % (47-70); Platelet Count 427 K/mm3 (150-450); RBC Distribution Width CV 13.4 % (11.6-14.6); RBC Distribution Width SD 44.8 fl (35.1-43.9); Red Blood Count 4.37 M/mm3 (4.6-6.2); White Blood Count 16.1 K/mm3 (4.4-11.0)
[2023-03-18 14:23] LABS: Alcohol, Blood (Medical)-Serum < 3.0 mg/dL
--- NOTE | 2023-03-18 14:26 | EX.ED.DYSGE1 ---
HPI <Dr. Cliff Hallman DO - Last Filed: 03/22/23 03:03> History of Present Illness Chief Complaint: Mental Health Informant: patient Narrative Narrative: 37-year-old male presenting to the emergency department chief complaint of difficulty speaking. Patient states that a week ago he was discharged from a psychiatric hospital. States that they did not put him on a medication Zincomed he made a follow-up. He has been sleeping at the [facility] [place]. He states that since 15-minute being discharged she has been smoking cannabis. Last use was 1 hour ago. States 3 to 4 days ago he developed difficulty speaking. He states his words appear slurred to him. He notes pain in his left arm and states that 3 days ago he was told here in the emergency department that he had something broken. He states that is not why the fuck I am here. He states he does not wish to talk about it. He denies headache. States he has had difficulty sleeping at night and is very tired and that is why he is falling asleep. PFSH <Dr. Cliff Hallman DO - Last Filed: 03/22/23 03:03> PFSH Medical History Anxiety Cannabis use disorder COVID-19 Depression Hidradenitis suppurativa Hyperlipidemia Methamphetamine abuse Opioid dependence Paronychia Polysubstance abuse Pulmonary emboli Smoker Substance abuse Tobacco use Home Medications gabapentin 300 mg tablet 300 mg PO DAILY 10/08/22 [History Last Taken Unknown] Allergy/AdvReac Type Severity Reaction Status Date / Time quick bunch Allergy Food Verified 03/15/23 12:37 Allergy Family History Mother COPD (chronic obstructive pulmonary disease) CVA (cerebral vascular accident) Heart disease Hypertension Father Alcoholism Surgical History H/O wrist surgery Social History housing: homeless number of children: 3 current occupational status: unemployed Smoking Status: Current every day smoker tobacco type: cigarettes how long ago did patient quit smokin ppd since 19 years old. alcohol intake: former year quit: 2020 details: Reports sober since 03/2021, has had ~4 small relapses. substance use type: marijuana, amphetamines and other details: Currently using methadone. ROS <Dr. Cliff Hallman DO - Last Filed: 03/22/23 03:03> ROS ED Constitutional Constitutional ED: Denies chills, fever(s) or weight loss Eyes Eyes: Denies change in vision or diplopia ENT ENT ED: Denies ear pain, rhinorrhea or sore throat Cardiovascular Cardiovascular: Denies chest pain, orthopnea, palpitations or racing heartbeat Respiratory/Chest Respiratory/Chest: Denies cough, dyspnea or orthopnea Gastrointestinal Gastrointestinal: Denies abdominal pain, diarrhea, nausea or vomiting Genitourinary Genitourinary ED: Denies dysuria, hematuria or urinary frequency Musculoskeletal Musculoskeletal: Reports other Details: Left arm pain ; Denies arthralgias, back pain, myalgias or neck pain Integumentary Denies abscess or rash Neurologic Neurologic: Reports other Details: Self-reported dysarthria ; Denies headache(s), paresthesias or weakness Psychiatric Psychiatric: Denies anxiety, depression, suicidal ideation or suicidal thoughts Endocrine Endocrinology: Denies polydipsia, polyphagia or polyuria Allergic/Immunologic Allergic/Immunologic ED: Denies mouth swelling, tongue swelling or urticaria EXAM <Dr. Cliff Hallman, DO - Last Filed: 03/22/23 03:03> Physical Exam Narrative Exam Narrative: Patient is sleeping on examination. Easily awoken. Const Vital Signs: 03/18/23 12:53 03/18/23 15:30 03/18/23 17:00 Temperature 97.9 F Temperature Source Temporal Pulse Rate 114 H 76 62 Respiratory Rate 16 15 15 Blood Pressure 127/82 H 127/69 H 128/79 H Blood Pressure Mean 97 88 95 Pulse Ox 98 98 97 Oxygen Delivery Method Room Air Room Air 03/18/23 20:00 03/18/23 22:00 Temperature Temperature Source Pulse Rate Respiratory Rate 16 16 Blood Pressure Blood Pressure Mean Pulse Ox Oxygen Delivery Method Positive well nourished and well developed General Appearance ED: well developed HEENT Reports normocephalic, head/scalp atraumatic and moist mucous membranes Eyes PERRL and EOMs intact bilaterally Neck no lymphadenopathy, supple and no JVD Resp normal respiratory effort and clear to auscultation bilaterally Cardio regular rate, regular rhythm and no murmurs GI normal to inspection, nondistended, normoactive bowel sounds and non-tender Palpation: soft Back/Spine no CVA tenderness and normal ROM Extremity normal to inspection General Extremety ED: Negative for edema General Extremity: Negative for edema Neuro oriented x3, CN's II-XII intact bilaterally and no sensory deficits noted Neuro Narrative: NIH 0 Sensorium / Orientation: alert; Negative for orientation impaired Sensory Exam: No sensory level loss detected Motor Exam: strength 5/5 throughout; Negative for general weakness Psych Psych Narrative: Patient states that he wants to kill himself at the end of the interview but states he is not depressed. Attitude: agitated Skin no rashes or lesions noted and no wounds <Dr. Tres Mojica MD - Last Filed: 03/19/23 00:18> Physical Exam Const Vital Signs: 03/18/23 12:53 03/18/23 15:30 03/18/23 17:00 Temperature 97.9 F Temperature Source Temporal Pulse Rate 114 H 76 62 Respiratory Rate 16 15 15 Blood Pressure 127/82 H 127/69 H 128/79 H Blood Pressure Mean 97 88 95 Pulse Ox 98 98 97 Oxygen Delivery Method Room Air Room Air 03/18/23 20:00 03/18/23 22:00 Temperature Temperature Source Pulse Rate Respiratory Rate 16 16 Blood Pressure Blood Pressure Mean Pulse Ox Oxygen Delivery Method MDM <Dr. Cliff Hallman DO - Last Filed: 03/22/23 03:03> [facility] Narrative Medical decision making narrative: Basic blood work showed a leukocytosis of 16.1. This is been a consistent theme for the past year and is nonspecifically elevated. He has no fever. No obvious source of infection. CMP showed a glucose of 124. CT of the brain demonstrated no subacute stroke or acute stroke. No hemorrhage. EKG is a normal sinus rhythm. My independent interpretation of the chest x-ray is no acute process. Urinalysis demonstrates no overt infection and urine drug screen is positive for cannabinoids I was reviewing the patient's blood work and he states what about me being suicidal. I informed him that no point did he tell me that he was suicidal but that he had been recently hospitalized for feeling suicidal. He states that I told other people. So sorry that I was sleeping while you are talking to me. He proceeds to tell me how rude and how much of an asshole I am. He then tells me that if he is discharged she will go home and harm himself. He states that he wants to kill himself because he has nothing and nowhere to go. As he speaks he then tells me that after he left the psychiatric facility where he was at for 7 days that they took him to a drug rehab center in [place]. He states that it was not what he was expecting in terms of the length of treatment and so he left. Earlier he states that they discharged him with no place to go no medications and no follow-up. Patient becomes quite argumentative. He states that also he needs is a 3-day hold and he will be fine. I informed him the 3-day hold will not fix that he has no place to go and that he seems to be gaining the system. I informed him I could have social work speak with him he says that will be fine but then I tell him that he may not be transferred anywhere and he states that he is fine with that. I pointed out in the dichotomy that he is fine with that but just a minute ago he would go home and harm himself if he was discharged. At this point I think that the patient is seeking secondary gain but I will have social work visit with him. Lab Data Attestation: I reviewed the patient's lab results. Labs: Laboratory Results - last 24 hr 03/18/23 03/18/23 13:10 15:23 WBC 16.1 H RBC 4.37 L Hgb 13.0 Hct 39.7 L MCV 90.8 MCH 29.7 MCHC 32.7 RDW Std Deviation 44.8 H RDW Coeff of Christie 13.4 Plt Count 427 MPV 9.6 Immature Gran % (Auto) 0.800 Neut % (Auto) 70.8 H Lymph % (Auto) 18.2 L Whitley % (Auto) 6.6 Eos % (Auto) 2.7 Baso % (Auto) 0.9 Absolute Neuts (auto) 11.4 H Absolute Lymphs (auto) 2.93 Nucleated RBC % 0 Sodium 141 Potassium 4.0 Chloride 107 Carbon Dioxide 31.0 Anion Gap 3 L BUN 19 H Creatinine 1.18 Estim Creat Clear Calc 81.95 Est GFR (MDRD) Af Amer 89 Est GFR (MDRD) Non-Af 74 BUN/Creatinine Ratio 16.1 Glucose 124 H Calcium 8.7 Total Bilirubin 0.20 AST 18 ALT 26 Alkaline Phosphatase 85 Total Protein 6.8 Albumin 3.1 L Globulin 3.7 Albumin/Globulin Ratio 0.8 L Urine Color Yellow Urine Clarity Clear Urine pH 7.0 Ur Specific [place] 1.015 Urine Protein 15 H Urine Glucose (UA) Normal Urine Ketones 5 H Urine Occult Blood 10 H Urine Nitrite Negative Urine Bilirubin Negative Urine Urobilinogen Normal Ur Leukocyte Esterase 25 H Urine RBC 0 SEEN Urine WBC 5-10 SEEN Ur Squamous Epith Cells 0-5 SEEN Calcium Oxalate Crystal 1+ Urine Bacteria 0 SEEN Urine Mucus 0 SEEN Urine Opiates Screen NEGATIVE Urine Methadone Screen NEGATIVE Ur Barbiturates Screen NEGATIVE Ur Phencyclidine Scrn NEGATIVE Ur Amphetamines Screen NEGATIVE MDMA (Ecstasy) Screen NEGATIVE U Benzodiazepines Scrn NEGATIVE Urine Cocaine Screen NEGATIVE U Cannabinoids Screen POSITIVE H Ur Drug Screen Comment Ethyl Alcohol < 3.0 Radiography Diagnostic Testing: Clinical Impression(s) from Imaging Studies Brain CT 03/18/23 13:52 IMPRESSION: Normal unenhanced CT scan of the brain. Electronically Signed: Benoit Mera MD at 14:47 EDT , Chest X-Ray 03/18/23 14:20 IMPRESSION: Normal x-ray examination of the chest. Electronically Signed: Benoit Mera MD at 14:42 EDT , EKG Initial EKG: Attestation: I personally reviewed and interpreted this EKG as follows: Comments: Normal sinus rhythm with ventricular rate of 91 bpm <Dr. Tres Mojica MD - Last Filed: 03/19/23 00:18> [facility] MDM Narrative Medical decision making narrative: Basic blood work showed a leukocytosis of 16.1. This is been a consistent theme for the past year and is nonspecifically elevated. He has no fever. No obvious source of infection. CMP showed a glucose of 124. CT of the brain demonstrated no subacute stroke or acute stroke. No hemorrhage. EKG is a normal sinus rhythm. My independent interpretation of the chest x-ray is no acute process. Urinalysis demonstrates no overt infection and urine drug screen is positive for cannabinoids I was reviewing the patient's blood work and he states what about me being suicidal. I informed him that no point did he tell me that he was suicidal but that he had been recently hospitalized for feeling suicidal. He states that I told other people. So sorry that I was sleeping while you are talking to me. He proceeds to tell me how rude and how much of an asshole I am. He then tells me that if he is discharged she will go home and harm himself. He states that he wants to kill himself because he has nothing and nowhere to go. As he speaks he then tells me that after he left the psychiatric facility where he was at for 7 days that they took him to a drug rehab center in [place]. He states that it was not what he was expecting in terms of the length of treatment and so he left. Earlier he states that they discharged him with no place to go no medications and no follow-up. Patient becomes quite argumentative. He states that also he needs is a 3-day hold and he will be fine. I informed him the 3-day hold will not fix that he has no place to go and that he seems to be gaining the system. I informed him I could have social work speak with him he says that will be fine but then I tell him that he may not be transferred anywhere and he states that he is fine with that. I pointed out in the dichotomy that he is fine with that but just a minute ago he would go home and harm himself if he was discharged. At this point I think that the patient is seeking secondary gain but I will have social work visit with him. Yunior: Patient was adamant that he was going to try to kill himself if he left. He was evaluated by social work. He has been accepted in transfer and is waiting for ride. There have been no issues while I have been here. Lab Data Labs: Laboratory Results - last 24 hr 03/18/23 03/18/23 13:10 15:23 WBC 16.1 H RBC 4.37 L Hgb 13.0 Hct 39.7 L MCV 90.8 MCH 29.7 MCHC 32.7 RDW Std Deviation 44.8 H RDW Coeff of Christie 13.4 Plt Count 427 MPV 9.6 Immature Gran % (Auto) 0.800 Neut % (Auto) 70.8 H Lymph % (Auto) 18.2 L Whitley % (Auto) 6.6 Eos % (Auto) 2.7 Baso % (Auto) 0.9 Absolute Neuts (auto) 11.4 H Absolute Lymphs (auto) 2.93 Nucleated RBC % 0 Sodium 141 Potassium 4.0 Chloride 107 Carbon Dioxide 31.0 Anion Gap 3 L BUN 19 H Creatinine 1.18 Estim Creat Clear Calc 81.95 Est GFR (MDRD) Af Amer 89 Est GFR (MDRD) Non-Af 74 BUN/Creatinine Ratio 16.1 Glucose 124 H Calcium 8.7 Total Bilirubin 0.20 AST 18 ALT 26 Alkaline Phosphatase 85 Total Protein 6.8 Albumin 3.1 L Globulin 3.7 Albumin/Globulin Ratio 0.8 L Urine Color Yellow Urine Clarity Clear Urine pH 7.0 Ur Specific [place] 1.015 Urine Protein 15 H Urine Glucose (UA) Normal Urine Ketones 5 H Urine Occult Blood 10 H Urine Nitrite Negative Urine Bilirubin Negative Urine Urobilinogen Normal Ur Leukocyte Esterase 25 H Urine RBC 0 SEEN Urine WBC 5-10 SEEN Ur Squamous Epith Cells 0-5 SEEN Calcium Oxalate Crystal 1+ Urine Bacteria 0 SEEN Urine Mucus 0 SEEN Urine Opiates Screen NEGATIVE Urine Methadone Screen NEGATIVE Ur Barbiturates Screen NEGATIVE Ur Phencyclidine Scrn NEGATIVE Ur Amphetamines Screen NEGATIVE MDMA (Ecstasy) Screen NEGATIVE U Benzodiazepines Scrn NEGATIVE Urine Cocaine Screen NEGATIVE U Cannabinoids Screen POSITIVE H Ur Drug Screen Comment Ethyl Alcohol < 3.0 Radiography Diagnostic Testing: Clinical Impression(s) from Imaging Studies Brain CT 03/18/23 13:52 IMPRESSION: Normal unenhanced CT scan of the brain. Electronically Signed: Benoit Mera MD at 14:47 EDT , Chest X-Ray 03/18/23 14:20 IMPRESSION: Normal x-ray examination of the chest. Electronically Signed: Benoit Mera MD at 14:42 EDT , Discharge Plan Triage Chief Complaint: Mental Health ED Provider: Cliff Hallman Dx/Rx/DC Orders Clinical Impression: Fatigue, Dysarthria Prescriptions: No Action gabapentin 300 mg Tablet 300 mg PO DAILY Primary Care Provider: Saleem Isaacs Referrals: [facility]ing[facility] [Group of Physicians] - As soon as possible Ayleen Jackson MD [Med Staff - Director Of Public Health] - As soon as possible Saleem Isaacs MD [Primary Care Provider] - Disposition Disposition: Home, Self Care Discharge Date/Time: 03/19/23 08:42
[2023-03-18 14:29] LABS: ALB/GLOB Ratio 0.8 RATIO (0.9-2.4); AST(SGOT) 18 U/L (15-37); Alanine Aminotransfer ALT/SGPT 26 U/L (16-61); Albumin, Serum 3.1 g/dL (3.2-5.0); Alkaline Phosphatase 85 U/L (45-117); Anion Gap 3 (5-15); BUN 19 mg/dL (7-18); BUN/Creat Ratio 16.1 RATIO (10-20); Calcium,Total 8.7 mg/dL (8.5-10.1); Chloride 107 mmol/L (98-107); Creatinine, Serum 1.18 mg/dL (0.70-1.30); EST Glomerular Filtration Rate 74 mL/min (>60); Est Glom Filt Rate - Afr Amer 89 mL/min (>60); Estimated Creatinine Clearance 81.95 ml/min; Globulin 3.7 g/dL (2.2-4.2); Glucose 124 mg/dL (74-106); Protein, Total 6.8 g/dL (6.4-8.2); Sodium Level 141 mmol/L (136-145)
[2023-03-18 15:30] VITALS: BP 127/69; PULSE 76; RESP 15; O2SAT 98
[2023-03-18 15:36] LABS: Bacteria 0 SEEN /hpf (None Seen); Mucous, Urine 0 SEEN /hpf (<or=2+); Red Blood Cells-Urine 0 SEEN /hpf (0-5)
[2023-03-18 16:20] LABS: Amphetamine Urine VISTA NEGATIVE (<1000 ng/mL); Barbiturate Urine VISTA NEGATIVE (< 200 ng/mL); Benzodiazepine Urine VISTA NEGATIVE (< 200 ng/mL); Cocaine Urine VISTA NEGATIVE (< 300 ng/mL); Ecstacy Urine VISTA NEGATIVE (< 500 ng/mL); Methadone Urine VISTA NEGATIVE (< 300 ng/mL); PCP Urine VISTA NEGATIVE (< 25 ng/mL); THC Urine VISTA POSITIVE (< 50 ng/mL); Vista UDS pH Range 6
[2023-03-18 16:32] LABS: Color, Urine Yellow (Yellow); Glucose, Dipstick Normal (Normal); Ketone-Dipstick 5 mg/dl (Negative); Leukocyte Esterase-Dipstick 25 /ul (Negative); Nitrite-Dipstick Negative (Negative); Occult Blood-Urine 10 /ul (Negative); Protein-Dipstick 15 mg/dl (Negative); Specific Gravity, Urine 1.015 (1.002-1.030); Urine Bilirubin Dipstick Negative (Negative); Urine Clarity Clear (Clear); Urine Urobilinogen Normal (Normal)
[2023-03-18 16:35] LABS: White Blood Cells 5-10 SEEN /hpf (0-5)
[2023-03-18 16:36] LABS: Calcium Oxalate Crystals Ur 1+ /hpf (<or=2+); Squamous Epithelial Cells - UA 0-5 SEEN /hpf (0-5)
--- NOTE | 2023-03-18 16:56 | ED.RN ---
went in to dc the pt and he was cussing at the dr and calling names, pt explained the last facility took him to a rehab facility which he requested but it isn't a program that he wanted so he left. pt is under the impression that he needs another 72 hr hold so he can go back to another rehab. explained to pt he cn f/u with crisis and/or 180 and they can assist. explained that pt didn't need a 72 hr hold. pt then started making statements that he was going to hurt himself if we discharge him.
[2023-03-18 17:00] VITALS: BP 128/79; PULSE 62; RESP 15; O2SAT 97
--- NOTE | 2023-03-18 19:27 | CM.ED ---
Social Work Psychiatric Assessment Reason for consult: Suicidal Informant(s): Patient, medical record Chief Complaint: Pt reports SI and substance abuse history Marital/Social History/Living Situation: Patient is a 37-year-old male that reports staying ?wherever I can.? Pt reports he has friends that will allow him to stay with them. Pt reports he does stay with his fianc? sometimes as well. History: None Education and Employment History: 10th grade, last grade completed, unemployed Mental Health Treatment/History: SW asked patient about any diagnosed mental health conditions and he reports, ?I don?t know. They never tell me anything.? Medical record reports depression, anxiety and polysubstance abuse. Pt had psychiatric placement on 03/06/2023 and reports he was there for a week then sent to a substance abuse treatment program. Pt reports he was discharged without meds but was given an injection. It is unclear what medications patient has taken in the past or what injection he was given. Pt cannot provide the names of any medications. Substance Abuse Hx: Pt has history of polysubstance abuse. Pt is positive for marijuana and reports methamphetamine use 3-4 days ago. Abuse Issues/Trauma HX: Pt reports losing custody of his three kids as traumatic. Risk to Self/Others: Pt reports SI. Pt reports holding a loaded gun to his head 2 months ago but that it did not go off. Pt reports several previous suicide attempts. Pt reports if he is discharged he is going to attempt suicide by coper hand since his other attempts have not worked. Pt reports, ?I?ll put my hand in my waist band like I am getting a gun and have them blow me away.? Pt denies HI. Triggers/Stressors/Risk factors: Pt reports relationship issues with his fianc?, housing issues, pending court cases, and custody issues. Coping Skills: Denies Support/Resources: Denies Mental Status Exam: ?Pt is oriented x4 with poor memory. It is unclear with patient is unable to recall details or purposely holding back information. Appearance/General Behavior/Mood/Affect: Pt presents with low mood and is tearful. Pt is intermittently agitated but not aggressive. Pt presents as unkempt with poor hygiene. Communication Pattern/Thought process: Pt communicates effectively but does not provide many details when asked. Pt reports being paranoid and feeling like he can hear people whispering about him. General Intellectual Functioning:?? Average to below average Judgment/Insight: Pt presents with poor judgment and insight Assessment: Patient presents at ED with multiple complaints. Pt initially complaining of slurred speech, suicidal thoughts, and pain in arm. Pt did not report SI to physician initially but did so when being discharged. Pt reports feeling like the doctor treated him poorly. Pt is easily agitated and reluctant to answer questions appropriately and provides information not necessarily related to questions asked. Pt is not physically aggressive or combative. Pt was to be discharged and threatened suicide at that time. Pt presents tearful and reports he has been ?stereotyped? by the doctor and no one wants to help. Pt has presented with many different complaints to different workers and now reports needing mental health admission and substance use treatment. Patient was medically cleared by physician. Pt is now adamant that he is suicidal and knows he will harm himself if he is discharged. Pt reports multiple past suicide attempts and psych placements. Pt reports placement history of [facility], [facility] and [facility]. Pt has legal history and reports he is on probation for banuelos theft at this time. Pt placed at [facility] 03/06 and then reports discharge to substance use program but that the program was longer than he was told. Pt reports he could not stay that long and they lied, so he left treatment program. Pt reports he has court he needs to attend and could not stay there. Pt reports he used meth at time of [facility] discharge. Pt reports he has no mental health medications and was not discharged with any follow-up or medications. Pt presents as lacking accountability and compromised thinking processes. Pt names numerous agencies, providers, and facilities that have failed to give him the help he needs. Pt reports not sleeping for many days. Pt reports he has tried to kill himself every other way and that if he is released he plans to do suicide by coper hand. Pt reports, ?I will put my hand in my waist band like I am getting a gun and have them blow me away.? 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 Pt is tearful and begging for mental health and substance use treatment. Due to patient being a danger to self with plan and intent to harm self, patient would benefit from inpatient psychiatric care for stabilization Plan:. Pt to be referred for inpatient psychiatric treatment. ?? Liliya Holguin CASTING FINISHER, FLOOR TRADER
[2023-03-18 20:00] VITALS: RESP 16
--- NOTE | 2023-03-18 20:26 | CM.ED ---
Social Work Pt referred and [facility]. [facility] accepting to [facility] unit by Dr. Snyder. Requesting updated pink slip faxed and nurse to nurse with ETA, . [facility] called after acceptance reporting 10am arrival due to bed availability. Liliya Holguin MANPOWER DEVELOPMENT MANAGER, CATTLE SPRAYER
[2023-03-18 22:00] VITALS: RESP 16
[2023-03-18 23:00] VITALS: RESP 16
[2023-03-19] VITALS (8 sets, daily range): BP systolic 121–126; BP diastolic 74–78; PULSE 64–69; RESP 14–16; TEMP 37; O2SAT 99
--- NOTE | 2023-03-19 08:36 | ED.RN ---
x1 attmpt tried to call to [facility].
== END 2023-03-19 08:42 | disposition home or self-care (01) ==
PROVIDERS: Emergency Provider Emergency Medicine; PCP Family Medicine; Visit Provider Emergency Medicine
DX: R47.1 Dysarthria and anarthria (principal); R53.83 Other fatigue; E78.5 Hyperlipidemia, unspecified; Z59.00 Homelessness unspecified; F17.210 Nicotine dependence, cigarettes, uncomplicated
CPT/HCPCS: 70450; 71045; 80053; 80307; 81001; 82077; 85025; 93005; 99285

== ENCOUNTER 2023-05-06 13:50 | Emergency (ER) | payer MEDICAID, SELFPAY ==
[2023-05-06 13:51] VITALS: BP 109/81; PULSE 105; RESP 16; TEMP 36.5; O2SAT 98; BMI 22.0
--- NOTE | 2023-05-06 14:29 | US_ITS ---
INDICATION: rule out scrotal abscess EXAMINATION: Ultrasound US Scrotum (Contents) TECHNIQUE: Realtime ultrasound of the testicles was performed with grayscale, Color Doppler and spectral Doppler analysis. COMPARISON: FINDINGS: RIGHT: TESTIS: 4.2 x 2.2 x 2.2 cm. Normal in size and echotexture, without focal lesion. COLOR DOPPLER: Normal arterial flow present in the testicle with monophasic waveforms. EPIDIDYMIS: Normal in size and echotexture, without focal lesion. [Normal color Doppler flow pattern in the epididymis. HYDROCELE: None. VARICOCELE: None. LEFT: TESTIS: 4.2 x 2.4 x 2.2 cm. Normal in size and echotexture, without focal lesion. COLOR DOPPLER: Normal arterial flow present in the testicle with monophasic waveforms. EPIDIDYMIS: Normal in size and echotexture, without focal lesion. [Normal color Doppler flow pattern in the epididymis. HYDROCELE: None. VARICOCELE: None. Lateral to the left testicle, there is a hypoechoic area measuring 2.0 x 1.1 x 0.5 cm with surrounding hypervascularity. This may be related to a complex collection. US/Testicular with Arterial Flow IMPRESSION: Unremarkable bilateral testicular ultrasound. Possible complex collection lateral to the left testicle. Electronically Signed: Sylvester Nunn DO at 16:52 EST Reading Location ID and State: [facility] / [place] Tel [phone], Service support ,
--- NOTE | 2023-05-06 14:31 | EX.ED.GUMALE ---
HPI History of Present Illness Chief Complaint: Male Pain/Injury Detail of Chief Complaint: Left scrotum pain Informant: patient Narrative Narrative: Patient presents the emergency department discomfort to the left scrotum. Patient states that he has had cysts on the scrotum and infection for over a year. Chronically is painful. Patient states it bleeds at times and he has noticed a foul odor from it and has been worse over the last week. Patient has been on multiple rounds of antibiotics including Bactrim. Patient states that 1 time he got better was when he was admitted for IV antibiotics. Denies fevers or chills or sweats. PFSH PFSH Medical History Anxiety Cannabis use disorder COVID-19 Depression Hidradenitis suppurativa Hyperlipidemia Methamphetamine abuse Opioid dependence Paronychia Polysubstance abuse Pulmonary emboli Smoker Substance abuse Tobacco use Home Medications gabapentin 300 mg tablet 300 mg PO DAILY 10/08/22 [History Last Taken Unknown] clindamycin HCl 300 mg capsule (Cleocin HCl) 300 mg PO Q6H #40 CAPSULES 05/06/23 [Rx Last Taken Unknown] hydrocodone-acetaminophen 5-325mg 5mg-325mg 1 tab PO Q4H PRN PRN Pain 2 days #10 TABLETS 05/06/23 [Rx Last Taken Unknown] Allergy/AdvReac Type Severity Reaction Status Date / Time quick bunch Allergy Food Verified 05/06/23 14:09 Allergy Family History Mother COPD (chronic obstructive pulmonary disease) CVA (cerebral vascular accident) Heart disease Hypertension Father Alcoholism Surgical History H/O wrist surgery Social History housing: homeless number of children: 3 current occupational status: unemployed Smoking Status: Current every day smoker tobacco type: cigarettes how long ago did patient quit smokin ppd since 19 years old. alcohol intake: former year quit: 2020 details: Reports sober since 03/2021, has had ~4 small relapses. substance use type: marijuana, amphetamines and other details: Currently using methadone. ROS ROS ED Review of Systems ROS Unobtainable: other Constitutional Constitutional ED: Reports lethargy; Denies chills, fever(s), sweats or weight loss Eyes Eyes: Denies blurry vision, change in vision or diplopia ENT ENT ED: Denies rhinorrhea or sore throat Cardiovascular Cardiovascular: Denies chest pain, orthopnea or racing heartbeat Respiratory/Chest Respiratory/Chest: Denies cough, dyspnea, dyspnea on exertion, orthopnea or sputum Gastrointestinal Gastrointestinal: Denies abdominal pain, diarrhea, nausea or vomiting Genitourinary Genitourinary ED: Reports other Details: And swelling to left scrotum ; Denies dysuria, hematuria or urinary frequency Musculoskeletal Musculoskeletal: Denies arthralgias, back pain, myalgias or neck pain Integumentary Denies abscess, Abrasions or rash Neurologic Neurologic: Denies headache(s) or weakness Psychiatric Psychiatric: Denies anxiety, depression or suicidal thoughts Endocrine Endocrinology: Denies polydipsia, polyphagia or polyuria Hematologic/Lymphatic Hematologic/Lymphatic: Denies easy bleeding, easy bruising or lymphadenopathy Allergic/Immunologic Allergic/Immunologic ED: Denies mouth swelling, tongue swelling or urticaria EXAM Physical Exam Const Vital Signs: 05/06/23 13:51 Temperature 97.7 F L Temperature Source Temporal Pulse Rate 105 H Respiratory Rate 16 Blood Pressure 109/81 H Blood Pressure Mean 90 Pulse Ox 98 Oxygen Delivery Method Room Air Positive well nourished and well developed General Appearance ED: well developed and NAD HEENT Reports TM's clear and moist mucous membranes normocephalic and atraumatic; Negative for trauma or tenderness Tympanic Membrane ED: Yes TM's clear Eyes PERRL and EOMs intact bilaterally General Eye ED: Negative for pale conjunctiva or scleral icterus Neck no lymphadenopathy, supple and no JVD General: Negative for tenderness Chest Wall inspection of chest normal and palpation of chest normal Chest: Negative for tenderness Resp normal respiratory effort and clear to auscultation bilaterally Effort and Inspection: Negative for respiratory distress or pain with movement Auscultation: Negative for rhonchi, wheezes or diminished lung sounds Cardio regular rate, regular rhythm, S1 normal heart sound, S2 normal heart sound and no murmurs Peripheral Pulses: pulses 2+ throughout GI normal to inspection, nondistended, normoactive bowel sounds, soft to palpation, non-tender, non-distended and no masses Narrative: Circumcised male. Evaluation of the scrotum reveals an indurated area to the left side of the scrotum that is tender to palpation. Some erythema and excoriation of the skin onto the left medial thigh thigh and groin. No fluctuance or discrete abscess noted. Back/Spine no CVA tenderness and no thoracic nor lumbar tenderness Extremity normal to inspection General Extremety ED: Negative for edema General Extremity: Negative for edema Neuro oriented x3, CN's II-XII intact bilaterally, no sensory deficits noted and gait normal Sensorium / Orientation: awake, alert, oriented to person, oriented to place and oriented to time Motor Exam: strength 5/5 throughout and strength abnormal Psych mental status grossly normal Skin no rashes or lesions noted and no wounds MDM MDM MDM Narrative Medical decision making narrative: Patient presents with pain and swelling to the left scrotum that is acute on chronic worse over the last week. Patient had this area drained at least 2 other times in the past. There is no fluctuance currently but there is some induration. Will obtain an ultrasound to rule out abscess. Will obtain some basic labs and will start on Zosyn IV. Clinically patient looks well. Patient I suspect likely has hidradenitis suppurativa CBC with patient with an elevated white count of 16.2 which is chronically elevated in the same range from prior visits noted. Patient had a ultrasound of the testicles that showed an area of induration and may be complex collection left scrotum measuring 2 x 1 cm. No other significant abnormalities noted. Chemistries obtained were unremarkable. This point I had a long discussion with the patient. Clinically I do not see an abscess or anything that would require incision and drainage. Patient states that he has had attempted I&D's but they always recur. I will start patient on clindamycin. Will refer to Dr. Hilliard regarding his hidradenitis suppurativa and also refer to urology for follow-up. Patient advised to return if fever, chills, sweats, or increased pain or swelling. Lab Data Attestation: I reviewed the patient's lab results. Labs: Laboratory Results - last 24 hr 05/06/23 14:40 WBC 16.2 H RBC 4.38 L Hgb 13.0 Hct 38.6 L MCV 88.1 MCH 29.7 MCHC 33.7 RDW Std Deviation 42.5 RDW Coeff of Christie 13.0 Plt Count 456 H MPV 9.0 Immature Gran % (Auto) 0.400 Neut % (Auto) 70.7 H Lymph % (Auto) 19.7 Burt % (Auto) 5.9 Eos % (Auto) 2.4 Baso % (Auto) 0.9 Absolute Neuts (auto) 11.5 H Absolute Lymphs (auto) 3.19 Nucleated RBC % 0 Sodium 141 Potassium 4.2 Chloride 107 Carbon Dioxide 34.0 H Anion Gap 0 L BUN 17 Creatinine 1.14 Estim Creat Clear Calc 82.53 Est GFR (MDRD) Af Amer 93 Est GFR (MDRD) Non-Af 77 BUN/Creatinine Ratio 14.9 Glucose 91 Calcium 9.0 Radiography Diagnostic Testing: Clinical Impression(s) from Imaging Studies Testicular Ultrasound 05/06/23 14:29 IMPRESSION: Unremarkable bilateral testicular ultrasound. Possible complex collection lateral to the left testicle. Electronically Signed: Sylvester Nunn DO at 16:52 EST Reading Location ID and State: [address] [place] [address] Tel [phone], Service support , Discharge Plan Triage Chief Complaint: Male Pain/Injury ED Provider: Kelly Xavier Dx/Rx/DC Orders Clinical Impression: Hidradenitis suppurativa Instructions: Hidradenitis Suppurativa Prescriptions: New clindamycin HCl [Cleocin HCl] 300 mg capsule 300 mg PO Q6H Qty: 40 0RF hydrocodone-acetaminophen [hydrocodone-acetaminophen] 5-325 mg tablet 1 tab PO Q4H PRN PRN (Reason: Pain) 2 Days Qty: 10 0RF No Action gabapentin 300 mg Tablet 300 mg PO DAILY Primary Care Provider: Saleem Isaacs Referrals: Marino Doe MD [Med Staff - Active Staff] - 3-5 Days Morgan Hilliard MD [Med Staff - Active Staff] - 3-5 Days Saleem Isaacs MD [Primary Care Provider] - Disposition Disposition: Home, Self Care
[2023-05-06 14:47] LABS: Absolute Lymphocyte Count 3.19 X10^3/uL (0.83-4.51); Absolute Neutrophil Count 11.5 X10^3/uL (2.0-7.7); Basophil# 0.15 X10^3/uL; Basophil% 0.9 % (0-1); Eosinophil# 0.39 X10^3/uL; Eosinophils% 2.4 % (0-5); Hematocrit 38.6 % (40-54); Lymphocyte # 3.19 X10^3/ul (0.83-4.51); Lymphocyte % 19.7 % (19-41); Mean Corp Hgb Conc 33.7 g/dL (32-36); Mean Corpuscular Hgb 29.7 pg (27.0-32.0); Mean Corpuscular Volume 88.1 fL (80-94); Monocyte# 0.95 X10^3/uL; Monocyte% 5.9 % (0-10); NRBC Flagged by Analyzer 0 % (0-5); Neutrophil # 11.47 X10^3/uL (2.7-7.7); Neutrophil % 70.7 % (47-70); Platelet Count 456 K/mm3 (150-450); RBC Distribution Width SD 42.5 fl (35.1-43.9); Red Blood Count 4.38 M/mm3 (4.6-6.2); White Blood Count 16.2 K/mm3 (4.4-11.0)
[2023-05-06] MEDS: Piperacil/Tazobactam 4.5 GM in 0.9% Normal Saline (100mL MB+) 100 ML IV (15:00)
[2023-05-06 15:01] LABS: Anion Gap 0 (5-15); BUN 17 mg/dL (7-18); BUN/Creat Ratio 14.9 RATIO (10-20); Chloride 107 mmol/L (98-107); Creatinine, Serum 1.14 mg/dL (0.70-1.30); EST Glomerular Filtration Rate 77 mL/min (>60); Est Glom Filt Rate - Afr Amer 93 mL/min (>60); Estimated Creatinine Clearance 82.53 ml/min; Glucose 91 mg/dL (74-106); Potassium 4.2 mmol/L (3.5-5.1); Sodium Level 141 mmol/L (136-145)
[2023-05-06] MEDS: HYDROcodone Bitartrate/Apap 5/325 Tablet PO (18:07)
[2023-05-06] MEDS: Clindamycin HCl 150 MG Capsule 300 MG PO (18:07)
[2023-05-06 18:11] VITALS: BP 146/77; PULSE 87; RESP 16; O2SAT 98
== END 2023-05-06 18:12 | disposition home or self-care (01) ==
PROVIDERS: Emergency Provider Emergency Medicine; PCP Family Medicine; Visit Provider Emergency Medicine
DX: L73.2 Hidradenitis suppurativa (principal); F11.99 Opioid use, unspecified with unspecified opioid-induced disorder; F15.99 Other stimulant use, unspecified with unspecified stimulant-induced disorder; Z59.00 Homelessness unspecified; F17.210 Nicotine dependence, cigarettes, uncomplicated; E78.5 Hyperlipidemia, unspecified
CPT/HCPCS: 76870; 80048; 85025; 93976; 96365; 96366; 99284; A4216

== ENCOUNTER 2023-07-19 11:14 | Emergency (ER) | payer MEDICAID, SELFPAY ==
[2023-07-19 11:15] VITALS: BP 123/74; PULSE 84; RESP 14; TEMP 36.8; O2SAT 98; BMI 22.6
--- NOTE | 2023-07-19 12:24 | EX.ED.DYSGE1 ---
HPI History of Present Illness Chief Complaint: Abscess Informant: patient Narrative Narrative: Patient presents with multiple abscesses. Patient states that he has been having abscesses in the same areas for over 2 years. He has had them drained multiple times and been on antibiotics. He has tried to follow-up but has not been able to. He was referred to a plastic surgeon who is not currently practicing. He states he has called multiple names in the phone book and cannot get in. They told him he needs to be seen in the ED again and have a referral to them. He is not having fevers or chills. He states the area where he has the abscesses now have all been drained before and they are all really chronic. He states the only time they calm down is when he was once admitted to the hospital. He was on IV antibiotics for 3 days. But he states once he left the hospital within another 2 or 3 days they were all back again. He just wants to get a referral to somebody who can maybe treat these long-term. PFSH PFSH Medical History Anxiety Cannabis use disorder COVID-19 Depression Hidradenitis suppurativa Hyperlipidemia Methamphetamine abuse Opioid dependence Paronychia Polysubstance abuse Pulmonary emboli Smoker Substance abuse Tobacco use Home Medications gabapentin 300 mg tablet 300 mg PO DAILY 10/08/22 [History Last Taken Unknown] clindamycin HCl 300 mg capsule (Cleocin HCl) 300 mg PO Q6H #40 CAPSULES 05/06/23 [Rx Last Taken Unknown] hydrocodone-acetaminophen 5-325mg 5mg-325mg 1 tab PO Q4H PRN PRN Pain 2 days #10 TABLETS 05/06/23 [Rx Last Taken Unknown] doxycycline monohydrate 100 mg capsule 100 mg PO BID #20 CAPSULES 07/19/23 [Rx Last Taken Unknown] hydrocodone-acetaminophen 5-325mg 5mg-325mg 1 tab PO Q6H PRN PRN Pain 3 days #10 TABLETS 07/19/23 [Rx Last Taken Unknown] Allergy/AdvReac Type Severity Reaction Status Date / Time quick bunch Allergy Food Verified 07/19/23 11:15 Allergy Family History Mother COPD (chronic obstructive pulmonary disease) CVA (cerebral vascular accident) Heart disease Hypertension Father Alcoholism Surgical History H/O wrist surgery Social History housing: homeless number of children: 3 current occupational status: unemployed Smoking Status: Current every day smoker tobacco type: cigarettes how long ago did patient quit smokin ppd since 19 years old. alcohol intake: former year quit: 2020 details: Reports sober since 03/2021, has had ~4 small relapses. substance use type: marijuana, amphetamines and other details: Currently using methadone. ROS ROS ED Constitutional Constitutional ED: Denies chills, fever(s), subjective or sweats ENT ENT ED: Denies rhinorrhea Cardiovascular Cardiovascular: Denies chest pain or palpitations Respiratory/Chest Respiratory/Chest: Denies cough or dyspnea Gastrointestinal Gastrointestinal: Denies nausea or vomiting Musculoskeletal Musculoskeletal: Denies myalgias Integumentary Reports abscess Hematologic/Lymphatic Hematologic/Lymphatic: Denies easy bleeding or easy bruising Allergic/Immunologic Allergic/Immunologic ED: Denies urticaria EXAM Physical Exam Narrative Exam Narrative: CONSTITUTIONAL: Patient is nontoxic in appearance. The patient looks comfortable. HEENT: No notable trauma. Mucous membranes moist. Patient does have signs of chronic skin changes behind the right ear. But in this area there appears to be no acute abscess. There is nothing draining at this time. The canal is normal. Mastoid is not tender. EYES: No conjunctival injection. CARDIOVASCULAR: Regular rate and not tachycardic. Regular rhythm. No notable murmur. No JVD. RESPIRATORY: No respiratory distress. Breathing is unlabored. No wheezes. GASTROINTESTINAL: Not distended. Bowel sounds are normal. No tenderness. GENITOURINARY: Patient has multiple signs of prior incisions in the left low inguinal region. There is a small abscess that is draining on the medial proximal thigh. Some of the erythema extends to the base of the scrotum. But there does not appear to be an actual abscess or swelling of the scrotum itself. Testicle is not tender. This appears most Kevin to be really medial proximal thigh. Again there is a small abscesses that is draining in multiple incisions but no large drainable or fluctuant region. MUSCULOSKELETAL: See above exam. Patient does have a another abscess that is small but slightly larger than the groin. This 1 is in the right axilla. It is likely about one by one and half centimeters but it is actively draining at the lower portion. He has signs again of multiple prior incisions. NEUROLOGICAL: Patient is alert and appropriate. No focal deficit noted. SKIN: See above. PSYCHIATRIC: Patient is calm. Mood is appropriate. Const Vital Signs: 07/19/23 11:15 Temperature 98.3 F Temperature Source Temporal Pulse Rate 84 Respiratory Rate 14 Blood Pressure 123/74 H Blood Pressure Mean 90 Pulse Ox 98 Oxygen Delivery Method Room Air MDM MDM MDM Narrative Medical decision making narrative: I talked the patient about options. He really does not want these drained again. I told him that I think these are already draining. I can certainly numb them and incised them but this is not going to cure this process. He has hidradenitis suppurativa. He likely needs some more formal surgical procedures in these areas. We did agree that I will give him an IV dose of antibiotics here. I will use vancomycin. I will then get him home on antibiotics with referrals. I explained that this is a recurrent problem and there is not a quick or easy solution. But we will try to get him help and get him to people who can provide a little bit longer management. Discharge Plan Triage Chief Complaint: Abscess ED Provider: Tres Mojica Dx/Rx/DC Orders Clinical Impression: Hidradenitis suppurativa Instructions: ED Hidradenitis Suppurativa, Abx Prescriptions: New hydrocodone-acetaminophen [hydrocodone-acetaminophen] 5-325 mg tablet 1 tab PO Q6H PRN PRN (Reason: Pain) 3 Days Qty: 10 0RF doxycycline monohydrate 100 mg capsule 100 mg PO BID Qty: 20 0RF No Action gabapentin 300 mg Tablet 300 mg PO DAILY clindamycin HCl [Cleocin HCl] 300 mg capsule 300 mg PO Q6H Qty: 40 0RF hydrocodone-acetaminophen [hydrocodone-acetaminophen] 5-325 mg tablet 1 tab PO Q4H PRN PRN (Reason: Pain) 2 Days Qty: 10 0RF Primary Care Provider: Saleem Isaacs Referrals: Tiffany Davalos MD [Med Staff - Active Staff] - As soon as possible Saleem Isaacs MD [Primary Care Provider] - As soon as possible (Follow-up with Dr. Isaacs if difficulty getting into see plastic surgery or needing a formal referral.) Disposition Disposition: Home, Self Care
[2023-07-19] MEDS: Morphine 4 MG/ML Syringe IV (12:29)
[2023-07-19] MEDS: Vancomycin IV 1,000 MG/200 ML BAG 200 MG IV (12:44)
== END 2023-07-19 14:02 | disposition home or self-care (01) ==
LOC: ED 12:47
PROVIDERS: Emergency Provider Emergency Medicine; PCP Family Medicine; Visit Provider Emergency Medicine
DX: L73.2 Hidradenitis suppurativa (principal); Z59.00 Homelessness unspecified; F17.210 Nicotine dependence, cigarettes, uncomplicated; E78.5 Hyperlipidemia, unspecified; F11.90 Opioid use, unspecified, uncomplicated; F15.90 Other stimulant use, unspecified, uncomplicated
CPT/HCPCS: J7050; 96365; 96375; 99283; A4216

== ENCOUNTER 2023-09-12 15:13 | Emergency (ER) | payer MEDICAID, SELFPAY ==
[2023-09-12 15:15] VITALS: BP 128/72; PULSE 88; RESP 20; TEMP 35.9; O2SAT 97; BMI 22.1
--- NOTE | 2023-09-12 15:55 | EX.ED.DYSGE1 ---
HPI History of Present Illness Chief Complaint: Wound Check Narrative Narrative: 37-year-old male presents with hidradenitis suppurativa lesions on his right face, right axilla, and left scrotum. This is a longstanding problem for which she has been seen in the emergency department previously. He states that he is supposed to have surgery with Dr. Hilliard on the third, but the person he was staying with did not want a home health aide to come and repack his incisions after surgery. He states that he has been having continued pain in these multiple areas that he has had drained several times. He presents for pain control and wanting something done. He denies any fevers or chills, but has noted continual drainage from the area on his left thigh and left scrotum. PFSH PFSH Medical History Alcohol abuse Anxiety Asthma Cannabis use disorder Chronic cough COVID-19 Depression Gout Hidradenitis suppurativa Hidradenitis suppurativa Hyperlipidemia Leg cramps Low iron Methamphetamine abuse Opioid dependence Paronychia Polysubstance abuse Pulmonary emboli Scrotal abscess Smoker Substance abuse Tobacco use Home Medications doxycycline hyclate 100 mg capsule 100 mg PO BID #60 caps 08/18/23 [Rx Last Taken Unknown] gabapentin 300 mg capsule 300 mg PO QHS 08/29/23 [History Last Taken Unknown] hydrocodone-acetaminophen 5-325mg 5mg-325mg 1 tab PO Q6H PRN PRN Pain 3 days #10 TABLETS 09/12/23 [Rx Last Taken Unknown] sulfamethoxazole 800 mg-trimethoprim 160 mg tablet (Bactrim DS) 1 tab PO BID #20 tabs 09/12/23 [Rx Last Taken Unknown] Allergy/AdvReac Type Severity Reaction Status Date / Time quick bunch Allergy Food Verified 09/12/23 15:15 Allergy Family History Mother COPD (chronic obstructive pulmonary disease) CVA (cerebral vascular accident) Heart disease Hypertension Father Alcoholism Other Colon cancer Diabetes Surgical History H/O wrist surgery Social History housing: homeless number of children: 3 current occupational status: unemployed Smoking Status: Current every day smoker tobacco type: cigarettes how long ago did patient quit smokin ppd since 19 years old. alcohol intake: former year quit: 2020 details: Reports sober since 03/2021, has had ~4 small relapses. substance use type: marijuana, amphetamines and other details: Currently using methadone. ROS ROS ED ROS Narrative Constitutional: No fever, no chills. HEENT: No sore throat. No neck pain. No loss of vision. No rhinorrhea. Cardiovascular: No chest pain. No palpitations. No pedal edema. Respiratory: No cough, no shortness of breath. Abdominal: No abdominal pain. No nausea. No vomiting. Genitourinary: No dysuria. No hematuria. Musculoskeletal: No myalgias. No arthralgias. Neurologic: No headaches. No dizziness. No lightheadedness. Skin: No rash. No change in color. Raised, sore areas consistent with his hidradenitis suppurativa mainly in the right facial area near the ear, right axilla, and left scrotum and left thigh. Psychiatric: No depression. No anxiety. EXAM Physical Exam Narrative Exam Narrative: Afebrile. Vital signs noted. Nontoxic-appearing. HEENT: Normocephalic. Atraumatic. PERRL, EOMI. Neck soft and supple. No point tenderness or step off. Cardiovascular: Regular rate and rhythm. No murmurs, rubs, or gallops appreciated. Respiratory: No tachypnea. Lungs clear to auscultation bilaterally. Gastrointestinal: Abdomen soft, nontender, with normoactive bowel sounds. No rebound or guarding. Neurological: Awake. Alert. Nonfocal, nonlateralizing. Skin: No rash. Normal color. No pallor. Positive scarred areas with keloid in area near her right earlobe, no fluctuance, same examination with scarred area, no erythema. Inspection of the left scrotal area and left thigh shows indurated tissue and purulent drainage and small areas. Musculoskeletal: No pedal edema. Full range of motion extremities. Const Vital Signs: 09/12/23 15:15 Temperature 96.7 F L Temperature Source Temporal Pulse Rate 88 Respiratory Rate 20 H Blood Pressure 128/72 H Blood Pressure Mean 90 Pulse Ox 97 Oxygen Delivery Method Room Air MDM MDM MDM Narrative Medical decision making narrative: I reviewed the patient's prior records. He was last seen in June where he did not want further incision and drainage of the sites. Today, I do not feel that it would be advantageous to incise and drain any further areas. I did offer this but he declined. He wants something for pain, and I reviewed his [facility] report, he had received 10 hydrocodone tablets which I think is reasonable given the exacerbation of his hidradenitis. He was also concerned about the fact that he is homeless and he was only staying with someone who would not let a home health aide visit for packing and dressing changes. I still feel that he should follow-up with Dr. Hilliard who can perform definitive surgery. I will put him on antibiotics again as well. I offered to have social work come speak to him, but he declined this as well. At this point in time, I feel he can be discharged to follow-up with plastic surgery for his definitive surgery on his hidradenitis suppurativa. He is to take his antibiotics as well. Return instructions to the emergency department were reviewed. Disposition is discharged home in stable condition. Differential Diagnosis Differential Diagnosis: Not applicable Discharge Plan Triage Chief Complaint: Wound Check ED Provider: Carlos Boyd Dx/Rx/DC Orders Clinical Impression: Hidradenitis suppurativa of multiple sites Instructions: ED Hidradenitis Suppurativa, Abx Prescriptions: New sulfamethoxazole-trimethoprim [Bactrim DS] 800-160 mg tablet 1 tab PO BID Qty: 20 0RF hydrocodone-acetaminophen 5-325 mg tablet 1 tab PO Q6H PRN PRN (Reason: Pain) 3 Days Qty: 10 0RF No Action doxycycline hyclate 100 mg capsule 100 mg PO BID Qty: 60 1RF gabapentin 300 mg capsule 300 mg PO QHS Primary Care Provider: Saleem Isaacs Referrals: Morgan Hilliard MD [Med Staff - Active Staff] - As soon as possible Saleem Isaacs MD [Primary Care Provider] - Disposition Disposition: Home, Self Care
== END 2023-09-12 16:03 | disposition home or self-care (01) ==
LOC: ED 16:01
PROVIDERS: Emergency Provider Emergency Medicine; PCP Family Medicine; Visit Provider Emergency Medicine
DX: L73.2 Hidradenitis suppurativa (principal); F17.210 Nicotine dependence, cigarettes, uncomplicated; Z59.00 Homelessness unspecified; J45.909 Unspecified asthma, uncomplicated; E78.5 Hyperlipidemia, unspecified
CPT/HCPCS: 99282

== ENCOUNTER 2023-09-26 18:30 | Inpatient (IN) | payer MEDICAID, SELFPAY ==
[2023-09-26 18:32] VITALS: BP 113/76; PULSE 108; RESP 18; TEMP 36.4; O2SAT 96; BMI 22.7
--- NOTE | 2023-09-26 18:49 | EX.ED.DYSGE1 ---
HPI History of Present Illness Chief Complaint: Cellulitis Detail of Chief Complaint: Cellulitis and abscess right preauricular area, right axilla and scrotum le Informant: patient Onset/Context/Timing Onset: Days Context: Sudden Onset Timing: Continuous Quality: Infection/abscess Location: Right side of face, right axilla and left side of scrotum Current Severity: Mild Maximum Severity: Severe Worsened by: Severe pain with walking due to scrotal swelling and slight drainage Relieved by: Nothing Associated Symptoms Associated Symptoms: History of hidradenitis suppurativa. Also history of drug abuse Narrative Narrative: Patient is a 38-year-old male with recurrent scrotal cellulitis, abscess and hidradenitis. He presents because of redness pain swelling right preauricular area, right axillary region with discharge and inflamed painful erythematous scrotum on the left with pain in the left inguinal area. Subjective fever. He denies history of hepatitis C. He denies HIV. Is on no immunosuppressive meds. Patient denies visual, ocular auditory symptoms. Patient denies cardiac respiratory symptoms. Patient denies GI symptoms. Patient denies dysuria, frequency, urgency or hematuria. Prior similar symptoms: Yes Recent Illness/Hospitalization: No PFSH PFSH Medical History Alcohol abuse Anxiety Asthma Cannabis use disorder Chronic cough COVID-19 Depression Gout Hidradenitis suppurativa Hidradenitis suppurativa Hyperlipidemia Leg cramps Low iron Methamphetamine abuse Opioid dependence Paronychia Polysubstance abuse Pulmonary emboli Scrotal abscess Smoker Substance abuse Tobacco use Allergy/AdvReac Type Severity Reaction Status Date / Time quick bunch Allergy Food Verified 09/26/23 18:32 Allergy Family History Mother COPD (chronic obstructive pulmonary disease) CVA (cerebral vascular accident) Heart disease Hypertension Father Alcoholism Other Colon cancer Diabetes Surgical History H/O wrist surgery Social History housing: homeless number of children: 3 current occupational status: unemployed Smoking Status: Current every day smoker tobacco type: cigarettes how long ago did patient quit smokin ppd since 19 years old. alcohol intake: former year quit: 2020 details: Reports sober since 03/2021, has had ~4 small relapses. substance use type: marijuana, amphetamines and other details: Currently using methadone. ROS ROS ED Constitutional Constitutional ED: Reports fever(s), subjective and sweats; Denies chills or weight loss Eyes Eyes: Denies blurry vision or change in vision ENT ENT ED: Denies ear pain, rhinorrhea or sore throat Cardiovascular Cardiovascular: Denies chest pain or palpitations Respiratory/Chest Respiratory/Chest: Denies dyspnea or dyspnea on exertion Gastrointestinal Gastrointestinal: Denies abdominal pain, nausea or vomiting Genitourinary Genitourinary ED: Denies dysuria, hematuria or urinary frequency Musculoskeletal Musculoskeletal: Denies arthralgias or myalgias Integumentary Reports abscess and rash Neurologic Neurologic: Denies headache(s) Psychiatric Psychiatric: Reports anxiety Hematologic/Lymphatic Hematologic/Lymphatic: Reports systems reviewed and no addt'l complaints, except as documented EXAM Physical Exam Const Vital Signs: 09/26/23 18:32 09/26/23 19:26 Temperature 97.5 F L Temperature Source Temporal Pulse Rate 108 H Respiratory Rate 18 Blood Pressure 113/76 Blood Pressure Mean 88 Pulse Ox 96 95 Oxygen Delivery Method Room Air Room Air Positive well nourished and well developed Constitutional Narrative: Patient appears uncomfortable. He is tachycardic. He is not febrile. General Appearance ED: well developed; Negative for NAD HEENT Reports moist mucous membranes HEENT Narrative: Head is atraumatic no cephalic. Right ear is normal. In the preauricular space and near the angle of mandible there is an abscess. This will require drainage. Patient has poor dentition. Neck is supple. There is no cervical lymphadenopathy. Eyes PERRL and EOMs intact bilaterally General Eye ED: Negative for pale conjunctiva or scleral icterus Neck no lymphadenopathy, supple and no JVD Lymph Lymphatic Narrative: Patient has scars from prior incision and drainage of axillary hidradenitis suppurativa. There is a area of fluctuance with slight drainage noted. The area is very tender. There is no induration. There is shotty axillary nodes appreciated. Chest Wall inspection of chest normal and palpation of chest normal Resp normal respiratory effort and clear to auscultation bilaterally Cardio regular rhythm, S1 normal heart sound, S2 normal heart sound and no murmurs Rate: tachycardic GI normal to inspection, nondistended, normoactive bowel sounds, non-tender, non-distended and no masses; Negative for hepatosplenomegaly Narrative: Patient has evidence of cellulitis left side of the scrotum. The scrotum is indurated red painful. There is no obvious area of fluctuance. He does have inguinal lymphadenopathy noted on the left which is very painful. There is no penile discharge noted. Back/Spine no CVA tenderness Lumbar Spine / Lower Back: Negative for lumbar spinal tenderness Extremity normal to inspection General Extremety ED: Negative for edema General Extremity: Negative for edema Neuro oriented x3 and CN's II-XII intact bilaterally Sensorium / Orientation: alert Psych mental status grossly normal Skin Skin Narrative: Described under the HEENT, thoracic and portion of the EMR. MDM MDM MDM Narrative Medical decision making narrative: With prior history of scrotal abscess CT was obtained to evaluate the extent of his infection and determine if there is an abscess. The abscess on his face will require I&D and the abscess in the right axilla required I&D. Will have patient consented for incision and drainage of the facial and axillary abscess. Appropriate blood work was ordered to assess for endorgan dysfunction white count differential. Cultures were obtained prior to administration of Unasyn and vancomycin. Patient states he was scheduled to have surgery with Dr. Hilliard however he informed that Dr. Hilliard is no longer operating and presently cannot operate. Per review of old records patient does have history of MRSA. History & Record Review Additional record(s) reviewed:: Prior ED visit and Prior labs Lab Data Attestation: I reviewed the patient's lab results. Lab results narrative: White count is elevated 17.4 thousand. There is no shift. There is no bandemia. Electrolyte panel is unremarkable. Lactate is normal. Labs: Laboratory Results - last 24 hr 09/26/23 19:00 WBC 17.4 H RBC 4.42 L Hgb 12.9 L Hct 38.9 L MCV 88.0 MCH 29.2 MCHC 33.2 RDW Std Deviation 43.8 RDW Coeff of Christie 13.5 Plt Count 412 MPV 8.8 Immature Gran % (Auto) 0.300 Neut % (Auto) 66.5 Lymph % (Auto) 22.6 [place] % (Auto) 7.0 Eos % (Auto) 2.6 Baso % (Auto) 1.0 Absolute Neuts (auto) 11.5 H Absolute Lymphs (auto) 3.92 Nucleated RBC % 0 PT 13.1 INR 1.0 APTT 29.6 Sodium 140 Potassium 4.0 Chloride 110 H Carbon Dioxide 26.0 Anion Gap 4 L BUN 19 H Creatinine 1.04 Estim Creat Clear Calc 92.31 Est GFR (MDRD) Af Amer 103 Est GFR (MDRD) Non-Af 85 BUN/Creatinine Ratio 18.3 Glucose 97 Lactic Acid 1.0 Calcium 8.9 Total Bilirubin 0.10 L AST 17 ALT 17 Alkaline Phosphatase 101 Total Protein 7.0 Albumin 3.1 L Globulin 3.9 Albumin/Globulin Ratio 0.8 L Radiography Diagnostic Testing: Clinical Impression(s) from Imaging Studies Pelvis CT 09/26/23 19:45 IMPRESSION: Left scrotal enhancement and skin thickening. No focal abscess or fluid collection. Ultrasound correlation recommended. Electronically Signed: Shree Ratliff MD at 20:40 EDT , Treatment and Re-Evaluation :: With elevated white count multiple abscesses hospitalist was paged for admission. Procedures Other Procedures Procedure(s): Procedure #1: The right abscess near the angle of the mandible was prepped draped sterile manner. Anesthetized by local filtration and field block. Incision made with a 15 blade. Approximately 1/2 to 1 cc of purulent material was noted as well as blood. Culture was obtained. Blunt dissection was undertaken. Procedure #2 right axillary was prepped draped sterile manner. Anesthetized by local infiltration and field block. Incision was made with a 10 blade. Incision was 2 cm in size. Blunt dissection was undertaken with half a cc of purulent material noted. Cultures were obtained. Patient did complain of discomfort. The procedure was completed. Discharge Plan Dx/Rx/DC Orders Clinical Impression: Cellulitis of scrotum, Cannabis use disorder, Smoker, Abscess of face, Axillary hidradenitis suppurativa, Leukocytosis, Sinus tachycardia seen on quality assurance monitor chassis Disposition Disposition: Acute Care [facility]
[2023-09-26] MEDS: Ondansetron 4 MG/2 ML Vial IV (19:02)
[2023-09-26] MEDS: Morphine 4 MG/ML Syringe IV (19:02)
[2023-09-26] MEDS: 0.9% Normal Saline (1000mL) 1,000 ML 150 ML IV (19:02)
[2023-09-26] MEDS: Ampicillin/Sulbactam 3 GM in 0.9% Normal Saline (100mL MB+) 100 ML IV (19:08)
[2023-09-26 19:20] LABS: Absolute Lymphocyte Count 3.92 X10^3/uL (0.83-4.51); Absolute Neutrophil Count 11.5 X10^3/uL (2.0-7.7); Basophil# 0.17 X10^3/uL; Eosinophil# 0.46 X10^3/uL; Eosinophils% 2.6 % (0-5); Hematocrit 38.9 % (40-54); Hemoglobin 12.9 g/dL (13.0-16.5); Lymphocyte # 3.92 X10^3/ul (0.83-4.51); Lymphocyte % 22.6 % (19-41); Mean Corp Hgb Conc 33.2 g/dL (32-36); Mean Corpuscular Hgb 29.2 pg (27.0-32.0); Mean Platelet Vol. 8.8 fl (6.2-12.0); Monocyte# 1.22 X10^3/uL; NRBC Flagged by Analyzer 0 % (0-5); Neutrophil # 11.53 X10^3/uL (2.7-7.7); Neutrophil % 66.5 % (47-70); Platelet Count 412 K/mm3 (150-450); RBC Distribution Width CV 13.5 % (11.6-14.6); RBC Distribution Width SD 43.8 fl (35.1-43.9); Red Blood Count 4.42 M/mm3 (4.6-6.2); White Blood Count 17.4 K/mm3 (4.4-11.0)
[2023-09-26 19:26] VITALS: O2SAT 95
[2023-09-26 19:29] LABS: Prothrombin Time (Protime)PT. 13.1 SECONDS (11.7-14.9)
[2023-09-26 19:30] LABS: Partial Thromboplast Time 29.6 Seconds (24.1-36.2)
[2023-09-26 19:39] LABS: ALB/GLOB Ratio 0.8 RATIO (0.9-2.4); AST(SGOT) 17 U/L (15-37); Alanine Aminotransfer ALT/SGPT 17 U/L (16-61); Albumin, Serum 3.1 g/dL (3.2-5.0); Alkaline Phosphatase 101 U/L (45-117); Anion Gap 4 (5-15); BUN 19 mg/dL (7-18); BUN/Creat Ratio 18.3 RATIO (10-20); Calcium,Total 8.9 mg/dL (8.5-10.1); Chloride 110 mmol/L (98-107); Creatinine, Serum 1.04 mg/dL (0.70-1.30); EST Glomerular Filtration Rate 85 mL/min (>60); Est Glom Filt Rate - Afr Amer 103 mL/min (>60); Estimated Creatinine Clearance 92.31 ml/min; Globulin 3.9 g/dL (2.2-4.2); Glucose 97 mg/dL (74-106); Sodium Level 140 mmol/L (136-145)
--- NOTE | 2023-09-26 19:45 | CT_ITS ---
STUDY: CT PELVIS WITH CONTRAST REASON FOR EXAM: Male, 38 years old. Cellulitis scrotum and lymphangitis, left side RADIATION DOSAGE (If Supplied By Facility): CTDIvol = ( 23.57 ) mGy, DLP = ( 915.62 ) mGycm TECHNIQUE: Transaxial imaging of the pelvis was performed without oral contrast. IV 100mL Isovue-300 was administered intravenously. Multiplanar coronal and sagittal images were reformatted. Individualized dose optimization techniques were used for this CT. COMPARISON: June 17, 2022. FINDINGS: Normal urinary bladder. Normal visualized small intestine. Normal visualized colon. There is no pelvic fluid. There is no pelvic lymphadenopathy or mass lesion. There are prostatic calcifications. There is left scrotal skin thickening and enhancement of the spermatic cord at the superior aspect of the scrotum. Normal visualized pelvic arteries. Normal abdominal wall. Normal osseous structures. CT/Pelvis WITH IV Contrast IMPRESSION: Left scrotal enhancement and skin thickening. No focal abscess or fluid collection. Ultrasound correlation recommended. Electronically Signed: Shree Ratliff MD at 20:40 EDT ,
[2023-09-26] MEDS: Vancomycin HCl 1,750 MG in 0.9% Normal Saline (500mL Bag) 500 ML 250 MG IV (20:33)
--- NOTE | 2023-09-26 21:11 | HP.PCM_ITS ---
[facility] - General General Date of Admission: 09/26/23 Date of Service: 09/26/23 Chief Complaint: Scrotal abscess, hidradenitis, right facial abscess HPI Narrative VINCENT JUNE, is a 38 M who presents to the emergency room with significant reported past medical history of drug abuse and alcohol abuse presents to the emergency room with recurrent scrotal infection, right facial abscess and right axillary abscess. The patient has had previous scrotal abscess surgery and has been on antibiotics despite that has not improved. Today the patient is significant in the scrotal area. Patient denies fever or chills, chest pain shortness of breath and/or nausea or vomiting. Due to significant pain and increased infection the patient will be admitted for IV antibiotic therapy and surgical consultation. PFSH Medical History Alcohol abuse Anxiety Asthma Cannabis use disorder Chronic cough COVID-19 Depression Gout Hidradenitis suppurativa Hidradenitis suppurativa Hyperlipidemia Leg cramps Low iron Methamphetamine abuse Opioid dependence Paronychia Polysubstance abuse Pulmonary emboli Scrotal abscess Smoker Substance abuse Tobacco use Allergy/AdvReac Type Severity Reaction Status Date / Time quick bunch Allergy Food Verified 09/26/23 18:32 Allergy Family History Mother COPD (chronic obstructive pulmonary disease) CVA (cerebral vascular accident) Heart disease Hypertension Father Alcoholism Other Colon cancer Diabetes Surgical History H/O wrist surgery Social History housing: homeless number of children: 3 current occupational status: unemployed Smoking Status: Current every day smoker tobacco type: cigarettes how long ago did patient quit smokin ppd since 19 years old. alcohol intake: former year quit: 2020 details: Reports sober since 03/2021, has had ~4 small relapses. substance use type: marijuana, amphetamines and other details: Currently using methadone. ROS Constitutional Constitutional: Denies chills or fever(s) Eyes Eyes: Denies blurry vision ENT HEENT: Denies abnormal hearing Cardiovascular Cardiovascular: Denies chest pain Respiratory/Chest Respiratory/Chest: Denies cough Genitourinary Genitourinary: Reports dysuria Musculoskeletal Musculoskeletal: Denies back pain Integumentary Integumentary: Reports wounds Psychiatric Psychiatric: Denies anxiety Vital Signs Vital Signs Vital Signs: 09/26/23 18:32 09/26/23 19:26 Temperature 97.5 F L Temperature Source Temporal Pulse Rate 108 H Respiratory Rate 18 Blood Pressure 113/76 Blood Pressure Mean 88 Pulse Ox 96 95 Oxygen Delivery Method Room Air Room Air Weight Weight: 149 lb 6.4 oz Body Mass Index (BMI) 22.7 Physical Exam Const alert and oriented x3 General Appearance: cooperative and well developed HEENT normocephalic and head/scalp atraumatic HEENT Narrative: Right preauricular facial abscess status post I&D in the emergency room Eyes PERRL and EOMs intact bilaterally Neck no lymphadenopathy Resp normal respiratory effort and normal air movement Cardio regular rate, regular rhythm, S1 normal heart sound and S2 normal heart sound GI normal to inspection, nondistended, normoactive bowel sounds Extremity normal capillary refill Skin Skin Narrative: Right facial abscess, right axillary hidradenitis, large left scrotal swelling, erythema and tenderness Neuro CN's II-XII intact bilaterally Speech: speech normal Psych thought process normal, cooperative and affect normal Results Lab / Micro Data 09/26/23 19:00 09/26/23 19:00 Labs: Laboratory Results - last 24 hr 09/26/23 19:00: WBC 17.4 H, RBC 4.42 L, Hgb 12.9 L, Hct 38.9 L, MCV 88.0, MCH 29.2, MCHC 33.2, RDW Std Deviation 43.8, RDW Coeff of Christie 13.5, Plt Count 412, MPV 8.8, Immature Gran % (Auto) 0.300, Neut % (Auto) 66.5, Lymph % (Auto) 22.6, [place] % (Auto) 7.0, Eos % (Auto) 2.6, Baso % (Auto) 1.0, Absolute Neuts (auto) 11.5 H, Absolute Lymphs (auto) 3.92, Nucleated RBC % 0, PT 13.1, INR 1.0, APTT 29.6, Sodium 140, Potassium 4.0, Chloride 110 H, Carbon Dioxide 26.0, Anion Gap 4 L, BUN 19 H, Creatinine 1.04, Estim Creat Clear Calc 92.31, Est GFR (MDRD) Af Amer 103, Est GFR (MDRD) Non-Af 85, BUN/Creatinine Ratio 18.3, Glucose 97, Lactic Acid 1.0, Calcium 8.9, Total Bilirubin 0.10 L, AST 17, ALT 17, Alkaline Phosphatase 101, Total Protein 7.0, Albumin 3.1 L, Globulin 3.9, Albumin/Globulin Ratio 0.8 L Imaging Radiology Impression Pelvis CT 09/26/23 19:45 IMPRESSION: Left scrotal enhancement and skin thickening. No focal abscess or fluid collection. Ultrasound correlation recommended. Electronically Signed: Shree Ratliff MD at 20:40 EDT , Assessment & Plan Assessment/Plan (1) Abscess of face: (2) Cellulitis of scrotum: (3) Hidradenitis suppurativa: (4) Alcohol abuse: (5) Opioid dependence: (6) Cannabis use disorder: PLAN: Plan 1 left scrotal cellulitis/abscess, right facial abscess, right axillary hidradenitis?admit patient to general medical floor, consult Dr. Lebron from general surgery who has seen the patient previously. Will make patient n.p.o. at midnight start IV vancomycin and Unasyn initiated in the emergency room, repeat CBC, BMP in the a.m. 2. History of alcohol abuse?will add thiamine and folate and monitor for CIWA a protocol 3. History of opiate dependence and cannabis abuse. Initial pain management will use Toradol 15 mg IV every 6 hours, Tylenol for as needed pain control and will try to avoid opiate use. 4. DVT prophylaxis?low molecular weight heparin Charges/Coding Visit Charges Inpatient E&M: 44405 Init Hosp L2
[2023-09-26 21:26] VITALS: BP 129/84; PULSE 74; RESP 22; TEMP 36.9; O2SAT 98
[2023-09-26 21:27] VITALS: BP 129/84; PULSE 68; RESP 22; TEMP 36.9; O2SAT 97
[2023-09-26 21:45] VITALS: BMI 22.1
--- NOTE | 2023-09-26 22:09 | PCM.RX.CS ---
Consult Antibiotic Management Pharmacy has been consulted to manage selected antibiotic: Vancomycin Type of Intervention Type of Consult: New start Suspected Infection Suspected Infection: Skin/Soft tissue Labs Labs: Sodium 140 mmol/L (136-145) 09/26/23 19:00 Potassium 4.0 mmol/L (3.5-5.1) 09/26/23 19:00 Chloride 110 mmol/L (98-107) H 09/26/23 19:00 Carbon Dioxide 26.0 mmol/L (21.0-32.0) 09/26/23 19:00 Anion Gap 4 (5-15) L 09/26/23 19:00 BUN 19 mg/dL (7-18) H 09/26/23 19:00 Creatinine 1.04 mg/dL (0.70-1.30) 09/26/23 19:00 Est GFR (MDRD) Af Amer 103 mL/min (>60) 09/26/23 19:00 Est GFR (MDRD) Non-Af 85 mL/min (>60) 09/26/23 19:00 BUN/Creatinine Ratio 18.3 RATIO (10-20) 09/26/23 19:00 Glucose 97 mg/dL (74-106) 09/26/23 19:00 Dosing Weight Weight used for dosin.1 kg Estimated Creatinine Clearance Estimated Creatinine Clearance: 92 Goal Trough Goal Trough: 15-20 mcg/mL Pharmacy Plan for Drug Dosing Pharmacy Plan for Drug Dosing: Pharmacy Service will continue to monitor and adjust dosing as required. Follow-Up Labs Follow-Up Labs: Trough: Vancomycin Date/Time Labs Ordered Labs to be done on [date and time ordered]: 09/28/23 @0800
[2023-09-26] MEDS: Ketorolac 15 MG/ML Vial IV (22:41)
[2023-09-26] MEDS: 0.9% Saline Lock 10 ML Syringe IV (22:41)
[2023-09-26 22:51] VITALS: BP 149/91; PULSE 73; RESP 18; TEMP 36.6; O2SAT 100
[2023-09-26] MEDS: traZODone 100 MG Tablet PO (22:55)
[2023-09-27] MEDS: Ampicillin/Sulbactam 3 GM in 0.9% Normal Saline (100mL MB+) 100 ML IV ×5 (00:17→23:16)
[2023-09-27 02:57] VITALS: BP 117/76; PULSE 71; RESP 18; TEMP 36.2; O2SAT 97
[2023-09-27] MEDS: 0.9% Normal Saline (1000mL) 1,000 ML 150 ML IV ×3 (03:08→19:01)
[2023-09-27 06:03] VITALS: BP 116/82; PULSE 77; RESP 18; TEMP 36.2; O2SAT 99
[2023-09-27 06:57] LABS: Absolute Lymphocyte Count 2.99 X10^3/uL (0.83-4.51); Basophil# 0.11 X10^3/uL; Basophil% 0.9 % (0-1); Eosinophil# 0.47 X10^3/uL; Eosinophils% 3.7 % (0-5); Hematocrit 37.5 % (40-54); Hemoglobin 12.3 g/dL (13.0-16.5); Lymphocyte # 2.99 X10^3/ul (0.83-4.51); Lymphocyte % 23.7 % (19-41); Mean Corp Hgb Conc 32.8 g/dL (32-36); Mean Corpuscular Hgb 29.3 pg (27.0-32.0); Mean Corpuscular Volume 89.3 fL (80-94); Mean Platelet Vol. 8.7 fl (6.2-12.0); Monocyte# 1.06 X10^3/uL; Monocyte% 8.4 % (0-10); NRBC Flagged by Analyzer 0 % (0-5); Neutrophil # 7.95 X10^3/uL (2.7-7.7); Neutrophil % 62.9 % (47-70); Platelet Count 360 K/mm3 (150-450); RBC Distribution Width CV 13.6 % (11.6-14.6); RBC Distribution Width SD 44.5 fl (35.1-43.9); White Blood Count 12.6 K/mm3 (4.4-11.0)
--- NOTE | 2023-09-27 07:11 | PN.HOSP_ITS ---
Reason for Visit Reason for Visit: Diagnoses Alcohol abuse, uncomplicated (09/26/23) Opioid dependence, uncomplicated (09/26/23) Cannabis use, unspecified, uncomplicated (09/26/23) Cutaneous abscess of face (09/26/23) Hidradenitis suppurativa (09/26/23) Inflammatory disorders of scrotum (09/26/23) Objective Data Objective Data Vital Signs: Vital Signs Temp Pulse Resp BP Pulse Ox O2 Del Method 97.2 F L 77 18 116/82 H 99 Room Air 09/27/23 06:03 09/27/23 06:03 09/27/23 06:03 09/27/23 06:03 09/27/23 06:03 09/27/23 06:03 Oxygen Delivery Method Room Air Weight: 145 lb 11.609 oz Body Mass Index (BMI) 22.1 Intake & Output: Intake and Output for Last 24 Hours 09/25/23 09/26/23 09/27/23 23:59 23:59 23:59 Intake Total 1209.5 / 1209.5 994.0 / 994.0 Balance 1209.5 / 1209.5 994.0 / 994.0 Lab / Micro Data 09/27/23 06:26 09/27/23 06:26 Labs: Laboratory Results - last 24 hr 09/26/23 19:00: WBC 17.4 H, RBC 4.42 L, Hgb 12.9 L, Hct 38.9 L, MCV 88.0, MCH 29.2, MCHC 33.2, RDW Std Deviation 43.8, RDW Coeff of Christie 13.5, Plt Count 412, MPV 8.8, Immature Gran % (Auto) 0.300, Neut % (Auto) 66.5, Lymph % (Auto) 22.6, [place] % (Auto) 7.0, Eos % (Auto) 2.6, Baso % (Auto) 1.0, Absolute Neuts (auto) 11.5 H, Absolute Lymphs (auto) 3.92, Nucleated RBC % 0, PT 13.1, INR 1.0, APTT 29.6, Sodium 140, Potassium 4.0, Chloride 110 H, Carbon Dioxide 26.0, Anion Gap 4 L, BUN 19 H, Creatinine 1.04, Estim Creat Clear Calc 92.31, Est GFR (MDRD) Af Amer 103, Est GFR (MDRD) Non-Af 85, BUN/Creatinine Ratio 18.3, Glucose 97, Lactic Acid 1.0, Calcium 8.9, Total Bilirubin 0.10 L, AST 17, ALT 17, Alkaline Phosphatase 101, Total Protein 7.0, Albumin 3.1 L, Globulin 3.9, Albumin/Globulin Ratio 0.8 L 09/27/23 06:26: WBC 12.6 H, RBC 4.20 L, Hgb 12.3 L, Hct 37.5 L, MCV 89.3, MCH 29.3, MCHC 32.8, RDW Std Deviation 44.5 H, RDW Coeff of Christie 13.6, Plt Count 360, MPV 8.7, Immature Gran % (Auto) 0.400, Neut % (Auto) 62.9, Lymph % (Auto) 23.7, [place] % (Auto) 8.4, Eos % (Auto) 3.7, Baso % (Auto) 0.9, Absolute Neuts (auto) 8.0 H, Absolute Lymphs (auto) 2.99, Nucleated RBC % 0 Radiography Diagnostic Testing: Radiology Impression Pelvis CT 09/26/23 19:45 IMPRESSION: Left scrotal enhancement and skin thickening. No focal abscess or fluid collection. Ultrasound correlation recommended. Electronically Signed: Shree Ratliff MD at 20:40 EDT , Physical Exam Narrative Seen and examined. Patient denies history of STI, HIV, substance use except weeds. Smokes cigarettes a pack per day. Admitted with abscesses over right angle of mandibular, right axilla and left groin region. Discussed with the urologist. No fever Physical exam General: Alert, Oriented x3, Cooperative HEENT: Atraumatic, PERRLA, EOMI, Normocephalic Oral/poor oral exam: No tenderness over right buccal cavity. No Gingival or Mucosal Lesions/ Ulcerations or infiltrate/purulent drainage Neck: Supple, No JVD, Negative Carotid Bruits Chest wall/Lungs: Air entry diminished in bilateral lung bases. No crepitation/rhonchi Cardiovascular: Regular rate, Regular Rhythm, Normal S1, Normal S2, No M/G/R Abdomen: Bowel Sounds Present, Soft, Non Tender, Non-Distended : No obvious testicular swelling or tenderness. Mild scrotal edema/cellulitis. No dysuria. No renal angle tenderness. No suprapubic tenderness. Extremities: Multiple old scarring of sinus tracts of bilateral axillary area. No edema, Capillary Refill Less than 3 Seconds Skin: Incision and drainage over right angle of mandible/preauricular region abscess. I&D over right axilla. Serosanguineous drainage over left groin from left upper thigh. Tenderness present but no obvious swelling/abscess palpable Musculoskeletal: Tenderness over left upper medial aspect of thigh. Neurological: Cranial nerves II-XII grossly intact, DTR 2+/4. No acute focal neurological deficit. Psych/Mental Status: Normal Affect, Appropriate. Assessment & Plan Assessment/Plan (1) Abscess of face: (2) Cellulitis of scrotum: (3) Hidradenitis suppurativa: (4) Alcohol abuse: (5) Opioid dependence: (6) Cannabis use disorder: PLAN: Plan This is a 38-year-old gentleman was admitted with recurrent scrotal infection P cell abscess and axillary abscess. Had antibiotic but no improvement. No fever or chill 1. Left preauricular/face abscess status post I&D at right angle of mandible, right axillary abscess status post I&D and left upper thigh/scrotal cellulitis and edema: Patient is being admitted in PCU. On complete history, patient had first episode of infection possible hidradenitis/abscess at the age of 16. He also had acne and easily gets infection after shaving. Denies history of splenectomy, hereditary autoimmune disease/primary immunodeficiency like [place] Higashi syndrome, sinopulmonary disease or meningitis/middle ear infection. Denies history of STI/HIV or IV needle use/IVDA. Patient was evaluated by urologist. CT pelvis reviewed does not show pelvic fluid normal pelvic lymphadenopathy or mass lesion. Left scrotal skin thickening in this enhancement of the spermatic cord but no focal abscess or fluid collection.Unremarkable bilateral testicular ultrasound. Patient on IV ceftriaxone and vancomycin. Clinically, high probability of MRSA infection. 2. History of chronic alcohol use: Patient is states sometimes he drinks alco hol. thiamine and folate and monitor for CIWA a protocol. Patient is Sterets he drinks 5 drinks in 1 month mainly whiskey. 3. History of opiate dependence and cannabis abuse. Patient denies current /active IVDA or opioid use. In H&P, patient had history of marijuana, amphetamine. Currently using methadone. On Toradol 4. DVT prophylaxis?low molecular weight heparin Charges/Coding Visit Charges Inpatient E&M: 10010 Subs Hosp L2
[2023-09-27 07:21] LABS: Anion Gap 2 (5-15); BUN 13 mg/dL (7-18); BUN/Creat Ratio 15.6 RATIO (10-20); Calcium,Total 7.8 mg/dL (8.5-10.1); Chloride 111 mmol/L (98-107); Creatinine, Serum 0.84 mg/dL (0.70-1.30); EST Glomerular Filtration Rate 109 mL/min (>60); Est Glom Filt Rate - Afr Amer 132 mL/min (>60); Estimated Creatinine Clearance 111.48 ml/min; Glucose 95 mg/dL (74-106); Potassium 3.9 mmol/L (3.5-5.1); Sodium Level 139 mmol/L (136-145)
--- NOTE | 2023-09-27 07:42 | PCM.CONS.U ---
Assessment & Plan Assessment/Plan (1) Cellulitis of scrotum: PLAN: Do not plan any surgical intervention at this point recurrent [place] nidus suppurativa try to avoid invasive cutting procedures the abscess is draining from his hemiscrotum continue with IV antibiotics. HPI Consult Data Date of Consult: 09/27/23 HPI Narrative Reason for Consultation: Superficial scrotal abscess HPI Narrative: VINCENT JUNE, is a 38 M who presents with a draining scrotal abscess in the patient's left hemiscrotum at this point the abscess is draining or fluctuance it is red and swollen. I think any surgical drainage is necessary at this point continue with IV antibiotics local wound care would be good with wound nurse. PFSH Medical History Alcohol abuse Anxiety Asthma Cannabis use disorder Chronic cough COVID-19 Depression Gout Hidradenitis suppurativa Hidradenitis suppurativa Hyperlipidemia Leg cramps Low iron Methamphetamine abuse Opioid dependence Paronychia Polysubstance abuse Pulmonary emboli Scrotal abscess Smoker Substance abuse Tobacco use Home Medications trazodone 100 mg tablet 100 mg PO QHS PRN insomnia 09/26/23 [History Last Taken Unknown] Allergy/AdvReac Type Severity Reaction Status Date / Time quick bunch Allergy Food Verified 09/26/23 18:32 Allergy Family History Mother COPD (chronic obstructive pulmonary disease) CVA (cerebral vascular accident) Heart disease Hypertension Father Alcoholism Other Colon cancer Diabetes Surgical History H/O wrist surgery Social History housing: homeless number of children: 3 current occupational status: unemployed Smoking Status: Current every day smoker tobacco type: cigarettes Tobacco: How many years used: 20 how long ago did patient quit smokin ppd since 19 years old. alcohol intake: former year quit: 2020 details: Reports sober since 03/2021, has had ~4 small relapses. substance use type: marijuana, amphetamines and other details: Currently using methadone. ROS Constitutional Constitutional: Denies chills, fever(s) or malaise Eyes Eyes: Denies blurry vision or change in vision ENT HEENT: Reports none Cardiovascular Cardiovascular: Denies chest pain or palpitations Respiratory/Chest Respiratory/Chest: Denies cough or shortness of breath with exertion Gastrointestinal Gastrointestinal: Denies abdominal pain, constipation or diarrhea Musculoskeletal Musculoskeletal: Denies back pain, joint stiffness or joint swelling Integumentary Integumentary: Denies dry skin, jaundice, lesions or rash Neurologic Neurologic: Denies confusion, syncope or weakness Psychiatric Psychiatric: Reports none; Denies anxiety or depression Endocrine Endocrinology: Denies excessive sweating, fatigue or flushing Hematologic/Lymphatic Hematologic/Lymphatic: Denies anemia, easy bleeding or easy bruising Lab / Micro Data 09/27/23 06:26 09/27/23 06:26 Labs: Laboratory Results - last 24 hr 09/26/23 19:00: WBC 17.4 H, RBC 4.42 L, Hgb 12.9 L, Hct 38.9 L, MCV 88.0, MCH 29.2, MCHC 33.2, RDW Std Deviation 43.8, RDW Coeff of Christie 13.5, Plt Count 412, MPV 8.8, Immature Gran % (Auto) 0.300, Neut % (Auto) 66.5, Lymph % (Auto) 22.6, [place] % (Auto) 7.0, Eos % (Auto) 2.6, Baso % (Auto) 1.0, Absolute Neuts (auto) 11.5 H, Absolute Lymphs (auto) 3.92, Nucleated RBC % 0, PT 13.1, INR 1.0, APTT 29.6, Sodium 140, Potassium 4.0, Chloride 110 H, Carbon Dioxide 26.0, Anion Gap 4 L, BUN 19 H, Creatinine 1.04, Estim Creat Clear Calc 92.31, Est GFR (MDRD) Af Amer 103, Est GFR (MDRD) Non-Af 85, BUN/Creatinine Ratio 18.3, Glucose 97, Lactic Acid 1.0, Calcium 8.9, Total Bilirubin 0.10 L, AST 17, ALT 17, Alkaline Phosphatase 101, Total Protein 7.0, Albumin 3.1 L, Globulin 3.9, Albumin/Globulin Ratio 0.8 L 09/27/23 06:26: WBC 12.6 H, RBC 4.20 L, Hgb 12.3 L, Hct 37.5 L, MCV 89.3, MCH 29.3, MCHC 32.8, RDW Std Deviation 44.5 H, RDW Coeff of Christie 13.6, Plt Count 360, MPV 8.7, Immature Gran % (Auto) 0.400, Neut % (Auto) 62.9, Lymph % (Auto) 23.7, [place] % (Auto) 8.4, Eos % (Auto) 3.7, Baso % (Auto) 0.9, Absolute Neuts (auto) 8.0 H, Absolute Lymphs (auto) 2.99, Nucleated RBC % 0, Sodium 139, Potassium 3.9, Chloride 111 H, Carbon Dioxide 26.0, Anion Gap 2 L, BUN 13, Creatinine 0.84, Estim Creat Clear Calc 111.48, Est GFR (MDRD) Af Amer 132, Est GFR (MDRD) Non-Af 109, BUN/Creatinine Ratio 15.6, Glucose 95, Calcium 7.8 L Imaging Radiology Impression Pelvis CT 09/26/23 19:45 IMPRESSION: Left scrotal enhancement and skin thickening. No focal abscess or fluid collection. Ultrasound correlation recommended. Electronically Signed: Shree Ratliff MD at 20:40 EDT ,
[2023-09-27 08:12] VITALS: BP 123/82; PULSE 71; RESP 16; TEMP 36.5; O2SAT 99
[2023-09-27] MEDS: 0.9% Saline Lock 10 ML Syringe IV ×2 (08:19→10:12)
[2023-09-27] MEDS: Ketorolac 15 MG/ML Vial IV ×2 (08:19→19:50)
[2023-09-27] MEDS: Folic Acid 1 MG Tablet PO ×2 (08:19→16:29)
[2023-09-27] MEDS: Vancomycin HCl 1,250 MG in 0.9% Normal Saline (250mL Bag) 250 ML 167 MG IV ×2 (08:25→20:41)
[2023-09-27] MEDS: Thiamine Hydrochloride 100 MG in 0.9% Normal Saline (50mL Bag) 50 ML 200 MG IV (10:10)
--- NOTE | 2023-09-27 10:25 | CASEMGMT ---
AYSE MARTIN Face to Face with patient for initial transition planning/care coordination assessment. RN MARIO introduced self and role at [facility]. Patient lying in bed, alert and oriented. Patient willing to participate in assessment and is able to answer all questions appropriately. Care providers, pharmacy, and demographics verified. PCP: [facility] Specialists: none Preferred Pharmacy: [facility] Insurance: [facility] Prescription Benefit: yes Living Will/HPOA: none LNOK: significant other, uncle Living Arrangements: Patient states he is homeless and had been staying at his uncle's house. Patient unsure where he will go at discharge. SW updated and to provide resources. Transportation: public, walks DME/HHC: Patient denies DME in the home. No previous HHC or SNF. Patient states he should be able to perform own wound care. Patient smoke 1/2 ppf of cigarettes and marijuana daily, denied resources. Patient unsure of disposition at discharge. Patient states he has no further needs or concerns at this time. CM to follow for discharge planning needs that may arise. Disposition Plan: Patient to discharge with follow-up plans in place, SW to provide resources. Nathaly ROMERO, RN, CM
--- NOTE | 2023-09-27 10:43 | CON.PCM.ID_ITS ---
Assessment & Plan Assessment/Plan (1) Cellulitis of scrotum: (2) Hidradenitis suppurativa: PLAN: In general with hidradenitis, concern that I&Ds can risk worsening of inflammation. Cont vanc/unasyn. Plan at discharge will be for course of po abx, long prednisone taper, and re-establish with derm at [facility] to discuss immunosuppressive meds. Will check hiv/hep/T quantiferon now to help expedite that process. Will follow, thank you (3) Methamphetamine abuse: HPI Consult Data Date of Consult: 09/27/23 HPI Narrative Reason for Consultation: hidradenitis HPI Narrative: VINCENT JUNE, is a 38 M with hidradenitis since age 16. Has had I&Ds in the past, has been on courses of doxy po and clinda cream in the past without improvement. Saw [facility] once. Presented to ED 09/25 with several days worsening pain, swelling, redness in R jaw, R axilla, and L groin. No fever or chills. No recent abx. Admitted on vanc/unasyn, feeling about the same. Full ROS performed and neg except as noted above. PFSH Medical History Alcohol abuse Anxiety Asthma Cannabis use disorder Chronic cough COVID-19 Depression Gout Hidradenitis suppurativa Hidradenitis suppurativa Hyperlipidemia Leg cramps Low iron Methamphetamine abuse Opioid dependence Paronychia Polysubstance abuse Pulmonary emboli Scrotal abscess Smoker Substance abuse Tobacco use Home Medications trazodone 100 mg tablet 100 mg PO QHS PRN insomnia 09/26/23 [History Last Taken Unknown] Allergy/AdvReac Type Severity Reaction Status Date / Time quick bunch Allergy Food Verified 09/26/23 18:32 Allergy Family History Mother COPD (chronic obstructive pulmonary disease) CVA (cerebral vascular accident) Heart disease Hypertension Father Alcoholism Other Colon cancer Diabetes Surgical History H/O wrist surgery Social History housing: homeless number of children: 3 current occupational status: unemployed Smoking Status: Current every day smoker tobacco type: cigarettes Tobacco: How many years used: 20 how long ago did patient quit smokin ppd since 19 years old. alcohol intake: former year quit: 2020 details: Reports sober since 03/2021, has had ~4 small relapses. substance use type: marijuana, amphetamines and other details: Currently using methadone. Physical Exam Const alert, oriented x3 and no apparent distress General Appearance: cooperative HEENT normocephalic and head/scalp atraumatic Eyes PERRL and EOMs intact bilaterally Neck supple and No nodes Resp normal air movement and clear to auscultation bilaterally Cardio regular rate and regular rhythm GI soft to palpation, non-tender and non-distended Extremity General Extremity: Negative for edema Skin Skin Narrative: swelling, tenderness, redness in R jaw, R axilla, L groin Neuro CN's II-XII intact bilaterally Lab / Micro Data Attestation: I reviewed the patient's lab results. 09/27/23 06:26 09/27/23 06:26 Labs: Laboratory Results - last 24 hr 09/26/23 19:00: WBC 17.4 H, RBC 4.42 L, Hgb 12.9 L, Hct 38.9 L, MCV 88.0, MCH 29.2, MCHC 33.2, RDW Std Deviation 43.8, RDW Coeff of Christie 13.5, Plt Count 412, MPV 8.8, Immature Gran % (Auto) 0.300, Neut % (Auto) 66.5, Lymph % (Auto) 22.6, [place] % (Auto) 7.0, Eos % (Auto) 2.6, Baso % (Auto) 1.0, Absolute Neuts (auto) 11.5 H, Absolute Lymphs (auto) 3.92, Nucleated RBC % 0, PT 13.1, INR 1.0, APTT 29.6, Sodium 140, Potassium 4.0, Chloride 110 H, Carbon Dioxide 26.0, Anion Gap 4 L, BUN 19 H, Creatinine 1.04, Estim Creat Clear Calc 92.31, Est GFR (MDRD) Af Amer 103, Est GFR (MDRD) Non-Af 85, BUN/Creatinine Ratio 18.3, Glucose 97, Lact ic Acid 1.0, Calcium 8.9, Total Bilirubin 0.10 L, AST 17, ALT 17, Alkaline Ph osphatase 101, Total Protein 7.0, Albumin 3.1 L, Globulin 3.9, Albumin/Globulin Ratio 0.8 L 09/27/23 06:26: WBC 12.6 H, RBC 4.20 L, Hgb 12.3 L, Hct 37.5 L, MCV 89.3, MCH 29.3, MCHC 32.8, RDW Std Deviation 44.5 H, RDW Coeff of Christie 13.6, Plt Count 360, MPV 8.7, Immature Gran % (Auto) 0.400, Neut % (Auto) 62.9, Lymph % (Auto) 23.7, [place] % (Auto) 8.4, Eos % (Auto) 3.7, Baso % (Auto) 0.9, Absolute Neuts (auto) 8.0 H, Absolute Lymphs (auto) 2.99, Nucleated RBC % 0, Sodium 139, Potassium 3.9, Chloride 111 H, Carbon Dioxide 26.0, Anion Gap 2 L, BUN 13, Creatinine 0.84, Estim Creat Clear Calc 111.48, Est GFR (MDRD) Af Amer 132, Est GFR (MDRD) Non-Af 109, BUN/Creatinine Ratio 15.6, Glucose 95, Calcium 7.8 L Micro: Microbiology 09/26/23 19:20 Wound Abcess - Face Gram Stain - Final 09/26/23 19:20 Wound Abcess - Axilla Gram Stain - Final Imaging Radiology Impression Pelvis CT 09/26/23 19:45 IMPRESSION: Left scrotal enhancement and skin thickening. No focal abscess or fluid collection. Ultrasound correlation recommended. Electronically Signed: Shree Ratliff MD at 20:40 EDT ,
[2023-09-27 12:16] VITALS: BP 134/90; PULSE 86; RESP 16; TEMP 36.7; O2SAT 97
[2023-09-27 12:54] LABS: HIV - WCH Non-Reactive (Nonreactive); Hepatitis B Surface Antibody Non-Reactive; Hepatitis B Surface Antigen Non-Reactive (Nonreactive); Hepatitis C Antibody Non-Reactive (Nonreactive)
--- NOTE | 2023-09-27 13:08 | WOUNDNOTE ---
wound photo: right face
--- NOTE | 2023-09-27 13:09 | WOUNDNOTE ---
wound photo: right axilla
--- NOTE | 2023-09-27 13:09 | WOUNDNOTE ---
wound photo: left groin/scrotum
--- NOTE | 2023-09-27 13:12 | CASEMGMT ---
SW went to patient's room to provide resources. Patient was sleeping. Patient did briefly wake up. SW told patient why SW was there to talk with him. Patient asked SW to leave the resources. SW will try and check back with patient. Zina MENDOZA
[2023-09-27 14:41] LABS: M R Staph aureus DNA By PCR Negative (Negative); Staph aureus DNA By PCR NEGATIVE (Negative)
[2023-09-27 14:42] LABS: Probe Check PASS; Specimen Processing Control PASS
[2023-09-27 16:21] VITALS: BP 128/94; PULSE 85; RESP 16; TEMP 36.8; O2SAT 99
[2023-09-27] MEDS: Juven (unflavored) Packet 1 PACKET PO (16:29)
[2023-09-27] MEDS: traZODone 100 MG Tablet PO (19:50)
[2023-09-27 20:35] VITALS: BP 144/105; PULSE 84; RESP 18; TEMP 36.7; O2SAT 98
[2023-09-27] MEDS: Gabapentin 300 MG Capsule PO (20:41)
[2023-09-28] MEDS: 0.9% Normal Saline (1000mL) 1,000 ML 150 ML IV ×2 (02:31→09:26)
[2023-09-28 02:32] VITALS: BP 116/68; PULSE 72; RESP 18; TEMP 36.2; O2SAT 95
[2023-09-28] MEDS: Ampicillin/Sulbactam 3 GM in 0.9% Normal Saline (100mL MB+) 100 ML IV ×2 (05:07→12:15)
[2023-09-28] MEDS: oxyCODONE 5 MG Tablet PO ×2 (05:09→09:26)
[2023-09-28] MEDS: Ketorolac 15 MG/ML Vial IV (07:48)
[2023-09-28] MEDS: Juven (unflavored) Packet 1 PACKET PO (07:49)
[2023-09-28] MEDS: Folic Acid 1 MG Tablet PO (07:49)
[2023-09-28 07:58] VITALS: BP 131/91; PULSE 74; RESP 14; TEMP 36.6; O2SAT 98
[2023-09-28 08:23] LABS: Absolute Lymphocyte Count 3.17 X10^3/uL (0.83-4.51); Absolute Neutrophil Count 8.9 X10^3/uL (2.0-7.7); Basophil# 0.15 X10^3/uL; Basophil% 1.1 % (0-1); Eosinophil# 0.53 X10^3/uL; Eosinophils% 3.8 % (0-5); Hematocrit 37.7 % (40-54); Hemoglobin 12.3 g/dL (13.0-16.5); Lymphocyte # 3.17 X10^3/ul (0.83-4.51); Mean Corp Hgb Conc 32.6 g/dL (32-36); Mean Corpuscular Hgb 28.8 pg (27.0-32.0); Mean Corpuscular Volume 88.3 fL (80-94); Mean Platelet Vol. 8.9 fl (6.2-12.0); Monocyte# 1.01 X10^3/uL; Monocyte% 7.3 % (0-10); NRBC Flagged by Analyzer 0 % (0-5); Neutrophil # 8.87 X10^3/uL (2.7-7.7); Neutrophil % 64.4 % (47-70); Platelet Count 388 K/mm3 (150-450); RBC Distribution Width CV 13.3 % (11.6-14.6); RBC Distribution Width SD 42.6 fl (35.1-43.9); Red Blood Count 4.27 M/mm3 (4.6-6.2); White Blood Count 13.8 K/mm3 (4.4-11.0)
[2023-09-28 08:38] LABS: Anion Gap 4 (5-15); BUN 7 mg/dL (7-18); Calcium,Total 8.1 mg/dL (8.5-10.1); Chloride 110 mmol/L (98-107); Creatinine, Serum 0.88 mg/dL (0.70-1.30); EST Glomerular Filtration Rate 103 mL/min (>60); Est Glom Filt Rate - Afr Amer 125 mL/min (>60); Estimated Creatinine Clearance 106.41 ml/min; Glucose 133 mg/dL (74-106); Potassium 3.6 mmol/L (3.5-5.1); Sodium Level 138 mmol/L (136-145); Vancomycin, Trough Level 9.7 ug/mL (5.0-15.0)
[2023-09-28] MEDS: Vancomycin Trough/Random Due 1 LAB MC (08:45)
--- NOTE | 2023-09-28 09:14 | PCM.RX.CS ---
Consult Antibiotic Management Pharmacy has been consulted to manage selected antibiotic: Vancomycin Type of Intervention Type of Consult: Follow-up Suspected Infection Suspected Infection: Skin/Soft tissue Prior Doses of Antibiotics Prior Doses of Antibiotics Received/Current Regimen: Received 1750mg iv x 1 as loading dose 09.26.23 and presently on 1250mg iv q12h. Labs Labs: Sodium 138 mmol/L (136-145) 09/28/23 07:55 Potassium 3.6 mmol/L (3.5-5.1) 09/28/23 07:55 Chloride 110 mmol/L (98-107) H 09/28/23 07:55 Carbon Dioxide 24.0 mmol/L (21.0-32.0) 09/28/23 07:55 Anion Gap 4 (5-15) L 09/28/23 07:55 BUN 7 mg/dL (7-18) 09/28/23 07:55 Creatinine 0.88 mg/dL (0.70-1.30) 09/28/23 07:55 Est GFR (MDRD) Af Amer 125 mL/min (>60) 09/28/23 07:55 Est GFR (MDRD) Non-Af 103 mL/min (>60) 09/28/23 07:55 BUN/Creatinine Ratio 8.0 RATIO (10-20) L 09/28/23 07:55 Glucose 133 mg/dL (74-106) H 09/28/23 07:55 Vancomycin Trough 9.7 ug/mL (5.0-15.0) 09/28/23 07:55 Microbiology Microbiology: Microbiology 09/26/23 19:20 Wound Abcess - Face Gram Stain - Final 09/26/23 19:20 Wound Abcess - Face Wound Culture - Preliminary Mixed Gram Positive Organisms 09/26/23 19:20 Wound Abcess - Axilla Gram Stain - Final 09/26/23 19:20 Wound Abcess - Axilla Wound Culture - Preliminary Mixed Gram Positive Organisms Dosing Weight Weight used for dosin kg Estimated Creatinine Clearance Estimated Creatinine Clearance: 106 ml/min Goal Trough Goal Trough: 15-20 mcg/mL Pharmacy Plan for Drug Dosing Pharmacy Plan for Drug Dosing: Trough today 9.7 and below goal. Recommend an increase dose to 2000mg iv q12h with trough before 4th dose. Pharmacy Service will continue to monitor and adjust dosing as required. Follow-Up Labs Follow-Up Labs: Trough: Vancomycin (5.2.24 @2029)
[2023-09-28] MEDS: Thiamine Hydrochloride 100 MG in 0.9% Normal Saline (50mL Bag) 50 ML 200 MG IV (09:25)
[2023-09-28] MEDS: Vancomycin HCl 2,000 MG in 0.9% Normal Saline (500mL Bag) 500 ML 250 MG IV (09:25)
[2023-09-28] MEDS: hydrOXYzine PAM 25 MG Capsule 50 MG PO (12:18)
--- NOTE | 2023-09-28 12:56 | PCM.PN.ID ---
Physical Exam Narrative Feeling ok, wants to be discharged, still with pain and some bloody drainage Const alert and no apparent distress General Appearance: cooperative Resp normal air movement and clear to auscultation bilaterally Cardio regular rate and regular rhythm Skin Skin Narrative: redness and inflammation in L groin, R axilla ID ID: Route of nutrition/ use of supplements: [] Nutritional Intake: [] IV Site: [] Patrick Catheter: [] Assessment & Plan Assessment/Plan (1) Cellulitis of scrotum: (2) Hidradenitis suppurativa: PLAN: In general with hidradenitis, concern that I&Ds can risk worsening of inflammation. On vanc/unasyn. Plan at discharge will be for doxy for at least a month, one week augmentin, long prednisone taper, and re-establish with derm at [facility] to discuss immunosuppressive meds. Checking hiv/hep/T quantiferon here to help expedite that process. Will follow as needed (3) Methamphetamine abuse:
--- NOTE | 2023-09-28 13:33 | CASEMGMT ---
SW met with patient. Introduced self and role at [facility]. Patient told SW he does not know where he will go at discharge. Patient stated he called [employer] and left a message. SW told patient SW will try and call [employer] as well. SW called [employer] and left a message for Kalpana Curry. This JOAN and AYSE MARTIN went to patient's room together. SW asked about his Uncle's home. Patient told SW and AYSE MARTIN that he is better off sleeping on the street as his Uncle's home is disgusting. Patient cannot shower there. Patient stated he called the guard lieutenant at [facility] and he told patient he will put him in a room for the night. Patient is waiting on the guard lieutenant to call back. RN MARIO spoke with patient about dressing supplies. Zina MENDOZA
--- NOTE | 2023-09-28 13:37 | DCINST_ITS ---
Discharge Instructions Diet Discharge Diet: No restrictions Activity Discharge Activity: Return to Normal Activity Weight Bearing Status: Weight bearing as tolerated Dressing / Incision Call your doctor if you observe: Fever of 101 or Higher, Coldness, Increased Pain, Numbness or Tingling, Change in Color, Inability to urinate, Inability to have a bowel movement, Using more than 1 pad per hour, Shortness of breath, Dizziness, Fainting spells, Swelling in the ankles, Chest pain, Prolonged hiccupping, Increased palpitations (irregular heartbeat) and Calf discomfort Follow Up Care When: IN 2 WEEKS Test Results: Test results from this visit will be discussed in further detail at your follow- up appointment, if applicable. Discharge Plan Admission Admit Date/Time: 09/26/23 21:19 Primary Reason for Your Visit: Hidradenitis suppurativa. Scrotal cellulitis Attending Provider: Scott Khan Primary Care Provider: Saleem Isaacs Consulting Providers: Marino Doe; Trevon Galaviz; Herminio Lennon Discharge Orders/Prescriptions Prescriptions: New doxycycline hyclate 100 mg capsule 100 mg PO BID Qty: 60 1RF amoxicillin-pot clavulanate 875-125 mg tablet 1 tab PO Q12H Qty: 14 0RF prednisone 10 mg tablet 10 mg PO DAILY Qty: 70 0RF Rx Instructions: Take 4 pills daily for 1 week then 3 pills daily for 1 week then 2 pills daily for 1 week then 1 pill daily for 1 week tramadol 50 mg tablet 50 mg PO Q8H PRN (Reason: pain (scale score 7-10)) Qty: 10 0RF Continued trazodone 100 mg tablet 100 mg PO QHS PRN (Reason: insomnia) hydroxyzine pamoate 50 mg capsule 50 mg PO Q6H PRN PRN (Reason: anxiety) gabapentin 300 mg capsule 300 mg PO QHS Referrals / Follow Up: Herminio Lennon MD [Med Staff - Active Staff] - Within 1 Month Saleem Isaacs MD [Primary Care Provider] - Marino Doe MD [Med Staff - Active Staff] - Within 2 Weeks (scrotal cellulitis) Disposition Disposition (needs filled in before D/C Order can be placed): Home, Self Care
--- NOTE | 2023-09-28 13:45 | CASEMGMT ---
AYSE MARTIN in to patient's room with SW to discuss disposition and needs at discharge. Patient states he is calling local [facility] to see if they will have room for him to stay tonight. Patient requesting pain medication and script for wound supplies. Patient denied further needs. AYSE MARTIN updated hospitalist regarding requests. Script for wound supplies received and provided in discharge packet.
--- NOTE | 2023-09-28 13:46 | PCM.DC.SUM ---
Providers Date of Admission: 09/26/23 Date of Discharge: 09/28/23 Primary Care Physician: Dr. Saleem Isaacs MD Consultations 09/26/23 21:44 Consult: Urology Routine Consulting Provider: Marino Doe Reason for Consult: left scrotal cellulitis EMERGENT Consult: Yes MD Notified: Yes Date Notified: 09/26/23 Time Notified: 21:41 Method of Notification: Answering Service 09/27/23 03:35 Consult: Onc/Wound/director of knowledge management Routine Comment: Reason for Consult:: wound/cellulitis Comments:: Rt neck, axillary, and Lt upper thigh wound 09/27/23 08:43 Consult: Infectious Disease Routine Consulting Provider: Herminio Lennon Reason for Consult: multiple area of infection/abscesses, Hidraadneitis EMERGENT Consult: No MD Notified: Yes Date Notified: 09/27/23 Time Notified: 08:44 Method of Notification: Text Reason For Visit: SCROTAL CELLULITIS/ABSCESS, RIGHT FACIAL ABSCESS Diagnosis Discharge Diagnosis (1) Cellulitis of scrotum: Status: Acute Code(s): N49.2 - Inflammatory disorders of scrotum (2) Hidradenitis suppurativa: Status: Chronic Code(s): L73.2 - Hidradenitis suppurativa (3) Methamphetamine abuse: Status: Acute Code(s): F15.10 - Other stimulant abuse, uncomplicated Plan This is a 38-year-old gentleman was admitted with recurrent scrotal infection P cell abscess and axillary abscess. Had antibiotic but no improvement. No fever or chill 1. Left preauricular/face abscess status post I&D at right angle of mandible, right axillary abscess status post I&D and left upper thigh/scrotal cellulitis and edema: Patient is being admitted in PCU. On complete history, patient had first episode of infection possible hidradenitis/abscess at the age of 16. He also had acne and easily gets infection after shaving. Denies history of splenectomy, hereditary autoimmune disease/primary immunodeficiency like [place] Higashi syndrome, sinopulmonary disease or meningitis/middle ear infection. Denies history of STI/HIV or IV needle use/IVDA. Patient was evaluated by urologist. CT pelvis reviewed does not show pelvic fluid normal pelvic lymphadenopathy or mass lesion. Left scrotal skin thickening in this enhancement of the spermatic cord but no focal abscess or fluid collection.Unremarkable bilateral testicular ultrasound. Patient on IV ceftriaxone and vancomycin. Clinically, high probability of MRSA infection. 09/27: Prelim Gram stain shows mixed gram-positive organism. MRSA PCR are negative but still high probability of MRSA infection. Patient is discharged on Augmentin and doxycycline and tapering dose of prednisone, prescription written by ID. Right axillary and right jaw abscess is healing well after I&D. Tenderness induration has decreased. Left upper groin/scrotal cellulitis drying oven tender and draining. Advised scrotal support and change of dressing twice daily. Follow-up in wound center. Follow-up in ID and urologist as discharge instruction. 2. History of chronic alcohol use: Patient is states sometimes he drinks alcohol. thiamine and folate and monitor for CIWA a protocol. Patient is Sterets he drinks 5 drinks in 1 month mainly whiskey. 3. History of opiate dependence and cannabis abuse. Patient denies current/active IVDA or opioid use. In H&P, patient had history of marijuana, amphetamine. Currently using methadone. On Toradol 4. DVT prophylaxis?low molecular weight heparin Discharge medication reconciliation done. Discharge follow-up instructions completed. Discharge process discussed with the patient and all questions were answered to patient's satisfaction. Follow with PCP in 1 to 2 weeks Total time spent, exact 35 minutes on discharge meds reconciliation, examination, coordination of care with nurses and ancillary staff, review of imaging and blood test and discussion with the patient on follow-up instructions. Medications at Discharge Home Medications trazodone 100 mg tablet 100 mg PO QHS PRN insomnia 09/26/23 gabapentin 300 mg capsule 300 mg PO QHS RESTLESS LEG 09/27/23 hydroxyzine pamoate 50 mg capsule 50 mg PO Q6H PRN PRN anxiety 09/27/23 amoxicillin 875 mg-potassium clavulanate 125 mg tablet 1 tab PO Q12H #14 tabs 09/28/23 doxycycline hyclate 100 mg capsule 100 mg PO BID #60 caps 09/28/23 prednisone 10 mg tablet 10 mg PO DAILY #70 tabs 09/28/23 tramadol 50 mg tablet 50 mg PO Q8H PRN pain (scale score 7-10) #10 tabs 09/28/23 Physical Exam Narrative Seen and examined. No fever. Heart rate and blood pressure controlled. Right jaw and axillary swelling and abscesses healing well. Left groin still draining. Dressing was changed. Physical exam General: Alert, Oriented x3, Cooperative HEENT: Atraumatic, PERRLA, EOMI, Normocephalic Oral/poor oral exam: No tenderness over right buccal cavity. No Gingival or Mucosal Lesions/ Ulcerations or infiltrate/purulent drainage Neck: Supple, No JVD, Negative Carotid Bruits Chest wall/Lungs: Air entry diminished in bilateral lung bases. No crepitation/rhonchi Cardiovascular: Regular rate, Regular Rhythm, Normal S1, Normal S2, No M/G/R Abdomen: Bowel Sounds Present, Soft, Non Tender, Non-Distended : No obvious testicular swelling or tenderness. Mild scrotal edema/cellulitis. No dysuria. No renal angle tenderness. No suprapubic tenderness. Extremities: Multiple old scarring of sinus tracts of bilateral axillary area. No edema, Capillary Refill Less than 3 Seconds Skin: Incision and drainage over right angle of mandible/preauricular region and right axillary abscesses status post incision and drainage. Induration and tenderness and swelling improved. Serosanguineous drainage over left groin from left upper thigh. Mild swelling/induration over left upper thigh, junction of pelvis and thigh Musculoskeletal: Tenderness over left upper medial aspect of thigh. Range of motion of left hip is mildly restricted due to pain and swelling. Neurological: Cranial nerves II-XII grossly intact, DTR 2+/4. No acute focal neurological deficit. Psych/Mental Status: Normal Affect, Appropriate. Weight / BMI Weight Weight: 145 lb 11.609 oz Body Mass Index (BMI) 22.1 ABG / Lab / Microbiology Data 09/28/23 07:55 09/28/23 07:55 Laboratory: Laboratory Results - last 24 hr 09/27/23 10:00: S.aureus Protein A PCR NEGATIVE, MRSA (PCR) Negative 09/28/23 07:55: WBC 13.8 H, RBC 4.27 L, Hgb 12.3 L, Hct 37.7 L, MCV 88.3, MCH 28.8, MCHC 32.6, RDW Std Deviation 42.6, RDW Coeff of Christie 13.3, Plt Count 388, MPV 8.9, Immature Gran % (Auto) 0.400, Neut % (Auto) 64.4, Lymph % (Auto) 23.0, [place] % (Auto) 7.3, Eos % (Auto) 3.8, Baso % (Auto) 1.1 H, Absolute Neuts (auto) 8.9 H, Absolute Lymphs (auto) 3.17, Nucleated RBC % 0, Sodium 138, Potassium 3.6, Chloride 110 H, Carbon Dioxide 24.0, Anion Gap 4 L, BUN 7, Creatinine 0.88, Estim Creat Clear Calc 106.41, Est GFR (MDRD) Af Amer 125, Est GFR (MDRD) Non-Af 103, BUN/Creatinine Ratio 8.0 L, Glucose 133 H, Calcium 8.1 L, Vancomycin Trough 9.7 Microbiology: Microbiology 09/26/23 19:20 Wound Abcess - Face Gram Stain - Final 09/26/23 19:20 Wound Abcess - Face Wound Culture - Preliminary Mixed Gram Positive Organisms 09/26/23 19:20 Wound Abcess - Axilla Gram Stain - Final 09/26/23 19:20 Wound Abcess - Axilla Wound Culture - Preliminary Mixed Gram Positive Organisms D/C Instructions Discharge Diet: No restrictions Weight Bearing Status: Weight bearing as tolerated Call your doctor if you observe: Fever of 101 or Higher, Coldness, Increased Pain, Numbness or Tingling, Change in Color, Inability to urinate, Inability to have a bowel movement, Using more than 1 pad per hour, Shortness of breath, Dizziness, Fainting spells, Swelling in the ankles, Chest pain, Prolonged hiccupping, Increased palpitations (irregular heartbeat) and Calf discomfort When: IN 2 WEEKS Meaningful Use Info Meaningful Use Meaningful Use Diagnoses (Choose all that apply): None applicable Ischemic Stroke Statin Dosing Therapy Reference: STATIN DOSE THERAPY REFERENCE: * Patients > 75 years receive moderate or high dose statin therapy. * Patients 75 years or YOUNGER should receive HIGH intensity statin dose unless contraindicated. You will be required to document reason for non-treatment if statin daily dose does not meet guidelines. HIGH DOSE STATIN THERAPY DAILY Atorvastatin > than or = to 40 mg Rosuvastatin > than or = to 20 mg Amlodipine + Atorvastatin > than or = to 2.5/40 mg Ezetimibe + Simvastatin 10/80 mg Simvastatin 80mg Discharge Plan Admission Admit Date/Time: 09/26/23 21:19 Primary Reason for Your Visit: Hidradenitis suppurativa. Scrotal cellulitis Attending Provider: Scott Khan Primary Care Provider: Saleem Isaacs Consulting Providers: Marino Doe; Trevon Galaviz; Herminio Lennon Instructions Additional Instructions / Restrictions: Follow-up in wound clinic twice weekly. Dressing supplies were given. Discharge Orders/Prescriptions Prescriptions: New doxycycline hyclate 100 mg capsule 100 mg PO BID Qty: 60 1RF amoxicillin-pot clavulanate 875-125 mg tablet 1 tab PO Q12H Qty: 14 0RF prednisone 10 mg tablet 10 mg PO DAILY Qty: 70 0RF Rx Instructions: Take 4 pills daily for 1 week then 3 pills daily for 1 week then 2 pills daily for 1 week then 1 pill daily for 1 week tramadol 50 mg tablet 50 mg PO Q8H PRN (Reason: pain (scale score 7-10)) Qty: 10 0RF Continued trazodone 100 mg tablet 100 mg PO QHS PRN (Reason: insomnia) hydroxyzine pamoate 50 mg capsule 50 mg PO Q6H PRN PRN (Reason: anxiety) gabapentin 300 mg capsule 300 mg PO QHS Referrals / Follow Up: Marino Doe MD [Med Staff - Active Staff] - Within 2 Weeks (scrotal cellulitis) Herminio Lennon MD [Med Staff - Active Staff] - Within 1 Month Saleem Isaacs MD [Primary Care Provider] - Disposition Disposition (needs filled in before D/C Order can be placed): Home, Self Care Charges/Coding Visit Charges Inpatient E&M: 77364 Disch Hosp >30min
[2023-09-28 14:20] VITALS: BP 123/87; PULSE 88; RESP 16; TEMP 36.3; O2SAT 97
--- NOTE | 2023-09-28 14:53 | PHA.DC_ITS ---
Pharmacy [facility] has performed discharge medication reconciliation and counseling for this patient. 1. AUGMENTIN 875MG PO BID X 7 DAYS 2. DOXYCYCLINE 100MG PO BID X 30 DAYS 3. PREDNISONE 40MG PO DAILY X 1 WEEK, THEN 30MG X 1 WEEK, THEN 20MG X 1 WEEK, THEN 10MG X 1 WEEK 4. TRAMADOL 50MG PO Q8H PRN PAIN The patient's discharge medication list was reviewed for discrepancies and discrepancies were resolved. The patient was counseled on the following discharge medications and changes in medications for homegoing were reviewed. The Reason for Use, instructions for use, and potential side effects were reviewed for all new medications. The patient's questions regarding all of their medications were answered. The patient was able to verbally demonstrate an understanding of their discharge medications. Medications at Discharge Home Medications trazodone 100 mg tablet 100 mg PO QHS PRN insomnia 09/26/23 gabapentin 300 mg capsule 300 mg PO QHS RESTLESS LEG 09/27/23 hydroxyzine pamoate 50 mg capsule 50 mg PO Q6H PRN PRN anxiety 09/27/23 amoxicillin 875 mg-potassium clavulanate 125 mg tablet 1 tab PO Q12H #14 tabs 09/28/23 doxycycline hyclate 100 mg capsule 100 mg PO BID #60 caps 09/28/23 prednisone 10 mg tablet 10 mg PO DAILY #70 tabs 09/28/23 tramadol 50 mg tablet 50 mg PO Q8H PRN pain (scale score 7-10) #10 tabs 09/28/23
--- NOTE | 2023-09-29 15:22 | CASEMGMT ---
SW received a phone call from patient. Patient requested that a letter from [facility] be faxed to Dottie at [employer]. Patient requested the letter verify his stay at [facility], why he was here, and that he would benefit from staying in a hotel to recover. JOAN obtained the fax number and sent a letter with the information patient requested. Zina MENDOZA
[2023-09-29 21:07] LABS: QNTFERON TB Mitogen Value > 10.00 IU/mL (.); QNTFERON TB Nil Value 0.06 IU/mL (.); QNTFERON TB1+ Ag Value 0.04 IU/mL (.); QNTFERON TB2+ Ag Value 0.06 IU/mL (.); QNTIFERON TB Positive Criteria Negative (Negative)
== END 2023-09-28 15:03 | disposition home or self-care (01) | DRG 383 ==
LOC: ED 20:58 → PCU 21:29
PROVIDERS: Internal Medicine Infectious Disease; Admitting Provider Family Medicine; Emergency Provider Emergency Medicine; PCP Family Medicine; Visit Provider Internal Medicine
DX: L02.01 Cutaneous abscess of face (principal); D72.829 Elevated white blood cell count, unspecified; F15.10 Other stimulant abuse, uncomplicated; F11.20 Opioid dependence, uncomplicated; F10.10 Alcohol abuse, uncomplicated; E78.5 Hyperlipidemia, unspecified; F17.210 Nicotine dependence, cigarettes, uncomplicated; L73.2 Hidradenitis suppurativa; M27.2 Inflammatory conditions of jaws; N49.2 Inflammatory disorders of scrotum; Z59.00 Homelessness unspecified; L02.411 Cutaneous abscess of right axilla; R00.0 Tachycardia, unspecified
CPT/HCPCS: 36415; 72193; 80048; 80053; 80202; 83605; 85025; 85610; 85730; 86480; 86703; 86706; 86803; 87040; 87070; 87075; 87077; 87186; 87205; 87340; 87640; 97802; 99285; J7030; J7040; J7050; Q9967; A4216; J0295; J2405; J3490

== ENCOUNTER 2023-10-08 23:47 | Emergency (ER) | payer MEDICAID, SELFPAY ==
[2023-10-08 23:51] VITALS: BP 118/90; PULSE 109; RESP 20; TEMP 36.6; O2SAT 94
--- NOTE | 2023-10-08 23:53 | EX.ED.VIS.PS ---
HPI HPI - Psych History of Present Illness Chief Complaint: Mental Health Informant: patient Onset/Context/Timing Onset: Today Context: Gradual Onset Conflict: Family Timing: Continuous Worsened by: Situational factors Relieved by: Nothing Associated Symptoms Associated Symptoms - Psych: Positive for Depressed and Suicidal Thoughts; Negative for Paranoia, Visual Hallucinations or Auditory Hallucinations Specific plan (suicidal thought): Overdose on medications to make his heart stop Narrative Narrative: Patient presents with depression and suicidal ideations that became worse tonight. Patient states he has been getting more depressed since he lost his kids. Patient states that tonight he became more depressed and took a bunch of drugs to increase his heart rate and then started drinking alcohol to try and stop his heart. Patient states he has been getting more depressed over the past several days. Patient denies any visual or auditory hallucinations. Patient denies any homicidal ideations. PFSH PFSH Medical History Abscess of face Alcohol abuse Anxiety Asthma Axillary hidradenitis suppurativa Cannabis use disorder Cellulitis of scrotum Chronic cough COVID-19 Depression Gout Hidradenitis suppurativa Hidradenitis suppurativa Hyperlipidemia Leg cramps Low iron Methamphetamine abuse Opioid dependence Paronychia Polysubstance abuse Pulmonary emboli Scrotal abscess Smoker Substance abuse Tobacco use Home Medications NK 10/09/23 [History Last Taken Unknown] Allergy/AdvReac Type Severity Reaction Status Date / Time quick bunch Allergy Food Verified 10/08/23 23:51 Allergy Family History Mother COPD (chronic obstructive pulmonary disease) CVA (cerebral vascular accident) Heart disease Hypertension Father Alcoholism Other Colon cancer Diabetes Surgical History H/O wrist surgery Social History housing: homeless number of children: 3 current occupational status: unemployed Smoking Status: Current every day smoker tobacco type: cigarettes Tobacco: How many years used: 20 how long ago did patient quit smokin ppd since 19 years old. alcohol intake: former year quit: 2020 details: Reports sober since 03/2021, has had ~4 small relapses. substance use type: marijuana, amphetamines and other details: Currently using methadone. ROS ROS ED Constitutional Constitutional ED: Denies chills or fever(s) Eyes Eyes: Denies blurry vision or change in vision ENT ENT ED: Denies rhinorrhea or sore throat Cardiovascular Cardiovascular: Denies chest pain or palpitations Respiratory/Chest Respiratory/Chest: Denies cough or dyspnea Gastrointestinal Gastrointestinal: Denies nausea or vomiting Genitourinary Genitourinary ED: Denies dysuria or hematuria Musculoskeletal Musculoskeletal: Reports back pain; Denies neck pain Integumentary Denies abscess or rash Neurologic Neurologic: Denies headache(s) or weakness Psychiatric Psychiatric: Reports depression, suicidal ideation and suicidal thoughts Allergic/Immunologic Allergic/Immunologic ED: Denies mouth swelling or urticaria EXAM Physical Exam Const Vital Signs: 10/08/23 23:51 10/09/23 00:48 10/09/23 01:00 Temperature 97.9 F Temperature Source Temporal Pulse Rate 109 H Respiratory Rate 20 H 16 16 Blood Pressure 118/90 H Blood Pressure Mean 99 Pulse Ox 94 Oxygen Delivery Method Room Air 10/09/23 03:00 10/09/23 03:54 10/09/23 05:00 Temperature Temperature Source Pulse Rate 102 H 101 H Respiratory Rate 14 18 18 Blood Pressure Blood Pressure Mean Pulse Ox 91 92 Oxygen Delivery Method Room Air Room Air 10/09/23 06:00 Temperature 98.7 F Temperature Source Temporal Pulse Rate 106 H Respiratory Rate 16 Blood Pressure 117/86 H Blood Pressure Mean 96 Pulse Ox 92 Oxygen Delivery Method Room Air Positive well nourished and well developed General Appearance ED: well developed and NAD HEENT normocephalic and atraumatic Neck supple and no JVD Resp normal respiratory effort and clear to auscultation bilaterally Cardio Rate: tachycardic Rhythm: regular rhythm GI non-tender and non-distended Palpation: soft Neuro oriented x3, CN's II-XII intact bilaterally and no sensory deficits noted Chava Coma Scale: document GCS findings Spontaneous Obeys Commands Oriented 15 Sensorium / Orientation: alert Motor Exam: strength 5/5 throughout Psych Attitude: guarded Activity / Motor Behavior: restless and avoids eye contact Speech: normal speech Mood & Affect: anxious Thought Content: suicidality, No delusion(s) and No hallucination(s) MDM MDM MDM Narrative Medical decision making narrative: Suicide precautions were maintained. Medical screening labs will be obtained. CBC will be obtained to assess for leukocytosis and anemia. Basic metabolic profile will be obtained to assess for electrolyte abnormality and renal function. Urine tox screen will be obtained to assess for substance abuse. Serum alcohol level will be obtained to assess for alcohol intoxication. Lab Data Attestation: I reviewed the patient's lab results. Lab results narrative: CBC was reviewed. There is a mild leukocytosis of 13.3. The remainder is within normal limits. Basic metabolic profile was reviewed and was essentially within normal limits. Urine tox screen was reviewed and was positive for cannabinoids. Serum alcohol level was reviewed and was elevated at 265. Labs: Laboratory Results - last 24 hr 10/09/23 00:39 WBC 13.3 H RBC 4.53 L Hgb 13.0 Hct 40.0 MCV 88.3 MCH 28.7 MCHC 32.5 RDW Std Deviation 43.8 RDW Coeff of Christie 13.6 Plt Count 405 MPV 9.0 Immature Gran % (Auto) 0.600 Neut % (Auto) 59.5 Lymph % (Auto) 31.4 [place] % (Auto) 6.4 Eos % (Auto) 1.0 Baso % (Auto) 1.1 H Absolute Neuts (auto) 7.9 H Absolute Lymphs (auto) 4.19 Nucleated RBC % 0 Sodium 140 Potassium 3.8 Chloride 108 H Carbon Dioxide 27.0 Anion Gap 5 BUN 13 Creatinine 0.94 Est GFR (MDRD) Af Amer 115 Est GFR (MDRD) Non-Af 95 BUN/Creatinine Ratio 13.8 Glucose 110 H Calcium 9.0 Urine Opiates Screen NEGATIVE Urine Methadone Screen NEGATIVE Ur Barbiturates Screen NEGATIVE Ur Phencyclidine Scrn NEGATIVE Ur Amphetamines Screen NEGATIVE MDMA (Ecstasy) Screen NEGATIVE U Benzodiazepines Scrn NEGATIVE Urine Cocaine Screen NEGATIVE U Cannabinoids Screen POSITIVE H Ur Drug Screen Comment Ethyl Alcohol 265.0 Treatment and Re-Evaluation Narrative: Because of the elevated alcohol level, a repeat alcohol level will need to be obtained at 0800 and crisis will evaluate him after that. Care of the patient will be turned over to the oncoming physician pending crisis evaluation and repeat alcohol level. Discharge Plan Triage Chief Complaint: Mental Health ED Provider: Willi Abdi Dx/Rx/DC Orders Clinical Impression: Depression, Tobacco abuse, Cannabis use disorder, Suicidal ideation, Alcohol intoxication Prescriptions: No Action NK Primary Care Provider: Saleem Isaacs Referrals: Saleem Isaacs MD [Primary Care Provider] -
[2023-10-09] VITALS (12 sets, daily range): BP systolic 117–135; BP diastolic 80–86; PULSE 78–106; RESP 14–20; TEMP 36.6–37.1; O2SAT 91–98
[2023-10-09 00:52] LABS: Absolute Lymphocyte Count 4.19 X10^3/uL (0.83-4.51); Absolute Neutrophil Count 7.9 X10^3/uL (2.0-7.7); Basophil# 0.15 X10^3/uL; Basophil% 1.1 % (0-1); Eosinophil# 0.13 X10^3/uL; Lymphocyte # 4.19 X10^3/ul (0.83-4.51); Lymphocyte % 31.4 % (19-41); Mean Corp Hgb Conc 32.5 g/dL (32-36); Mean Corpuscular Hgb 28.7 pg (27.0-32.0); Mean Corpuscular Volume 88.3 fL (80-94); Monocyte# 0.86 X10^3/uL; Monocyte% 6.4 % (0-10); NRBC Flagged by Analyzer 0 % (0-5); Neutrophil # 7.93 X10^3/uL (2.7-7.7); Neutrophil % 59.5 % (47-70); Platelet Count 405 K/mm3 (150-450); RBC Distribution Width CV 13.6 % (11.6-14.6); RBC Distribution Width SD 43.8 fl (35.1-43.9); Red Blood Count 4.53 M/mm3 (4.6-6.2); White Blood Count 13.3 K/mm3 (4.4-11.0)
--- NOTE | 2023-10-09 01:00 | ED.RN ---
PT HAS GOTTEN OUT OF BED SEVERAL TIMES IN ATTEMPTS TO LEAVE. PT WAS ASKED TO GET BACK IN BED AND DID COMPLY WITH REQUEST AND THEN STARTED YELLING AT STAFF. PT DID HAVE HIS PHONE AND WAS TOLD THAT IF DIDN'T STOP YELLING THE PHONE WOULD BE REMOVED. BRENDEN PORTILLO RN, WAS ABLE TO TALK WITH PT AND REMOVE PT'S PHONE.
[2023-10-09 01:06] LABS: Anion Gap 5 (5-15); BUN 13 mg/dL (7-18); BUN/Creat Ratio 13.8 RATIO (10-20); Chloride 108 mmol/L (98-107); Creatinine, Serum 0.94 mg/dL (0.70-1.30); EST Glomerular Filtration Rate 95 mL/min (>60); Est Glom Filt Rate - Afr Amer 115 mL/min (>60); Glucose 110 mg/dL (74-106); Potassium 3.8 mmol/L (3.5-5.1); Sodium Level 140 mmol/L (136-145)
[2023-10-09 01:11] LABS: Amphetamine Urine VISTA NEGATIVE (<1000 ng/mL); Barbiturate Urine VISTA NEGATIVE (< 200 ng/mL); Benzodiazepine Urine VISTA NEGATIVE (< 200 ng/mL); Cocaine Urine VISTA NEGATIVE (< 300 ng/mL); Ecstacy Urine VISTA NEGATIVE (< 500 ng/mL); Methadone Urine VISTA NEGATIVE (< 300 ng/mL); PCP Urine VISTA NEGATIVE (< 25 ng/mL); THC Urine VISTA POSITIVE (< 50 ng/mL); Vista UDS pH Range 6
--- NOTE | 2023-10-09 08:51 | NURSING ---
CALLED [facility], TALKED TO [facility] WILL FAX CHART THEY WILL SEND SOMEONE
== END 2023-10-09 10:30 | disposition home or self-care (01) ==
LOC: ED 10-09 00:16
PROVIDERS: Emergency Provider Emergency Medicine; PCP Family Medicine; Visit Provider Emergency Medicine
DX: R45.851 Suicidal ideations (principal); F32.A Depression, unspecified; F10.129 Alcohol abuse with intoxication, unspecified; F12.90 Cannabis use, unspecified, uncomplicated; F17.210 Nicotine dependence, cigarettes, uncomplicated; J45.909 Unspecified asthma, uncomplicated; E78.5 Hyperlipidemia, unspecified; Z63.32 Other absence of family member; Z59.00 Homelessness unspecified
CPT/HCPCS: 80048; 80307; 80320; 85025; 99283; G0480

== ENCOUNTER 2023-10-18 17:37 | Emergency (ER) | payer MEDICAID, SELFPAY ==
[2023-10-18 17:37] VITALS: BP 132/85; PULSE 100; RESP 16; TEMP 36.1; O2SAT 97; BMI 22.8
--- NOTE | 2023-10-18 19:10 | ED.RN ---
Pt asked to leave to go to [place]. Informed pt if he left he would be considered left without being seen and would have to start process over again. Pt cussed under his breath, took his belongings and left, stating he would be back later tonight. LWBS 1910.
== END 2023-10-18 19:10 | disposition left against medical advice (07) ==
LOC: ED 19:31
PROVIDERS: PCP Family Medicine
DX: Z53.21 Procedure and treatment not carried out due to patient leaving prior to being seen by health care provider (principal)

== ENCOUNTER 2023-10-18 22:14 | Observation (INO) | payer MEDICAID, SELFPAY ==
[2023-10-18 22:15] VITALS: BP 128/76; PULSE 100; RESP 16; TEMP 36.6; O2SAT 97; BMI 23.5
[2023-10-18 22:16] VITALS: BP 128/76; PULSE 100; RESP 16; TEMP 36.6; O2SAT 97
[2023-10-19] VITALS (19 sets, daily range): BP systolic 108–129; BP diastolic 65–95; PULSE 66–90; RESP 16–18; TEMP 36.2–36.8; O2SAT 93–100; BMI 22.8
--- NOTE | 2023-10-19 00:51 | CT_ITS ---
EXAM: CT PELVIS WITH INTRAVENOUS CONTRAST CLINICAL INDICATION: SCROTAL INFECTION TECHNIQUE: Helically acquired images were obtained of the pelvis with intravenous contrast. This CT exam was performed using one or more of the following dose reduction techniques: automated exposure control, adjustment of the mA and/or kV according to patient size, and/or use of iterative reconstruction technique. CONTRAST: IV 100mL Isovue-370 RADIATION DOSE: Total DLP: 1950.45 mGy-cm. COMPARISON: Pelvic CT of 09/26/2023. FINDINGS: BOWEL: Unremarkable as visualized. No bowel distention. No focal inflammatory change. APPENDIX: No evidence of acute appendicitis. INTRAPERITONEAL SPACE: Unremarkable. No ascites or other fluid collection. No free air. BLADDER: Unremarkable. REPRODUCTIVE: Unremarkable as visualized. No mass. BONES/JOINTS: Unremarkable. No suspicious lytic or blastic abnormality. SOFT TISSUES: There is asymmetric thickening and hyperenhancement of the skin of the left scrotal wall and medial left thigh. Within the enhancing thickened skin of the lateral left hemiscrotum are multiple small ring-enhancing fluid collections consistent with cutaneous abscesses including an elongated fluid collection measuring 15 x 3 x 5 mm in diameter, and with with a few smaller similar cystic foci measuring up to 6 mm in diameter. These cutaneous fluid collections are noted on coronal images 35-43 of series 605 and images 71-74 of series 5. No bubbles of soft tissue emphysema are seen to indicate necrotizing fasciitis. LYMPH NODES: Normal-sized left inguinal lymph nodes are present, unchanged in size. Numerous clustered lymph nodes are seen in the left groin region, several which show benign fatty kaylah; the largest node measures 10 mm in diameter, borderline size, and unchanged. CT/Pelvis WITH IV Contrast IMPRESSION: Left scrotal wall enhancement and skin thickening again noted, consistent with cellulitis, with multiple small ring enhancing fluid collections within the thickened wall of the left hemiscrotum consistent with small superficial abscesses. Electronically Signed: Ben Murphy MD at 2:38 EDT ,
--- NOTE | 2023-10-19 00:58 | EDS_ITS ---
HPI History of Present Illness Chief Complaint: Abscess Informant: patient Narrative Narrative: Patient has history of hidradenitis suppurativa and ongoing infection in the left scrotum and groin. He was admitted recently he was discharged about 3 weeks ago after seeing urology, infectious disease, he had IV antibiotics going and felt like things were better when he was on IV antibiotics, he has been on oral antibiotics since being discharged, states for the last 3 to 4 days the left groin and scrotum have been draining mostly some bloody discharge, he is having a lot of pain in that area. No fevers, chills, systemic symptoms. States he has been taking antibiotics. He has not followed up with anyone yet, I suppose to see infectious disease and urology as an outpatient. He also had lesions on his right lateral face by his ear and his right axilla, those were incised and drained, and those been doing better but he did not have incision and drainage of the scrotum/groin this past hospital admission. [facility] Medical History Axillary hidradenitis suppurativa Abscess of face Cellulitis of scrotum Gout Low iron Asthma Chronic cough Leg cramps Scrotal abscess Hidradenitis suppurativa Substance abuse Depression Anxiety Smoker Tobacco use Cannabis use disorder Polysubstance abuse Opioid dependence Methamphetamine abuse Hidradenitis suppurativa Alcohol abuse COVID-19 Paronychia Hyperlipidemia Pulmonary emboli Home Medications ?Medication ?Instructions ?Recorded ?Last Taken ?Type NK 10/09/23 Unknown History Allergy/AdvReac Type Severity Reaction Status Date / Time quick bunch Allergy Food Verified 10/18/23 22:14 Allergy Family History Mother COPD (chronic obstructive pulmonary disease) CVA (cerebral vascular accident) Heart disease Hypertension Father Alcoholism Other Colon cancer Diabetes Surgical History H/O wrist surgery Social History housing: homeless number of children: 3 current occupational status: unemployed Smoking Status: Current every day smoker tobacco type: cigarettes Tobacco: How many years used: 20 how long ago did patient quit smokin ppd since 19 years old. alcohol intake: former year quit: 2020 details: Reports sober since 03/2021, has had ~4 small relapses. substance use type: marijuana, amphetamines and other details: Currently using methadone. ROS ROS ED Constitutional Constitutional ED: Denies chills or fever(s) Musculoskeletal Musculoskeletal: Denies back pain or neck pain Integumentary Reports other Details: Multiple old wounds and lesions, active wounds left scrotum and groin see HPI Neurologic Neurologic: Denies abnormal speech, paresthesias or weakness Psychiatric Psychiatric: Reports anxiety EXAM Physical Exam Const Vital Signs: 10/18/23 22:15 10/18/23 22:16 10/19/23 00:15 Temperature 97.8 F 97.8 F 97.9 F Temperature Source Temporal Temporal Temporal Pulse Rate 100 100 89 Respiratory Rate 16 16 18 Blood Pressure 128/76 H 128/76 H 124/86 H Blood Pressure Mean 93 93 98 Pulse Ox 97 97 96 Oxygen Delivery Method Room Air 10/19/23 01:19 10/19/23 01:19 10/19/23 02:19 Temperature 98.0 F 98.1 F Temperature Source Temporal Oral Pulse Rate 69 67 Respiratory Rate 18 16 Blood Pressure 116/78 116/78 111/72 Blood Pressure Mean 90 90 85 Pulse Ox 95 99 Oxygen Delivery Method Room Air Room Air 10/19/23 03:00 Temperature 97.5 F L Temperature Source Oral Pulse Rate 90 Respiratory Rate 16 Blood Pressure 115/87 H Blood Pressure Mean 96 Pulse Ox 98 Oxygen Delivery Method Room Air Positive well nourished and well developed General Appearance ED: well developed and NAD Eyes PERRL and EOMs intact bilaterally Neck full ROM and supple Resp normal respiratory effort Cardio regular rate, regular rhythm and no murmurs GI normal to inspection, nondistended, normoactive bowel sounds and non-tender Narrative: Left hemiscrotum tenderness, complex appearing wound, minor bleeding and drainage from but no pus. Testicles nontender. It is discrete from this and lies distal. The right side is benign and normal-appearing. Penis is normal. No tenderness in the perineum. There is a separate appearing, but possibly deeply connected wound on the medial thigh opposite the scrotum just distal to the inguinal crease, it is also very tender there are indurated areas that are swelling and there are some minor bloody drainage from that as well no pus. Patient is guarding from the area and withdrawing from exam limiting it. Neuro oriented x3, CN's II-XII intact bilaterally and no sensory deficits noted Sensorium / Orientation: awake and alert Motor Exam: strength 5/5 throughout Psych Psych Narrative: Anxious Skin Skin Narrative: Multiple old hidradenitis wounds, including the right periauricular area and the right axilla neither are significantly tender or appear actively infected. The left inguinal area/proximal thigh and hemiscrotum appear to be actively infected very tender, possibly abscess difficult to tell limited exam patient keeps withdrawing from exam. MDM MDM MDM Narrative Medical decision making narrative: I reviewed some of patient records. I reviewed discharge summary and infectious disease consultation, he was on Unasyn and vancomycin in the hospital when he states he was doing better, he was discharged on Augmentin for 1 week which he finished, and doxycycline for 1 month and was post to follow-up with infectious disease and urology which has not done yet. I am seeing this patient at 1:00 AM, and he thinks being admitted with IV antibiotics is what he needs right now. My concern is that he has abscess that needs drained, in which case it will improve. It has been over 3 weeks since this was evaluated by urology so I am obtaining another CT pelvis, last time it did not show any drainable collections. There is a lot of scar tissue and that is certainly possible this time as well. In the meantime and getting labs, and giving him something for pain and prepping for possible procedural sedation, there is no way this patient is going to let me anesthetize and drain this area without sedation. That being the case he is not septic, his vital signs are normal, he is overall well- appearing otherwise. I reviewed the CT results as well as the images and I agree with the result, it basically shows development of fluid collections in the left hemiscrotum. One of them is elongated. I am hesitant to cut into this under conscious sedation which I had considered initially. I discussed with Dr. Doe with urology, he states if it is draining he may not operate on it but is happy to consult and see the patient and give recommendations. Will admit to medicine given failure of outpatient therapy. History & Record Review Additional record(s) reviewed:: Prior inpatient record Lab Data Attestation: I reviewed the patient's lab results. Labs: Laboratory Results - last 24 hr 10/19/23 01:10 WBC 17.5 H RBC 4.36 L Hgb 12.6 L Hct 39.1 L MCV 89.7 MCH 28.9 MCHC 32.2 RDW Std Deviation 45.9 H RDW Coeff of Christie 13.8 Plt Count 338 MPV 9.2 Immature Gran % (Auto) 0.600 Neut % (Auto) 68.2 Lymph % (Auto) 20.2 Dickey % (Auto) 7.6 Eos % (Auto) 2.4 Baso % (Auto) 1.0 Absolute Neuts (auto) 11.9 H Absolute Lymphs (auto) 3.52 Nucleated RBC % 0 Sodium 140 Potassium 4.2 Chloride 108 H Carbon Dioxide 28.0 Anion Gap 4 L BUN 18 Creatinine 1.05 Estim Creat Clear Calc 89.18 Est GFR (MDRD) Af Amer 102 Est GFR (MDRD) Non-Af 84 BUN/Creatinine Ratio 17.1 Glucose 102 Calcium 8.9 Radiography Diagnostic Testing: Clinical Impression(s) from Imaging Studies Pelvis CT 10/19/23 00:51 IMPRESSION: Left scrotal wall enhancement and skin thickening again noted, consistent with cellulitis, with multiple small ring enhancing fluid collections within the thickened wall of the left hemiscrotum consistent with small superficial abscesses. Electronically Signed: Ben Murphy MD at 2:38 EDT , Management Discussion w/another healthcare provider: Hospitalist and Agency Sales Management Assistant (Urology Dr. Doe) Discharge Plan Triage Chief Complaint: Abscess ED Provider: Shree Nixon Dx/Rx/DC Orders Clinical Impression: Scrotal abscess, Hidradenitis suppurativa, Failure of outpatient treatment Prescriptions: No Action NK Primary Care Provider: Saleem Isaacs Referrals: Saleem Isaacs MD [Primary Care Provider] - Print Language: Bruneian Disposition Disposition: [facility]
[2023-10-19 01:17] LABS: Absolute Lymphocyte Count 3.52 X10^3/uL (0.83-4.51); Absolute Neutrophil Count 11.9 X10^3/uL (2.0-7.7); Basophil# 0.17 X10^3/uL; Eosinophil# 0.42 X10^3/uL; Eosinophils% 2.4 % (0-5); Hematocrit 39.1 % (40-54); Hemoglobin 12.6 g/dL (13.0-16.5); Lymphocyte # 3.52 X10^3/ul (0.83-4.51); Lymphocyte % 20.2 % (19-41); Mean Corp Hgb Conc 32.2 g/dL (32-36); Mean Corpuscular Hgb 28.9 pg (27.0-32.0); Mean Corpuscular Volume 89.7 fL (80-94); Mean Platelet Vol. 9.2 fl (6.2-12.0); Monocyte# 1.33 X10^3/uL; Monocyte% 7.6 % (0-10); NRBC Flagged by Analyzer 0 % (0-5); Neutrophil % 68.2 % (47-70); Platelet Count 338 K/mm3 (150-450); RBC Distribution Width CV 13.8 % (11.6-14.6); RBC Distribution Width SD 45.9 fl (35.1-43.9); Red Blood Count 4.36 M/mm3 (4.6-6.2); White Blood Count 17.5 K/mm3 (4.4-11.0)
[2023-10-19 01:30] LABS: Anion Gap 4 (5-15); BUN 18 mg/dL (7-18); BUN/Creat Ratio 17.1 RATIO (10-20); Calcium,Total 8.9 mg/dL (8.5-10.1); Chloride 108 mmol/L (98-107); Creatinine, Serum 1.05 mg/dL (0.70-1.30); EST Glomerular Filtration Rate 84 mL/min (>60); Est Glom Filt Rate - Afr Amer 102 mL/min (>60); Estimated Creatinine Clearance 89.18 ml/min; Glucose 102 mg/dL (74-106); Potassium 4.2 mmol/L (3.5-5.1); Sodium Level 140 mmol/L (136-145)
[2023-10-19] MEDS: Vancomycin IV 1,000 MG/200 ML BAG 200 MG IV (01:35)
[2023-10-19] MEDS: Propofol 200 MG/20 ML Vial IV BOLUS (01:41)
--- NOTE | 2023-10-19 03:34 | PCM.HP.STD ---
[facility] - General General Date of Admission: 10/19/23 Date of Service: 10/19/23 Chief Complaint: Left Scrotal Abscess. [facility] Narrative VINCENT JUNE, is a 38 M with a past medical history of chronic tobacco abuse; ~1 ppd since age 19, history of EtOH abuse, history of PE, depression with anxiety, chronic leg cramps, asthma; in childhood, history of gout, methamphetamine abuse, cannabis abuse, history of opiate abuse, history of hidradenitis suppurativa; since age 16, history of acromioclavicular separation, medical noncompliance and recently diagnosed with abscesses of axilla, face and scrotum with admission here from September 26, 2023 to September 28, 2023 with patient having underwent I&D on his right lateral face, ear and right axilla with cultures showing mixed organisms but a high index of clinical suspicion reserved for MRSA then discharged on oral Augmentin and doxycycline along with a tapering dose of prednisone who presents to [facility] ER complaining of worsening abscess on his Left scrotum and groin. Mr. June reports he has been on antibiotics since being discharged approximately 3 weeks ago after seeing Dr. Doe of urology and Dr. Lennon of infectious diseases and since that time he did have a period of transient improvement. However, he states that he still having significant pain from his Left scrotal and groin area. Unfortunately, he has not followed up with anyone from infectious disease or urology since that time. Also he claims he never had an incision and drainage of his scrotal abscess during his previous hospital admission. He denies associated fever, chills, nausea, vomiting, diarrhea, constipation or other systemic symptoms but he does admit to heightened anxiety due to his worsening condition. In the ER his CT scan of the pelvis revealed left scrotal wall enhancement and skin thickening consistent with cellulitis with multiple small ring-enhancing fluid collections within the thickened wall of the left hemiscrotum consistent with small superficial abscesses with ongoing recurrent abscesses behind his right ear and in his right axilla with corresponding leukocytosis of 17.5K present on admission with a urologist on-call contacted by the ER physician recommending admission to the hospitalist service and he will formally consult in the a.m. and give recommendations regarding definitive I&D of his left scrotum and groin to prevent further serial readmission which was done. Patient was then admitted to the general medical floor for ongoing care for stay that is expected to be greater than 2 midnights. [facility] Medical History Axillary hidradenitis suppurativa Abscess of face Cellulitis of scrotum Gout Low iron Asthma Chronic cough Leg cramps Scrotal abscess Hidradenitis suppurativa Substance abuse Depression Anxiety Smoker Tobacco use Cannabis use disorder Polysubstance abuse Opioid dependence Methamphetamine abuse Hidradenitis suppurativa Alcohol abuse COVID-19 Paronychia Hyperlipidemia Pulmonary emboli Home Medications ?Medication ?Instructions ?Recorded ?Last Taken ?Type NK 10/09/23 Unknown History Allergy/AdvReac Type Severity Reaction Status Date / Time quick bunch Allergy Food Verified 10/18/23 22:14 Allergy Family History Mother COPD (chronic obstructive pulmonary disease) CVA (cerebral vascular accident) Heart disease Hypertension Father Alcoholism Other Colon cancer Diabetes Surgical History H/O wrist surgery Social History housing: homeless number of children: 3 current occupational status: unemployed Smoking Status: Current every day smoker tobacco type: cigarettes Tobacco: How many years used: 20 how long ago did patient quit smokin ppd since 19 years old. alcohol intake: former year quit: 2020 details: Reports sober since 03/2021, has had ~4 small relapses. substance use type: marijuana, amphetamines and other details: Currently using methadone. ROS ROS Narrative Review of systems: General: Patient denies fever or chills. HENT: Denies headache, denies stuffy nose, denies sore throat EYES: Denies changes in vision or discharge from eyes. Resp: Denies cough, denies shortness of breath Cardiac: Denies chest pain, palpitations or heart racing. GI: Denies abdominal pain, denies changes in bowel, denies nausea or vomiting. : Denies changes in urination Extremity: Patient admits to abscess in his Right axilla as per HPI. Musculoskeletal: Patient admits to significant pain stemming from his scrotal abscess and left groin infection. Neuro: Patient denies headache, paresthesias or focal neurologic weakness. Heme: Denies any bleeding or bruising Skin: Patient has recurrent abscesses with known hidradenitis suppurativa as per HPI. Psychiatric: Patient admits to heightened anxiety due to pain and chronically deteriorating health due to recurrent abscesses all over his body. Endocrine: No polyuria, polydipsia or polyphagia. The rest of the 14 point ROS was negative except for positives in HPI. Vital Signs Vital Signs Vital Signs: 10/18/23 22:15 10/18/23 22:16 10/19/23 00:15 Temperature 97.8 F 97.8 F 97.9 F Temperature Source Temporal Temporal Temporal Pulse Rate 100 100 89 Respiratory Rate 16 16 18 Blood Pressure 128/76 H 128/76 H 124/86 H Blood Pressure Mean 93 93 98 Pulse Ox 97 97 96 Oxygen Delivery Method Room Air 10/19/23 01:19 10/19/23 01:19 10/19/23 02:19 Temperature 98.0 F 98.1 F Temperature Source Temporal Oral Pulse Rate 69 67 Respiratory Rate 18 16 Blood Pressure 116/78 116/78 111/72 Blood Pressure Mean 90 90 85 Pulse Ox 95 99 Oxygen Delivery Method Room Air Room Air 10/19/23 03:00 Temperature 97.5 F L Temperature Source Oral Pulse Rate 90 Respiratory Rate 16 Blood Pressure 115/87 H Blood Pressure Mean 96 Pulse Ox 98 Oxygen Delivery Method Room Air Weight Weight: 150 lb Body Mass Index (BMI) 23.5 Physical Exam Const alert, oriented x3 and average body habitus General Appearance: cooperative HEENT normocephalic, head/scalp atraumatic, hearing grossly normal bilaterally and moist oral mucous membranes Eyes PERRL and EOMs intact bilaterally Neck supple Resp normal respiratory effort, no retractions, no use of accessory muscles and clear to auscultation bilaterally Cardio regular rate and regular rhythm GI normal to inspection, nondistended, normoactive bowel sounds, soft to palpation, non-tender and non-distended Extremity Extremity Narrative: Patient has an abscess extending from his Left scrotum into his Left groin. Skin Skin Narrative: Multiple old hidradenitis suppurativa wounds including in the right periauricular area in the right axilla. Left inguinal area/proximal thigh and hemiscrotum are obviously infected with tenderness to palpation and suspected abscess. Neuro oriented x3, CN's II-XII intact bilaterally, moves all extremities and no focal motor deficits Sensorium / Orientation: awake, alert, oriented to person, oriented to place and oriented to time Speech: speech normal Psych affect normal Results Medical Records Data Attestation: I reviewed the patient's medical records Lab / Micro Data Attestation: I reviewed the patient's lab results. 10/19/23 01:10 10/19/23 01:10 Labs: Laboratory Results - last 24 hr 10/19/23 01:10: WBC 17.5 H, RBC 4.36 L, Hgb 12.6 L, Hct 39.1 L, MCV 89.7, MCH 28.9, MCHC 32.2, RDW Std Deviation 45.9 H, RDW Coeff of Christie 13.8, Plt Count 338, MPV 9.2, Immature Gran % (Auto) 0.600, Neut % (Auto) 68.2, Lymph % (Auto) 20.2, [place] % (Auto) 7.6, Eos % (Auto) 2.4, Baso % (Auto) 1.0, Absolute Neuts (auto) 11.9 H, Absolute Lymphs (auto) 3.52, Nucleated RBC % 0, Sodium 140, Potassium 4.2, Chloride 108 H, Carbon Dioxide 28.0, Anion Gap 4 L, BUN 18, Creatinine 1.05, Estim Creat Clear Calc 89.18, Est GFR (MDRD) Af Amer 102, Est GFR (MDRD) Non-Af 84, BUN/Creatinine Ratio 17.1, Glucose 102, Calcium 8.9 Imaging Radiology Impression Pelvis CT 10/19/23 00:51 IMPRESSION: Left scrotal wall enhancement and skin thickening again noted, consistent with cellulitis, with multiple small ring enhancing fluid collections within the thickened wall of the left hemiscrotum consistent with small superficial abscesses. Electronically Signed: Ben Murphy MD at 2:38 EDT , Assessment & Plan Assessment/Plan (1) Cellulitis of scrotum: (2) Scrotal abscess: (3) Failure of outpatient treatment: (4) Leukocytosis: QUALIFIERS: Leukocytosis type: unspecified Qualified Code(s): D72.829 - Elevated white blood cell count, unspecified (5) Hidradenitis suppurativa: (6) Tobacco abuse: (7) Opioid dependence: QUALIFIERS: Substance use status: uncomplicated Qualified Code(s): F11.20 - Opioid dependence, uncomplicated (8) Cannabis use disorder: (9) Methamphetamine abuse: PLAN: Plan 1. Left scrotal wall enhancement and skin thickening consistent with cellulitis with multiple small ring-enhancing fluid collections within the thickened wall of the left hemiscrotum consistent with small superficial abscesses with ongoing recurrent abscesses behind his right ear and in his right axilla with corresponding leukocytosis of 17.5K present on admission - Admit to general medical floor. Continue broad-spectrum antibiotics with IV vancomycin and add IV Zosyn and await culture and sensitivity data. Test for MRSA with PCR. Give Tylenol as needed for [id number] (level 1-5 out of 10) pain or fever. Give tramadol as needed for severe (level 6-10 out of 10) pain. We will consult Dr. Lennon of infectious disease to see this patient on rounds in the a.m. without appreciated in advance. Finally, we will consult Dr. Doe of urology to see this patient again this admission for further recommendations regarding definitive surgical treatment with I&D help avoid further serial readmission with help appreciated in advance. 2. Recently diagnosed with abscesses of axilla, face and scrotum with admission here from September 26, 2023 to September 28, 2023 with patient having underwent I&D on his right lateral face, ear and right axilla with cultures showing mixed organisms but a high index of clinical suspicion reserved for MRSA then discharged on oral Augmentin and doxycycline along with a tapering dose of prednisone in the setting of chronic medical noncompliance complicating #1 - Noted with suspected failure of outpatient antibiotic therapy indicating likely need for surgical intervention. Patient was instructed to take his medications to keep his follow-up appointment as recommended in an effort to help prevent unnecessary admissions to the hospital if possible. This patient has notably poor insight into his complex disease process which will likely complicate his prognosis and care. 3. History of hidradenitis suppurativa; since age 16 compounding #1 & #2 - Noted. We will consult wound RN to see patient on rounds in the a.m. for further recommendations with help appreciated in advance. 4. History of polysubstance abuse: with alcohol, methamphetamine, opiates and cannabis adding to the pathology of #1 - #3 - Noted. Addiction protocol as needed medications will be added to help manage his symptoms. Patient denied having any alcohol abuse or recent signs of withdrawal. 5. Chronic tobacco abuse; ~1 ppd since age 19 - Tobacco cessation will be strongly encouraged with nicotine patch offered to control cravings. 6. History of PE - Noted no evidence of recurrence at this time. 7. Depression with anxiety - Continue home regimen as previous. 8. Chronic leg cramps - Give Tylenol as needed. 9. Asthma; in childhood - Noted. We will give as needed nebulizers if flare develops. 10. History of gout - Noted. 11. History of acromioclavicular separation - Noted. 12. DVT prophylaxis - Hold blood thinners at this time with the patient potentially being considered for I&D of his Left scrotum and groin. Place SCDs. Total time: Approximately 75 minutes. Charges/Coding Visit Charges Inpatient E&M: 56873 Init Hosp L3
--- NOTE | 2023-10-19 04:08 | ED.RN ---
PROPOFOL ORDERED FOR PATIENT AND CHARTED ADMINISTERED BY [employer]. THE MEDICATION WAS NOT GIVEN AND RETURNED TO THE [facility].
--- NOTE | 2023-10-19 06:49 | NURSING ---
MED SURG JOYA SCROTAL ABSCESS, HIDRADENITIS SUPPURATIVE, FAILURE OUTPT TX
--- NOTE | 2023-10-19 07:02 | NURSING ---
NEW ROOM 316
[2023-10-19] MEDS: Gabapentin 300 MG Capsule PO ×2 (07:53→21:07)
[2023-10-19] MEDS: 0.9% Normal Saline (1000mL) 1,000 ML 125 ML IV (07:53)
[2023-10-19] MEDS: Ascorbic Acid 500 MG Tablet 1000 MG PO ×2 (07:53→17:23)
[2023-10-19] MEDS: traMADol 50 MG Tablet PO ×2 (07:53→17:52)
[2023-10-19] MEDS: Piperacil/Tazobactam 3.375 GM in 0.9% Normal Saline (50mL MB+) 50 ML IV ×3 (08:01→21:08)
[2023-10-19 09:19] LABS: M R Staph aureus DNA By PCR POSITIVE (Negative); Probe Check PASS; Staph aureus DNA By PCR POSITIVE (Negative)
[2023-10-19] MEDS: Vancomycin HCl 1,500 MG in 0.9% Normal Saline (500mL Bag) 500 ML 250 MG IV ×2 (09:26→21:08)
[2023-10-19] MEDS: Zinc Sulfate 50 mg zinc (220 mg) ORAL capsule PO (10:00)
--- NOTE | 2023-10-19 10:16 | PCM.RX.CS ---
Consult Antibiotic Management Pharmacy has been consulted to manage selected antibiotic: Vancomycin Type of Intervention Type of Consult: New start Suspected Infection Suspected Infection: Skin/Soft tissue Prior Doses of Antibiotics Prior Doses of Antibiotics Received/Current Regimen: received vanc 1000mg (15mg/kg) IV x1 in E.R. starting at 01:35 today Labs Labs: Sodium 140 mmol/L (136-145) 10/19/23 01:10 Potassium 4.2 mmol/L (3.5-5.1) 10/19/23 01:10 Chloride 108 mmol/L (98-107) H 10/19/23 01:10 Carbon Dioxide 28.0 mmol/L (21.0-32.0) 10/19/23 01:10 Anion Gap 4 (5-15) L 10/19/23 01:10 BUN 18 mg/dL (7-18) 10/19/23 01:10 Creatinine 1.05 mg/dL (0.70-1.30) 10/19/23 01:10 Est GFR (MDRD) Af Amer 102 mL/min (>60) 10/19/23 01:10 Est GFR (MDRD) Non-Af 84 mL/min (>60) 10/19/23 01:10 BUN/Creatinine Ratio 17.1 RATIO (10-20) 10/19/23 01:10 Glucose 102 mg/dL (74-106) 10/19/23 01:10 Dosing Weight Weight used for dosin.2 kg Estimated Creatinine Clearance Estimated Creatinine Clearance: 89 ml/min Goal Trough Goal Trough: 15-20 mcg/mL Pharmacy Plan for Drug Dosing Pharmacy Plan for Drug Dosing: Starting this morning, will continue with vanc 1500mg IV q12h. Will start earlier than 12 hours after the E.R. dose since that was only 1000mg. Also recommending to start at 1500mg q12h which is a little higher than the dose of 1250mg q12h that was ordered during a recent admission since that 1250mg dose resulted in a low trough. WIll check a trough before the 4th total dose tomorrow morning. Pharmacy Service will continue to monitor and adjust dosing as required. Follow-Up Labs Follow-Up Labs: Trough: Vancomycin Date/Time Labs Ordered Labs to be done on [date and time ordered]: 10/20/23 08:30
--- NOTE | 2023-10-19 13:04 | CASEMGMT ---
AYSE MARTIN Readmission Note Previous Admission:09/26/23-09/28/23 Diagnosis: scrotal cellulitis/abscess, R facial abscess DC Disposition: Home Current Admission: Admitted 10/19/23 Current Diagnosis: Left scrotal abscess Pt presented to ER with increased pain and drainage from scrotal area. Pt previously admitted and was seen by ID and uro. Pt admitted with plans for scrotal washout this date. AYSE MARTIN into pt room, pt lying in bed in no distress. Pt states that he had been doing his own wound care and had enough supplies but was getting low. He states he has finished all of his medications as ordered from dc and took them properly. Pt has not made any follow up appts post dc. Pt reports he is still homeless and is interested in speaking with the regarding this. Pt denies further needs at this time. DC Plan: TBD pending surgery. Pt states he feels he will be able to continue to do any wound care post dc. AYSE MARTIN to follow.
--- NOTE | 2023-10-19 13:41 | NURSING ---
pt to surgery
[2023-10-19] MEDS: 0.9% Normal Saline (1000mL) 1,000 ML 15 ML IV (14:03)
--- NOTE | 2023-10-19 14:56 | PCM.CONS.U ---
HPI Consult Data Date of Consult: 10/19/23 HPI Narrative Reason for Consultation: Scrotal abscess HPI Narrative: VINCENT JUNE, is a 38 M who presents to the hospital with a continued abscess within the scrotum. This is failed to resolve with IV antibiotics and conservative measures on exam he looks like he has a fluctuant area in the scrotum that consistent with an abscess plan to do incision and drainage and washout of the scrotal abscess under anesthesia. Will talk to the patient and get his consent to do the procedure [facility] Medical History Axillary hidradenitis suppurativa Abscess of face Cellulitis of scrotum Gout Low iron Asthma Chronic cough Leg cramps Scrotal abscess Hidradenitis suppurativa Substance abuse Depression Anxiety Smoker Tobacco use Cannabis use disorder Polysubstance abuse Opioid dependence Methamphetamine abuse Hidradenitis suppurativa Alcohol abuse COVID-19 Paronychia Hyperlipidemia Pulmonary emboli Home Medications ?Medication ?Instructions ?Recorded ?Last Taken ?Type NK 10/09/23 Unknown History Allergy/AdvReac Type Severity Reaction Status Date / Time quick bunch Allergy Food Verified 10/18/23 22:14 Allergy Family History Mother COPD (chronic obstructive pulmonary disease) CVA (cerebral vascular accident) Heart disease Hypertension Father Alcoholism Other Colon cancer Diabetes Surgical History H/O wrist surgery Social History housing: homeless number of children: 3 current occupational status: unemployed Smoking Status: Current every day smoker tobacco type: cigarettes Tobacco: How many years used: 20 how long ago did patient quit smokin ppd since 19 years old. alcohol intake: former year quit: 2020 details: Reports sober since 03/2021, has had ~4 small relapses. substance use type: marijuana, amphetamines and other details: Currently using methadone. Lab / Micro Data 10/19/23 01:10 10/19/23 01:10 Labs: Laboratory Results - last 24 hr 10/19/23 01:10: WBC 17.5 H, RBC 4.36 L, Hgb 12.6 L, Hct 39.1 L, MCV 89.7, MCH 28.9, MCHC 32.2, RDW Std Deviation 45.9 H, RDW Coeff of Christie 13.8, Plt Count 338, MPV 9.2, Immature Gran % (Auto) 0.600, Neut % (Auto) 68.2, Lymph % (Auto) 20.2, [place] % (Auto) 7.6, Eos % (Auto) 2.4, Baso % (Auto) 1.0, Absolute Neuts (auto) 11.9 H, Absolute Lymphs (auto) 3.52, Nucleated RBC % 0, Sodium 140, Potassium 4.2, Chloride 108 H, Carbon Dioxide 28.0, Anion Gap 4 L, BUN 18, Creatinine 1.05, Estim Creat Clear Calc 89.18, Est GFR (MDRD) Af Amer 102, Est GFR (MDRD) Non-Af 84, BUN/Creatinine Ratio 17.1, Glucose 102, Calcium 8.9 10/19/23 08:00: S.aureus Protein A PCR POSITIVE H, MRSA (PCR) POSITIVE H Imaging Radiology Impression Pelvis CT 10/19/23 00:51 IMPRESSION: Left scrotal wall enhancement and skin thickening again noted, consistent with cellulitis, with multiple small ring enhancing fluid collections within the thickened wall of the left hemiscrotum consistent with small superficial abscesses. Electronically Signed: Ben Murphy MD at 2:38 EDT ,
--- NOTE | 2023-10-19 15:15 | CON.PCM.ID_ITS ---
Assessment & Plan Assessment/Plan (1) Scrotal abscess: (2) Hidradenitis suppurativa: PLAN: In general with hidradenitis, concern that repeated I&Ds can risk worsening of his chronic inflammation. Cont vanc/zosyn. Plan at discharge will be for course of po abx, long prednisone taper, and re-establish with derm at [facility] to discuss immunosuppressive meds. Will follow, thank you HPI Consult Data Date of Consult: 10/19/23 HPI Narrative Reason for Consultation: abscess HPI Narrative: VINCENT JUNE, is a 38 M with hidradenitis since age 16. Has had I&Ds in the past, has been on courses of doxy po and clinda cream in the past without improvement. Saw [facility] Derm once. Presented to ED 09/25 with several days worsening pain, swelling, redness in R jaw, R axilla, and L groin. I&D done, discharged on prednisone taper, doxy, and augmentin. He did not followup with derm or ID, stopped abx a week or so. Sx worsened over past few days, worst in L groin with pain/redness/swelling/drainage. Came to ED, admitted on vanc/zosyn. OR planned for this afternoon. Full ROS performed and neg except as noted above. [facility] Medical History Axillary hidradenitis suppurativa Abscess of face Cellulitis of scrotum Gout Low iron Asthma Chronic cough Leg cramps Scrotal abscess Hidradenitis suppurativa Substance abuse Depression Anxiety Smoker Tobacco use Cannabis use disorder Polysubstance abuse Opioid dependence Methamphetamine abuse Hidradenitis suppurativa Alcohol abuse COVID-19 Paronychia Hyperlipidemia Pulmonary emboli Home Medications ?Medication ?Instructions ?Recorded ?Last Taken ?Type NK 10/09/23 Unknown History Allergy/AdvReac Type Severity Reaction Status Date / Time quick bunch Allergy Food Verified 10/18/23 22:14 Allergy Family History Mother COPD (chronic obstructive pulmonary disease) CVA (cerebral vascular accident) Heart disease Hypertension Father Alcoholism Other Colon cancer Diabetes Surgical History H/O wrist surgery Social History housing: homeless number of children: 3 current occupational status: unemployed Smoking Status: Current every day smoker tobacco type: cigarettes Tobacco: How many years used: 20 how long ago did patient quit smokin ppd since 19 years old. alcohol intake: former year quit: 2020 details: Reports sober since 03/2021, has had ~4 small relapses. substance use type: marijuana, amphetamines and other details: Currently using methadone. Physical Exam Const alert, oriented x3 and no apparent distress General Appearance: cooperative HEENT normocephalic and head/scalp atraumatic Eyes PERRL and EOMs intact bilaterally Neck supple and No nodes Resp normal air movement and clear to auscultation bilaterally Cardio regular rate and regular rhythm GI soft to palpation, non-tender and non-distended Extremity General Extremity: Negative for edema Skin Skin Narrative: Tender, red, some swelling to L inguinal area. Neuro CN's II-XII intact bilaterally Lab / Micro Data Attestation: I reviewed the patient's lab results. 10/19/23 01:10 10/19/23 01:10 Labs: Laboratory Results - last 24 hr 10/19/23 01:10: WBC 17.5 H, RBC 4.36 L, Hgb 12.6 L, Hct 39.1 L, MCV 89.7, MCH 28.9, MCHC 32.2, RDW Std Deviation 45.9 H, RDW Coeff of Christie 13.8, Plt Count 338, MPV 9.2, Immature Gran % (Auto) 0.600, Neut % (Auto) 68.2, Lymph % (Auto) 20.2, [place] % (Auto) 7.6, Eos % (Auto) 2.4, Baso % (Auto) 1.0, Absolute Neuts (auto) 11.9 H, Absolute Lymphs (auto) 3.52, Nucleated RBC % 0, Sodium 140, Potassium 4.2, Chloride 108 H, Carbon Dioxide 28.0, Anion Gap 4 L, BUN 18, Creatinine 1.05, Estim Creat Clear Calc 89.18, Est GFR (MDRD) Af Amer 102, Est GFR (MDRD) Non-Af 84, BUN/Creatinine Ratio 17.1, Glucose 102, Calcium 8.9 05/22/24 08:00: S.aureus Protein A PCR POSITIVE H, MRSA (PCR) POSITIVE H Imaging Radiology Impression Pelvis CT 10/19/23 00:51 IMPRESSION: Left scrotal wall enhancement and skin thickening again noted, consistent with cellulitis, with multiple small ring enhancing fluid collections within the thickened wall of the left hemiscrotum consistent with small superficial abscesses. Electronically Signed: Ben Murphy MD at 2:38 EDT ,
[2023-10-19] MEDS: Lidocaine 2% /Epi 1:100 (20ml) 20 ML VIAL (15:54)
--- NOTE | 2023-10-19 15:59 | PCM.OPRPT ---
Report of Operation Date of Procedure: 10/19/23 Pre-Operative Diagnosis: Scrotal abscess Post-Operative Diagnosis: The same Surgery/Procedure Performed:: Incision and drainage of scrotal abscess and washout Description of Surgical Findings:: 38-year-old male has a chronic infection of the scrotum is failed outpatient management with IV antibiotics still not better still has a fluctuant area in the left hemiscrotum was taken back to the operating room underwent general anesthetic I then used an 18-gauge needle and probed the area got some fluctuant fluid out of the area this was sent off for culture and then made an incision in the left hemiscrotum and there was a pocket then washed this out with a liter of normal saline with a washout cauterized the edges to control bleeding and then packed it with Betadine soaked Curlex fluffs and dressings were placed the size of the abscess is about 3 cm x 2 cm in size not very large washed out completely and packed. He is taken back to the PACU in good condition tomorrow we will have the nurses take out the packing and start wet-to-dry dressings with Nu Gauze. Surgeon: Marino Doe Type of Anesthesia: General Drains: none Admit VTE Documentation VTE Present on Admission: No VTE Mechan Device Prophylaxis: SCD's VTE Pharm Prophylaxis ordered?: No
--- NOTE | 2023-10-19 16:06 | CASEMGMT ---
Social Work SW attempted to meet with pt to complete Social Determinants of Health Assessment and discuss homelessness. Pt out of room for procedure. SW will follow up tomorrow. FELICITA Johnson
--- NOTE | 2023-10-19 16:24 | PN.HOSP_ITS ---
Reason for Visit Reason for Visit: Left scrotal abscess Subjective Subjective Mr. Lin is a 38-year-old white male who presented to the emergency department at [facility] on 10/19/2023 with a left scrotal abscess. Patient has a history of hidradenitis suppurativa and was recently diagnosed with abscesses of the axilla, face, and scrotum and had admission here from 02/17/2024 through 09/28/2023 after undergoing an I&D on his face, ear, and right axilla. At that time patient was discharged on oral Augmentin and doxycycline along with the paper and dose of prednisone but then represented to the emergency department complaining of worsening abscess on his left scrotum and groin. He has been on antibiotics this entire time and did report compliance and indicated he did have some transient improvement however it is worse at this time. On presentation his temperature was 97.8, heart rate 100, respiratory was 12, blood pressure was 128/76 and oxygen saturations are 97% on room air. CBC on presentation showed a white count of 17.5 without a left shift. He also had a mild anemia with a hemoglobin of 12.6. His chemistry panel was unremarkable. MRSA PCR was positive. A pelvic CT was done at the time of admission which showed left scrotal wall enhancement and skin thickening consistent with cellulitis as well as multiple ring-enhancing fluid collections within the thickened wall of the left hemiscrotum consistent with small superficial abscesses. Given his previous cultures he was placed on IV vancomycin as well as IV Zosyn and infectious disease and urology were consulted to assist with treatment. Objective Data Objective Data Vital Signs: Vital Signs Temp Pulse Resp BP Pulse Ox O2 Del Method 97.5 F L 85 16 110/70 93 Room Air 10/19/23 16:10 10/19/23 16:15 10/19/23 16:15 10/19/23 16:15 10/19/23 16:15 10/19/23 16:15 Oxygen Delivery Method Room Air Weight: 66.2 kg Body Mass Index (BMI) 22.8 Intake & Output: Intake and Output for Last 24 Hours 10/17/23 10/18/23 10/19/23 23:59 23:59 23:59 Intake Total 1071.67 / 1071.67 Balance 1071.67 / 1071.67 Lab / Micro Data 10/19/23 01:10 10/19/23 01:10 Labs: Laboratory Results - last 24 hr 10/19/23 01:10: WBC 17.5 H, RBC 4.36 L, Hgb 12.6 L, Hct 39.1 L, MCV 89.7, MCH 28.9, MCHC 32.2, RDW Std Deviation 45.9 H, RDW Coeff of Christie 13.8, Plt Count 338, MPV 9.2, Immature Gran % (Auto) 0.600, Neut % (Auto) 68.2, Lymph % (Auto) 20.2, [place] % (Auto) 7.6, Eos % (Auto) 2.4, Baso % (Auto) 1.0, Absolute Neuts (auto) 11.9 H, Absolute Lymphs (auto) 3.52, Nucleated RBC % 0, Sodium 140, Potassium 4.2, Chloride 108 H, Carbon Dioxide 28.0, Anion Gap 4 L, BUN 18, Creatinine 1.05, Estim Creat Clear Calc 89.18, Est GFR (MDRD) Af Amer 102, Est GFR (MDRD) Non-Af 84, BUN/Creatinine Ratio 17.1, Glucose 102, Calcium 8.9 10/19/23 08:00: S.aureus Protein A PCR POSITIVE H, MRSA (PCR) POSITIVE H Radiography Diagnostic Testing: Radiology Impression Pelvis CT 10/19/23 00:51 IMPRESSION: Left scrotal wall enhancement and skin thickening again noted, consistent with cellulitis, with multiple small ring enhancing fluid collections within the thickened wall of the left hemiscrotum consistent with small superficial abscesses. Electronically Signed: Ben Murphy MD at 2:38 EDT , Assessment & Plan Assessment/Plan (1) Scrotal abscess: (2) Leukocytosis: QUALIFIERS: Leukocytosis type: unspecified Qualified Code(s): D 72.829 - Elevated white blood cell count, unspecified PLAN: Plan Left scrotal abscess secondary to hidradenitis suppurativa -Plan is for I&D in OR today with urology -Will check blood cultures -ID did evaluate the patient and recommended continuing vancomycin at this time with discharge for oral antibiotics, long prednisone taper and to reestablish with dermatology at [facility] to discuss immunosuppressive medications for his hidradenitis suppurativa -Continue pain medication as ordered -Bowel regimen Leukocytosis -Secondary to the above -Should improve with antibiotic treatment -Repeat CBC in a.m. History of hidradenitis suppurativa -Plan on outpatient follow-up with dermatology after discharge -Also plan for long course of oral prednisone at discharge with oral antibiotics as noted above Recent abscesses of axilla, face, and scrotum with recent admission -See treatment as above -Treatment compliance and follow-up has been questionable in the past and likely contributing to recurrence History of polysubstance abuse -Has abused alcohol, methamphetamines, opiates, and cannabis -Denies any recent use -Not requiring any Subutex and if remains stable will discontinue Subutex tomorrow -Continue supportive medications as needed -Recommend ongoing cessation History of PE -Remote and no longer on anticoagulation History of asthma -As needed nebulizers with albuterol at next-no acute issues History of gout -No acute issues Depression/anxiety -Patient has not been on any medications for some time -Recommend outpatient follow-up with a primary care physician Tobacco abuse -Encourage cessation -Nicotine patch available DVT prophylaxis -Subcu anticoagulation on hold for I&D -Will start tomorrow if patient will require longer term admission CODE STATUS -Full code
[2023-10-19] MEDS: Methocarbamol 750 MG Tablet PO (17:52)
[2023-10-19] MEDS: Acetaminophen 325 MG Tablet 650 MG PO (21:07)
[2023-10-19] MEDS: traZODone 100 MG Tablet PO (21:16)
[2023-10-19] MEDS: hydrOXYzine PAM 25 MG Capsule 50 MG PO (21:16)
--- NOTE | 2023-10-19 22:20 | NURSING ---
pt keeps messing with dressing & pulling it off. Educated to leave dressing intact to prevent infection.
[2023-10-20] MEDS: 0.9% Normal Saline (1000mL) 1,000 ML 125 ML IV ×2 (01:06→09:30)
[2023-10-20 04:00] VITALS: BP 118/80; PULSE 75; RESP 14; TEMP 36.8; O2SAT 98
[2023-10-20] MEDS: Methocarbamol 750 MG Tablet PO (04:41)
[2023-10-20] MEDS: traMADol 50 MG Tablet 100 MG PO (04:42)
[2023-10-20] MEDS: Ketorolac 15 MG/ML Vial IV (04:42)
[2023-10-20] MEDS: Piperacil/Tazobactam 3.375 GM in 0.9% Normal Saline (50mL MB+) 50 ML IV (04:54)
[2023-10-20 05:02] VITALS: BMI 22.8
--- NOTE | 2023-10-20 07:17 | PCM.CONS.B ---
Consult Date of Consult: 10/20/23 Reason for Consult Nurses report the patient is being belligerent he is not following instructions he is messing with his dressings, is constantly swearing at the staff, he is claiming that he never gave consent to do surgery. Told the patient today that failure to follow medical instructions will most likely lead to poor outcome and that this incision and drainage of his abscess from the scrotum may not heal properly if he does not follow medical instructions patient was very belligerent. Will sign off call me with questions
[2023-10-20] MEDS: Cholecalciferol (Vit D3) 125 MCG CAPSULE (5,000 UNITS) PO (07:25)
[2023-10-20] MEDS: Lactobacillis Acidophilus 2 CAP PO (07:26)
[2023-10-20] MEDS: Ascorbic Acid 500 MG Tablet 1000 MG PO (07:26)
[2023-10-20] MEDS: Zinc Sulfate 50 mg zinc (220 mg) ORAL capsule PO (07:27)
[2023-10-20] MEDS: Acetaminophen 325 MG Tablet 650 MG PO ×2 (07:30→14:18)
[2023-10-20] MEDS: Ensure Plus High Protein 120 ML LIQUID PO (07:30)
[2023-10-20] MEDS: Gabapentin 300 MG Capsule PO (07:30)
--- NOTE | 2023-10-20 08:16 | WOUNDNOTE ---
wound photo: left scrotum
[2023-10-20 08:27] LABS: Absolute Lymphocyte Count 2.26 X10^3/uL (0.83-4.51); Absolute Neutrophil Count 8.9 X10^3/uL (2.0-7.7); Basophil# 0.12 X10^3/uL; Eosinophil# 0.45 X10^3/uL; Eosinophils% 3.6 % (0-5); Hematocrit 36.6 % (40-54); Hemoglobin 11.7 g/dL (13.0-16.5); Lymphocyte # 2.26 X10^3/ul (0.83-4.51); Lymphocyte % 18.1 % (19-41); Mean Corpuscular Hgb 29.1 pg (27.0-32.0); Mean Platelet Vol. 9.3 fl (6.2-12.0); Monocyte# 0.69 X10^3/uL; Monocyte% 5.5 % (0-10); NRBC Flagged by Analyzer 0 % (0-5); Neutrophil # 8.94 X10^3/uL (2.7-7.7); Neutrophil % 71.3 % (47-70); Platelet Count 311 K/mm3 (150-450); RBC Distribution Width CV 14.3 % (11.6-14.6); RBC Distribution Width SD 47.9 fl (35.1-43.9); Red Blood Count 4.02 M/mm3 (4.6-6.2); White Blood Count 12.5 K/mm3 (4.4-11.0)
[2023-10-20 08:41] VITALS: BP 130/80; PULSE 85; RESP 16; TEMP 36.6; O2SAT 97
[2023-10-20 08:53] LABS: ALB/GLOB Ratio 0.8 RATIO (0.9-2.4); AST(SGOT) 19 U/L (15-37); Alanine Aminotransfer ALT/SGPT 20 U/L (16-61); Albumin, Serum 2.6 g/dL (3.2-5.0); Alkaline Phosphatase 88 U/L (45-117); Anion Gap 5 (5-15); BUN 8 mg/dL (7-18); BUN/Creat Ratio 7.9 RATIO (10-20); Chloride 112 mmol/L (98-107); Creatinine, Serum 1.01 mg/dL (0.70-1.30); EST Glomerular Filtration Rate 88 mL/min (>60); Est Glom Filt Rate - Afr Amer 106 mL/min (>60); Estimated Creatinine Clearance 92.71 ml/min; Globulin 3.3 g/dL (2.2-4.2); Glucose 141 mg/dL (74-106); Magnesium 2.1 mg/dL (1.6-2.6); Phosphorus 2.4 mg/dL (2.5-4.9); Potassium 3.6 mmol/L (3.5-5.1); Protein, Total 5.9 g/dL (6.4-8.2); Sodium Level 140 mmol/L (136-145); Vancomycin, Trough Level 13.3 ug/mL (5.0-15.0)
--- NOTE | 2023-10-20 09:17 | PCM.RX.CS ---
Consult Antibiotic Management Pharmacy has been consulted to manage selected antibiotic: Vancomycin Type of Intervention Type of Consult: Follow-up Suspected Infection Suspected Infection: Skin/Soft tissue Labs Labs: Sodium 140 mmol/L (136-145) 10/20/23 08:15 Potassium 3.6 mmol/L (3.5-5.1) 10/20/23 08:15 Chloride 112 mmol/L (98-107) H 10/20/23 08:15 Carbon Dioxide 23.0 mmol/L (21.0-32.0) 10/20/23 08:15 Anion Gap 5 (5-15) 10/20/23 08:15 BUN 8 mg/dL (7-18) 10/20/23 08:15 Creatinine 1.01 mg/dL (0.70-1.30) 10/20/23 08:15 Est GFR (MDRD) Af Amer 106 mL/min (>60) 10/20/23 08:15 Est GFR (MDRD) Non-Af 88 mL/min (>60) 10/20/23 08:15 BUN/Creatinine Ratio 7.9 RATIO (10-20) L 10/20/23 08:15 Glucose 141 mg/dL (74-106) H 10/20/23 08:15 Vancomycin Trough 13.3 ug/mL (5.0-15.0) 10/20/23 08:15 Goal Trough Goal Trough: 15-20 mcg/mL Pharmacy Plan for Drug Dosing Pharmacy Plan for Drug Dosing: VANCOMYCIN LEVEL RECEIVED Current Vancomycin Dose: 1500mg Q12H Number of Doses Received: 1500mg x2, 1000mg x1 Vancomycin Level: 13.3 Hours Since Last Dose: 11 Renal Function: sCr 1.01 (CrCl 92 ml/min) Renal Function Trend: stable Lab/Micro: pending Vancomycin Plan/Comments: Adjust Vancomycin dosing regimen to 1750mg Q12H Pending Level: Vancomycin trough @ 21:00 10/21/23 Pharmacy Service will continue to monitor and adjust dosing as required. Follow-Up Labs Follow-Up Labs: Trough: Vancomycin (21:00 10/21/23)
[2023-10-20] MEDS: Vancomycin HCl 1,750 MG in 0.9% Normal Saline (500mL Bag) 500 ML 250 MG IV (09:30)
--- NOTE | 2023-10-20 11:02 | CASEMGMT ---
Addendum entered by Lauren Franklin 10/20/23 14:51: Appts made for follow up for pt. Pt had no preference of time per SW. Placed appt on dc instructions. Dr. Doe cannot follow up with pt as he does not take pt insurance. AYSE MARTIN into pt room, pt aware of appts. Pt aware that will not be able to follow up with him. Updated hospitalist on this as well. Addendum entered by Lauren Franklin 10/20/23 13:13: TC to pharmacy, request for meds to be delivered to the room. They are finishing up the meds and will deliver when completed. Addendum entered by Lauren Franklin 10/20/23 13:11: TC to [facility], no charge for pt medications. Original Note: AYSE MARTIN into pt room, pt lying in bed in no distress. Pt was education on wound care by wound nurse. Pt states he feels comfortable performing dressing changes and is being sent home with supplies. Pt denies any homegoing needs but states it doesn't matter it's going to be bleeding by time I walk downtown. Pt aware SW will be in to speak to him regarding housing at [place].
--- NOTE | 2023-10-20 11:02 | WOUNDNOTE ---
Wound care teaching completed with patient. pt observed how to clean wound and apply a NS wet to dry dressing. packing was covered with ABD pad and held in place with mesh underwear. pt tolerated well. had to refocus patient a couple times during dressing change. plan is for discharge today. Pt attempting to figure out a place for him to stay since he is currently homeless. SW has been attempting to find a alf for him to go to.
--- NOTE | 2023-10-20 11:45 | DS.PCM_ITS ---
Providers Date of Admission: 10/19/23 Primary Care Physician: Dr. Saleem Isaacs MD Consultations 10/19/23 07:14 Consult: Infectious Disease Routine Consulting Provider: Herminio Lennon Reason for Consult: Recurrent left scrotal abscess with hidradenitis suppurativa. EMERGENT Consult: No Notified: Yes Date Notified: 10/19/23 Time Notified: 07:47 Method of Notification: Text Consult: Onc/Wound/diversity specialist Routine Comment: Reason for Consult:: Multiple abscesses with hidradenitis suppurativa. Consult: Urology Routine Consulting Provider: Marino Doe Reason for Consult: Left scrotal abscess extending into groin. EMERGENT Consult: No Notified: Yes Date Notified: 10/19/23 Time Notified: 04:17 Method of Notification: Answering Service Reason For Visit: LEFT SCROTAL ABSCESS Diagnosis Discharge Diagnosis (1) Scrotal abscess: Status: Acute Code(s): N49.2 - Inflammatory disorders of scrotum (2) Leukocytosis: Status: Acute Code(s): D72.829 - Elevated white blood cell count, unspecified Qualifiers: Leukocytosis type: unspecified Qualified Code(s): D72.829 - Elevated white blood cell count, unspecified Medications at Discharge Home Medications amoxicillin 875 mg-potassium clavulanate 125 mg tablet 1 tab PO Q12H #20 tabs 10/20/23 doxycycline monohydrate 100 mg capsule 100 mg PO BID #60 caps 10/20/23 prednisone 10 mg tablet 10 mg PO DAILY #35 tabs 10/20/23 tramadol 50 mg tablet 100 mg (2 x 50 mg) PO Q8H PRN PRN Pain Score 6-10 5 days #15 tabs 10/20/23 Hospital Course Operations - (Scrotal incision and drainage) Procedures - (CT pelvis) Summary of Care Provided Minutes Spent on Discharge: 38 Hospital Course: Mr. Lin is a 38-year-old white male who presented to the emergency department at [facility] on 10/19/2023 with a left scrotal abscess. Patient has a history of hidradenitis suppurativa and was recently diagnosed with abscesses of the axilla, face, and scrotum and had admission here from 09/26/2023 through 09/28/2023 after undergoing an I&D on his face, ear, and right axilla. At that time patient was discharged on oral Augmentin and doxycycline along with the paper and dose of prednisone but then represented to the emergency department complaining of worsening abscess on his left scrotum and groin. He has been on antibiotics this entire time and did report compliance and indicated he did have some transient improvement however it is worse at this time. On presentation his temperature was 97.8, heart rate 100, respiratory was 12, blood pressure was 128/76 and oxygen saturations are 97% on room air. CBC on presentation showed a white count of 17.5 without a left shift. He also had a mild anemia with a hemoglobin of 12.6. His chemistry panel was unremarkable. MRSA PCR was positive. A pelvic CT was done at the time of admission which showed left scrotal wall enhancement and skin thickening consistent with cellulitis as well as multiple ring-enhancing fluid collections within the thickened wall of the left hemiscrotum consistent with small superficial abscesses. Given his previous cultures he was placed on IV vancomycin as well as IV Zosyn and infectious disease and urology were consulted to assist with treatment. He was taken to the OR on 10/19/2023 where small incision and drainage were made and cultures were sent. Gram stain showed no organisms and no white blood cells on both cultures however will monitor finalized cultures. Blood cultures also remain pending at this time. Infectious disease evaluated the patient and he was maintained on IV Vanco and Zosyn while was hospitalized. Patient was able to be discharged on oral antibiotics with Augmentin for 10 days and doxycycline for 30 days as well as a long prednisone taper starting with 20 mg daily x 7 days then decreasing to 10 mg daily x 20 days. He was also asked to follow-up with dermatology at [facility] to discuss possible immunosuppressive medications as he has continued recurrent abscesses related to his hidradenitis suppurativa. He was instructed by wound care nursing on his wound care and given supplies to do so at discharge. His leukocytosis was markedly improved down to 12.5 at the day of discharge. The patient was argumentative and noncompliant throughout his entire hospital course. He was yelling obscenities throughout the night and was verbally abusive to staff. The patient was able to be discharged in stable condition on 10/20/2023. Prescriptions were sent to [facility] pharmacy prior to discharge so we could obtain these prior to leaving. He was also sent with Ultram 100 mg 3 times daily for 5 days for any pain that he may suffer from related to his infection. I have asked him to follow-up with his primary care physician within the next week as well as Dr. Doe in the next week. We have asked him to call to set up an appointment. Patient has marked issues with compliance. Discharge diagnoses: Left scrotal abscess secondary to hidradenitis suppurativa Leukocytosis-resolving History of hidradenitis suppurativa Recurrent abscesses History of polysubstance abuse History of PE History of asthma History of gout Depression Anxiety Tobacco abuse Physical Exam Const alert, oriented x3, no apparent distress, average body habitus and no limitations; Negative for healthy appearing or well nourished Constitutional Narrative: Middle-aged, white male, lying in bed, appears comfortable, does not appear toxic, argumentative, appears much older than stated age General Appearance: comfortable, well developed and uncooperative Orientation / Consciousness: awake, oriented to person, oriented to place and oriented to time Exam Limitations: behavioral limitations Nutritional Appearance: thin HEENT normocephalic, head/scalp atraumatic, hearing grossly normal bilaterally and moist oral mucous membranes HEENT Narrative: Dentition is poor, Mallampati is 2, no thrush Eyes PERRL, EOMs intact bilaterally and conjunctivae normal Eyes Narrative: No scleral icterus Neck no lymphadenopathy and supple Neck Narrative: Trachea midline, no thyroid enlargement Resp normal respiratory effort, no retractions, no use of accessory muscles and clear to auscultation bilaterally Resp Narrative: Diffusely diminished but clear Auscultation: Negative for rales, rhonchi or wheezes Cardio regular rate, regular rhythm, S1 normal heart sound, S2 normal heart sound, no murmurs, no rub, no gallops and no clicks GI normal to inspection, nondistended, normoactive bowel sounds, soft to palpation and non-tender Extremity no clubbing, cyanosis or edema Skin No no rashes or lesions noted, No no wounds, skin turgor normal and no jaundice Skin Narrative: Scrotum visualized with no drainage or bleeding noted, ABD in place with packing which was just performed by wound nursing pictures have also been reviewed Neuro oriented x3, moves all extremities and no focal motor deficits Neuro Narrative: Patient ambulated independently to the bathroom and back upon our observation Speech: speech normal Psych Psych Narrative: Agitated and argumentative Weight / BMI Weight Weight: 66.2 kg Body Mass Index (BMI) 22.8 ABG / Lab / Microbiology Data 10/20/23 08:15 10/20/23 08:15 Laboratory: Laboratory Results - last 24 hr 10/20/23 08:15: WBC 12.5 H, RBC 4.02 L, Hgb 11.7 L, Hct 36.6 L, MCV 91.0, MCH 29.1, MCHC 32.0, RDW Std Deviation 47.9 H, RDW Coeff of Christie 14.3, Plt Count 311, MPV 9.3, Immature Gran % (Auto) 0.500, Neut % (Auto) 71.3 H, Lymph % (Auto) 18.1 L, [place] % (Auto) 5.5, Eos % (Auto) 3.6, Baso % (Auto) 1.0, Absolute Neuts (auto) 8.9 H, Absolute Lymphs (auto) 2.26, Nucleated RBC % 0, Sodium 140, Potassium 3.6, Chloride 112 H, Carbon Dioxide 23.0, Anion Gap 5, BUN 8, Creatinine 1.01, Estim Creat Clear Calc 92.71, Est GFR (MDRD) Af Amer 106, Est GFR (MDRD) Non-Af 88, BUN/Creatinine Ratio 7.9 L, Glucose 141 H, Calcium 8.0 L, Phosphorus 2.4 L, Magnesium 2.1, Total Bilirubin 0.20, AST 19, ALT 20, Alkaline Phosphatase 88, T otal Protein 5.9 L, Albumin 2.6 L, Globulin 3.3, Albumin/Globulin Ratio 0.8 L, Vancomycin Trough 13.3 Microbiology: Microbiology 10/19/23 16:26 Abs - Scrotal Gram Stain - Final 10/19/23 16:26 Wound Abcess - Other Gram Stain - Final D/C Instructions Discharge Diet: No restrictions Meaningful Use Info Meaningful Use Meaningful Use Diagnoses (Choose all that apply): None applicable Ischemic Stroke Statin Dosing Therapy Reference: STATIN DOSE THERAPY REFERENCE: * Patients > 75 years receive moderate or high dose statin therapy. * Patients 75 years or YOUNGER should receive HIGH intensity statin dose unless contraindicated. You will be required to document reason for non-treatment if statin daily dose does not meet guidelines. HIGH DOSE STATIN THERAPY DAILY Atorvastatin > than or = to 40 mg Rosuvastatin > than or = to 20 mg Amlodipine + Atorvastatin > than or = to 2.5/40 mg Ezetimibe + Simvastatin 10/80 mg Simvastatin 80mg Discharge Plan Admission Admit Date/Time: 10/19/23 04:15 Primary Reason for Your Visit: Scrotal abscess Attending Provider: Afia Brown Primary Care Provider: Saleem Isaacs Consulting Providers: Pancho Alston; Herminio Lennon; Marino Doe Instructions Additional Instructions / Restrictions: 1. Please call [facility] in [place] to schedule an appointment for outpatient follow-up for your recurrent abscesses ([phone]) 2. Please complete the antibiotics and steroids as ordered 3. It is essential that you continue the wound care and dressing as you are instructed by the wound nurse while you are hospitalized Discharge Orders/Prescriptions Prescriptions: New tramadol 50 mg Tablet 100 mg PO Q8H PRN PRN (Reason: Pain Score 6-10) 5 Days Qty: 15 0RF prednisone 10 mg tablet 10 mg PO DAILY Qty: 35 0RF Rx Instructions: Take 2 tablets daily x 7 days then take 1 tablet daily x 21 days and stop amoxicillin-pot clavulanate 875-125 mg tablet 1 tab PO Q12H Qty: 20 0RF doxycycline monohydrate 100 mg capsule 100 mg PO BID Qty: 60 0RF Referrals / Follow Up: Saleem Isaacs MD [Primary Care Provider] - Within 1 Week (Please call office and schedule appointment) Marino Doe MD [Med Staff - Active Staff] - Within 1 Week (Please call office and schedule appointment) Disposition Disposition (needs filled in before D/C Order can be placed): Home, Self Care Charges/Coding Visit Charges Inpatient E&M: 36010 Disch Hosp >30min
--- NOTE | 2023-10-20 14:09 | PHA.DC_ITS ---
Pharmacy [place] Med Reconciliation Pharmacy Service has performed discharge medication reconciliation for this patient. This [facility] counseled about these same medications on 09/27. Did not psychologist counseling this admission. Medications reviewed. The patient's discharge medication list was reviewed for discrepancies and discrepancies were resolved. Medications at Discharge Home Medications amoxicillin 875 mg-potassium clavulanate 125 mg tablet 1 tab PO Q12H #20 tabs 10/20/23 doxycycline monohydrate 100 mg capsule 100 mg PO BID #60 caps 10/20/23 prednisone 10 mg tablet 10 mg PO DAILY #35 tabs 10/20/23 tramadol 50 mg tablet 100 mg (2 x 50 mg) PO Q8H PRN PRN Pain Score 6-10 5 days #15 tabs 10/20/23
[2023-10-20 14:14] VITALS: BP 124/74; PULSE 94; RESP 18; TEMP 36.8; O2SAT 98
--- NOTE | 2023-10-20 14:30 | CASEMGMT ---
Addendum entered by Laure Dorantes 10/20/23 16:52: Social Work Pt at assistant front desk manager stating that his ride is here for transport. Holli from [facility] on phone with pt and pt handed phone to JOAN. SW spoke with Holli who confirms she is here to meat pickler pt and has approval for hotel stay. Holli will take pt to hotel and will provide pt with food. Pt agreeable to discharge plan. Nursing aware. Homero Dorantes, FELICITA Original Note: Social Work SW met with pt and completed Social Determinant of Health Screening. Pt states he has been living on a bench in [facility]. Pt reports he has not had stable housing for 2 years. Pt denies having friends or family that he is able to stay with. Pt reports he does not drive, has lost his bus pass and walks to where he needs to go. Pt utilizes food pantries and organizations that provide served meals. Pt states that Anand has paid for a hotel for him previously and he has called them and left message about this happening again. Pt does not feel like he can be discharged without a place to go as he needs to recover from the procedure. SW inquired about staying in a long term but pt states he cannot go to a long term as he is a sex offender. With pt permission, phone call to Amarilis in [facility]. [facility] and will not provide this again. Amarilis is familiar with pt and states pt has a No Trespassing at [facility]. Phone call placed to [facility] in [place], they will not accept sexual offenders. Phone call to [facility] and [facility] homeless shelters and they do not accept sex offenders. JOAN spoke with Lidia King at [facility] and discussed covering a hotel stay for pt during his recovery period from procedure. Pt does have services through [facility]. Phone call to Holli at [facility] and pt housing need provided to her. Holli and Lidia to discuss case and ability to cover cost of short term hotel stay. Return call from Holli at [facility] who confirms a short term stay at a hotel will be paid for. Holli will set up the hotel and provide transportation for pt to the hotel. Holli to call this SW back with the time of meat pickler. SW met with pt and informed of above. Pt is agreeable to plan. SW strongly encouraged pt to follow up with physician appointments for continued medical care. SW provided pt with written information on transportation options to get to appointments. SW also provided pt with information on [employer] housing, [place], served meals. Pt accepting of information. SW will await return call from [place] at [facility] with discharge time. FELICITA Johnson
--- NOTE | 2023-10-20 15:34 | NURSING ---
pt was escorted by security to the ER parking area. Holli was the person who talked with lj and Laure.
== END 2023-10-20 15:34 | disposition home or self-care (01) | DRG 385 ==
LOC: ED 10-19 03:44 → MS3 10-19 06:22
PROVIDERS: Urology; Admitting Provider Internal Medicine; Emergency Provider Emergency Medicine; PCP Family Medicine; Visit Provider Internal Medicine
PROC: (CPT 55100; principal; 2023-10-19 14:50)
DX: L02.214 Cutaneous abscess of groin (principal); F15.11 Other stimulant abuse, in remission; F11.11 Opioid abuse, in remission; L73.2 Hidradenitis suppurativa; D64.9 Anemia, unspecified; F10.11 Alcohol abuse, in remission; H60.01 Abscess of right external ear; F17.210 Nicotine dependence, cigarettes, uncomplicated; F12.11 Cannabis abuse, in remission; L02.411 Cutaneous abscess of right axilla; L02.01 Cutaneous abscess of face; B95.62 Methicillin resistant Staphylococcus aureus infection as the cause of diseases classified elsewhere; Z79.899 Other long term (current) drug therapy; Z86.711 Personal history of pulmonary embolism; Z59.02 Unsheltered homelessness
CPT/HCPCS: 55100; 00920; 36415; 72193; 80048; 80053; 80202; 83735; 84100; 85025; 87040; 87070; 87075; 87077; 87186; 87205; 87640; 94668; 96361; 96365; 96366; 96367; 96368; 96375; 97802; 99221; 99284; J7030; J7040; Q9967; A4216; G0378; J2405

== ENCOUNTER 2023-10-27 13:35 | Emergency (ER) | payer MEDICAID, SELFPAY ==
[2023-10-27 13:36] VITALS: BP 151/102; PULSE 122; RESP 18; TEMP 36.8; O2SAT 100; BMI 23.8
[2023-10-27 13:39] VITALS: BP 152/102; PULSE 103; RESP 16; TEMP 36.8; O2SAT 95
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
[2023-10-27 14:07] LABS: Absolute Lymphocyte Count 3.85 X10^3/uL (0.83-4.51); Absolute Neutrophil Count 9.1 X10^3/uL (2.0-7.7); Basophil% 0.7 % (0-1); Eosinophil# 0.25 X10^3/uL; Eosinophils% 1.7 % (0-5); Hematocrit 39.2 % (40-54); Hemoglobin 12.9 g/dL (13.0-16.5); Lymphocyte # 3.85 X10^3/ul (0.83-4.51); Lymphocyte % 26.8 % (19-41); Mean Corp Hgb Conc 32.9 g/dL (32-36); Mean Corpuscular Hgb 29.1 pg (27.0-32.0); Mean Corpuscular Volume 88.5 fL (80-94); Mean Platelet Vol. 8.6 fl (6.2-12.0); Monocyte# 0.96 X10^3/uL; Monocyte% 6.7 % (0-10); NRBC Flagged by Analyzer 0 % (0-5); Neutrophil # 9.11 X10^3/uL (2.7-7.7); Neutrophil % 63.5 % (47-70); Platelet Count 437 K/mm3 (150-450); RBC Distribution Width CV 14.6 % (11.6-14.6); RBC Distribution Width SD 47.2 fl (35.1-43.9); Red Blood Count 4.43 M/mm3 (4.6-6.2); White Blood Count 14.4 K/mm3 (4.4-11.0)
[2023-10-27 14:19] LABS: Anion Gap 6 (5-15); BUN 20 mg/dL (7-18); BUN/Creat Ratio 21.2 RATIO (10-20); Calcium,Total 8.8 mg/dL (8.5-10.1); Chloride 112 mmol/L (98-107); Creatinine, Serum 0.94 mg/dL (0.70-1.30); EST Glomerular Filtration Rate 95 mL/min (>60); Est Glom Filt Rate - Afr Amer 115 mL/min (>60); Estimated Creatinine Clearance 96.15 ml/min; Glucose 87 mg/dL (74-106); Potassium 3.7 mmol/L (3.5-5.1); Sodium Level 143 mmol/L (136-145)
[2023-10-27] MEDS: traMADol 50 MG Tablet 100 MG PO (15:50)
[2023-10-27 15:55] VITALS: BP 143/69; PULSE 89; RESP 17; TEMP 36.6; O2SAT 99
== END 2023-10-27 15:58 | disposition home or self-care (01) ==
PROVIDERS: Physician Assistant; Emergency Provider Emergency Medicine; PCP Family Medicine; Visit Provider Emergency Medicine
DX: L02.214 Cutaneous abscess of groin (principal); F17.210 Nicotine dependence, cigarettes, uncomplicated; Z59.00 Homelessness unspecified; L73.2 Hidradenitis suppurativa
CPT/HCPCS: 80048; 85025; 99283; A4216

== ENCOUNTER 2023-10-30 17:16 | Emergency (ER) | payer MEDICAID, SELFPAY ==
[2023-10-30 17:16] VITALS: BP 141/100; PULSE 92; RESP 18; TEMP 36.6; O2SAT 99; BMI 23.6
[2023-10-30 17:18] VITALS: BP 141/100; PULSE 99; RESP 16; TEMP 36.6; O2SAT 98
--- NOTE | 2023-10-30 17:36 | EX.ED.DYSGE1 ---
HPI History of Present Illness Chief Complaint: Wound Narrative Narrative: 38-year-old male past medical history of hidradenitis suppurativa, has had ongoing problems with a left scrotal abscess and groin abscess, states that he was admitted a month or 2 ago and received IV antibiotics and has been taking outpatient antibiotics. Most recently, he had surgery by Dr. Doe where he had the area drained. While he was sent home on antibiotics, he states that he is having difficulty keeping the area clean and dry and cannot get any gauze to adhere to the area. He states he does not have a place to heal up. He relates history that he called his surgeon/urologist this morning and was told that he needs to come to the emergency department and that he would be admitted to help him heal. He denies any fevers or chills, no increased drainage from the area. [facility] Medical History Tobacco abuse Axillary hidradenitis suppurativa Abscess of face Cellulitis of scrotum Gout Low iron Asthma Chronic cough Leg cramps Substance abuse Depression Anxiety Smoker Tobacco use Cannabis use disorder Polysubstance abuse Opioid dependence Methamphetamine abuse Hidradenitis suppurativa Alcohol abuse COVID-19 Paronychia Hyperlipidemia Pulmonary emboli Home Medications ?Medication ?Instructions ?Recorded ?Last Taken ?Type amoxicillin 875 mg-potassium 1 tab PO Q12H #20 tabs 10/20/23 10/30/23 Rx clavulanate 125 mg tablet doxycycline monohydrate 100 mg 100 mg PO BID #60 caps 10/20/23 Unknown Rx capsule prednisone 10 mg tablet 10 mg PO DAILY #35 tabs 10/20/23 Unknown Rx tramadol 100 mg tablet 100 mg PO BID PRN pain #10 tabs 10/27/23 Unknown Rx Allergy/AdvReac Type Severity Reaction Status Date / Time quick bunch Allergy Food Verified 10/30/23 17:57 Allergy Family History Mother COPD (chronic obstructive pulmonary disease) CVA (cerebral vascular accident) Heart disease Hypertension Father Alcoholism Other Colon cancer Diabetes Surgical History H/O wrist surgery Social History housing: homeless number of children: 3 current occupational status: unemployed Smoking Status: Current every day smoker tobacco type: cigarettes Tobacco: How many years used: 20 how long ago did patient quit smokin ppd since 19 years old. alcohol intake: former year quit: 2020 details: Reports sober since 03/2021, has had ~4 small relapses. substance use type: marijuana, amphetamines and other details: Currently using methadone. ROS ROS ED ROS Narrative Constitutional: No fever, no chills. HEENT: No sore throat. No neck pain. No loss of vision. No rhinorrhea. Cardiovascular: No chest pain. No palpitations. No pedal edema. Respiratory: No cough, no shortness of breath. Abdominal: No abdominal pain. No nausea. No vomiting. Genitourinary: No dysuria. No hematuria. Musculoskeletal: No myalgias. No arthralgias. Neurologic: No headaches. No dizziness. No lightheadedness. Skin: No rash. No change in color. Positive left scrotal/hemiscrotal abscess recently drained. Psychiatric: No depression. No anxiety. EXAM Physical Exam Narrative Exam Narrative: Afebrile. Vital signs noted. Nontoxic-appearing. HEENT: Normocephalic. Atraumatic. PERRL, EOMI. Neck soft and supple. No point tenderness or step off. Cardiovascular: Regular rate and rhythm. No murmurs, rubs, or gallops appreciated. Respiratory: No tachypnea. Lungs clear to auscultation bilaterally. Gastrointestinal: Abdomen soft, nontender, with normoactive bowel sounds. No rebound or guarding. Neurological: Awake. Alert. Nonfocal, nonlateralizing. Skin: No rash. Normal color. No pallor. Positive multiple areas of hidradenitis suppurativa. There is indurated tissue on the left hemiscrotum, but no evidence of fluctuance, no current purulent drainage. Musculoskeletal: No pedal edema. Full range of motion extremities. Const Vital Signs: 10/30/23 17:16 10/30/23 17:18 10/30/23 18:18 Temperature 97.8 F 97.8 F 97.9 F Temperature Source Temporal Temporal Temporal Pulse Rate 92 99 95 Respiratory Rate 18 16 18 Blood Pressure 141/100 H 141/100 H 142/98 H Blood Pressure Mean 113 113 112 Pulse Ox 99 98 97 Oxygen Delivery Method Room Air Room Air Room Air 10/30/23 19:18 Temperature 98.9 F Temperature Source Pulse Rate 92 Respiratory Rate 16 Blood Pressure 140/75 H Blood Pressure Mean 96 Pulse Ox 98 Oxygen Delivery Method MDM MDM MDM Narrative Medical decision making narrative: I reviewed the patient's prior records. He was seen here on 26 October, 3 days ago where they had discussed with Dr. Doe continuing antibiotics. He was given gauze and supplies and told how to change his dressings. He has had multiple visits to the ED in the past, and he was eventually admitted on overnight visit with concern for fluctuant abscess after CT. He did have his surgery/incision and drainage performed by urology on 18 October, almost 10 days ago. During his visit on the , he had laboratory work performed. I will repeat this laboratory work and contact Dr. Doe to see if he was contacted today, and if his plan is to admit. I reviewed his laboratory work and his WBC count is 13.7 with hemoglobin 12.6, hematocrit 38.7, platelet count 428. Electrolyte panel is significant for BUN of 23. I did discuss patient with Dr. Doe, and as he does not have a fever here, and his white count is decreasing and his scrotal area actually does look improved over previous status post I&D, was not felt that he met any admission criteria. One of the problems that the patient stated he had is that he is homeless and he does not have any undergarments. He told this to Dr. Doe as well. His wound will be dressed, and he will be given the mesh undergarment to help keep the gauze in place. He will continue the antibiotics and medications that he was given during his last visit a few days ago. I feel he can be discharged to follow-up as an outpatient. Disposition is discharged home in stable condition. History & Record Review Discussion w/independent historian: Patient Lab Data Attestation: I reviewed the patient's lab results. Labs: Laboratory Results - last 24 hr 10/30/23 17:40 WBC 13.7 H RBC 4.32 L Hgb 12.6 L Hct 38.7 L MCV 89.6 MCH 29.2 MCHC 32.6 RDW Std Deviation 47.1 H RDW Coeff of Christie 14.5 Plt Count 428 MPV 9.1 Immature Gran % (Auto) 0.500 Neut % (Auto) 63.9 Lymph % (Auto) 25.2 [place] % (Auto) 8.1 Eos % (Auto) 1.5 Baso % (Auto) 0.8 Absolute Neuts (auto) 8.7 H Absolute Lymphs (auto) 3.45 Nucleated RBC % 0 Sodium 140 Potassium 3.8 Chloride 107 Carbon Dioxide 26.0 Anion Gap 7 BUN 23 H Creatinine 1.16 Estim Creat Clear Calc 83.53 Est GFR (MDRD) Af Amer 91 Est GFR (MDRD) Non-Af 75 BUN/Creatinine Ratio 19.8 Glucose 92 Calcium 9.9 Discharge Plan Triage Chief Complaint: Wound ED Provider: Carlos Boyd Dx/Rx/DC Orders Clinical Impression: Scrotal abscess, Hidradenitis suppurativa, Encounter for wound re-check Instructions: ED Hidradenitis Suppurativa, Abx, ED Wound Check (No Infection) Prescriptions: No Action prednisone 10 mg tablet 10 mg PO DAILY Qty: 35 0RF Rx Instructions: Take 2 tablets daily x 7 days then take 1 tablet daily x 21 days and stop amoxicillin-pot clavulanate 875-125 mg tablet 1 tab PO Q12H Qty: 20 0RF doxycycline monohydrate 100 mg capsule 100 mg PO BID Qty: 60 0RF tramadol 100 mg tablet 100 mg PO BID PRN (Reason: pain) Qty: 10 0RF Primary Care Provider: Saleem Isaacs Referrals: Marino Doe MD [Med Staff - Active Staff] - 3-5 Days Saleem Isaacs MD [Primary Care Provider] - Activity Restrictions/Additional Instructions: Continue the medications that you were given during her last ED visit. You should continue the antibiotics and analgesics. Follow-up with Dr. Doe within the next week. Return with new or worsening symptoms. Print Language: Beninese Disposition Disposition: Home, Self Care Discharge Date/Time: 10/30/23 19:19
[2023-10-30 17:56] LABS: Absolute Lymphocyte Count 3.45 X10^3/uL (0.83-4.51); Absolute Neutrophil Count 8.7 X10^3/uL (2.0-7.7); Basophil# 0.11 X10^3/uL; Basophil% 0.8 % (0-1); Eosinophil# 0.21 X10^3/uL; Eosinophils% 1.5 % (0-5); Hematocrit 38.7 % (40-54); Hemoglobin 12.6 g/dL (13.0-16.5); Lymphocyte # 3.45 X10^3/ul (0.83-4.51); Lymphocyte % 25.2 % (19-41); Mean Corp Hgb Conc 32.6 g/dL (32-36); Mean Corpuscular Hgb 29.2 pg (27.0-32.0); Mean Corpuscular Volume 89.6 fL (80-94); Mean Platelet Vol. 9.1 fl (6.2-12.0); Monocyte# 1.11 X10^3/uL; Monocyte% 8.1 % (0-10); NRBC Flagged by Analyzer 0 % (0-5); Neutrophil # 8.74 X10^3/uL (2.7-7.7); Neutrophil % 63.9 % (47-70); Platelet Count 428 K/mm3 (150-450); RBC Distribution Width CV 14.5 % (11.6-14.6); RBC Distribution Width SD 47.1 fl (35.1-43.9); Red Blood Count 4.32 M/mm3 (4.6-6.2); White Blood Count 13.7 K/mm3 (4.4-11.0)
[2023-10-30 18:05] LABS: Anion Gap 7 (5-15); BUN 23 mg/dL (7-18); BUN/Creat Ratio 19.8 RATIO (10-20); Calcium,Total 9.9 mg/dL (8.5-10.1); Chloride 107 mmol/L (98-107); Creatinine, Serum 1.16 mg/dL (0.70-1.30); EST Glomerular Filtration Rate 75 mL/min (>60); Est Glom Filt Rate - Afr Amer 91 mL/min (>60); Estimated Creatinine Clearance 83.53 ml/min; Glucose 92 mg/dL (74-106); Potassium 3.8 mmol/L (3.5-5.1); Sodium Level 140 mmol/L (136-145)
[2023-10-30 18:18] VITALS: BP 142/98; PULSE 95; RESP 18; TEMP 36.6; O2SAT 97
[2023-10-30 19:18] VITALS: BP 140/75; PULSE 92; RESP 16; TEMP 37.2; O2SAT 98
== END 2023-10-30 19:19 | disposition home or self-care (01) ==
PROVIDERS: Emergency Provider Emergency Medicine; PCP Family Medicine; Visit Provider Emergency Medicine
DX: L02.214 Cutaneous abscess of groin (principal); Z51.89 Encounter for other specified aftercare; L73.2 Hidradenitis suppurativa; F17.210 Nicotine dependence, cigarettes, uncomplicated; J45.909 Unspecified asthma, uncomplicated; E78.5 Hyperlipidemia, unspecified
CPT/HCPCS: 80048; 85025; 99284; A4216

== ENCOUNTER 2023-11-20 04:29 | Emergency (ER) | payer MEDICAID, SELFPAY ==
[2023-11-20 04:32] VITALS: BP 163/111; PULSE 74; RESP 16; TEMP 36.6; O2SAT 97; BMI 22.0
--- NOTE | 2023-11-20 05:05 | EDS_ITS ---
HPI History of Present Illness Chief Complaint: Male Pain/Injury Informant: patient Narrative Narrative: Patient is a 38-year-old male with past medical history of hidradenitis suppurativa as well as previous scrotal abscess requiring surgical intervention. He states that following the surgery he ended up having to go out of state secondary to the loss of a family member and he has not had follow-up with the surgeon. He denies any new exposures but states that he noticed a itchy rash to his chest and upper back and he also felt like there is some swelling and redness along the scrotum/surgical site. Secondary to concern for infection and/or allergic reaction he presents for evaluation [facility] Medical History Tobacco abuse Axillary hidradenitis suppurativa Abscess of face Cellulitis of scrotum Gout Low iron Asthma Chronic cough Leg cramps Substance abuse Depression Anxiety Smoker Tobacco use Cannabis use disorder Polysubstance abuse Opioid dependence Methamphetamine abuse Hidradenitis suppurativa Alcohol abuse COVID-19 Paronychia Hyperlipidemia Pulmonary emboli Home Medications ?Medication ?Instructions ?Recorded ?Last Taken ?Type doxycycline monohydrate 100 mg 100 mg PO BID #60 caps 10/20/23 Unknown Rx capsule amoxicillin 875 mg-potassium 1 tab PO BID 7 days #14 tabs 11/20/23 Unknown Rx clavulanate 125 mg tablet ketoconazole 2 % topical cream 1 applic topical DAILY 28 days #60 11/20/23 Unknown Rx grams prednisone 20 mg tablet 40 mg (2 x 20 mg) PO DAILY 7 days 11/20/23 Unknown Rx #14 tabs Allergy/AdvReac Type Severity Reaction Status Date / Time quick bunch Allergy Food Verified 10/30/23 17:57 Allergy Family History Mother COPD (chronic obstructive pulmonary disease) CVA (cerebral vascular accident) Heart disease Hypertension Father Alcoholism Other Colon cancer Diabetes Surgical History H/O wrist surgery Social History housing: homeless number of children: 3 current occupational status: unemployed Smoking Status: Current every day smoker tobacco type: cigarettes Tobacco: How many years used: 20 how long ago did patient quit smokin ppd since 19 years old. alcohol intake: former year quit: 2020 details: Reports sober since 03/2021, has had ~4 small relapses. substance use type: marijuana, amphetamines and other details: Currently using methadone. ROS ROS ED Constitutional Constitutional ED: Denies chills or fever(s) ENT ENT ED: Denies sore throat Cardiovascular Cardiovascular: Denies chest pain Respiratory/Chest Respiratory/Chest: Denies cough or dyspnea Gastrointestinal Gastrointestinal: Denies abdominal pain, diarrhea, nausea or vomiting Genitourinary Genitourinary ED: Reports other Details: Positive testicular redness and swelling ; Denies dysuria or hematuria Musculoskeletal Musculoskeletal: Denies myalgias Integumentary Reports rash Neurologic Neurologic: Denies headache(s) Hematologic/Lymphatic Hematologic/Lymphatic: Denies easy bleeding or easy bruising Allergic/Immunologic Allergic/Immunologic ED: Denies mouth swelling or tongue swelling EXAM Physical Exam Const Vital Signs: 11/20/23 04:32 11/20/23 05:17 Temperature 97.8 F 98.4 F Temperature Source Oral Pulse Rate 74 75 Respiratory Rate 16 16 Blood Pressure 163/111 H 154/87 H Blood Pressure Mean 128 109 Pulse Ox 97 97 Oxygen Delivery Method Room Air Positive well nourished and well developed General Appearance ED: well developed HEENT Reports moist mucous membranes HEENT Narrative: No tongue or lip swelling no oral lesions no airway edema or compromise Eyes PERRL and EOMs intact bilaterally Neck supple Resp normal respiratory effort and clear to auscultation bilaterally Cardio regular rate and regular rhythm Narrative: Normal circumcised male without blood or discharge from the urethral meatus. Along the left side of the scrotum/testicle there is mild erythema that extends into the left inguinal region that has a white overlying hue most consistent with cutaneous candidiasis. There is no obvious mass to suggest abscess no crepitance to suggest Krystal's gangrene. No overt findings to suggest cellulitis either as the erythema has mild warmth but the overlying white discharge is most consistent with yeast. Back/Spine no CVA tenderness Extremity normal to inspection Neuro oriented x3 and CN's II-XII intact bilaterally Sensorium / Orientation: alert Motor Exam: strength 5/5 throughout Psych mental status grossly normal Skin Skin Narrative: Patient has a erythematous blanchable pustular rash associated with hair follicles across the upper back and chest most consistent with folliculitis. No obvious abscess formation or cellulitis. No involvement of the palms or soles Soft tissue changes to the genitals as documented above MDM MDM MDM Narrative Medical decision making narrative: Patient arrived hypertensive otherwise with stable vitals. He had no signs of respiratory distress no oral lesions no tongue or lip swelling and therefore there is no need for emergent airway stabilization. The rash to his chest and back is associated with each hair follicle and most consistent with folliculitis and does not have findings to suggest shingles cellulitis or abscess. The genital lesions is most consistent with cutaneous candidiasis based on its reported itching and mild erythema with overlying white hue. He does not have an obvious scrotal abscess or cellulitis there is no crepitance going against Krystal's gangrene. Therefore this time with stable vitals and no signs of systemic infection I do not feel there is need for laboratory studies or imaging studies. Patient we placed on steroids secondary to the folliculitis as well as ketoconazole cream secondary to the cutaneous candidiasis. At this point he will also be given Augmentin secondary to his history of hidradenitis suppurativa and concerned there is a developing scrotal infection underlying the cutaneous candidiasis History & Record Review Discussion w/independent historian: Patient Discharge Plan Triage Chief Complaint: Male Pain/Injury ED Provider: Jhoan Bush Dx/Rx/DC Orders Clinical Impression: Folliculitis, Cutaneous candidiasis, Hypertension, Hx of hidradenitis suppurativa Instructions: ED Meli Skin Infection (Adult), ED Folliculitis Prescriptions: New amoxicillin-pot clavulanate 875-125 mg tablet 1 tab PO BID 7 Days Qty: 14 0RF prednisone 20 mg tablet 40 mg PO DAILY 7 Days Qty: 14 0RF ketoconazole 2 % cream 1 applic topical DAILY 28 Days Qty: 60 1RF No Action doxycycline monohydrate 100 mg capsule 100 mg PO BID Qty: 60 0RF Primary Care Provider: Saleem Isaacs Referrals: Saleem Isaacs MD [Primary Care Provider] - Activity Restrictions/Additional Instructions: Please follow-up with your family doctor and/or surgeon for repeat evaluation and use the prescribed medication as directed. The soft tissue of the genitals appears to have a fungal infection which the cream will resolve over time. In order to ensure there is no surrounding cellulitis or soft tissue bacterial infection use the Augmentin as directed. The rash to the upper body is most consistent with folliculitis and you will need to use body washes that are more abrasive in nature and try to keep this skin cool and dry to resolve this. Use the steroid to help with itch as directed. Return to the ER should you have any further concerns Print Language: Frisian Disposition Disposition: Home, Self Care Discharge Date/Time: 11/20/23 05:19
[2023-11-20] MEDS: Amox/Clavulanate 875 MG Tablet PO (05:15)
[2023-11-20] MEDS: predniSONE 20 MG Tablet 60 MG PO (05:15)
[2023-11-20 05:17] VITALS: BP 154/87; PULSE 75; RESP 16; TEMP 36.9; O2SAT 97
== END 2023-11-20 05:19 | disposition home or self-care (01) ==
PROVIDERS: Emergency Provider Emergency Medicine; PCP Family Medicine; Visit Provider Emergency Medicine
DX: L73.9 Follicular disorder, unspecified (principal); B37.2 Candidiasis of skin and nail; R21 Rash and other nonspecific skin eruption; F17.210 Nicotine dependence, cigarettes, uncomplicated; I10 Essential (primary) hypertension; Z59.00 Homelessness unspecified; J45.909 Unspecified asthma, uncomplicated; E78.5 Hyperlipidemia, unspecified
CPT/HCPCS: 99283

== ENCOUNTER 2024-07-16 13:51 | Emergency (ER) | payer MEDICAID, SELFPAY ==
[2024-07-16 13:52] VITALS: BP 115/78; PULSE 94; RESP 18; TEMP 36.9; O2SAT 98; BMI 22.3
[2024-07-16 14:02] VITALS: BP 115/78; PULSE 96; RESP 17; TEMP 36.9; O2SAT 97
--- NOTE | 2024-07-16 14:33 | EX.ED.VIS.PS ---
HPI HPI - Psych History of Present Illness Chief Complaint: Suicidal Informant: patient Narrative Narrative: Patient is a 38-year-old male with history of methamphetamine abuse, alcohol abuse and hidradenitis suppurativa presenting for homicidal and suicidal ideations. Patient is currently staying at the [facility]. He started like he was having a panic attack and expressing homicidal and suicidal ideations. He tells me that he has been high for the past 4 days and has been using methamphetamines. He states he normally snorts but did injected into his butt cheek 2 days ago. He states that today he had a walk away from his girlfriend because she went to go to a drug house. He states he been together for the past 4 days. He reports wanting to use a baseball bat to smash in the jonnie who his girlfriend has been with. He states that he left ear he for like he would try to harm himself and states that he would try to overdose on meth. He does report he tried to overdose however and has been unsuccessful. In addition patient notes that he is also been having pressure in his chest. He states that feels like someone is standing on his chest. Denies difficulty breathing. Denies any fever or chills. Is complaining of pain and draining of his right axilla. States that he was post to have surgery a couple days ago for removal of a cyst in his axilla. States he started having spontaneous drainage yesterday and is having pain. Is not currently on antibiotics. Is not sure who his surgery was with. He states that he had paperwork but he did not get it when he was released from alf recently. Chart review shows that patient was supposed to be seen by Dr. Hernández on 07/12/2024. [facility] Medical History Tobacco abuse Axillary hidradenitis suppurativa Abscess of face Cellulitis of scrotum Gout Low iron Asthma Chronic cough Leg cramps Substance abuse Depression Anxiety Smoker Tobacco use Cannabis use disorder Polysubstance abuse Opioid dependence Methamphetamine abuse Hidradenitis suppurativa Alcohol abuse COVID-19 Paronychia Hyperlipidemia Pulmonary emboli Home Medications ?Medication ?Instructions ?Recorded ?Last Taken ?Type doxycycline hyclate 100 mg capsule 100 mg PO BID #20 caps 07/16/24 Unknown Rx Allergy/AdvReac Type Severity Reaction Status Date / Time quick bunch Allergy Food Verified 07/16/24 14:02 Allergy Family History Mother COPD (chronic obstructive pulmonary disease) CVA (cerebral vascular accident) Heart disease Hypertension Father Alcoholism Other Colon cancer Diabetes Surgical History H/O wrist surgery Social History housing: homeless number of children: 3 current occupational status: unemployed Smoking Status: Current every day smoker tobacco type: cigarettes Tobacco: How many years used: 20 how long ago did patient quit smokin ppd since 19 years old. alcohol intake: former year quit: 2020 details: Reports sober since 03/2021, has had ~4 small relapses. substance use type: marijuana, amphetamines and other details: Currently using methadone. ROS ROS ED Constitutional Constitutional ED: Denies chills or fever(s) Eyes Eyes: Denies change in vision ENT ENT ED: Denies rhinorrhea or sore throat Cardiovascular Cardiovascular: Reports chest pain Respiratory/Chest Respiratory/Chest: Denies cough or dyspnea Gastrointestinal Gastrointestinal: Denies abdominal pain or vomiting Musculoskeletal Musculoskeletal: Reports myalgias Integumentary Reports abscess Neurologic Neurologic: Denies weakness Psychiatric Psychiatric: Reports anxiety, suicidal ideation, suicidal thoughts and other Details: Methamphetamine abuse, homicidal ideation EXAM Physical Exam Const Vital Signs: 07/16/24 13:52 07/16/24 13:52 07/16/24 14:02 Temperature 98.5 F 98.5 F Temperature Source Oral Oral Pulse Rate 94 96 Respiratory Rate 18 17 Blood Pressure 115/78 115/78 Blood Pressure Mean 90 90 Pulse Ox 98 97 Oxygen Delivery Method Room Air Room Air Room Air 07/16/24 14:52 07/16/24 15:00 Temperature Temperature Source Pulse Rate Respiratory Rate Blood Pressure 134/76 H 134/76 H Blood Pressure Mean 95 95 Pulse Ox Oxygen Delivery Method Positive well nourished and well developed General Appearance ED: well developed and irritable HEENT Reports moist mucous membranes Eyes PERRL Neck supple and no JVD Resp normal respiratory effort and clear to auscultation bilaterally Cardio no murmurs Rate: regular rate Rhythm: regular rhythm GI non-tender and non-distended Extremity normal to inspection General Extremety ED: Negative for edema General Extremity: Negative for edema Neuro oriented x3 Sensorium / Orientation: alert Motor Exam: muscle tone normal throughout; Negative for general weakness Psych Appearance: disheveled Activity / Motor Behavior: appropriate eye contact and psychomotor agitation Speech: normal speech Mood & Affect: anxious and irritable Thought Process: normal thought process Thought Content: suicidality, homicidality, No delusion(s) and No hallucination(s) Attention / Concentration: attention grossly intact Memory / Cognition: memory grossly intact Insight: fair Judgement: limited Skin Skin Narrative: Cryptic/chronic appearing abscesses to the right axilla. There is tenderness to palpation of the more medial 1 with multiple crypts. There is scant purulent drainage coming from it. It is surrounded by approximately 3 cm circular area of erythema. Lateral to this, more in the center of the axilla there is another small area of approximately 1 cm 1 cm erythema with central drainage. Again the drainage is scant. There is tenderness to palpation. No fluctuance appreciated. MDM MDM MDM Narrative Medical decision making narrative: Patient is evaluated for chest pain, methamphetamine abuse and homicidal and suicidal ideations. In addition patient has pain and drainage from his axilla. He has a history of hidradenitis suppurativa. He is spontaneous draining abscesses of his right axilla. There is nothing that requires drainage at this time but will place on doxycycline. Will need follow-up again with plastic surgery (had previously had an appointment 3 days ago but missed it). Will obtain chest pain workup as well as medical clearance from a psychiatric standpoint. Will be given 1 dose of Ativan and a dose of doxycycline in the emergency room. Will have him evaluated by social work/the counseling center. [place] slip is filed. He has a mild but chronic appearing leukocytosis with white blood cell count of 13.6. Normal immature granulocytes. CK mildly elevated 374 is not me criteria for rhabdomyolysis. Given oral hydration in the emergency room. Talk screen consistent with amphetamines and cannabis use. Alcohol level normal. Patient medically cleared. Evaluated by social work and they agree that he would benefit from inpatient psychiatric care for both SI and HI. Patient accepted at [facility] by Dr. Johnson Lab Data Attestation: I reviewed the patient's lab results. Labs: Laboratory Results - last 24 hr 07/16/24 07/16/24 14:55 15:04 WBC 13.6 H RBC 4.18 L Hgb 12.5 L Hct 37.0 L MCV 88.5 MCH 29.9 MCHC 33.8 RDW Std Deviation 42.2 RDW Coeff of Christie 13.2 Plt Count 412 MPV 8.6 Immature Gran % (Auto) 0.700 Neut % (Auto) 73.9 H Lymph % (Auto) 14.7 L Cavalier % (Auto) 7.7 Eos % (Auto) 2.3 Baso % (Auto) 0.7 Absolute Neuts (auto) 10.1 H Absolute Lymphs (auto) 2.01 Nucleated RBC % 0 Sodium 136 Potassium 4.2 Chloride 103 Carbon Dioxide 27.0 Anion Gap 6 BUN 24 H Creatinine 1.06 Estim Creat Clear Calc 88.88 Est GFR (MDRD) Af Amer 100 Est GFR (MDRD) Non-Af 83 BUN/Creatinine Ratio 22.6 H Glucose 86 Calcium 9.6 Total Creatine Kinase 374 H Urine Opiates Screen NEGATIVE Urine Methadone Screen NEGATIVE Ur Barbiturates Screen NEGATIVE Ur Phencyclidine Scrn NEGATIVE Ur Amphetamines Screen POSITIVE H MDMA (Ecstasy) Screen POSITIVE H U Benzodiazepines Scrn NEGATIVE Urine Cocaine Screen NEGATIVE U Cannabinoids Screen POSITIVE H Ur Drug Screen Comment Ethyl Alcohol < 3.0 Radiography Diagnostic Testing: Clinical Impression(s) from Imaging Studies Chest X-Ray 07/16/24 15:05 IMPRESSION: No acute airspace abnormality. 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
[2024-07-16 14:52] VITALS: BP 134/76
[2024-07-16 15:00] VITALS: BP 134/76
--- NOTE | 2024-07-16 15:05 | RAD_ITS ---
PROCEDURE: Chest radiograph REASON FOR EXAM: Chest pain TECHNIQUE: Frontal view of the chest COMPARISON: 02/2023 FINDINGS: Cardiomediastinal silhouette is within normal limits. Lungs are clear. No sizable pneumothorax. RAD/Chest 1 View (Portable) IMPRESSION: No acute airspace abnormality. Reading Location: [facility]
[2024-07-16 15:16] LABS: Absolute Lymphocyte Count 2.01 X10^3/uL (0.83-4.51); Absolute Neutrophil Count 10.1 X10^3/uL (2.0-7.7); Basophil# 0.09 X10^3/uL; Basophil% 0.7 % (0-1); Eosinophil# 0.32 X10^3/uL; Eosinophils% 2.3 % (0-5); Hemoglobin 12.5 g/dL (13.0-16.5); Lymphocyte # 2.01 X10^3/ul (0.83-4.51); Lymphocyte % 14.7 % (19-41); Mean Corp Hgb Conc 33.8 g/dL (32-36); Mean Corpuscular Hgb 29.9 pg (27.0-32.0); Mean Corpuscular Volume 88.5 fL (80-94); Mean Platelet Vol. 8.6 fl (6.2-12.0); Monocyte# 1.05 X10^3/uL; Monocyte% 7.7 % (0-10); NRBC Flagged by Analyzer 0 % (0-5); Neutrophil # 10.07 X10^3/uL (2.7-7.7); Neutrophil % 73.9 % (47-70); Platelet Count 412 K/mm3 (150-450); RBC Distribution Width CV 13.2 % (11.6-14.6); RBC Distribution Width SD 42.2 fl (35.1-43.9); Red Blood Count 4.18 M/mm3 (4.6-6.2); White Blood Count 13.6 K/mm3 (4.4-11.0)
[2024-07-16] MEDS: Doxycycline 100 MG CAPSULE PO (15:19)
[2024-07-16] MEDS: LORazepam 1 MG Tablet PO (15:20)
[2024-07-16 15:31] LABS: Anion Gap 6 (5-15); BUN 24 mg/dL (7-18); BUN/Creat Ratio 22.6 RATIO (10-20); Calcium,Total 9.6 mg/dL (8.5-10.1); Chloride 103 mmol/L (98-107); Creatinine, Serum 1.06 mg/dL (0.70-1.30); EST Glomerular Filtration Rate 83 mL/min (>60); Est Glom Filt Rate - Afr Amer 100 mL/min (>60); Estimated Creatinine Clearance 88.88 ml/min; Glucose 86 mg/dL (74-106); Potassium 4.2 mmol/L (3.5-5.1); Sodium Level 136 mmol/L (136-145)
[2024-07-16 15:35] LABS: CPK Total, Creatine Kinase 374 U/L (39-308)
[2024-07-16 15:37] LABS: Amphetamine Urine POSITIVE (<1000 ng/mL); Barbiturate Urine VISTA NEGATIVE (< 200 ng/mL); Benzodiazepine Urine VISTA NEGATIVE (< 200 ng/mL); Cocaine Urine VISTA NEGATIVE (< 300 ng/mL); Ecstacy Urine VISTA POSITIVE (< 500 ng/mL); Methadone Urine VISTA NEGATIVE (< 300 ng/mL); Opiates Urine NEGATIVE (< 300 ng/mL); PCP Urine NEGATIVE (< 25 ng/mL); THC Urine VISTA POSITIVE (< 50 ng/mL); Vista UDS pH Range 5
[2024-07-16 15:42] LABS: Alcohol, Blood (Medical)-Serum < 3.0 mg/dL
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
--- NOTE | 2024-07-16 17:02 | CM.ED ---
Social work Called [facility] (ph: ) and spoke with Abad. Abad stated beds were available, so referral faxed (f: ). Doctor, patient, and sr. social media & mobile manager Pepper updated. When updating patient, patient's girlfriend, Kenia, was present. Patient laying in bed with Kenia; permission given to update patient in front of guest. Received call from [facility] accepting patient. DDX unit. Accepting Dr. Calzada N2N: [phone], option 1 sr. social media & mobile manager Pepper, AYSE Wallace, [facility] [place], and patient all updated. Plan: [facility] pending transport Rosi Du, CORRECTIONS OFFICER, BRAKE COUPLER DINKEY
--- NOTE | 2024-07-16 17:32 | ED.RN ---
PT ACCEPTED [facility]NOS[facility]IT [facility] [phone] OPT 1.
[2024-07-16 19:06] VITALS: BP 134/76; PULSE 96; RESP 17; TEMP 36.9; O2SAT 97
--- NOTE | 2024-07-16 19:07 | ED.RN ---
Report called to [facility]
== END 2024-07-16 21:46 ==
PROVIDERS: Emergency Provider Emergency Medicine; PCP Family Medicine; Visit Provider Emergency Medicine
DX: R45.851 Suicidal ideations (principal); F15.10 Other stimulant abuse, uncomplicated; R45.850 Homicidal ideations; L02.411 Cutaneous abscess of right axilla; R07.89 Other chest pain; F32.A Depression, unspecified; F41.9 Anxiety disorder, unspecified; L73.2 Hidradenitis suppurativa; Z59.00 Homelessness unspecified; F17.210 Nicotine dependence, cigarettes, uncomplicated; Z86.711 Personal history of pulmonary embolism; Z87.898 Personal history of other specified conditions
CPT/HCPCS: 71045; 80048; 80307; 82077; 82550; 85025; 93005; 99285

== ENCOUNTER 2024-08-03 20:13 | Emergency (ER) | payer MEDICAID, SELFPAY ==
[2024-08-03 20:13] VITALS: BP 152/86; PULSE 83; RESP 18; TEMP 36.1; O2SAT 98; BMI 25.0
--- NOTE | 2024-08-03 21:16 | EDS_ITS ---
HPI History of Present Illness Chief Complaint: Abscess [facility] Medical History Tobacco abuse Axillary hidradenitis suppurativa Abscess of face Cellulitis of scrotum Gout Low iron Asthma Chronic cough Leg cramps Substance abuse Depression Anxiety Smoker Tobacco use Cannabis use disorder Polysubstance abuse Opioid dependence Methamphetamine abuse Hidradenitis suppurativa Alcohol abuse COVID-19 Paronychia Hyperlipidemia Pulmonary emboli Home Medications ?Medication ?Instructions ?Recorded ?Last Taken ?Type doxycycline hyclate 100 mg capsule 100 mg PO BID #20 c aps 07/16/24 Unknown Rx Allergy/AdvReac Type Severity Reaction Status Date / Time quick bunch Allergy Food Verified 08/03/24 20:13 Allergy Family History Mother COPD (chronic obstructive pulmonary disease) CVA (cerebral vascular accident) Heart disease Hypertension Father Alcoholism Other Colon cancer Diabetes Surgical History H/O wrist surgery Social History housing: homeless number of children: 3 current occupational status: unemployed Smoking Status: Current every day smoker tobacco type: cigarettes Tobacco: How many years used: 20 how long ago did patient quit smokin ppd since 19 years old. alcohol intake: former year quit: 2020 details: Reports sober since 03/2021, has had ~4 small relapses. substance use type: marijuana, amphetamines and other details: Currently using methadone. EXAM Physical Exam Const Vital Signs: 08/03/24 20:13 Temperature 97 F L Temperature Source Temporal Pulse Rate 83 Respiratory Rate 18 Blood Pressure 152/86 H Blood Pressure Mean 108 Pulse Ox 98 Oxygen Delivery Method Room Air MDM MDM MDM Narrative Medical decision making narrative: HISTORY OF PRESENT ILLNESS: 38-year-old male history of hidradenitis suppurativa comes in with concern for axillary abscess. He states he has a history of multiple abscesses, hidradenitis suppurativa. He is concerned because he said 1 abscess in his right axilla is been draining for the past 2 to 3 days. Notes he is recently in rehab. He notes at rehab he was prescribed doxycycline. He is coming in because once he goes to intermediate does not want to get MRSA. Denies injecting drugs in the area. REVIEW OF SYSTEMS: Pertinent positives: Axillary abscess Pertinent negatives: Fever from PHYSICAL EXAM: Nursing triage notes reviewed, Vital signs reviewed Constitutional: please see mdm Skin: Actively draining right axillary abscess, no surrounding cellulitis noted approximately 4 x 1 cm in diameter MEDICAL DECISION MAKING: Chief Complaint: Abscess External records reviewed: Reviewed prior ED encounters Factors affecting care: Hidradenitis suppurativa Social determinants of health: n history of alcohol intoxication MDM Narrative: Patient was initially hemodynamically stable, afebrile and nontoxic-appearing. Exam consistent with draining abscess. The risks and benefits of additional incision and drainage were discussed. Both agreed that it additional incision and drainage was not necessary at this time the patient already on doxycycline which is an anti-MRSA antibiotic and appropriate wound care. He is encouraged to continue taking medication as prescribed. To perform good wound hygiene deann ly and to return if symptoms change or worsened. The patient and/or family, caregivers express understanding. The patient and/or family, caregivers agrees with the plan. Shared decision making: I will have a discussion with the patient and or visitors regarding risk/benefits of further testing or admission. They will be made aware of of the risk/benefits inherent in this decision they will be given the opportunity to voice understanding. Total critical care time today provided was at least 0 minutes. This excludes separately billable procedures. Critical care time (if documented) is secondary to the patient having high probability of clinically significant/life threatening deterioration in the patient's condition which required my urgent intervention. Impression: 1. Right axillary abscess 2. History of hidradenitis suppurativa Dispo: Discharge home This note was generated with [employer] dictation software. It may contain incorrect words, spelling, and punctuation that were not noted in review of the chart prior to signing. Discharge Plan Triage Chief Complaint: Abscess ED Provider: Bradley Blancas Dx/Rx/DC Orders Clinical Impression: Hidradenitis axillaris Instructions: Hidradenitis Suppurativa, ED Cellulitis Prescriptions: No Action doxycycline hyclate 100 mg capsule 100 mg PO BID Qty: 20 0RF Primary Care Provider: Saleem Isaacs Referrals: Saleem Isaacs MD [Primary Care Provider] - Activity Restrictions/Additional Instructions: Thank you for trusting us with your care today! Your presentation is consistent with a draining abscess likely secondary to underlying history of hidradenitis suppurativa You are ready prescribe doxycycline which is an anti-MRSA (methicillin resistant Staph aureus) antibiotic. Please take this as prescribed Please use warm compresses. Please take Tylenol (2 pills, 650 mg), ibuprofen (2 pills, 400 mg) every 6 hours as needed for pain and fever control. Please return to the emergency department if your symptoms change or worsen. Please follow with your primary care physician for further outpatient evaluation and management. Print Language: Urdu Disposition Disposition: Home, Self Care
== END 2024-08-03 22:10 | disposition home or self-care (01) ==
PROVIDERS: Emergency Provider Emergency Medicine; PCP Family Medicine; Visit Provider Emergency Medicine
DX: L02.411 Cutaneous abscess of right axilla (principal); F17.210 Nicotine dependence, cigarettes, uncomplicated; L73.2 Hidradenitis suppurativa; Z59.00 Homelessness unspecified; E78.5 Hyperlipidemia, unspecified
CPT/HCPCS: 99282

== ENCOUNTER 2024-09-06 15:26 | Emergency (ER) | payer MEDICAID, SELFPAY ==
[2024-09-06 15:27] VITALS: BP 129/101; PULSE 127; RESP 18; TEMP 35.8; O2SAT 96; BMI 24.2
[2024-09-06] MEDS: LORazepam 1 MG Tablet PO (15:52)
[2024-09-06 16:04] LABS: Absolute Lymphocyte Count 3.34 X10^3/uL (0.83-4.51); Absolute Neutrophil Count 11.5 X10^3/uL (2.0-7.7); Basophil# 0.16 X10^3/uL; Eosinophil# 0.05 X10^3/uL; Eosinophils% 0.3 % (0-5); Hematocrit 37.7 % (40-54); Hemoglobin 12.7 g/dL (13.0-16.5); Lymphocyte # 3.34 X10^3/ul (0.83-4.51); Lymphocyte % 20.2 % (19-41); Mean Corp Hgb Conc 33.7 g/dL (32-36); Mean Corpuscular Hgb 29.7 pg (27.0-32.0); Mean Corpuscular Volume 88.1 fL (80-94); Mean Platelet Vol. 8.7 fl (6.2-12.0); Monocyte# 1.44 X10^3/uL; Monocyte% 8.7 % (0-10); NRBC Flagged by Analyzer 0 % (0-5); Neutrophil # 11.48 X10^3/uL (2.7-7.7); Neutrophil % 69.4 % (47-70); Platelet Count 402 K/mm3 (150-450); RBC Distribution Width CV 13.3 % (11.6-14.6); RBC Distribution Width SD 43.1 fl (35.1-43.9); Red Blood Count 4.28 M/mm3 (4.6-6.2); White Blood Count 16.5 K/mm3 (4.4-11.0)
--- NOTE | 2024-09-06 16:22 | EX.ED.VIS.PS ---
HPI HPI - Psych History of Present Illness Chief Complaint: Suicidal Informant: patient Narrative Narrative: Patient presents with increasing suicidal thoughts. He left rehab yesterday to go to court in the morning. He states he was given probation minutes time has been served previously. He left around noon states he lost everything. 3 biological children 5 stepchildren his significant other in his home. Increasing suicidal thoughts started using meth amphetamines he states he has used 8 lines since yesterday last time was 10 AM. He did 1 line of fentanyl. This is what he was in rehab for. No auditory or visual hallucinations. States restless due to the methamphetamine. Discussion of homicidal ideations he states there is a couple people that he would like to hurt. He knows these 2 individuals reporting they are the ones who are giving his ex significant other drugs while he was in detention. Tried alcohol yesterday. Denies cough denies vomiting. He was hospitalized this past June for depression and suicidal at [facility] psychiatry per patient. He states there was some changes in medications for which he takes 3. He cannot recall the name at this time. He states he left his medication at rehab yesterday. He reported only missed today's dose. Prior similar symptoms: Yes PFSH PFSH Medical History Tobacco abuse Axillary hidradenitis suppurativa Abscess of face Cellulitis of scrotum Gout Low iron Asthma Chronic cough Leg cramps Substance abuse Depression Anxiety Smoker Tobacco use Cannabis use disorder Polysubstance abuse Opioid dependence Methamphetamine abuse Hidradenitis suppurativa Alcohol abuse COVID-19 Paronychia Hyperlipidemia Pulmonary emboli Home Medications ?Medication ?Instructions ?Recorded ?Last Taken ?Type doxycycline hyclate 100 mg capsule 100 mg PO BID #20 caps 07/16/24 Unknown Rx Allergy/AdvReac Type Severity Reaction Status Date / Time quick bunch Allergy Food Verified 09/06/24 15:26 Allergy Family History Mother COPD (chronic obstructive pulmonary disease) CVA (cerebral vascular accident) Heart disease Hypertension Father Alcoholism Other Colon cancer Diabetes Surgical History H/O wrist surgery Social History housing: homeless number of children: 3 current occupational status: unemployed Smoking Status: Current every day smoker tobacco type: cigarettes Tobacco: How many years used: 20 how long ago did patient quit smokin ppd since 19 years old. alcohol intake: former year quit: 2020 details: Reports sober since 03/2021, has had ~4 small relapses. substance use type: marijuana, amphetamines and other details: Currently using methadone. ROS ROS ED Constitutional Constitutional ED: Denies chills, fever(s) or sweats ENT ENT ED: Denies sore throat Cardiovascular Cardiovascular: Denies chest pain, leg edema, palpitations or racing heartbeat Respiratory/Chest Respiratory/Chest: Denies cough, dyspnea or dyspnea on exertion Gastrointestinal Gastrointestinal: Denies abdominal pain, diarrhea, nausea or vomiting Genitourinary Genitourinary ED: Denies dysuria, hematuria or urinary frequency Musculoskeletal Musculoskeletal: Denies back pain, extremity pain or neck pain Integumentary Denies rash or wounds Neurologic Neurologic: Denies headache(s), paresthesias or weakness Psychiatric Psychiatric: Reports suicidal ideation, suicidal thoughts and other Details: Homicidal ideations, denies hallucinations. EXAM Physical Exam Const Vital Signs: 09/06/24 15:27 09/06/24 16:54 09/06/24 17:00 Temperature 96.5 F L Temperature Source Temporal Pulse Rate 127 H 116 H 108 H Respiratory Rate 18 20 H 16 Blood Pressure 129/101 H 144/96 H Blood Pressure Mean 110 112 Pulse Ox 96 95 99 Oxygen Delivery Method Room Air Room Air Room Air 09/06/24 18:00 Temperature Temperature Source Pulse Rate 99 Respiratory Rate 18 Blood Pressure 138/79 H Blood Pressure Mean 98 Pulse Ox 96 Oxygen Delivery Method Room Air Positive well nourished and well developed Constitutional Narrative: Restless, cooperative, nontoxic General Appearance ED: well developed and NAD HEENT Reports moist mucous membranes normocephalic and atraumatic Eyes General Eye ED: Yes normal appearance of both eyes Neck full ROM Chest Wall Chest: Negative for tenderness Resp normal respiratory effort and normal air movement Effort and Inspection: symmetric chest movement; Negative for respiratory distress Cardio regular rhythm and no murmurs Rate: tachycardic Peripheral Pulses: pulses 2+ throughout GI normal to inspection, nondistended, normoactive bowel sounds and non-tender Palpation: Negative for guarding or rebound tenderness present Extremity normal to inspection General Extremety ED: Negative for edema or tenderness General Extremity: Negative for edema Neuro oriented x3 and no sensory deficits noted Sensorium / Orientation: awake and alert Psych Psych Narrative: Suicidal ideation with homicidal ideations. Cooperative. Skin no rashes or lesions noted and no wounds MDM MDM MDM Narrative Medical decision making narrative: Interventions / MDM: Differential diagnosis: Depression with suicidal ideation, homicidal ideations Diagnosis considered but do not suspect: N/A My EKG interpretation: N/A Imaging independently reviewed and interpreted by myself: N/A External documents reviewed: N/A Test considered but not ordered:N/A ED course: Patient missed a suicidal ideations with homicidal ideations. History depression. He is restless with his meth use. He is tachycardic secondary to this. Medical clearance labs. Urine was on the table. He will be given p.o. Ativan. Later requested nicotine patch. 1800: Toxicology presumptive amphetamines and cannabis. Alcohol negative. White count 16. Likely reactive. Urine negative for infection. Patient given additional hydroxyzine. Heart rate improved down to 99. Patient was evaluated lysin social media agrees for need for inpatient management. Awaiting placement. 1950: Patient accepted to [facility] with under Dr. Rosa. [place] slip filled out. Transport pending. 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 This note was generated with [employer] dictation software. It may contain incorrect words, spelling, and punctuation that were not noted in checking the note before signing. Lab Data Attestation: I reviewed the patient's lab results. Labs: Laboratory Results - last 24 hr 09/06/24 09/06/24 15:40 15:44 WBC 16.5 H RBC 4.28 L Hgb 12.7 L Hct 37.7 L MCV 88.1 MCH 29.7 MCHC 33.7 RDW Std Deviation 43.1 RDW Coeff of Christie 13.3 Plt Count 402 MPV 8.7 Immature Gran % (Auto) 0.400 Neut % (Auto) 69.4 Lymph % (Auto) 20.2 Nobles % (Auto) 8.7 Eos % (Auto) 0.3 Baso % (Auto) 1.0 Absolute Neuts (auto) 11.5 H Absolute Lymphs (auto) 3.34 Nucleated RBC % 0 Sodium 141 Potassium 4.1 Chloride 102 Carbon Dioxide 23.3 Anion Gap 15 BUN 23 H Creatinine 1.45 H Estim Creat Clear Calc 66.83 Est GFR (MDRD) Non-Af 63 BUN/Creatinine Ratio 15.9 Glucose 85 Calcium 9.7 Total Creatine Kinase 279 H Urine Color Straw Urine Clarity Clear Urine pH 7.0 Ur Specific [place] 1.010 Urine Protein 15 H Urine Glucose (UA) Normal Urine Ketones Negative Urine Occult Blood Negative Urine Nitrite Negative Urine Bilirubin Negative Urine Urobilinogen Normal Ur Leukocyte Esterase Negative Urine RBC 0 SEEN Urine WBC 0 SEEN Ur Squamous Epith Cells 0 SEEN Urine Bacteria 1+ Urine Mucus 0 SEEN Urine Opiates Screen NEGATIVE U Buprenorphine Qual NEGATIVE Ur Oxycodone Screen NEGATIVE Urine Methadone Screen NEGATIVE Urine Fentanyl Screen NEGATIVE Ur Barbiturates Screen NEGATIVE Ur Phencyclidine Scrn NEGATIVE Ur Amphetamines Screen PRESUMPTIVE POSITIVE U Benzodiazepines Scrn NEGATIVE Urine Cocaine Screen NEGATIVE U Cannabinoids Screen PRESUMPTIVE POSITIVE Ethyl Alcohol < 10.1 Discharge Plan Triage Chief Complaint: Suicidal ED Provider: Dionicio Wellington Dx/Rx/DC Orders Clinical Impression: Depression with suicidal ideation, Homicidal ideation, Amphetamine abuse, Methamphetamine abuse Prescriptions: No Action doxycycline hyclate 100 mg capsule 100 mg PO BID Qty: 20 0RF Primary Care Provider: Saleem Isaacs Referrals: Saleem Isaacs MD [Primary Care Provider] - Print Language: Sami Disposition Disposition: Psychiatric Hospital or Unit
[2024-09-06 16:32] LABS: Amphetamine Urine PRESUMPTIVE POSITIVE (<1000 ng/mL); Barbiturate Urine NEGATIVE (< 200 ng/mL); Benzodiazepine Urine NEGATIVE (< 200 ng/mL); Buprenorphine Urine NEGATIVE (< 200 ng/mL); Cocaine Urine NEGATIVE (< 300 ng/mL); Fentanyl, Urine NEGATIVE; Methadone Urine NEGATIVE (< 300 ng/mL); Opiates Urine NEGATIVE (< 300 ng/mL); Oxycodone, Urine NEGATIVE (< 100 ng/mL); PCP Urine NEGATIVE (< 25 ng/mL); THC Urine PRESUMPTIVE POSITIVE (< 50 ng/mL)
[2024-09-06 16:32] LABS: Anion Gap 15 (5-15); BUN 23 mg/dL (4-19); BUN/Creat Ratio 15.9 RATIO (10-20); Calcium,Total 9.7 mg/dL (7.6-11.0); Carbon Dioxide 23.3 mmol/L (21.0-32.0); Chloride 102 mmol/L (98-108); Creatinine, Serum 1.45 mg/dL (0.70-1.20); EST Glomerular Filtration Rate 63 (>60); Estimated Creatinine Clearance 66.83 ml/min (50-250); Glucose 85 mg/dL (70-99); Potassium 4.1 mmol/L (3.3-5.1); Sodium Level 141 mmol/L (133-145)
[2024-09-06 16:48] LABS: Alcohol, Blood (Medical)-Serum < 10.1 mg/dL (<=10.0)
[2024-09-06 16:54] VITALS: BP 144/96; PULSE 116; RESP 20; O2SAT 95
[2024-09-06 17:00] VITALS: PULSE 108; RESP 16; O2SAT 99
[2024-09-06 17:10] LABS: Mucous, Urine 0 SEEN /hpf (<or=2+); Red Blood Cells-Urine 0 SEEN /hpf (0-5); Squamous Epithelial Cells - UA 0 SEEN /hpf (0-5); White Blood Cells 0 SEEN /hpf (0-5)
[2024-09-06 17:13] LABS: Color, Urine Straw (Yellow); Glucose, Dipstick Normal (Normal); Ketone-Dipstick Negative (Negative); Leukocyte Esterase-Dipstick Negative /ul (Negative); Nitrite-Dipstick Negative (Negative); Occult Blood-Urine Negative /ul (Negative); Protein-Dipstick 15 mg/dl (Negative); Urine Bilirubin Dipstick Negative (Negative); Urine Clarity Clear (Clear); Urine Urobilinogen Normal (Normal)
[2024-09-06] MEDS: hydrOXYzine PAM 25 MG Capsule 50 MG PO (17:25)
--- NOTE | 2024-09-06 17:30 | CM.ED ---
Social Work Psychiatric Assessment Reason for consult: Mental health Informant(s): ?Patient and medical record Chief Complaint:? Patient presents to the ED due to suicidal ideation with attempt.? Patient reports to taking large amounts of meth and then fentenayl in attempt to stop his heart.? Patient states that he just left rehab, went to court where he was given time served and probation and had an overwhelming feeling of sadness and hopelessness.? Patient states that he has been having these feelings for the last two years after he lost custody of his 3 children and now they are increased as he has also lost his girlfriend.? Patient states he feels that he has nothing and he has no hope. Patient reports to having suicidal ideations ?constantly? and not being able to control the thoughts.? Patient reports to past suicide attempts; as a child he attempted to hang self, as an adult he tried twice to overdose and once by putting a loaded gun in his mouth and pulling the trigger, patient stated the gun misfired.? Patient denies auditory or visual hallucinations, does state he has sleep and appetite disturbance.? Marital/Social History/Sexual Orientation/Gender Identity: Patient identifies as straight, male, never been marries.? Patient has 3 biological children, one son and two daughters, ages 10,8 and 6.? Patient has lost parental rights to all three.? Living Situation: ?Patient reports to sleeping on his uncles floor. 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 Patient had been prescribed antidepressants and was compliant with taking.? Triggers/Stressors to mental health: Patient recently got out of [facility]hab, had a court appearance yesterday where he was given probation and time served.? Coping Skills: patient reports to having none besides using drugs and alcohol History of Abuse (physical/sexual/verbal/emotional): denies Substance Abuse Current/Historical: patient admits to using meth, fentenayl, alcohol and marijuana Risk to Self/Others: ? Suicidal (thought/plan/intent/attempt): patient admits to suicide attempt by using drugs, states that he has suicidal ideations continually.? Access to Lethal Means: ?yes ? Homicidal (thought/plan/intent/attempt): ?none , however patient admits to wanting to hurt the person who started his girlfriend ?shooting up? and admits to going to look for him ? History of Violence (self/others/objects): ?patient has had DV charges, no current cases open Mental Status Exam: ??? Orientation: alert and oriented x 3 ??? Memory: intact Appearance/General Behavior: disheveled, unclean, jittery Mood/Affect: depressed, anxious Communication Pattern:? responds to questions Thought Process:? appropriate for situation General Intellectual Functioning: ??average Judgment: poor Insight: fair [place] SUICIDAL IDEATION Ask questions 1 and 2.? If both are negative, proceed to ?Suicidal Behavior? section. If the answer question 2 is yes, ask questions 3, 4, 5.? If the answer to question 1 and/or 2 is ?yes?, complete ?Intensity of Ideation? section below. 1. Wish to be ? Subject endorses thoughts about a wish to be or not alive anymore, or wish to fall asleep and not wake up. Have you wished you were or wished you could go to sleep and not wake up? Lifetime: Time He/She Marshall Most Suicidal: ?yes Past 1 month: yes Please Describe if yes: ?patient currently wishes to 2. Non-Specific Active Suicidal Thoughts General, non-specific thoughts of wanting to end one?s life/commit suicide (e.g., ?I?ve thought about killing myself?) without thoughts of ways to kills oneself/associated methods, intent, or plan during the assessment period.? Have you actually had any thoughts of killing yourself? Lifetime: Time He/She Marshall Most Suicidal: ?yes Past 1 month: ?yes Please Describe if yes: patient having thoughts of killing self 3. Active Suicidal Ideation with Any Methods (Not Plan) without Intent to Act Subject endorses thoughts of suicide and has thought of at least one method during the assessment period.? This is different than a specific plan with time, place, or method details worked out (e.g., thought of method to kills self but not a specific plan).? Includes person who would say ?I thought about thanking an overdose, but I never made a specific plan as to when, where or how. I would actually do it, and I would never go through with it.? Have you been thinking about how you might do this? Lifetime: Time He/She Marshall Most Suicidal: ?yes Past 1 month:? yes Please Describe if yes: patient tried to OD 4. Active Suicidal Ideation with Some Intent to Act, without Specific Plan Active suicidal thoughts of kills oneself fand subject reports having some intent to act on such thoughts, as opposed to ?I have the thoughts but I definitely will not do anything about them.? Have you had these thoughts and had some intention of acting on them? Lifetime: Time He/She Marshall Most Suicidal: yes Past 1 month: yes Please Describe if yes: patient has intent and tried to OD 5. Active Suicidal Ideation with Specific Plan and Intent Thoughts of kills oneself with details of plan fully or partially worked out and subject has some intent to care it out. Have you started to work out or worked out the details of how to kill yourself? Do you intend to carry out this plan? Lifetime: Time He/She Marshall Most Suicidal: ?yes Past 1 month: ???yes Please Describe if yes: patient states she has tried to OD in the past, would attempt again INTENSITY OF IDEATION The following feature should be rated with respect to the most sever type of ideation (i.e., 1-5 from above, with 1 being the least severe and 5 being the most severe). Ask about time he/she/they were feeling the most suicidal.? Lifetime - Most Severe Ideation: Type # (1-5): Description: Recent - Most Severe Ideation: Type # (1-5): Description: Frequency How many times have you had these thoughts? Lifetime: (1) Less than once a week??? (2) Once a week?? (3)? 2-5 times in week?? ?(4) Daily or almost daily??? (5) Many times each day Recent, Past 1 month:? (1) Less than once a week??? (2) Once a week?? (3)? 2-5 times in week??? (4) Daily or almost daily??? (5) Many times each day Duration When you have the thoughts how long do they last? Lifetime: (1) Fleeting - few seconds or minutes? (2) Less than 1 hour/some of the time? (3) 1-4 hours/a lot of time? 4) 4-8 hours/most of day? (5) More than 8 hours/persistent or continuous Recent, Past 1 month :? (1) Fleeting - few seconds or minutes? (2) Less than 1 hour/some of the time? (3) 1-4 hours/a lot of time? 4) 4-8 hours/most of day? (5) More than 8 hours/persistent or continuous Controllability Could/can you stop thinking about killing yourself or wanting to if you want to? Lifetime:? (1) Easily able to control thoughts?? (2) Can control thoughts with little difficulty??? (3) Can control thoughts with some difficulty??? 4) Can control thoughts with a lot of difficulty? (5) Unable to control thoughts?? (0) Does not attempt to control thoughts Recent, Past 1 month: (1) Easily able to control thoughts?? (2) Can control thoughts with little difficulty??? (3) Can control thoughts with some difficulty??? 4) Can control thoughts with a lot of difficulty? (5) Unable to control thoughts?? (0) Does not attempt to control thoughts Deterrents Are there things - anyone or anything (e.g., family, worship, pain of ) - that stopped you from wanting to or acting on thoughts of committing suicide? Lifetime:? (1) Deterrents definitely stopped you from attempting suicide? (2) Deterrents probably stopped you?? (3) Uncertain that deterrents stopped you? (4) Deterrents most likely did not stop you? (5) Deterrents definitely did not stop you?? 0) Does not apply??? Recent:??? (1) Deterrents definitely stopped you from attempting suicide? (2) Deterrents probably stopped you?? (3) Uncertain that deterrents stopped you? (4) Deterrents most likely did not stop you? (5) Deterrents definitely did not stop you?? 0) Does not apply??? Reasons for Ideation What sort of reasons did you have for thinking about wanting to or killing yourself? Was it to end the pain or stop the way you were feeling (in other words you couldn?t go on living with this pain or how you were feeling) or was it to get attention, revenge or a reaction from others? Or both? Lifetime: (1) Completely to get attention, revenge or a reaction from?? (2) Mostly to get attention, revenge or a reaction from others? (3) Equally to get attention, revenge or a reaction from others? and to end/stop the pain?? ( 4) Mostly to end or stop the pain (you couldn?t go on living with the pain or how you were feeling)??? (5) Completely to end or stop the pain (you couldn?t go on living with the pain or? how you were feeling)??? (0)? Does not apply? Recent: (1) Completely to get attention, revenge or a reaction from?? (2) Mostly to get attention, revenge or a reaction from others? (3) Equally to get attention, revenge or a reaction from others? and to end/stop the pain??? (4) Mostly to end or stop the pain (you couldn?t go on living with the pain or how you were feeling)?? (5) Completely to end or stop the pain (you couldn?t go on living with the pain or? how you were feeling)? ?(0)? Does not apply? SUICIDAL BEHAVIOR Actual Attempt: A potentially self-injurious act committed with at least some wish to , as a result of act.? Behavior was in part thought of as method to kill oneself.? Intent does not have to be 100%.? If there is any intent/desire to associated with the act, then it can be considered an actual suicide attempt.? There does not have to be any injury of harm, just the potential for injury or harm.? If person pulls trigger while gun is in mouth, but gun is broken so no injury results, this is considered an attempt.? Inferring intent:? Even if an individual denies intent/wish to , it may be inferred clinically from the behavior or circumstances.? For example, a highly lethal act that is clearly not an accident so no other intent but suicide can be inferred (e.g. gunshot to head, jumping from window of a high floor/story).? Also, if someone denies intent to , but they thought that what they did could be lethal, intent may be inferred.? Have you made a suicide attempt? Have you done anything to harm yourself? Have you done anything dangerous where you could have ? What did you do? Did you as a way to end your life? Did you want to (even a little) when you ? Were you trying to end your life when you ? Or did you think it was possible you could have from ? Or did you do it purely for other reasons/without ANY intention of killing yourself like to relieve stress, feel better, get sympathy, or get something else to happen)? (Self -Injurious Behavior without suicidal intent) Lifetime: yes Past 3 months: ?yes If yes, describe: Two prior attempted OD, put a gun to mouth and pulled trigger Total # of Attempts in His/Her Lifetime: ?4 Total # of attempts in Past 3 months: ?1 Has person engaged in Non-Suicidal Sefl-Injurious Behavior? Lifetime: no Past 3 months: no Interrupted Attempt:? When the person is interrupted (by an outside circumstance) from starting the potentially self-injurious act (if not for that, actual attempt would have occurred).? Overdose: Person has pills in hand but is stopped from ingesting. Once they ingest any pills, this becomes an attempt rather than an interrupted attempt. Shooting: Person has gun pointed toward self, gun is taken away by someone else, or is somehow prevented from pulling trigger. Once they pull the trigger, even if the gun fails to fire, it is an attempt. Jumping: Person is poised to jump, is grabbed and taken down from ledge.? Hanging: Person has noose around neck but has not yet started to hang self -is stopped from doing so.? Has there been a time when you started to do something to end your life but someone or something stopped you before you did anything? Lifetime: yes Past 3 months: no If yes, describe: ?patient hanged himself when he was 13 when at an inpatient psychiatric hospital, staff broke into room and got him down Total # of interrupted attempts in His/Her Lifetime: 1 Total # of interrupted attempts in Past 3 months: ?none Aborted or Self-Interrupted Attempt:? When person begins to take steps toward making a suicide attempt, but stops themselves before they have actually engaged in any self-destructive behavior. Examples are like interrupted attempts, except that the individual stops him/herself, instead of being stopped by something else. Has there been a time when you started to do something to try to end your life, but you stopped yourself before you did anything? Lifetime: yes Past 3 months: yes If yes, describe: ?patient states, ?all the time? Total # of aborted or self-interrupted attempts in His/Her Lifetime: Total # of aborted or self-interrupted attempts in Past 3 months: Preparatory Acts or Behavior:? Acts or preparation towards imminently making a suicide attempt. This can include anything beyond a verbalization or thought, such as assembling a specific method (e.g., buying pills, purchasing a gun) or preparing for one?s by suicide (e.g., giving things away, writing a suicide note). Have you taken any steps towards making a suicide attempt or preparing to kill yourself (such as collecting pills, getting a gun, giving valuables away or writing a suicide note)? Lifetime: no Past 3 months: no If yes, describe: ? Total # of preparatory acts in His/Her Lifetime: Total # of preparatory acts in Past 3 months: Lethality/Medical Damage:??? 0.? No physical damage or very minor physical damage (e.g., surface scratches). 1.? Minor physical damage (e.g., lethargic speech; first-degree melton; mild bleeding; sprains). 2.? Moderate physical damage; medical attention needed (e.g., conscious but sleepy, somewhat responsive; second-degree melton; bleeding of major vessel). 3.? Moderately severe physical damage; medical hospitalization and likely intensive care required (e.g., comatose with reflexes intact; third-degree melton less than 20% of body; extensive blood loss but can recover; major fractures). 4.? Severe physical damage; medical hospitalization with intensive care required (e.g., comatose without reflexes; third-degree melton over 20% of body; extensive blood loss with unstable vital signs; major damage to a vital area). 5.? Most Recent attempt Date: Code: Most Lethal Attempt Date: Code: Initial/First Attempt Date: Code: Potential Lethality:? Only Answer if Actual Lethality=0 Likely lethality of actual attempt if no medical damage (the following examples, while having no actual medical damage, had potential for very serious lethality: put gun in mouth and pulled the trigger but gun fails to fire so no medical damage; laying on train tracks with oncoming train but pulled away before run over). 0 = Behavior not likely to result in injury 1 = Behavior likely to result in injury but not likely to cause 2 = Behavior likely to result in despite available medical care Most Recent Attempt Code: Most Lethal Attempt Code: Initial/First Attempt Code: Assessment Summary: ??Patient presents to ED due to suicide attempt. Patient admits to increased suicidal ideations and feelings of increased depression and hopelessness.?? Patient feels that he has nothing to live for, states he has had suicidal ideations consistently over the last two years, recently they have increased and patient is unable to control them.? Inpatient psychiatric admission in recommended to help decrease suicidal ideations and depression.?? Physician consulted and in agreement with same. Plan: Inpatient psychiatric admission pending acceptance. Effie Ramey, CHANNEL DEVELOPMENT DIRECTOR, FABRIC WORKER LEADER
--- NOTE | 2024-09-06 17:38 | CM.ED ---
Social Work SW contacted [facility] , they have one male bed available on their dual treatment unit. Referral sent. Plan: Inpatient psychiatric admission pending acceptance. Effie Ramey LOCKER OPERATOR, SAGGER PREPARER
[2024-09-06 18:00] VITALS: BP 138/79; PULSE 99; RESP 18; O2SAT 96
[2024-09-06 18:23] LABS: Bacteria 1+ /hpf (None Seen)
[2024-09-06 19:19] LABS: CPK Total, Creatine Kinase 279 U/L (24-195)
--- NOTE | 2024-09-06 19:42 | CM.ED ---
Social Work Patient has been accepted at [facility], admitting is Dr. Rosa. Nurse to Nurse [phone], patient will be going to [address]. [place] slip faxed and patient notified. No further concerns at this time. Effie Ramey, JEEP MECHANIC, REGIONAL LIAISON
--- NOTE | 2024-09-06 19:58 | ED.RN ---
Addendum entered by Yadira Davis 09/06/24 20:04: CALLED [facility] AT 1999, THEY ARE TRANSPORTING, ETA IS [phone] Original Note: THIS WORKING SUPERVISOR RECEIVED ACCEPTING INFORMATION FROM , PT IS GOING TO [facility], BY DR GARCIA, TO [address], [address]: [phone]
[2024-09-06 22:51] VITALS: BP 116/105; PULSE 96; RESP 18; TEMP 36.4; O2SAT 98
== END 2024-09-06 22:52 ==
PROVIDERS: Emergency Provider Emergency Medicine; PCP Family Medicine; Visit Provider Emergency Medicine
DX: R45.851 Suicidal ideations (principal); F15.10 Other stimulant abuse, uncomplicated; R45.850 Homicidal ideations; F32.A Depression, unspecified; Z59.00 Homelessness unspecified; F17.210 Nicotine dependence, cigarettes, uncomplicated
CPT/HCPCS: 80048; 80307; 81001; 82077; 82550; 85025; 99285

== ENCOUNTER 2024-09-13 11:31 | Emergency (ER) | payer MEDICAID, SELFPAY ==
[2024-09-13 11:32] VITALS: BP 149/106; PULSE 142; RESP 22; TEMP 37; O2SAT 99; BMI 23.5
--- NOTE | 2024-09-13 11:56 | EX.ED.VIS.PS ---
HPI HPI - Psych History of Present Illness Chief Complaint: Mental Health Detail of Chief Complaint: Depression, suicidal ideation Informant: patient Narrative Narrative: Patient presents the emergency department complaint of feeling depressed and suicidal. States he has been suicidal for about 3 years. Tells me he was admitted to a psychiatric facility a week ago and was discharged. Continues to feel suicidal. He states has been doing so many drugs that he should be . He last used methamphetamines 4 hours ago. Denies auditory or visual hallucinations. Patient states that he did not get much help at the other psychiatric facility that he went to. PFSH PFS Medical History Tobacco abuse Axillary hidradenitis suppurativa Abscess of face Cellulitis of scrotum Gout Low iron Asthma Chronic cough Leg cramps Substance abuse Depression Anxiety Smoker Tobacco use Cannabis use disorder Polysubstance abuse Opioid dependence Methamphetamine abuse Hidradenitis suppurativa Alcohol abuse COVID-19 Paronychia Hyperlipidemia Pulmonary emboli Home Medications ?Medication ?Instructions ?Recorded ?Last Taken ?Type doxycycline hyclate 100 mg capsule 100 mg PO BID #20 caps 07/16/24 Unknown Rx Allergy/AdvReac Type Severity Reaction Status Date / Time quick bunch Allergy Food Verified 09/13/24 11:31 Allergy Family History Mother COPD (chronic obstructive pulmonary disease) CVA (cerebral vascular accident) Heart disease Hypertension Father Alcoholism Other Colon cancer Diabetes Surgical History H/O wrist surgery Social History housing: homeless number of children: 3 current occupational status: unemployed Smoking Status: Current every day smoker tobacco type: cigarettes Tobacco: How many years used: 20 how long ago did patient quit smokin ppd since 19 years old. alcohol intake: former year quit: 2020 details: Reports sober since 03/2021, has had ~4 small relapses. substance use type: marijuana, amphetamines and other details: Currently using methadone. ROS ROS ED Review of Systems ROS Unobtainable: other Constitutional Constitutional ED: Reports lethargy; Denies chills, fever(s), sweats or weight loss Eyes Eyes: Denies blurry vision, change in vision or diplopia ENT ENT ED: Denies rhinorrhea or sore throat Cardiovascular Cardiovascular: Denies chest pain, orthopnea or racing heartbeat Respiratory/Chest Respiratory/Chest: Denies cough, dyspnea, dyspnea on exertion, orthopnea or sputum Gastrointestinal Gastrointestinal: Denies abdominal pain, diarrhea, nausea or vomiting Genitourinary Genitourinary ED: Denies dysuria, hematuria or urinary frequency Musculoskeletal Musculoskeletal: Denies arthralgias, back pain, myalgias or neck pain Integumentary Denies abscess, Abrasions or rash Neurologic Neurologic: Denies headache(s) or weakness Psychiatric Psychiatric: Reports anxiety, depression and suicidal thoughts Endocrine Endocrinology: Denies polydipsia, polyphagia or polyuria Hematologic/Lymphatic Hematologic/Lymphatic: Denies easy bleeding, easy bruising or lymphadenopathy Allergic/Immunologic Allergic/Immunologic ED: Denies mouth swelling, tongue swelling or urticaria EXAM Physical Exam Const Vital Signs: 09/13/24 11:32 09/13/24 12:28 Temperature 98.6 F Temperature Source Temporal Pulse Rate 142 H 92 Respiratory Rate 22 H 16 Blood Pressure 149/106 H 138/68 H Blood Pressure Mean 120 91 Pulse Ox 99 99 Oxygen Delivery Method Room Air Positive well nourished and well developed General Appearance ED: well developed and NAD HEENT Reports TM's clear and moist mucous membranes normocephalic and atraumatic; Negative for trauma or tenderness Tympanic Membrane ED: Yes TM's clear Eyes PERRL and EOMs intact bilaterally General Eye ED: Negative for pale conjunctiva or scleral icterus Neck no lymphadenopathy, supple and no JVD General: Negative for tenderness Chest Wall inspection of chest normal and palpation of chest normal Chest: Negative for tenderness Resp normal respiratory effort and clear to auscultation bilaterally Effort and Inspection: Negative for respiratory distress or pain with movement Auscultation: Negative for rhonchi, wheezes or diminished lung sounds Cardio regular rhythm, S1 normal heart sound, S2 normal heart sound and no murmurs Rate: tachycardic Peripheral Pulses: pulses 2+ throughout GI normal to inspection, nondistended, normoactive bowel sounds, soft to palpation, non-tender, non-distended and no masses Back/Spine no CVA tenderness and no thoracic nor lumbar tenderness Extremity Extremity Narrative: Right axilla with chronic scarring and changes consistent with hidradenitis suppurativa. He does have an open draining wound with some subtle cellulitic changes. Patient states that he has been on antibiotics for a month. General Extremety ED: Negative for edema General Extremity: Negative for edema Neuro oriented x3, CN's II-XII intact bilaterally, no sensory deficits noted and gait normal Sensorium / Orientation: awake, alert, oriented to person, oriented to place and oriented to time Motor Exam: strength 5/5 throughout and strength abnormal Psych mental status grossly normal Skin no rashes or lesions noted and no wounds MDM MDM MDM Narrative Medical decision making narrative: Patient presents with suicidal ideation and illicit drug use. Patient feeling suicidal and had recent admission to psychiatric facility. Wants to overdose with drugs. Last used meth about 4 hours ago. Feels shaky and anxious. I obtain basic labs. CBC with differential shows a white count of 14.6 with hemoglobin 14 and platelet count of 430. Chemistries unremarkable. Talk screen positive for methamphetamines and THC. Alcohol was negative. We will have geriatric social work professor evaluate patient for placement to psychiatric facility. I did give him Ativan 1 mg p.o. Also ordered 1 dose of Bactrim as he has a cystic lesion in his right armpit and he does get frequent soft tissue abscesses. He is supposed to be on Bactrim. Lab Data Attestation: I reviewed the patient's lab results. Labs: Laboratory Results - last 24 hr 09/13/24 09/13/24 12:05 12:20 WBC 14.6 H RBC 4.79 Hgb 14.3 Hct 42.5 MCV 88.7 MCH 29.9 MCHC 33.6 RDW Std Deviation 43.5 RDW Coeff of Christie 13.4 Plt Count 430 MPV 8.7 Immature Gran % (Auto) 0.500 Neut % (Auto) 77.8 H Lymph % (Auto) 12.9 L Sutton % (Auto) 8.0 Eos % (Auto) 0.1 Baso % (Auto) 0.7 Absolute Neuts (auto) 11.4 H Absolute Lymphs (auto) 1.88 Nucleated RBC % 0 Sodium 139 Potassium 4.2 Chloride 100 Carbon Dioxide 22.3 Anion Gap 17 H BUN 30 H Creatinine 1.21 H Estim Creat Clear Calc 80.08 Est GFR (MDRD) Non-Af 79 BUN/Creatinine Ratio 24.9 H Glucose 154 H Calcium 10.1 Urine Opiates Screen NEGATIVE U Buprenorphine Qual NEGATIVE Ur Oxycodone Screen NEGATIVE Urine Methadone Screen NEGATIVE Urine Fentanyl Screen NEGATIVE Ur Barbiturates Screen NEGATIVE Ur Phencyclidine Scrn NEGATIVE Ur Amphetamines Screen PRESUMPTIVE POSITIVE U Benzodiazepines Scrn NEGATIVE Urine Cocaine Screen NEGATIVE U Cannabinoids Screen PRESUMPTIVE POSITIVE Ethyl Alcohol < 10.1 Discharge Plan Triage Chief Complaint: Mental Health ED Provider: Kelly Xavier Dx/Rx/DC Orders Clinical Impression: Depression, Methamphetamine abuse, Suicidal ideation, Cellulitis of axilla, right Prescriptions: No Action doxycycline hyclate 100 mg capsule 100 mg PO BID Qty: 20 0RF Primary Care Provider: Saleem Isaacs Referrals: Saleem Isaacs MD [Primary Care Provider] - Print Language: Citizen Of [place] Disposition Disposition: Psychiatric Hospital or Unit
[2024-09-13 12:14] LABS: Absolute Lymphocyte Count 1.88 X10^3/uL (0.83-4.51); Absolute Neutrophil Count 11.4 X10^3/uL (2.0-7.7); Basophil% 0.7 % (0-1); Eosinophil# 0.02 X10^3/uL; Eosinophils% 0.1 % (0-5); Hematocrit 42.5 % (40-54); Hemoglobin 14.3 g/dL (13.0-16.5); Lymphocyte # 1.88 X10^3/ul (0.83-4.51); Lymphocyte % 12.9 % (19-41); Mean Corp Hgb Conc 33.6 g/dL (32-36); Mean Corpuscular Hgb 29.9 pg (27.0-32.0); Mean Corpuscular Volume 88.7 fL (80-94); Mean Platelet Vol. 8.7 fl (6.2-12.0); Monocyte# 1.17 X10^3/uL; NRBC Flagged by Analyzer 0 % (0-5); Neutrophil # 11.37 X10^3/uL (2.7-7.7); Neutrophil % 77.8 % (47-70); Platelet Count 430 K/mm3 (150-450); RBC Distribution Width CV 13.4 % (11.6-14.6); RBC Distribution Width SD 43.5 fl (35.1-43.9); Red Blood Count 4.79 M/mm3 (4.6-6.2); White Blood Count 14.6 K/mm3 (4.4-11.0)
[2024-09-13] MEDS: LORazepam 1 MG Tablet PO ×3 (12:17→19:32)
[2024-09-13 12:28] VITALS: BP 138/68; PULSE 92; RESP 16; O2SAT 99
[2024-09-13 12:46] LABS: Anion Gap 17 (5-15); BUN 30 mg/dL (4-19); BUN/Creat Ratio 24.9 RATIO (10-20); Calcium,Total 10.1 mg/dL (7.6-11.0); Carbon Dioxide 22.3 mmol/L (21.0-32.0); Chloride 100 mmol/L (98-108); Creatinine, Serum 1.21 mg/dL (0.70-1.20); EST Glomerular Filtration Rate 79 (>60); Estimated Creatinine Clearance 80.08 ml/min (50-250); Glucose 154 mg/dL (70-99); Potassium 4.2 mmol/L (3.3-5.1); Sodium Level 139 mmol/L (133-145)
[2024-09-13 12:49] LABS: Alcohol, Blood (Medical)-Serum < 10.1 mg/dL (<=10.0)
[2024-09-13 13:10] LABS: Amphetamine Urine PRESUMPTIVE POSITIVE (<1000 ng/mL); Barbiturate Urine NEGATIVE (< 200 ng/mL); Benzodiazepine Urine NEGATIVE (< 200 ng/mL); Buprenorphine Urine NEGATIVE (< 200 ng/mL); Cocaine Urine NEGATIVE (< 300 ng/mL); Fentanyl, Urine NEGATIVE; Methadone Urine NEGATIVE (< 300 ng/mL); Opiates Urine NEGATIVE (< 300 ng/mL); Oxycodone, Urine NEGATIVE (< 100 ng/mL); PCP Urine NEGATIVE (< 25 ng/mL); THC Urine PRESUMPTIVE POSITIVE (< 50 ng/mL)
[2024-09-13] MEDS: Smz/Tmp Ds Tablet 1 TABLET PO (13:46)
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
--- NOTE | 2024-09-13 15:15 | CM.ED ---
Social work Called [facility] (ph: ) and spoke with Sierra. Beds available, so referral faxed (f: ). Rosi Du, RADIO SALES ACCOUNT EXECUTIVE, [employer]
--- NOTE | 2024-09-13 18:04 | CM.ED ---
Social work Patient accepted at [facility]. Accepting physician: Dottie Rosa DDErnst unit N2N: [phone] option 1 Patient and nursing updated. Rosi Du, BUSINESS INTELLIGENCE CONSULTANT, MEDICINE AND HEALTH SERVICE MANAGER
--- NOTE | 2024-09-13 18:11 | PCA ---
PATIENT ACCEPTED AT [facility] ETA IS 0700 AM ASKED THEM TO OUTSOURCE.
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
--- NOTE | 2024-09-13 18:26 | PCA ---
PHYSICIANS CALLED BACK AND WILL BE HERE @ 1900
[2024-09-13 19:33] VITALS: BP 154/105; PULSE 129; RESP 20; O2SAT 96
--- NOTE | 2024-09-17 13:42 | CM.ED ---
Social Work SW received a voicemail from patients armed custom protection officer, Officer Abad Rowe, requesting a call back at [phone]. JOAN called Officer Jae back, Officer Jae wanted to know what hospital patient was sent to after last visit to ED. Information given that patient was transferred to [facility]. Officer thanked JOAN for return call. No further questions at this time. Effie Ramey, PRINTING ENGINEER, YARD SPOTTER
== END 2024-09-13 19:34 ==
PROVIDERS: Emergency Provider Emergency Medicine; PCP Family Medicine; Referring Provider Emergency Medicine; Visit Provider Emergency Medicine
DX: R45.851 Suicidal ideations (principal); F15.10 Other stimulant abuse, uncomplicated; L03.111 Cellulitis of right axilla; F32.A Depression, unspecified; F41.9 Anxiety disorder, unspecified; F17.210 Nicotine dependence, cigarettes, uncomplicated; Z59.00 Homelessness unspecified; Z87.898 Personal history of other specified conditions
CPT/HCPCS: 80048; 80307; 82077; 85025; 99284

== ENCOUNTER 2024-11-01 07:33 | Emergency (ER) | payer MEDICAID, SELFPAY ==
[2024-11-01 07:34] VITALS: BP 130/90; PULSE 100; RESP 18; TEMP 36.7; O2SAT 100; BMI 25.0
--- NOTE | 2024-11-01 08:33 | EDS_ITS ---
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 Patient states he has been on and off antibiotics for several years. He states he had a surgery on his left scrotum around a year ago. He is currently incarcerated at the [facility]. He states that he keeps waking up with blood on his underwear and his leg. He denies any fevers. He notes drainage from his chronic right axilla wounds. He states he is on a list to be seen by plastic surgery but is unsure of when that is to occur. [facility] Medical History Tobacco abuse Axillary hidradenitis suppurativa Abscess of face Cellulitis of scrotum Gout Low iron Asthma Chronic cough Leg cramps Substance abuse Depression Anxiety Smoker Tobacco use Cannabis use disorder Polysubstance abuse Opioid dependence Methamphetamine abuse Hidradenitis suppurativa Alcohol abuse COVID-19 Paronychia Hyperlipidemia Pulmonary emboli Home Medications ?Medication ?Instructions ?Recorded ?Last Taken ?Type quetiapine 25 mg tablet 25 mg PO 09/13/24 Unknown Hi story sertraline 50 mg tablet 50 mg PO DAILY 09/13/24 Unkn own History trazodone 150 mg tablet 150 mg PO QHS 09/13/24 Unkno wn History Allergy/AdvReac Type Severity Reaction Status Date / Time quick bunch Allergy Food Verified 11/01/24 07:35 Allergy Family History Mother COPD (chronic obstructive pulmonary disease) CVA (cerebral vascular accident) Heart disease Hypertension Father Alcoholism Other Colon cancer Diabetes Surgical History H/O wrist surgery Social History housing: homeless number of children: 3 current occupational status: unemployed Smoking Status: Current every day smoker tobacco type: cigarettes Tobacco: How many years used: 20 how long ago did patient quit smokin ppd since 19 years old. alcohol intake: former year quit: 2020 details: Reports sober since 03/2021, has had ~4 small relapses. substance use type: marijuana, amphetamines and other details: Currently using methadone. ROS ROS ED Constitutional Constitutional ED: Denies chills, fever(s) or weight loss Eyes Eyes: Denies change in vision or diplopia ENT ENT ED: Denies ear pain, rhinorrhea or sore throat Cardiovascular Cardiovascular: Denies chest pain, orthopnea, palpitations or racing heartbeat Respiratory/Chest Respiratory/Chest: Denies cough, dyspnea or orthopnea Gastrointestinal Gastrointestinal: Denies abdominal pain, diarrhea, nausea or vomiting Genitourinary Genitourinary ED: Reports other Details: See history of present illness ; Denies dysuria, hematuria or urinary frequency Musculoskeletal Musculoskeletal: Denies arthralgias or myalgias Integumentary Reports other Details: See history of present illness ; Denies abscess or rash Neurologic Neurologic: Denies headache(s) or weakness Psychiatric Psychiatric: Denies anxiety, depression, suicidal ideation or suicidal thoughts Endocrine Endocrinology: Denies polydipsia, polyphagia or polyuria Allergic/Immunologic Allergic/Immunologic ED: Denies mouth swelling, tongue swelling or urticaria EXAM Physical Exam Const Vital Signs: 11/01/24 07:34 11/01/24 08:22 Temperature 98.1 F Temperature Source Temporal Pulse Rate 100 Respiratory Rate 18 Respiratory Effort Normal Respiratory Pattern Normal Blood Pressure 130/90 H Blood Pressure Mean 103 Pulse Ox 100 Oxygen Delivery Method Room Air Positive well nourished and well developed General Appearance ED: well developed and NAD HEENT Reports normocephalic, head/scalp atraumatic and moist mucous membranes Eyes PERRL and EOMs intact bilaterally Neck no lymphadenopathy, supple and no JVD Resp normal respiratory effort and clear to auscultation bilaterally Cardio regular rate, regular rhythm and no murmurs GI normal to inspection, nondistended, normoactive bowel sounds and non-tender Palpation: soft Back/Spine no CVA tenderness and normal ROM Extremity Extremity Narrative: Right axilla demonstrates chronic changes associated with hidradenitis suprviva with multiple areas of incision and drainage that have healed. There are some areas in the anterior axilla that show friable tissue. I do not appreciate any significant purulence. There is however drainage on his T-shirt. I do not appreciate any erythema. General Extremety ED: Negative for edema General Extremity: Negative for edema Neuro oriented x3 and CN's II-XII intact bilaterally Sensorium / Orientation: alert Motor Exam: strength 5/5 throughout Psych mental status grossly normal Mood & Affect: Negative for depressed or tearful Skin no rashes or lesions noted Skin Narrative: Left hemiscrotum demonstrates a previous incision and drainage. This causes a fissure with some thickened skin. There is no erythema or foul smell or purulence. At the anterior most area of the incision is some beefy red tissue. I do not appreciate any active bleeding however there is dried blood on his underwear. There is a lot of toilet paper debris noted on the scrotum but was cleared. MDM MDM MDM Narrative Medical decision making narrative: Differential diagnosis includes hidradenitis suppurativa, cellulitis, abscess, fistula, exposed blood vessel, Krystal's gangrene Patient has chronic hidradenitis suppurativa. I do not see any active bleeding. I do not appreciate foul smell or obvious cellulitis/abscess. I reviewed his prior cultures which have grown a wide variety of bacteria. I placed some Surgicel along the fissure from the prior incision and drainage. We then placed an ABD over this as well as an ABD in his axilla. I recommend he continue to use some ABDs. He should probably follow-up with plastic surgery as soon as he can and also may benefit from infectious disease evaluation. History & Record Review Discussion w/independent historian: Patient Additional record(s) reviewed:: Prior inpatient record, Prior ED visit and Prior labs Discharge Plan Triage Chief Complaint: Other, Pain/Inj ED Provider: Cliff Hallman Dx/Rx/DC Orders Prescriptions: No Action quetiapine 25 mg tablet 25 mg PO trazodone 150 mg tablet 150 mg PO QHS sertraline 50 mg tablet 50 mg PO DAILY Primary Care Provider: Saleem Isaacs Referrals: Saleem Isaacs MD [Primary Care Provider] - Print Language: Iranian
[2024-11-01 09:02] VITALS: BP 136/80; PULSE 76; RESP 16; TEMP 37.1; O2SAT 98
== END 2024-11-01 09:03 ==
PROVIDERS: Emergency Provider Emergency Medicine; PCP Family Medicine; Visit Provider Emergency Medicine
DX: L73.2 Hidradenitis suppurativa (principal); F17.210 Nicotine dependence, cigarettes, uncomplicated; Z59.00 Homelessness unspecified; Z86.16 Personal history of COVID-19; Z86.711 Personal history of pulmonary embolism
CPT/HCPCS: 99283

== ENCOUNTER 2025-01-17 19:21 | Emergency (ER) | payer MEDICAID, SELFPAY ==
[2025-01-17 19:21] VITALS: BP 134/100; PULSE 69; RESP 18; TEMP 36.8; O2SAT 98; BMI 26.6
[2025-01-17 19:37] VITALS: BP 119/77; PULSE 106; RESP 18; TEMP 36.8; O2SAT 98
--- NOTE | 2025-01-17 19:45 | US_ITS ---
PROCEDURE: TESTICULAR WITH ARTERIAL FLOW 01/17/2025 REASON FOR EXAM: POSTOP PAIN LEFT UPPER SCROTUM, ?COLLECTION TECHNIQUE: TESTICULAR WITH ARTERIAL FLOW COMPARISON: 05/06/2023. FINDINGS: RIGHT testicle: 4.4 x 3.2 x 2.1 cm. Homogeneous echotexture and normal vascularity. Right epididymis: Normal size and echogenicity. 9 mm epididymal head cyst. LEFT testicle: 4.4 x 3.2 x 1.8 cm. Homogeneous echotexture normal vascularity. Small hypoechoic region with posterior through transmission which measures 1.4 x 0.5 by 1.3 cm with mild associated vascularity suspicious for a small abscess. Left epididymis: Normal size and echogenicity. 9 mm epididymal head cysts. Other findings: No hydrocele or large varicocele. US/Testicular with Arterial Flow IMPRESSION: Small focus adjacent to left testicle suspicious for an abscess. A neoplastic process is possible. Reading Location: [id number]
--- NOTE | 2025-01-17 19:47 | EX.ED.GUMALE ---
HPI History of Present Illness Chief Complaint: Male Pain/Injury Informant: patient Narrative Narrative: 39-year-old male with a history of hidradenitis suppurativa states 2 weeks ago at [facility] he had incision and drainage by urology and admission of cyst/abscess on his left upper scrotum, it was packed he was supposed to do packing changes but the packing fell out, and he did not have any more supplies to place any packing for now we cannot place 1, and he states that he only has boxers and he needs some mesh underwear to hold up gauze so he has not been putting any gauze against the area either. Denies any fevers, chills, systemic symptoms of any type. States that surgery was about 2 weeks ago, he was discharged on amoxicillin and doxycycline that he finished about 5 days ago, he states he went to urgent care, he states when he was admitted he was septic and urgent care said that he should come to the nearest ER as he may be septic. Patient states majority of times his scrotum does not hurt, but sometimes he gets a bad sharp pain. Has been having some occasional discharge on his boxers. [facility] Medical History Tobacco abuse Axillary hidradenitis suppurativa Abscess of face Cellulitis of scrotum Gout Low iron Asthma Chronic cough Leg cramps Substance abuse Depression Anxiety Smoker Tobacco use Cannabis use disorder Polysubstance abuse Opioid dependence Methamphetamine abuse Hidradenitis suppurativa Alcohol abuse COVID-19 Paronychia Hyperlipidemia Pulmonary emboli Home Medications ?Medication ?Instructions ?Recorded ?Last Taken ?Type quetiapine 25 mg tablet 25 mg PO 09/13/24 Unknown History sertraline 50 mg tablet 50 mg PO DAILY 09/13/24 Unknown History trazodone 150 mg tablet 150 mg PO QHS 09/13/24 Unknown History cephalexin 500 mg capsule 500 mg PO Q6 #40 CAPSULES 11/01/24 Unknown Rx sulfamethoxazole 800 1 tab PO BID #20 TABLETS 11/01/24 Unknown Rx mg-trimethoprim 160 mg tablet doxycycline monohydrate 100 mg 100 mg PO BID #20 CAPSULES 01/17/25 Unknown Rx capsule ibuprofen 600 mg tablet 600 mg PO Q8H PRN PRN pain #15 01/17/25 Unknown Rx TABLETS Allergy/AdvReac Type Severity Reaction Status Date / Time quick bunch Allergy Food Verified 01/17/25 19:22 Allergy Family History Mother COPD (chronic obstructive pulmonary disease) CVA (cerebral vascular accident) Heart disease Hypertension Father Alcoholism Other Colon cancer Diabetes Surgical History H/O wrist surgery Social History housing: homeless number of children: 3 current occupational status: unemployed Smoking Status: Current every day smoker tobacco type: cigarettes Tobacco: How many years used: 20 how long ago did patient quit smokin ppd since 19 years old. alcohol intake: former year quit: 2020 details: Reports sober since 03/2021, has had ~4 small relapses. substance use type: marijuana, amphetamines and other details: Currently using methadone. ROS ROS ED Constitutional Constitutional ED: Denies chills or fever(s) Eyes Eyes: Denies change in vision or diplopia ENT ENT ED: Denies rhinorrhea or sore throat Cardiovascular Cardiovascular: Denies chest pain or palpitations Respiratory/Chest Respiratory/Chest: Denies cough or dyspnea Gastrointestinal Gastrointestinal: Denies abdominal pain, diarrhea, nausea or vomiting Genitourinary Genitourinary ED: Denies dysuria or hematuria Musculoskeletal Musculoskeletal: Denies back pain or neck pain Integumentary Reports abscess and rash Neurologic Neurologic: Denies headache(s), paresthesias or weakness Psychiatric Psychiatric: Denies anxiety or suicidal thoughts EXAM Physical Exam Const Vital Signs: 01/17/25 19:21 01/17/25 19:37 01/17/25 20:24 Temperature 98.3 F 98.3 F 98.3 F Temperature Source Oral Oral Oral Pulse Rate 69 106 H 85 Respiratory Rate 18 18 18 Blood Pressure 134/100 H 119/77 121/77 H Blood Pressure Mean 111 91 91 Pulse Ox 98 98 95 Oxygen Delivery Method Room Air Room Air Room Air 01/17/25 21:00 01/17/25 21:46 Temperature 98 F 98 F Temperature Source Oral Pulse Rate 84 85 Respiratory Rate 18 18 Blood Pressure 114/76 121/78 H Blood Pressure Mean 88 92 Pulse Ox 96 95 Oxygen Delivery Method Room Air Positive well nourished and well developed General Appearance ED: well developed and NAD HEENT Reports moist mucous membranes normocephalic and atraumatic Eyes PERRL and EOMs intact bilaterally Neck full ROM and supple Chest Wall Chest Narrative: Right axilla without erythema, there is multiple scarred areas and a little bit of swelling but is not especially tender. No discharge. Resp normal respiratory effort and clear to auscultation bilaterally Cardio regular rate, regular rhythm and no murmurs Narrative: Scrotum: There is some scar tissue distally in the left hemiscrotum which is nontender he states that is from her prior surgery. Cranial to this in his pure aspect of the left hemiscrotum, there is a surgical incision that is approximately 3 cm long, it is open but just into the dermis, there is no expressible discharge, the whole area is tender and indurated difficult to tell if it is fluctuant or not or if there is collection. Back/Spine no CVA tenderness General Back: other FROM Extremity normal to inspection General Extremety ED: Negative for edema, pulses abnormal or tenderness General Extremity: Negative for edema or pulses abnormal Neuro oriented x3, CN's II-XII intact bilaterally and no sensory deficits noted Sensorium / Orientation: awake and alert Motor Exam: strength 5/5 throughout Psych mental status grossly normal Skin no rashes or lesions noted and no wounds MDM MDM MDM Narrative Medical decision making narrative: Patient has normal vital signs, is well-appearing, and I do not think he needs labs he does not appear to be septic at all. I recommended ultrasound to evaluate for a collection, as that would change the treatment but otherwise and happy to put him on an antibiotic until he can follow-up with urology in [place]. That was done. I reviewed the images as well as the result which I agree with, there is a 1.5 cm approximately collection in this area consistent with an abscess. The rest of the scrotum and testicles are unremarkable. Radiology concern may be a neoplastic process, however since the patient just had surgery in context I am more concerned about infection/collection/abscess. I discussed that with the patient, I advised not cutting it open but rather performing the needle aspiration. Patient declines any procedure, he states he would prefer to have an antibiotic and follow-up with his urologist as an outpatient. He understands that if there is a collection of pus there, may not get better without opening it, he understands comfortable with this plan. Radiography Diagnostic Testing: Clinical Impression(s) from Imaging Studies Testicular Ultrasound 01/17/25 19:45 IMPRESSION: Small focus adjacent to left testicle suspicious for an abscess. A neoplastic process is possible. Reading Location: [facility] Discharge Plan Triage Chief Complaint: Male Pain/Injury ED Provider: Shree Nixon Dx/Rx/DC Orders Clinical Impression: Scrotal abscess Instructions: ED Abscess Antibiotic Treatment Only Prescriptions: New doxycycline monohydrate 100 mg capsule 100 mg PO BID Qty: 20 0RF ibuprofen 600 mg tablet 600 mg PO Q8H PRN PRN (Reason: pain) Qty: 15 0RF No Action quetiapine 25 mg tablet 25 mg PO trazodone 150 mg tablet 150 mg PO QHS sertraline 50 mg tablet 50 mg PO DAILY sulfamethoxazole-trimethoprim 800-160 mg tablet 1 tab PO BID Qty: 20 0RF cephalexin 500 mg capsule 500 mg PO Q6 Qty: 40 0RF Primary Care Provider: Nelson Marquez [facility] Referrals: Your urologist [Other] - As soon as possible Print Language: Qatari Disposition Disposition: Home, Self Care
[2025-01-17 20:24] VITALS: BP 121/77; PULSE 85; RESP 18; TEMP 36.8; O2SAT 95
[2025-01-17 21:00] VITALS: BP 114/76; PULSE 84; RESP 18; TEMP 36.6; O2SAT 96
[2025-01-17 21:46] VITALS: BP 121/78; PULSE 85; RESP 18; TEMP 36.6; O2SAT 95
== END 2025-01-17 21:58 | disposition home or self-care (01) ==
PROVIDERS: Emergency Provider Emergency Medicine; PCP Nurse Practitioner Family; Visit Provider Emergency Medicine
DX: L02.214 Cutaneous abscess of groin (principal); Z59.00 Homelessness unspecified; F17.210 Nicotine dependence, cigarettes, uncomplicated; E78.5 Hyperlipidemia, unspecified; J45.909 Unspecified asthma, uncomplicated; Z98.890 Other specified postprocedural states
CPT/HCPCS: 76870; 93976; 99283

== ENCOUNTER 2025-01-22 11:51 | Emergency (ER) | payer MEDICAID, SELFPAY ==
[2025-01-22 11:52] VITALS: BP 130/90; PULSE 118; RESP 20; TEMP 36.4; O2SAT 100; BMI 26.1
--- NOTE | 2025-01-22 12:55 | EX.ED.DYSGE1 ---
HPI History of Present Illness Chief Complaint: Abd Pain [facility] Medical History Tobacco abuse Axillary hidradenitis suppurativa Abscess of face Cellulitis of scrotum Gout Low iron Asthma Chronic cough Leg cramps Substance abuse Depression Anxiety Smoker Tobacco use Cannabis use disorder Polysubstance abuse Opioid dependence Methamphetamine abuse Hidradenitis suppurativa Alcohol abuse COVID-19 Paronychia Hyperlipidemia Pulmonary emboli Home Medications ?Medication ?Instructions ?Recorded ?Last Taken ?Type sertraline 50 mg tablet 50 mg PO DAILY 09/13/24 Unknown History trazodone 150 mg tablet 150 mg PO QHS 09/13/24 Unknown History doxycycline monohydrate 100 mg 100 mg PO BID #20 CAPSULES 01/17/25 Unknown Rx capsule ibuprofen 600 mg tablet 600 mg PO Q8H PRN PRN pain #15 01/17/25 Unknown Rx TABLETS hydroxyzine pamoate 25 mg capsule 25 mg PO BID 01/22/25 Unknown History olanzapine 5 mg tablet PO 01/22/25 Unknown History ondansetron 4 mg disintegrating 4 mg PO Q8H PRN PRN Nausea #10 tabs 01/22/25 Unknown Rx tablet quetiapine 300 mg tablet 300 mg PO QHS 01/22/25 Unknown History Allergy/AdvReac Type Severity Reaction Status Date / Time quick bunch Allergy Food Verified 01/22/25 11:53 Allergy Family History Mother COPD (chronic obstructive pulmonary disease) CVA (cerebral vascular accident) Heart disease Hypertension Father Alcoholism Other Colon cancer Diabetes Surgical History H/O wrist surgery Social History housing: homeless number of children: 3 current occupational status: unemployed Smoking Status: Current every day smoker tobacco type: cigarettes Tobacco: How many years used: 20 how long ago did patient quit smokin ppd since 19 years old. alcohol intake: former year quit: 2020 details: Reports sober since 03/2021, has had ~4 small relapses. substance use type: marijuana, amphetamines and other details: Currently using methadone. EXAM Physical Exam Const Vital Signs: 01/22/25 11:52 01/22/25 14:35 Temperature 97.6 F L Temperature Source Temporal Pulse Rate 118 H 102 H Respiratory Rate 20 H 16 Blood Pressure 130/90 H 127/89 H Blood Pressure Mean 103 101 Pulse Ox 100 100 Oxygen Delivery Method Room Air Room Air [facility] [place]arr[place] Medical decision making narrative: HISTORY OF PRESENT ILLNESS: Chief complaint: Abdominal pain 39-year-old male history of alcohol abuse, nephrolithiasis, PE, alcohol withdrawal, oral abscess presents abdominal pain. He states this began last night. No sick contacts. Not drink alcohol recently. Still has his gallbladder and appendix. Denies blood in his vomit. Thinks he may have bit blood in his stool. Denies new testicular pain. Denies trouble urinating. REVIEW OF SYSTEMS: Pertinent positives: Abdominal pain, nausea vomiting Pertinent negatives: As per HPI PHYSICAL EXAM: Nursing triage notes reviewed, Vital signs reviewed Constitutional: please see [facility] HENT: MMM Eyes: Pupils equal round and reactive to light, Extraocular muscles intact Neck: No stridor, no JVD, full neck ROM Lungs: Clear to auscultation, No wheezing or rales. No increased work of breathing, no conversational dyspnea, no accessory muscle use, no nasal flaring. No respiratory distress noted Heart: Regular rate and rhythm, No murmurs, No rubs and No gallops, 2+ distal pulses (radial, femoral, posterior tibial) in all extremities Abdomen: Soft, there is no tenderness, rigidity, rebound or guarding, no obvious peritoneal signs, no palpable pulsatile abdominal masses, no auscultated abdominal bruit : No CVAT Extremities: No edema Neuro: No new focal neurological deficits, cranial nerves II through XII intact, 5/5 strength in all present extremities. Intact sensation to light touch in all present extremities, 2+ reflexes bilateral patella tendons. Skin: No rash or lesions noted MEDICAL DECISION MAKING: Chief Complaint: please see HPI External records reviewed: Reviewed prior imaging studies: Reviewed CT scan abdomen/pelvis which showed nephrolithiasis Factors affecting care: as per HPI Social determinants of health: Mental health disorder History obtained from others: none Consults: none [facility] Narrative: The patient was initially tachycardic with a heart rate of 118 otherwise afebrile and nontoxic-appearing saturating high percent room air. Exam without obvious peritoneal signs. I considered the following differential diagnosis: AAA, small bowel obstruction, abdominal perforation, appendicitis, pancreatitis, hepatobiliary pathology (acute cholecystitis), mesenteric ischemia, pathology (ie nephrolithiasis, pyelonephritis). Viral gastroenteritis The patient's history and physical exam not consistent with acute surgical pathology of the abdomen. Patient abdominal seems benign. Will continue to assess I obtained labs to further determine if the patient was suffering from a life-threatening etiology. Initially gave IV fluids, Zofran and Toradol for symptomatic relief. ALL IMAGES (IF OBTAINED) HAVE BEEN PERSONALLY REVIEWED AND INTERPRETED BY MYSELF. CBC with leukocytosis (to suggest systemic information however this is downtrending from prior studies) likely does not represent infection in his clinical context. No anemia or thrombocytopenia noted. CMP without significant electrolyte disturbances, no acute kidney injury, no sign of metabolic acidosis or end-organ hypoperfusion with normal bicarb and anion gap. Repeat abdominal exam remained benign. Patient heart rate improved to 102 after fluid resuscitation. Patient was symptomatically better after initial fluids and nausea control and pain control. Work note provided. Strict return precautions were discussed. Follow-up arranged. The patient and/or family, caregivers express understanding. The patient and/or family, caregivers agrees with the plan. Shared decision making: I will have a discussion with the patient and or visitors regarding risk/benefits of further testing or admission. They will be made aware of of the risk/benefits inherent in this decision they will be given the opportunity to voice understanding. Total critical care time today provided was at least 0 minutes. This excludes separately billable procedures. Critical care time (if documented) is secondary to the patient having high probability of clinically significant/life threatening deterioration in the patient's condition which required my urgent intervention. Impression: 1. Acute abdominal 2. Nausea, vomiting, diarrhea Dispo: Discharge home This note was generated with [employer] dictation software. It may contain incorrect words, spelling, and punctuation that were not noted in review of the chart prior to signing. Lab Data Labs: Laboratory Results - last 24 hr 01/22/25 13:35 WBC 13.8 H RBC 4.60 Hgb 13.4 Hct 40.1 MCV 87.2 MCH 29.1 MCHC 33.4 RDW Std Deviation 48.9 H RDW Coeff of Christie 15.3 H Plt Count 382 MPV 9.0 Immature Gran % (Auto) 0.500 Neut % (Auto) 71.8 H Lymph % (Auto) 17.5 L [place] % (Auto) 8.8 Eos % (Auto) 0.5 Baso % (Auto) 0.9 Absolute Neuts (auto) 9.9 H Absolute Lymphs (auto) 2.41 Nucleated RBC % 0 Sodium 136 Potassium 4.4 Chloride 98 Carbon Dioxide 23.1 Anion Gap 15 BUN 19 Creatinine 0.90 Estim Creat Clear Calc 106.61 Est GFR (MDRD) Non-Af 111 BUN/Creatinine Ratio 20.6 H Glucose 92 Calcium 9.7 Total Bilirubin 0.40 AST 44 H ALT 51 H Alkaline Phosphatase 122 Total Protein 8.5 H Albumin 4.7 Globulin 3.9 Albumin/Globulin Ratio 1.2 Lipase 23 Discharge Plan Triage Chief Complaint: Abd Pain ED Provider: Bradley Blancas Dx/Rx/DC Orders Instructions: ED Abdominal Pain Unkn Cause Male... Prescriptions: New ondansetron 4 mg tablet,disintegrating 4 mg PO Q8H PRN PRN (Reason: Nausea) Qty: 10 0RF No Action trazodone 150 mg tablet 150 mg PO QHS sertraline 50 mg tablet 50 mg PO DAILY quetiapine 300 mg tablet 300 mg PO QHS olanzapine 5 mg tablet PO hydroxyzine pamoate 25 mg capsule 25 mg PO BID doxycycline monohydrate 100 mg capsule 100 mg PO BID Qty: 20 0RF ibuprofen 600 mg tablet 600 mg PO Q8H PRN PRN (Reason: pain) Qty: 15 0RF Primary Care Provider: Saleem Isaacs Referrals: Nelson Marquez [facility] [[facility]] - Activity Restrictions/Additional Instructions: Thank you for trusting us with your care today! Your labs are reassuring. You are likely suffering from viral inflammatory gastroenteritis. Is treated with nausea control and fluid hydration. Please take Zofran as needed for nausea and vomiting. Please take Tylenol (2 pills, 650 mg), ibuprofen (2 pills, 400 mg) every 6 hours as needed for pain and fever control. Please return to the emergency department if your symptoms change or worsen. Please follow with your primary care physician for further outpatient evaluation and management. Print Language: Macedonian Disposition Disposition: Home, Self Care
[2025-01-22] MEDS: 0.9% Normal Saline (1000mL) 1,000 ML 999 ML IV (13:27)
[2025-01-22 13:48] LABS: Hematocrit 40.1 % (40-54); Hemoglobin 13.4 g/dL (13.0-16.5); Immature Granulocytes Count 0.070 X10^3/uL (0.0-0.0); Mean Corp Hgb Conc 33.4 g/dL (32-36); Mean Corpuscular Volume 87.2 fL (80-94); Mean Platelet Vol. 9.0 fl (6.2-12.0); NRBC Flagged by Analyzer 0 % (0-5); Platelet Count 382 K/mm3 (150-450); RBC Distribution Width CV 15.3 % (11.6-14.6); RBC Distribution Width SD 48.9 fl (35.1-43.9); Red Blood Count 4.60 M/mm3 (4.6-6.2); White Blood Count 13.8 K/mm3 (4.4-11.0)
[2025-01-22 14:35] VITALS: BP 127/89; PULSE 102; RESP 16; O2SAT 100
[2025-01-22 14:46] LABS: AST(SGOT) 44 U/L (<=37); Alanine Aminotransfer ALT/SGPT 51 U/L (<=46); Albumin, Serum 4.7 g/dL (3.5-5.0); Alkaline Phosphatase 122 U/L (40-129); Anion Gap 15 (5-15); BUN 19 mg/dL (4-19); BUN/Creat Ratio 20.6 RATIO (10-20); Calcium,Total 9.7 mg/dL (7.6-11.0); Carbon Dioxide 23.1 mmol/L (21.0-32.0); Chloride 98 mmol/L (98-108); Estimated Creatinine Clearance 106.61 ml/min (50-250); Globulin 3.9 g/dL (2.2-4.2); Glucose 92 mg/dL (70-99); Lipase 23 U/L (13-75); Potassium 4.4 mmol/L (3.3-5.1)
== END 2025-01-22 15:10 | disposition home or self-care (01) ==
PROVIDERS: Emergency Provider Emergency Medicine; PCP Family Medicine; Visit Provider Emergency Medicine
DX: R10.9 Unspecified abdominal pain (principal); R11.2 Nausea with vomiting, unspecified; F17.210 Nicotine dependence, cigarettes, uncomplicated; Z59.00 Homelessness unspecified; Z86.711 Personal history of pulmonary embolism; R19.7 Diarrhea, unspecified; E78.5 Hyperlipidemia, unspecified; J45.909 Unspecified asthma, uncomplicated; Z79.899 Other long term (current) drug therapy
CPT/HCPCS: 80053; 83690; 85025; 96361; 96374; 96375; 99283; J2405